=== PATIENT | male | born 1960 | race Caucasian/White ===

== ENCOUNTER 2016-10-27 08:19 | Inpatient (IN) | payer OTHER ==
[2016-10-27] MEDS ORDERED: Sodium Chloride 0.9% 10 ML Syringe FLUSH PRN (08:28)
[2016-10-27] MEDS ORDERED: Lactated Ringers 1,000 ML IV SCH (08:30)
[2016-10-27] MEDS ORDERED: Ondansetron 4 MG/2 ML SDV IVPUSH ONE (08:30)
[2016-10-27] MEDS ORDERED: HYDROmorphone 1 MG/ML Syringe IVPUSH ONE ×2 (08:30→09:50)
--- NOTE | 2016-10-27 08:49 | EDM.PDOC ---
ED HPI GI/ABDOMINAL - General Chief Complaint: Chest Pain Stated Complaint: HURTS WHEN URINATES AND CHEST PAIN Time Seen by Provider: 10/27/16 08:24 Source: Reports: Patient, Family, Old records, RN notes reviewed History Limitations: Reports: No limitations - History of Present Illness INITIAL COMMENTS - FREE TEXT/NARRATIVE: 55-year-old gentleman presents emergency department for a complaint of epigastric abdominal pain he was recently discharged from the hospital on October 22 approximately 11 day admission for SIRS, alcoholic pancreatitis and alcoholic withdrawal. His course was complicated in the hospital by prolonged stay and admission with readmission to the ICU. He states after discharge he was doing well over the last 24 hours he has progressively gotten worse with increasing abdominal pain increasing thirst, shortness of breath diaphoresis and nausea - Related Data Allergies/ADRs: Allergies Allergy/AdvReac Type Severity Reaction Status Date / Time glycopyrrolate [From Robkhanhul] Allergy Seizure Verified 10/27/16 08:24 Iodinated Contrast Media - Allergy Renal Verified 10/27/16 09:28 Oral and Failure sulfamethoxazole Allergy Facial Verified 03/17/14 19:56 [From Septra] Spasms trimethoprim [From Septra] Allergy Facial Verified 03/17/14 19:56 Spasms Home Meds: Home Meds Cetirizine [ZyrTEC] 10 mg PO BEDTIME 03/17/14 [History] Cyclobenzaprine [Flexeril] 20 mg PO ASDIRECTED 03/17/14 [History] Omeprazole 20 mg PO BID 03/17/14 [History] Simvastatin [Zocor] 20 mg PO BEDTIME 03/17/14 [History] Thiamine [Vitamin B-1] 100 mg PO DAILY 03/17/14 [History] Albuterol Sulfate [Proair Respiclick] 2 puff IN Q6HR PRN 10/27/16 [History] Budesonide/Formoterol [Symbicort 160-4.5 MCG] 2 puff IN BID 10/27/16 [History] Lidocaine 5% [Lidoderm 5%] 1 patch TOP DAILY 10/27/16 [History] Losartan [Cozaar] 50 mg PO DAILY 10/27/16 [History] Metoprolol Tartrate [Lopressor] 50 mg PO BID 10/27/16 [History] amLODIPine [Norvasc] 5 mg PO DAILY 10/27/16 [History] rOPINIRole [Requip] 1 mg PO BEDTIME 10/27/16 [History] traMADol [Ultram] 100 mg PO BID 10/27/16 [History] traZODone 50 mg PO BEDTIME 10/27/16 [History] Past Medical History Cardiovascular History: Reports: High cholesterol, Hypertension, Other (see below) Other Cardiovascular History: HAS HAD SINUS TACH IN THE PAST Respiratory History: Reports: COPD, Sleep apnea Gastrointestinal History: Reports: GERD, Hiatal hernia, Pancreatitis Genitourinary History: Reports: Acute renal failure, Other (see below) Other Genitourinary History: PREVIOUS INDWELLING MCALLISTER Musculoskeletal History: Reports: Back pain, chronic, Neck pain, chronic, Osteoarthritis Neurological History: Reports: Concussion - Infectious Disease History Infectious Disease History: Reports: Chicken pox - Past Surgical History GI Surgical History: Reports: Appendectomy, Colonoscopy Social & Family History - Tobacco Use Smoking Status *Q: Former Smoker Years of Tobacco use: 30 - Alcohol Use Alcohol Use History: Yes Number of Drinks Per Day: 10 (beer) Alcohol Use Frequency: Daily - Recreational Drug Use Recreational Drug Use: Yes Recreational Drug Type: Reports: Marijuana/Hashish ED ROS GENERAL - Review of Systems Review Of Systems: See Below Constitutional: Reports: no symptoms HEENT: Reports: No symptoms Respiratory: Reports: Shortness of Breath Cardiovascular: Reports: Chest pain GI/Abdominal: Reports: Nausea : Reports: no symptoms Musculoskeletal: Reports: no symptoms Skin: Reports: no symptoms Neurological: Reports: No Symptoms Psychiatric: Reports: No symptoms ED EXAM, GI/ABD - Physical Exam Exam: See Below Text/Narrative:: General: Male, ill appearing, alert and oriented x3 HEENT: head is atraumatic normocephalic, eyes pupils equal round reactive to light, sclera clear no conjunctivitis appreciated. Ears tympanic membranes clear and mckeon landmarks and light reflex are present bilaterally canals are clear. Nose no septal deviation, nares are clear, no blood present. Mouth mucosa is dry and pink no erythema or exudate noted in soft palate, tongue is midline uvula is midline, dentition is intact. Neck: Supple no thyromegaly no tracheal deviation. Nodes: Cervical nodes subclavicular nodes nontender no palpable lymphadenopathy noted. Lungs: clear to auscultation bilaterally with symmetrical respirations, no adventitious noise appreciated. CV: Regular rate and rhythm S1 and S2 appreciated no murmurs rubs or gallops noted. Abdomen: Soft, tender epigastric region, no palpable masses or organomegaly appreciated, no distention no guarding bowel sounds are present, . Neuro: Cranial nerves II through XII grossly intact Skin: Warm and dry, intact Extremities: No lower extremity edema appreciated. Course - Vital Signs Last Recorded V/S: Last Vital Signs Temp 99.7 F 10/27/16 08:21 Pulse 100 10/27/16 08:21 Resp 22 H 10/27/16 08:21 BP 140/85 10/27/16 08:21 Pulse Ox 92 L 10/27/16 08:21 - Orders/Labs/Meds Orders: Active Orders 24 hr Category Date Time Status Cardiac Monitoring [RC] .As Directed Care 10/27/16 08:28 Active EKG Documentation Completion [RC] ASDIRECTED Care 10/27/16 08:29 Active Peripheral IV Care [RC] . DIRECTED Care 10/27/16 08:28 Active CULTURE BLOOD [BC] Urgent Lab 10/27/16 09:20 Received CULTURE BLOOD [BC] Urgent Lab 10/27/16 09:25 Received Lactated Ringers [Ringers, Lactated] 1,000 ml Med 10/27/16 08:30 Active IV ASDIRECTED Potassium Chloride 20 meq Med 10/27/16 10:00 Active Lidocaine 1% [Xylocaine 1%] 2 ml Sodium Chloride 0.9% [Normal Saline] 100 ml IV Q2H Sodium Chloride 0.9% [Saline Flush] Med 10/27/16 08:28 Active 10 ml FLUSH ASDIRECTED PRN Blood Culture x2 Reflex Set [OM.PC] Urgent Oth 10/27/16 09:15 Ordered Peripheral IV Insertion Adult [OM.PC] Stat Oth 10/27/16 08:28 Ordered EKG 12 Lead [EK] Stat Ther 10/27/16 08:29 Ordered Medication Orders Lactated Ringer's (Ringers, Lactated) 1,000 mls @ 500 mls/hr IV ASDIRECTED DANTE Last Admin: 10/27/16 08:37 Dose: 500 mls/hr Potassium Chloride 20 meq/Lidocaine HCl 2 ml/ Sodium Chloride 112 mls @ 56 mls/ hr IV Q2H DANTE Stop: 10/27/16 13:59 Last Admin: 10/27/16 10:18 Dose: 56 mls/hr Sodium Chloride (Saline Flush) 10 ml FLUSH ASDIRECTED PRN PRN Reason: Keep Vein Open Last Admin: 10/27/16 08:49 Dose: 10 ml Labs: Laboratory Tests 10/27/16 10/27/16 10/27/16 Range/Units 08:35 08:35 08:35 WBC 18.3 H (4.5-11.0) K/uL RBC 3.67 L (4.30-5.90) M/uL Hgb 11.0 L (12.0-15.0) g/dL Hct 35.3 L (40.0-54.0) % MCV 96 (80-98) fL MCH 30 (27-31) pg MCHC 31 L (32-36) % Plt Count 179 (150-400) K/uL Neut % (Auto) 85 H (36-66) % Lymph % (Auto) 6 L (24-44) % [place] % (Auto) 8 H (2-6) % Eos % (Auto) 1 L (2-4) % Baso % (Auto) 0 (0-1) % PT (9.5-12.0) sec INR (0.80-1.20) Sodium 148 (140-148) mmol/L Potassium 2.9 L* (3.6-5.2) mmol/L Chloride 108 (100-108) mmol/L Carbon Dioxide 27 (21-32) mmol/L Anion Gap 15.9 H (5.0-14.0) mmol/L BUN 14 (7-18) mg/dL Creatinine 1.5 H (0.8-1.3) mg/dL Est Cr Clr Drug Dosing 58.81 mL/min Estimated GFR (MDRD) 49 L (>60) Glucose 183 H (74-106) mg/dL Lactic Acid 2.0 (0.4-2.0) mmol/L Calcium 8.2 L (8.5-10.1) mg/dL Total Bilirubin 0.6 (0.2-1.0) mg/dL AST 62 H (15-37) U/L ALT 50 (12-78) U/L Alkaline Phosphatase 162 H (46-116) U/L Ammonia (11-32) mmol/L CK-MB (CK-2) 0.1 (0-3.6) mg/mL Troponin I < 0.017 (0.000-0.056) ng/mL Dol-B-Jzvruewjtfl Pept 84 (5-125) pg/mL Total Protein 7.9 (6.4-8.2) g/dL Albumin 2.2 L (3.4-5.0) g/dL Globulin 5.7 H (2.3-3.5) g/dL Albumin/Globulin Ratio 0.4 L (1.2-2.2) Lipase 3643 H (73-393) U/L Urine Color Urine Appearance Urine pH (4.5-8.0) Ur Specific [place] (1.008-1.030) Urine Protein (NEGATIVE) mg/dL Urine Glucose (UA) (NEGATIVE) mg/dL Urine Ketones (NEGATIVE) mg/dL Urine Occult Blood (NEGATIVE) Urine Nitrite (NEGAITVE) Urine Bilirubin (NEGATIVE) Urine Urobilinogen (NORMAL) mg/dL Ur Leukocyte Esterase (NEGATIVE) Urine RBC (0-5) Urine WBC (0-5) Ur Epithelial Cells Amorphous Sediment Urine Bacteria Urine Mucus Ethyl Alcohol mg/dL 10/27/16 10/27/16 10/27/16 Range/Units 08:35 08:35 08:35 WBC (4.5-11.0) K/uL RBC (4.30-5.90) M/uL Hgb (12.0-15.0) g/dL Hct (40.0-54.0) % MCV (80-98) fL MCH (27-31) pg MCHC (32-36) % Plt Count (150-400) K/uL Neut % (Auto) (36-66) % Lymph % (Auto) (24-44) % Rolette % (Auto) (2-6) % Eos % (Auto) (2-4) % Baso % (Auto) (0-1) % PT 13.4 H (9.5-12.0) sec INR 1.26 H (0.80-1.20) Sodium (140-148) mmol/L Potassium (3.6-5.2) mmol/L Chloride (100-108) mmol/L Carbon Dioxide (21-32) mmol/L Anion Gap (5.0-14.0) mmol/L BUN (7-18) mg/dL Creatinine (0.8-1.3) mg/dL Est Cr Clr Drug Dosing mL/min Estimated GFR (MDRD) (>60) Glucose (74-106) mg/dL Lactic Acid (0.4-2.0) mmol/L Calcium (8.5-10.1) mg/dL Total Bilirubin (0.2-1.0) mg/dL AST (15-37) U/L ALT (12-78) U/L Alkaline Phosphatase (46-116) U/L Ammonia 21 (11-32) mmol/L CK-MB (CK-2) (0-3.6) mg/mL Troponin I (0.000-0.056) ng/mL Cco-[id number]-Ybeahbekuxs Pept (5-125) pg/mL Total Protein (6.4-8.2) g/dL Albumin (3.4-5.0) g/dL Globulin (2.3-3.5) g/dL Albumin/Globulin Ratio (1.2-2.2) Lipase (73-393) U/L Urine Color Urine Appearance Urine pH (4.5-8.0) Ur Specific [place] (1.008-1.030) Urine Protein (NEGATIVE) mg/dL Urine Glucose (UA) (NEGATIVE) mg/dL Urine Ketones (NEGATIVE) mg/dL Urine Occult Blood (NEGATIVE) Urine Nitrite (NEGAITVE) Urine Bilirubin (NEGATIVE) Urine Urobilinogen (NORMAL) mg/dL Ur Leukocyte Esterase (NEGATIVE) Urine RBC (0-5) Urine WBC (0-5) Ur Epithelial Cells Amorphous Sediment Urine Bacteria Urine Mucus Ethyl Alcohol < 3 mg/dL 10/27/16 Range/Units 08:44 WBC (4.5-11.0) K/uL RBC (4.30-5.90) M/uL Hgb (12.0-15.0) g/dL Hct (40.0-54.0) % MCV (80-98) fL MCH (27-31) pg MCHC (32-36) % Plt Count (150-400) K/uL Neut % (Auto) (36-66) % Lymph % (Auto) (24-44) % Ro[place] % (Auto) (2-6) % Eos % (Auto) (2-4) % Baso % (Auto) (0-1) % PT (9.5-12.0) sec INR (0.80-1.20) Sodium (140-148) mmol/L Potassium (3.6-5.2) mmol/L Chloride (100-108) mmol/L Carbon Dioxide (21-32) mmol/L Anion Gap (5.0-14.0) mmol/L BUN (7-18) mg/dL Creatinine (0.8-1.3) mg/dL Est Cr Clr Drug Dosing mL/min Estimated GFR (MDRD) (>60) Glucose (74-106) mg/dL Lactic Acid (0.4-2.0) mmol/L Calcium (8.5-10.1) mg/dL Total Bilirubin (0.2-1.0) mg/dL AST (15-37) U/L ALT (12-78) U/L Alkaline Phosphatase (46-116) U/L Ammonia (11-32) mmol/L CK-MB (CK-2) (0-3.6) mg/mL Troponin I (0.000-0.056) ng/mL Fcy-K-Kayptszkwfd Pept (5-125) pg/mL Total Protein (6.4-8.2) g/dL Albumin (3.4-5.0) g/dL Globulin (2.3-3.5) g/dL Albumin/Globulin Ratio (1.2-2.2) Lipase (73-393) U/L Urine Color Yellow Urine Appearance Slightly cloudy Urine pH 6.0 (4.5-8.0) Ur Specific [place] 1.005 L (1.008-1.030) Urine Protein Negative (NEGATIVE) mg/dL Urine Glucose (UA) Normal (NEGATIVE) mg/dL Urine Ketones Negative (NEGATIVE) mg/dL Urine Occult Blood Negative (NEGATIVE) Urine Nitrite Negative (NEGAITVE) Urine Bilirubin Negative (NEGATIVE) Urine Urobilinogen Normal (NORMAL) mg/dL Ur Leukocyte Esterase Negative (NEGATIVE) Urine RBC Not seen (0-5) Urine WBC 0-5 (0-5) Ur Epithelial Cells Rare Amorphous Sediment Not seen Urine Bacteria Not seen Urine Mucus Rare Ethyl Alcohol mg/dL Meds: Medications Generic Name Dose Route Start Last Admin Trade Name Freq PRN Reason Stop Dose Admin Lactated Ringer's 1,000 mls @ 500 mls/hr 10/27/16 08:30 10/27/16 08:37 Ringers, Lactated IV 500 mls/hr ASDIRECTED DANTE Administration Potassium Chloride 20 meq/ 112 mls @ 56 mls/hr 10/27/16 10:00 10/27/16 10:18 Lidocaine HCl 2 ml/ Sodium IV 10/27/16 13:59 56 mls/hr Chloride Q2H DANTE Administration Sodium Chloride 10 ml 10/27/16 08:28 10/27/16 08:49 Saline Flush FLUSH 10 ml ASDIRECTED PRN Administration Keep Vein Open Discontinued Medications Generic Name Dose Route Start Last Admin Trade Name Freq PRN Reason Stop Dose Admin Hydromorphone HCl 1 mg 10/27/16 08:30 10/27/16 08:48 Dilaudid IVPUSH 10/27/16 08:31 1 mg ONETIME ONE Administration Hydromorphone HCl 1 mg 10/27/16 09:50 10/27/16 10:00 Dilaudid IVPUSH 10/27/16 09:51 1 mg ONETIME ONE Administration Lactated Ringer's 1,000 mls @ 999 mls/hr 10/27/16 10:48 10/27/16 10:49 Ringers, Lactated IV 10/27/16 11:48 999 mls/hr BOLUS ONE Administration Ondansetron HCl 4 mg 10/27/16 08:30 10/27/16 08:48 Zofran IVPUSH 10/27/16 08:31 4 mg ONETIME ONE Administration Departure - Departure Time of Disposition: 12:01 Disposition: Admitted As Inpatient 68 Condition: fair Clinical Impression: Pancreatic pseudocyst Acute pancreatitis Qualifiers: Pancreatitis type: alcohol induced Acute pancreatitis complication: no infection or necrosis Qualified Code(s): K85.20 - Alcohol induced acute pancreatitis without necrosis or infection Forms: ED Department Discharge - My Orders Last 24 Hours: My Active Orders 10/27/16 08:28 Cardiac Monitoring [RC] .As Directed Peripheral IV Care [RC] . DIRECTED Sodium Chloride 0.9% [Saline Flush] 10 ml FLUSH ASDIRECTED PRN Peripheral IV Insertion Adult [OM.PC] Stat 10/27/16 08:29 EKG Documentation Completion [RC] ASDIRECTED EKG 12 Lead [EK] Stat 10/27/16 08:30 Lactated Ringers [Ringers, Lactated] 1,000 ml IV ASDIRECTED 10/27/16 09:15 Blood Culture x2 Reflex Set [OM.PC] Urgent 10/27/16 09:20 CULTURE BLOOD [BC] Urgent 10/27/16 09:25 CULTURE BLOOD [BC] Urgent 10/27/16 10:00 Potassium Chloride 20 meq Lidocaine 1% [Xylocaine 1%] 2 ml Sodium Chloride 0.9 % [Normal Saline] 100 ml IV Q2H - Assessment/Plan Last 24 Hours: My Active Orders 10/27/16 08:28 Cardiac Monitoring [RC] .As Directed Peripheral IV Care [RC] . DIRECTED Sodium Chloride 0.9% [Saline Flush] 10 ml FLUSH ASDIRECTED PRN Peripheral IV Insertion Adult [OM.PC] Stat 10/27/16 08:29 EKG Documentation Completion [RC] ASDIRECTED EKG 12 Lead [EK] Stat 10/27/16 08:30 Lactated Ringers [Ringers, Lactated] 1,000 ml IV ASDIRECTED 10/27/16 09:15 Blood Culture x2 Reflex Set [OM.PC] Urgent 10/27/16 09:20 CULTURE BLOOD [BC] Urgent 10/27/16 09:25 CULTURE BLOOD [BC] Urgent 10/27/16 10:00 Potassium Chloride 20 meq Lidocaine 1% [Xylocaine 1%] 2 ml Sodium Chloride 0.9 % [Normal Saline] 100 ml IV Q2H Plan: Assessment Acuity = acute Site and laterality = peritonitis with pseudocyst complicated patient with history of hypertension, dyslipidemia, chronic obstructive pulmonary disease and alcohol abuse dependence Etiology = secondary alcohol Manifestations = pain Location of injury = home Lab values = WBC elevated to 8.3 consistent leukocytosis hemoglobin low at 1.0 consistent normal chromic anemia INR elevated at 1.26 potassium low at 2.9 consistent with hypokalemia creatinine elevated at 1.5 consistent with acute renal failure stage GIII a troponin is negative albumin low at 2.2 consistent hypoalbuminemia lipase is 3643 consistent with pancreatitis alcohol was negative CT scan shows multiple pseudocysts largest in detail at 4.9 cm Plan called and discussed the case with gastroenterology bonding machine tender [facility] recommended supportive care at this time repeat CT scan in 2 weeks for reevaluation of pseudocysts, discussed case with hospitalist bonding machine tender he agreed to come and evaluate the patient in the ED for admission Patient was in agreement with the plan all questions were answered, This note was dictated using [employer] voice recognition software please call with any questions.
[2016-10-27] MEDS ORDERED: Potassium Chloride 40 MEQ in Premix Bag 1 BAG IV ONE (09:24)
--- NOTE | 2016-10-27 09:41 | CR ---
Chest 1V Frontal HISTORY: Chest pain FINDINGS: Cardiac size and pulmonary vessels are normal. Probable hiatal hernia. Diffuse infiltrate right lower lobe. Linear subsegmental atelectatic change left lung base. Impression: Right lung base infiltrate.
[2016-10-27] MEDS: Potassium Chloride 20 MEQ, Lidocaine 1% 2 ML in Sodium Chloride 0.9% 100 ML IV SCH ×4 (10:18→20:19)
[2016-10-27] MEDS ORDERED: Lactated Ringers 1,000 ML IV ONE (10:48)
--- NOTE | 2016-10-27 11:09 | CT ---
Chest Abdomen Pelvis wo Cont HISTORY: Pancreatitis. Patient was recently discharged from [facility]. Dose: Total DLP 1217. COMPARISON: Prior CT scan 10/22/2016 from [facility] FINDINGS: There is some very minimal ill-defined densities in the posterior aspect of the right uppe r lobe and the superior and inferior aspect of the right lower lobe as well as the left lower lobe. These mixed infiltrates are improved from the outside study only a few days ago. Moderate size hiata l hernia. There is some inflammatory changes around the pancreatic tail compatible with pancreatitis. The fat planes adjacent to the pancreatic body and pancreatic head appear improved from the prior outside st udy. In the interval there is now multiple areas of pseudocyst formation around the pancreas. Just i nferior to the pancreatic body is a pseudocyst measuring 3.9 cm image 131. Additional pseudocyst for mation anterior to the body the pancreas measuring 3.4 cm image 114 and adjacent to the pancreatic t ail 4.3 cm image 114. Additional smaller pseudocyst formation adjacent to the pancreatic tail measur ing less than 3 cm. There is diffuse fatty infiltration the liver. No focal liver lesions seen. The spleen, adrenal glan ds and kidneys are unremarkable no bowel obstruction. The pelvis appears unremarkable. Impression: 1. Patient had prior CT scan from [place] which was reviewed on [employer] by myself. The infiltrates withi n the lungs have markedly improved from the outside study. The inflammatory changes around the pancr eas has also improved from the prior study. In the interval there has been now new pancreatic pseudo cyst formation.
--- NOTE | 2016-10-27 12:28 | PCM.HP ---
H&P History of Present Illness - General Date of Service: 10/27/16 Admit Problem/Dx: Admission Diagnosis/Problem Admission Diagnosis/Problem Pancreatitis Source of Information: Patient, Family, Provider History Limitations: Reports: No limitations - History of Present Illness Initial Comments - Free Text/Narative: Armando presents to the emergency room today with 24 hours of abdominal pain. He was recently admitted to [facility] the [facility] for approximately 2 weeks for management of acute pancreatitis. He was discharged several days prior to admission and felt well for the first few days. Yesterday morning he developed cramping pressure-like pain in the upper abdomen and lower chest. This was initially mild but progressed to the point that it was moderately severe throughout the day. He had tramadol at home but this did not help much. He had some associated nausea but no vomiting or diarrhea. Trying to eat make the pain worse and he has not had much to eat in the last 24 hours. Fluids and seemed to go okay. He has had subjective fevers but no chills but has not measured his temperature. the pain feels similar to his increased and his pain from 2 weeks ago. No complaints of shortness of breath. He does have a very mild dry cough. Workup in the emergency room has revealed evidence for pancreatitis based on laboratory studies. He has for pancreatic pseudocyst measuring between 3 and 4 cm which are new in the last 10 days. The case was discussed with gastroenterology in [place] and they recommended conservative management with n.p.o. status and IV fluids along with pain control and symptom management. abdominal Pain Score (Numeric/FACES): 8 - Related Data Allergies/Adverse Reactions: Allergies Allergy/AdvReac Type Severity Reaction Status Date / Time glycopyrrolate [From Robkhanhul] Allergy Seizure Verified 10/27/16 08:24 Iodinated Contrast Media - Allergy Renal Verified 10/27/16 09:28 Oral and Failure sulfamethoxazole Allergy Facial Verified 03/17/14 19:56 [From ] Spasms trimethoprim [From ] Allergy Facial Verified 03/17/14 19:56 Spasms Home Medications: Home Meds Cetirizine [ZyrTEC] 10 mg PO BEDTIME 03/17/14 [History] Cyclobenzaprine [Flexeril] 20 mg PO ASDIRECTED 03/17/14 [History] Omeprazole 20 mg PO BID 03/17/14 [History] Simvastatin [Zocor] 20 mg PO BEDTIME 03/17/14 [History] Thiamine [Vitamin B-1] 100 mg PO DAILY 03/17/14 [History] Albuterol Sulfate [Proair Respiclick] 2 puff IN Q6HR PRN 10/27/16 [History] Budesonide/Formoterol [Symbicort 160-4.5 MCG] 2 puff IN BID 10/27/16 [History] Lidocaine 5% [Lidoderm 5%] 1 patch TOP DAILY 10/27/16 [History] Losartan [Cozaar] 50 mg PO DAILY 10/27/16 [History] Metoprolol Tartrate [Lopressor] 50 mg PO BID 10/27/16 [History] amLODIPine [Norvasc] 5 mg PO DAILY 10/27/16 [History] rOPINIRole [Requip] 1 mg PO BEDTIME 10/27/16 [History] traMADol [Ultram] 100 mg PO BID 10/27/16 [History] traZODone 50 mg PO BEDTIME 10/27/16 [History] Past Medical History Cardiovascular History: Reports: High cholesterol, Hypertension, Other (see below) Other Cardiovascular History: HAS HAD SINUS TACH IN THE PAST Respiratory History: Reports: COPD, Sleep apnea Gastrointestinal History: Reports: GERD, Hiatal hernia, Pancreatitis Genitourinary History: Reports: Acute renal failure, Other (see below) Other Genitourinary History: PREVIOUS INDWELLING MCALLISTER Musculoskeletal History: Reports: Back pain, chronic, Neck pain, chronic, Osteoarthritis Neurological History: Reports: Concussion - Infectious Disease History Infectious Disease History: Reports: Chicken pox - Past Surgical History GI Surgical History: Reports: Appendectomy, Colonoscopy Social & Family History - Family History GI: Reports: Pancreatitis (father and brother) - Tobacco Use Smoking Status *Q: Former Smoker Years of Tobacco use: 30 - Caffeine Use Caffeine Use: Reports: None - Alcohol Use Number of Drinks Per Day: 10 (beer) - Recreational Drug Use Recreational Drug Use: Yes Recreational Drug Type: Reports: Marijuana/Hashish H&P Review of Systems - Review of Systems: Review Of Systems: See Below Free Text/Narrative: A complete 12 point review of systems was obtained. Pertinent positives and negatives are noted in the history of present illness. All other systems were reviewed and were negative except as noted. Exam - Exam Exam: See Below - Vital Signs Vital Signs: Last Vital Signs Temp 37.6 C 10/27/16 08:21 Pulse 100 10/27/16 08:21 Resp 22 H 10/27/16 08:21 BP 140/85 10/27/16 08:21 Pulse Ox 92 L 10/27/16 08:21 Weight: 99.79 kg - Exam Quality Assessment: supplemental oxygen. No: urinary catheter General: alert, oriented, cooperative, mild distress HEENT: Conjunctiva clear, Normal nasal septum, Posterior pharynx clear. No: Mucosa moist & pink (dry), Scleral icterus Neck: supple, trachea midline. No: lymphadenopathy, thyromegaly Lungs: Clear to auscultation, Normal respiratory effort Cardiovascular: regular rhythm, normal S1, normal S2, tachycardia Abdomen: distention, tenderness (moderate diffuse), hypoactive bowel sounds. No : soft, mass Back Exam: normal inspection Extremities: normal inspection, normal pulses. No: cyanosis, edema Peripheral Pulses: 2+: dorsalis pedis (L), dorsalis pedis (R) Skin: warm, dry, intact Neuro Extensive - Mental Status: alert, oriented x3, nl response to commands Neuro Extensive - Motor, Sensory, Reflexes: CN II-XII intact. No: dysarthria, abnormal motor, tremor Psychiatric: alert, normal affect - Patient Data Lab Results last 24 hrs: Laboratory Results - last 24 hr 10/27/16 10/27/16 10/27/16 Range/Units 08:35 08:35 08:35 WBC 18.3 H (4.5-11.0) K/uL RBC 3.67 L (4.30-5.90) M/uL Hgb 11.0 L (12.0-15.0) g/dL Hct 35.3 L (40.0-54.0) % MCV 96 (80-98) fL MCH 30 (27-31) pg MCHC 31 L (32-36) % Plt Count 179 (150-400) K/uL Neut % (Auto) 85 H (36-66) % Lymph % (Auto) 6 L (24-44) % Wirt % (Auto) 8 H (2-6) % Eos % (Auto) 1 L (2-4) % Baso % (Auto) 0 (0-1) % PT (9.5-12.0) sec INR (0.80-1.20) Sodium 148 (140-148) mmol/L Potassium 2.9 L* (3.6-5.2) mmol/L Chloride 108 (100-108) mmol/L Carbon Dioxide 27 (21-32) mmol/L Anion Gap 15.9 H (5.0-14.0) mmol/L BUN 14 (7-18) mg/dL Creatinine 1.5 H (0.8-1.3) mg/dL Est Cr Clr Drug Dosing 58.81 mL/min Estimated GFR (MDRD) 49 L (>60) Glucose 183 H (74-106) mg/dL Lactic Acid 2.0 (0.4-2.0) mmol/L Calcium 8.2 L (8.5-10.1) mg/dL Total Bilirubin 0.6 (0.2-1.0) mg/dL AST 62 H (15-37) U/L ALT 50 (12-78) U/L Alkaline Phosphatase 162 H (46-116) U/L Ammonia (11-32) mmol/L CK-MB (CK-2) 0.1 (0-3.6) mg/mL Troponin I < 0.017 (0.000-0.056) ng/mL Hig-N-Ipxokszvltx Pept 84 (5-125) pg/mL Total Protein 7.9 (6.4-8.2) g/dL Albumin 2.2 L (3.4-5.0) g/dL Globulin 5.7 H (2.3-3.5) g/dL Albumin/Globulin Ratio 0.4 L (1.2-2.2) Lipase 3643 H (73-393) U/L Urine Color Urine Appearance Urine pH (4.5-8.0) Ur Specific [place] (1.008-1.030) Urine Protein (NEGATIVE) mg/dL Urine Glucose (UA) (NEGATIVE) mg/dL Urine Ketones (NEGATIVE) mg/dL Urine Occult Blood (NEGATIVE) Urine Nitrite (NEGAITVE) Urine Bilirubin (NEGATIVE) Urine Urobilinogen (NORMAL) mg/dL Ur Leukocyte Esterase (NEGATIVE) Urine RBC (0-5) Urine WBC (0-5) Ur Epithelial Cells Amorphous Sediment Urine Bacteria Urine Mucus Ethyl Alcohol mg/dL 10/27/16 10/27/1610/27/17 Range/Units 08:35 08:35 08:35 WBC (4.5-11.0) K/uL RBC (4.30-5.90) M/uL Hgb (12.0-15.0) g/dL Hct (40.0-54.0) % MCV (80-98) fL MCH (27-31) pg MCHC (32-36) % Plt Count (150-400) K/uL Neut % (Auto) (36-66) % Lymph % (Auto) (24-44) % Wirt % (Auto) (2-6) % Eos % (Auto) (2-4) % Baso % (Auto) (0-1) % PT 13.4 H (9.5-12.0) sec INR 1.26 H (0.80-1.20) Sodium (140-148) mmol/L Potassium (3.6-5.2) mmol/L Chloride (100-108) mmol/L Carbon Dioxide (21-32) mmol/L Anion Gap (5.0-14.0) mmol/L BUN (7-18) mg/dL Creatinine (0.8-1.3) mg/dL Est Cr Clr Drug Dosing mL/min Estimated GFR (MDRD) (>60) Glucose (74-106) mg/dL Lactic Acid (0.4-2.0) mmol/L Calcium (8.5-10.1) mg/dL Total Bilirubin (0.2-1.0) mg/dL AST (15-37) U/L ALT (12-78) U/L Alkaline Phosphatase (46-116) U/L Ammonia 21 (11-32) mmol/L CK-MB (CK-2) (0-3.6) mg/mL Troponin I (0.000-0.056) ng/mL Pln-G-Ausrortredh Pept (5-125) pg/mL Total Protein (6.4-8.2) g/dL Albumin (3.4-5.0) g/dL Globulin (2.3-3.5) g/dL Albumin/Globulin Ratio (1.2-2.2) Lipase (73-393) U/L Urine Color Urine Appearance Urine pH (4.5-8.0) Ur Specific [place] (1.008-1.030) Urine Protein (NEGATIVE) mg/dL Urine Glucose (UA) (NEGATIVE) mg/dL Urine Ketones (NEGATIVE) mg/dL Urine Occult Blood (NEGATIVE) Urine Nitrite (NEGAITVE) Urine Bilirubin (NEGATIVE) Urine Urobilinogen (NORMAL) mg/dL Ur Leukocyte Esterase (NEGATIVE) Urine RBC (0-5) Urine WBC (0-5) Ur Epithelial Cells Amorphous Sediment Urine Bacteria Urine Mucus Ethyl Alcohol < 3 mg/dL 10/27/16 Range/Units 08:44 WBC (4.5-11.0) K/uL RBC (4.30-5.90) M/uL Hgb (12.0-15.0) g/dL Hct (40.0-54.0) % MCV (80-98) fL MCH (27-31) pg MCHC (32-36) % Plt Count (150-400) K/uL Neut % (Auto) (36-66) % Lymph % (Auto) (24-44) % Wirt % (Auto) (2-6) % Eos % (Auto) (2-4) % Baso % (Auto) (0-1) % PT (9.5-12.0) sec INR (0.80-1.20) Sodium (140-148) mmol/L Potassium (3.6-5.2) mmol/L Chloride (100-108) mmol/L Carbon Dioxide (21-32) mmol/L Anion Gap (5.0-14.0) mmol/L BUN (7-18) mg/dL Creatinine (0.8-1.3) mg/dL Est Cr Clr Drug Dosing mL/min Estimated GFR (MDRD) (>60) Glucose (74-106) mg/dL Lactic Acid (0.4-2.0) mmol/L Calcium (8.5-10.1) mg/dL Total Bilirubin (0.2-1.0) mg/dL AST (15-37) U/L ALT (12-78) U/L Alkaline Phosphatase (46-116) U/L Ammonia (11-32) mmol/L CK-MB (CK-2) (0-3.6) mg/mL Troponin I (0.000-0.056) ng/mL Cio-E-Yswwlrimfwg Pept (5-125) pg/mL Total Protein (6.4-8.2) g/dL Albumin (3.4-5.0) g/dL Globulin (2.3-3.5) g/dL Albumin/Globulin Ratio (1.2-2.2) Lipase (73-393) U/L Urine Color Yellow Urine Appearance Slightly cloudy Urine pH 6.0 (4.5-8.0) Ur Specific [place] 1.005 L (1.008-1.030) Urine Protein Negative (NEGATIVE) mg/dL Urine Glucose (UA) Normal (NEGATIVE) mg/dL Urine Ketones Negative (NEGATIVE) mg/dL Urine Occult Blood Negative (NEGATIVE) Urine Nitrite Negative (NEGAITVE) Urine Bilirubin Negative (NEGATIVE) Urine Urobilinogen Normal (NORMAL) mg/dL Ur Leukocyte Esterase Negative (NEGATIVE) Urine RBC Not seen (0-5) Urine WBC 0-5 (0-5) Ur Epithelial Cells Rare Amorphous Sediment Not seen Urine Bacteria Not seen Urine Mucus Rare Ethyl Alcohol mg/dL Result Diagrams: 10/27/16 08:35 10/27/16 08:35 Imaging Impressions last 24 hrs: CT chest/abdomen/pelvis - images personally reviewed - small resolving right lower lung infiltrate noted in the chest. Abdomen reveals for pancreatic pseudocyst measuring anywhere between 3 and 4 cm. Minimal peripancreatic fluid. EKG INTERPRETATION EKG Date: 10/27/16 Rhythm: NSR [place]: normal P-wave: present QRS: normal ST-T: normal QT: normal *Q Meaningful Use (ADM) - VTE *Q VTE Criteria *Q: - Stroke *Q Stroke Criteria *Q: - AMI *Q AMI Criteria *Q: - Problem List (1) Pancreatic pseudocyst SNOMED Code(s): 622184038 ICD Code: K86.3 - PSEUDOCYST OF PANCREAS Status: Acute Current Visit: Yes (2) Acute pancreatitis SNOMED Code(s): 084755518 ICD Code: K85.90 - ACUTE PANCREATITIS WITHOUT NECROSIS OR INFECTION, UNSP Status: Acute Current Visit: Yes Qualifiers: Pancreatitis type: alcohol induced Acute pancreatitis complication: no infection or necrosis Qualified Code(s): K85.20 - Alcohol induced acute pancreatitis without necrosis or infection Problem List Initiated/Reviewed/Updated: Yes Orders Last 24hrs: Active Orders 24 hr Category Date Time Status Patient Status Manage Transfer [TRANSFER] Routine ADT 10/27/16 12:18 Ordered Cardiac Monitoring [RC] .As Directed Care 10/27/16 08:28 Active EKG Documentation Completion [RC] ASDIRECTED Care 10/27/16 08:29 Active Peripheral IV Care [RC] . DIRECTED Care 10/27/16 08:28 Active CULTURE BLOOD [BC] Urgent Lab 10/27/16 09:20 Received CULTURE BLOOD [BC] Urgent Lab 10/27/16 09:25 Received Acetaminophen [Tylenol] Med 10/27/16 12:17 Active 650 mg PO Q4H PRN HYDROmorphone [Dilaudid] Med 10/27/16 12:16 Active 1 mg IVPUSH Q1H PRN Lactated Ringers [Ringers, Lactated] 1,000 ml Med 10/27/16 08:30 Active IV ASDIRECTED NS + KCl 20mEq/L [Normal Saline with 20 mEq KCl] 1,000 Med 10/27/16 12:30 Active ml IV ASDIRECTED Potassium Chloride 20 meq Med 10/27/16 10:00 Active Lidocaine 1% [Xylocaine 1%] 2 ml Sodium Chloride 0.9% [Normal Saline] 100 ml IV Q2H Sodium Chloride 0.9% [Saline Flush] Med 10/27/16 08:28 Active 10 ml FLUSH ASDIRECTED PRN Blood Culture x2 Reflex Set [OM.PC] Urgent Oth 10/27/16 09:15 Ordered Peripheral IV Insertion Adult [OM.PC] Stat Oth 10/27/16 08:28 Ordered Resuscitation Status Routine Resus Stat 10/27/16 12:21 Ordered EKG 12 Lead [EK] Stat Ther 10/27/16 08:29 Ordered Medication Orders Acetaminophen (Tylenol) 650 mg PO Q4H PRN PRN Reason: Pain/Fever Hydromorphone HCl (Dilaudid) 1 mg IVPUSH Q1H PRN PRN Reason: Pain (severe 7-10) Lactated Ringer's (Ringers, Lactated) 1,000 mls @ 500 mls/hr IV ASDIRECTED DANTE Last Admin: 10/27/16 08:37 Dose: 500 mls/hr Potassium Chloride 20 meq/Lidocaine HCl 2 ml/ Sodium Chloride 112 mls @ 56 mls/ hr IV Q2H DANTE Stop: 10/27/16 13:59 Last Admin: 10/27/16 10:18 Dose: 56 mls/hr Potassium Chloride/Sodium Chloride (Normal Saline With 20 Meq Kcl) 1,000 mls @ 150 mls/hr IV ASDIRECTED DANTE Sodium Chloride (Saline Flush) 10 ml FLUSH ASDIRECTED PRN PRN Reason: Keep Vein Open Last Admin: 10/27/16 08:49 Dose: 10 ml Assessment/Plan Comment:: Assessment and Plan - Acute pancreatitis complicated by pseudocyst formation - recent prolonged admission for pancreatitis but had been doing clinically better. CT scan today revealed multiple pseudocysts. No strong evidence to suggest infection at this time and no strong clinical indication for intervention on this is at this time. Planning conservative and symptomatic management initially. Suspect abnormal ductal anatomy with recent pancreatitis leading to pseudocyst formation. -N.p.o. status -IV fluids -Pain management -Repeat labs in the morning -Consider antibiotics if patient has temperature elevations or pain worsens Hypokalemia - probably related to poor oral intake over the past 24 hours. He has received some replacement in the emergency room. -Supplement and recheck this evening Hypertension - usual medications will be continued unless blood pressure trends down. Hx of alcohol dependence - no alcohol use in the past 3 weeks. No history of alcohol withdrawal though there was some concern about delirium while he was hospitalized recently. -Monitor but I doubt that he will experience alcohol withdrawal Maintenance issues - - DVT prophylaxis - heparin - GI prophylaxis - PPI - Nutrition - n.p.o. with a few ice chips - Mcallister catheter - not indicated CODE STATUS - full code Admission justification - This patient will be admitted for inpatient services and is medically appropriate meeting medical necessity for inpatient admission as outlined in my documentation. I reasonably expect the patient will require inpatient services that span a period time over 2 midnights. I reasonably expect this patient to be discharged or transferred within 96 hours [facility]. Disposition - anticipate discharge to home after the hospital stay Primary care physician - [facility] Drew Dimas M.D.
[2016-10-27] MEDS: HYDROmorphone 1 MG/ML Syringe IVPUSH PRN ×5 (13:07→23:59)
[2016-10-27] MEDS ORDERED: Magnesium Hydroxide 400 MG/5 ML Susp 30 ML Cup PO PRN (14:01)
[2016-10-27] MEDS ORDERED: Ondansetron 4 MG Tab.DIS PO PRN (14:01)
[2016-10-27] MEDS ORDERED: Albuterol 0.083% 2.5 MG/3 ML Neb Soln NEB PRN (14:01)
[2016-10-27] MEDS ORDERED: Ondansetron 4 MG/2 ML SDV IV PRN (14:01)
[2016-10-27] MEDS ORDERED: Polyethylene Glycol 3350 Powder 17 GM Packet PO PRN (14:01)
[2016-10-27] MEDS ORDERED: NS + KCl 20mEq/L 1,000 ML ONE (14:06)
[2016-10-27] MEDS: NS + KCl 20mEq/L 1,000 ML IV SCH ×2 (14:08→21:30)
[2016-10-27] MEDS: LORazepam 2 MG/ML MDV IVPUSH PRN ×2 (15:39→23:58)
[2016-10-27] MEDS: Pantoprazole 40 MG Vial IV SCH (15:43)
[2016-10-27] MEDS: Acetaminophen 325 MG Tab PO PRN (17:52)
[2016-10-27] MEDS ORDERED: Potassium Chloride 100 ML ONE ×2 (18:04→18:05)
[2016-10-27] MEDS ORDERED: Sodium Chloride 0.9% 500 ML IV ONE ×2 (18:24→19:42)
[2016-10-27] MEDS: Formoterol/Mometasone 200-5 MCG 8.8 GM Inhaler IH SCH (21:07)
[2016-10-27] MEDS: Metoprolol Tartrate 50 MG Tab PO SCH (21:07)
[2016-10-27] MEDS: Heparin Sodium 5,000 Units/ML Vial SUBCUT SCH (21:07)
[2016-10-27] MEDS: rOPINIRole 1 MG Tab PO SCH (21:08)
[2016-10-27] MEDS: traZODone 50 MG Tab PO SCH (21:14)
[2016-10-27] MEDS: Lidocaine 5% 700 MG Patch TOP SCH (21:37)
[2016-10-28] MEDS: HYDROmorphone 1 MG/ML Syringe IVPUSH PRN ×4 (03:17→21:55)
[2016-10-28] MEDS: LORazepam 2 MG/ML MDV IVPUSH PRN (04:03)
[2016-10-28] MEDS: Acetaminophen 325 MG Tab PO PRN ×4 (04:12→22:15)
[2016-10-28] MEDS: NS + KCl 20mEq/L 1,000 ML IV SCH (04:15)
[2016-10-28] MEDS ORDERED: Haloperidol Lactate 5 MG/ML SDV IVPUSH ONE (04:33)
[2016-10-28] MEDS ORDERED: LORazepam 2 MG/ML MDV IVPUSH PRN (04:34)
[2016-10-28] MEDS ORDERED: Dextrose 5% in Water 1,000 ML IV SCH ×2 (06:45→12:35)
[2016-10-28] MEDS: Formoterol/Mometasone 200-5 MCG 8.8 GM Inhaler IH SCH ×2 (07:28→20:01)
[2016-10-28] MEDS ORDERED: Promethazine 12.5 MG in Sodium Chloride 0.9% 50 ML IV PRN (08:07)
[2016-10-28] MEDS ORDERED: Haloperidol Lactate 5 MG/ML SDV IVPUSH PRN (08:08)
--- NOTE | 2016-10-28 08:29 | PCM.PN ---
- General Info Date of Service: 10/28/16 Functional Status: Reports: pain controlled. Denies: ambulating - Review of Systems General: Reports: Fever, Weakness Gastrointestinal: Reports: Abdominal pain. Denies: Vomiting Neurological: Reports: Confusion Psychiatric: Reports: agitation Systems Review Comment:: Overnight patient had difficulty with both fever and significant confusion/ agitation. He did require restraints for a little while. This morning he seems more clear. We're suspicious this was caused by the lorazepam and he had a paradoxical reaction. His abdominal pain has increased because his pain medications have been held for a while with concern it may be contributing to the confusion. He was febrile overnight and antibiotics were initiated this morning. Lipase level has improved. Abdominal pain is stable. No nausea or vomiting. Sodium level has risen since admission. - Patient Data Vitals - most recent: Last Vital Signs Temp 37.4 C 10/28/16 08:00 Pulse 128 H 10/28/16 08:00 Resp 29 H 10/28/16 08:00 BP 170/79 H 10/28/16 08:00 Pulse Ox 93 L 10/28/16 08:00 Weight - most recent: 99.79 kg I&O - last 24 hours: Intake & Output 10/27/16 10/28/16 10/28/16 22:59 06:59 14:59 Intake Total 2520 2887 Output Total 1700 2075 Balance 820 812 Lab Results last 24 hrs: Laboratory Results - last 24 hr 10/27/16 10/28/16 10/28/16 Range/Units 15:00 05:03 05:11 WBC 22.0 H (4.5-11.0) K/uL RBC 3.43 L (4.30-5.90) M/uL Hgb 10.4 L (12.0-15.0) g/dL Hct 34.2 L (40.0-54.0) % MCV 100 H (80-98) fL MCH 30 (27-31) pg MCHC 30 L (32-36) % Plt Count 195 (150-400) K/uL Sodium 166 H* (140-148) mmol/L Potassium 3.3 L 3.6 (3.6-5.2) mmol/L Chloride 129 H (100-108) mmol/L Carbon Dioxide 26 (21-32) mmol/L Anion Gap 14.6 H (5.0-14.0) mmol/L BUN 12 (7-18) mg/dL Creatinine 1.4 H (0.8-1.3) mg/dL Est Cr Clr Drug Dosing 63.01 mL/min Estimated GFR (MDRD) 53 L (>60) Glucose 169 H (74-106) mg/dL Calcium 8.4 L (8.5-10.1) mg/dL Magnesium 1.9 (1.8-2.4) mg/dL Total Bilirubin 0.6 (0.2-1.0) mg/dL AST 31 (15-37) U/L ALT 38 (12-78) U/L Alkaline Phosphatase 143 H (46-116) U/L Total Protein 7.8 (6.4-8.2) g/dL Albumin 2.1 L (3.4-5.0) g/dL Globulin 5.7 H (2.3-3.5) g/dL Albumin/Globulin Ratio 0.4 L (1.2-2.2) Lipase 639 H (73-393) U/L Med Orders - Current: Current Medications Acetaminophen (Tylenol) 650 mg PO Q4H PRN PRN Reason: Pain/Fever Last Admin: 10/28/16 04:12 Dose: 650 mg Albuterol (Proventil Neb Soln) 2.5 mg NEB Q4H PRN PRN Reason: Shortness Of Breath/wheezing Amlodipine Besylate (Norvasc) 5 mg PO DAILY [facility] Haloperidol Lactate (Haldol) 5 mg IVPUSH Q4H PRN PRN Reason: Agitation Heparin Sodium (Porcine) (Heparin Sodium) 5,000 units SUBCUT Q12H [facility] Last Admin: 10/27/16 21:07 Dose: 5,000 units Hydromorphone HCl (Dilaudid) 1 mg IVPUSH Q1H PRN PRN Reason: Pain (severe 7-10) Last Admin: 10/28/16 03:17 Dose: 1 mg Dextrose/Water (Dextrose 5% In Water) 1,000 mls @ 125 mls/hr IV ASDIRECTED [facility] Last Admin: 10/28/16 06:39 Dose: 125 mls/hr Piperacillin Sod/Tazobactam (Sod 3.375 gm/ Sodium Chloride) 50 mls @ 100 mls/ hr IV Q6H [facility] Promethazine HCl 12.5 mg/ (Sodium Chloride) 50.5 mls @ 200 mls/hr IV Q6H PRN PRN Reason: Nausea/Vomiting Insulin Aspart (Novolog) 0 unit SUBCUT Q6HR [facility] PRN Reason: Protocol Lidocaine (Lidoderm 5%) 700 mg TOP BEDTIME [facility] Last Admin: 10/27/16 21:37 Dose: 700 mg Losartan Potassium (Cozaar) 50 mg PO DAILY [facility] Magnesium Hydroxide (Milk Of Magnesia) 30 ml PO BID PRN PRN Reason: Constipation Metoprolol Tartrate (Lopressor) 50 mg PO BID [facility] Last Admin: 10/27/16 21:07 Dose: 50 mg Miscellaneous Information (Remove Patch) 1 ea TRDERM DAILY [facility] Mometasone Furoate/Formoterol Fumar (Dulera 200-5 Mcg) 2 puff IH BIDRT [facility] Last Admin: 10/28/16 07:28 Dose: 2 puff Ondansetron HCl (Zofran Odt) 4 mg PO Q6H PRN PRN Reason: Nausea able to take PO Ondansetron HCl (Zofran) 4 mg IV Q6H PRN PRN Reason: Nausea/Vomiting Pantoprazole Sodium (Protonix Iv) 40 mg IV Q24H [facility] Last Admin: 10/27/16 15:43 Dose: 40 mg Polyethylene Glycol (Miralax) 17 gm PO DAILY PRN PRN Reason: Constipation Ropinirole HCl (Requip) 1 mg PO BEDTIME [facility] Last Admin: 10/27/16 21:08 Dose: 1 mg Sodium Chloride (Saline Flush) 10 ml FLUSH ASDIRECTED PRN PRN Reason: Keep Vein Open Last Admin: 10/27/16 08:49 Dose: 10 ml Thiamine HCl (Vitamin B-1) 100 mg PO DAILY [facility] Trazodone HCl (Trazodone) 50 mg PO BEDTIME [facility] Last Admin: 10/27/16 21:14 Dose: 50 mg Discontinued Medications Haloperidol Lactate (Haldol) 10 mg IVPUSH ONETIME ONE Stop: 10/28/16 04:34 Last Admin: 10/28/16 04:56 Dose: 10 mg Hydromorphone HCl (Dilaudid) 1 mg IVPUSH ONETIME ONE Stop: 10/27/16 08:31 Last Admin: 10/27/16 08:48 Dose: 1 mg Hydromorphone HCl (Dilaudid) 1 mg IVPUSH ONETIME ONE Stop: 10/27/16 09:51 Last Admin: 10/27/16 10:00 Dose: 1 mg Lactated Ringer's (Ringers, Lactated) 1,000 mls @ 500 mls/hr IV ASDIRECTED [facility] Last Admin: 10/27/16 08:37 Dose: 500 mls/hr Potassium Chloride 20 meq/Lidocaine HCl 2 ml/ Sodium Chloride 112 mls @ 56 mls/ hr IV Q2H [facility] Stop: 10/27/16 13:59 Last Admin: 10/27/16 12:32 Dose: 56 mls/hr Lactated Ringer's (Ringers, Lactated) 1,000 mls @ 999 mls/hr IV BOLUS ONE Stop: 10/27/16 11:48 Last Admin: 10/27/16 10:49 Dose: 999 mls/hr Potassium Chloride/Sodium Chloride (Normal Saline With 20 Meq Kcl) 1,000 mls @ 150 mls/hr IV ASDIRECTED [facility] Last Admin: 10/28/16 04:15 Dose: 150 mls/hr Potassium Chloride/Sodium Chloride (Normal Saline With 20 Meq Kcl) Confirm Administered Dose 1,000 mls @ as directed .ROUTE .ST-MED ONE Stop: 10/27/16 14:07 Last Admin: 10/27/16 15:00 Dose: Not Given Potassium Chloride 20 meq/Lidocaine HCl 2 ml/ Sodium Chloride 112 mls @ 50 mls/ hr IV Q2H [facility] Stop: 10/27/16 21:44 Last Admin: 10/27/16 20:19 Dose: 50 mls/hr Potassium Chloride (Kcl 20 Meq In Water 100 Ml) Confirm Administered Dose 100 mls @ as directed .ROUTE .STK-MED ONE Stop: 10/27/16 18:05 Last Admin: 10/27/16 18:12 Dose: Not Given Potassium Chloride (Kcl 20 Meq In Water 100 Ml) Confirm Administered Dose 100 mls @ as directed .ROUTE .STK-MED ONE Stop: 10/27/16 18:06 Last Admin: 10/27/16 18:12 Dose: Not Given Sodium Chloride (Normal Saline) 500 mls @ 999 mls/hr IV .BOLUS ONE Stop: 10/27/16 18:54 Last Admin: 10/27/16 18:31 Dose: 999 mls/hr Sodium Chloride (Normal Saline) 500 mls @ 500 mls/hr IV .BOLUS ONE Stop: 10/27/16 20:41 Last Admin: 10/27/16 19:58 Dose: 500 mls/hr Lidocaine (Lidoderm 5%) 700 mg TOP DAILY [facility] Lidocaine HCl (Xylocaine-Mpf 1%) 2 ml INJECT ONETIME ONE Stop: 10/27/16 21:33 Last Admin: 10/27/16 21:44 Dose: 2 ml Lorazepam (Ativan) 0.5 - 1 mg IVPUSH Q4H PRN PRN Reason: Nausea/Vomiting Last Admin: 10/28/16 04:03 Dose: 1 mg Lorazepam (Ativan) 1 - 2 mg IVPUSH Q2H PRN PRN Reason: Agitation Miscellaneous Information (Remove Patch) 1 ea TRDERM BEDTIME [facility] Ondansetron HCl (Zofran) 4 mg IVPUSH ONETIME ONE Stop: 10/27/16 08:31 Last Admin: 10/27/16 08:48 Dose: 4 mg - Exam Quality Assessment: supplemental oxygen. No: urine catheter General: alert, oriented, cooperative, no acute distress HEENT: Pupils equal. No: Scleral icterus Neck: supple, trachea midline Lungs: Clear to auscultation, Normal respiratory effort Cardiovascular: Regular Rhythm, Tachycardia Abdomen: bowel sounds present, tenderness, distension Extremities: no edema, normal pulses Peripheral Pulses: 2+: dorsalis pedis (L), dorsalis pedis (R) Skin: warm, dry Psy/Mental Status: alert, anxious - Problem List & Annotations (1) Pancreatic pseudocyst SNOMED Code(s): 346294939 Code(s): K86.3 - PSEUDOCYST OF PANCREAS Status: Acute Current Visit: Yes (2) Acute pancreatitis SNOMED Code(s): 374804491 Code(s): K85.90 - ACUTE PANCREATITIS WITHOUT NECROSIS OR INFECTION, UNSP Status: Acute Current Visit: Yes Qualifiers: Pancreatitis type: alcohol induced Acute pancreatitis complication: no infection or necrosis Qualified Code(s): K85.20 - Alcohol induced acute pancreatitis without necrosis or infection (3) Delirium due to another medical condition, acute, hyperactive SNOMED Code(s): 9238911, 905615765, 365806296 Code(s): F05 - DELIRIUM DUE TO KNOWN PHYSIOLOGICAL CONDITION Status: Acute Current Visit: Yes (4) Hypernatremia SNOMED Code(s): 64046603 Code(s): E87.0 - HYPEROSMOLALITY AND HYPERNATREMIA Status: Acute Current Visit: Yes - Problem List Review Problem List Initiated/Reviewed/Updated: Yes - My Orders Last 24 Hours: My Active Orders 10/27/16 12:21 Resuscitation Status Routine 10/27/16 14:01 Patient Status [ADT] Routine Intake and Output [RC] Q12H Notify Provider Vital Signs [RC] ASDIRECTED Oxygen Therapy [RC] Q12H Pulse Oximetry [RC] CONTINUOUS RT Aerosol Therapy [RC] ASDIRECTED Up With Assistance [RC] ASDIRECTED VTE/DVT Education [RC] Per Unit Routine Vital Signs [RC] Q2HR Albuterol [Proventil Neb Soln] 2.5 mg NEB Q4H PRN Magnesium Hydroxide [Milk of Magnesia] 30 ml PO BID PRN Ondansetron [Zofran ODT] 4 mg PO Q6H PRN Ondansetron [Zofran] 4 mg IV Q6H PRN Polyethylene Glycol 3350 [MiraLAX] 17 gm PO DAILY PRN 10/27/16 15:00 Pantoprazole [Protonix IV] 40 mg IV Q24H 10/27/16 21:00 Heparin Sodium 5,000 units SUBCUT Q12H 10/27/16 21:30 Lidocaine 5% [Lidoderm 5%] 700 mg TOP BEDTIME 10/27/16 Dinner Nothing per Oral Now Diet [DIET] 10/28/16 05:30 Initiate Restraint Protocol [RC] Q2HR 10/28/16 06:45 Dextrose 5% in Water 1,000 ml IV ASDIRECTED 10/28/16 08:02 CULTURE BLOOD [BC] Urgent CULTURE BLOOD [BC] Urgent Blood Culture x2 Reflex Set [OM.PC] Urgent 10/28/16 08:04 Notify Provider [RC] PRN 10/28/16 08:07 Promethazine [Phenergan] 12.5 mg Sodium Chloride 0.9% [Normal Saline] 50 ml IV Q6H 10/28/16 08:08 Haloperidol Lactate [Haldol] 5 mg IVPUSH Q4H PRN 10/28/16 08:15 Piperacillin/Tazobactam [Zosyn] 3.375 gm Sodium Chloride 0.9% [Normal Saline] 50 ml IV Q6H 10/28/16 09:00 Height and Weight [RC] DAILY Remove Patch 1 ea TRDERM DAILY 10/28/16 10:00 Blood Glucose Check, Bedside [RC] Q6H Insulin Aspart [NovoLOG] See Protocol SUBCUT Q6HR 10/28/16 12:00 SODIUM,NA [CHEM] Timed 10/28/16 17:00 BASIC METABOLIC PANEL,BMP [CHEM] Timed 10/29/16 05:00 BASIC METABOLIC PANEL,BMP [CHEM] Timed CBC W/O DIFF,HEMOGRAM [HEME] Timed (1) - Plan Plan:: Assessment and Plan - Acute pancreatitis complicated by pseudocyst formation - recent prolonged admission for pancreatitis but had been doing clinically better. Abdominal pain improved, lipase level improved. He has become febrile and I'm concerned that there may be infection though I cannot rule out inflammation from cyst/ inflammation. Hemodynamically he has been stable other than mild tachycardia. -N.p.o. status -IV fluids -Pain management -Repeat labs in the morning -Continue antibiotics initiated this morning -Followup blood cultures Acute hypernatremia - significant elevation of sodium following volume resuscitation. D5W has been initiated and level has been rising despite this. Free water deficit calculated at approximately 12 L. -Increase D5W infusion and recheck sodium in 4 hours Hypokalemia - probably related to poor oral intake over the past 24 hours. Level had improved but is low again this morning. -Supplement and recheck in the morning Hypertension - blood pressures have been stable, usual medications will be continued. Hx of alcohol dependence - no evidence for alcohol withdrawal at this time -Monitor but I doubt that he will experience alcohol withdrawal Maintenance issues - - DVT prophylaxis - heparin - GI prophylaxis - PPI - Nutrition - n.p.o. with a few ice chips - Sorenson catheter - not indicated Disposition - anticipate discharge to home after the hospital stay Primary care physician - [facility] Drew Dimas M.D.
[2016-10-28] MEDS: amLODIPine 5 MG Tab PO SCH (08:55)
[2016-10-28] MEDS: Metoprolol Tartrate 50 MG Tab PO SCH ×2 (08:56→20:01)
[2016-10-28] MEDS: Thiamine 100 MG Tab PO SCH (08:57)
[2016-10-28] MEDS: Losartan 50 MG Tab PO SCH (08:57)
[2016-10-28] MEDS: Heparin Sodium 5,000 Units/ML Vial SUBCUT SCH ×2 (08:57→20:01)
[2016-10-28] MEDS ORDERED: Lidocaine 5% 700 MG Patch TOP SCH (09:00)
[2016-10-28] MEDS: Piperacillin/Tazobactam/Dext 3.375 GM in Premix Bag 1 BAG IV SCH ×3 (09:05→20:25)
[2016-10-28] MEDS: Insulin Aspart 100 Units/ML 3 ML Pen SUBCUT SCH ×3 (10:21→22:00)
[2016-10-28] MEDS ORDERED: Cyclobenzaprine 10 MG Tab PO PRN (12:32)
[2016-10-28] MEDS: Pantoprazole 40 MG Vial IV SCH (15:48)
[2016-10-28] MEDS: Dextrose 5% in Water 1,000 ML IV SCH ×2 (17:38→20:28)
[2016-10-28] MEDS: Lidocaine 2% 30 ML, Alum Hydrox/Mag Hydrox/Simeth 30 ML, diphenhydrAMINE 75 MG PO SCH ×6 (17:38→21:42)
[2016-10-28] MEDS: Potassium Chloride 20 MEQ, Lidocaine 1% 2 ML in Sodium Chloride 0.9% 100 ML IV SCH ×2 (18:25→20:24)
[2016-10-28] MEDS: rOPINIRole 1 MG Tab PO SCH (20:01)
[2016-10-28] MEDS: traZODone 50 MG Tab PO SCH (20:01)
[2016-10-28] MEDS: Lidocaine 5% 700 MG Patch TOP SCH (20:21)
[2016-10-29] MEDS: Dextrose 5% in Water 1,000 ML IV SCH ×3 (00:50→09:51)
[2016-10-29] MEDS: Piperacillin/Tazobactam/Dext 3.375 GM in Premix Bag 1 BAG IV SCH ×3 (02:22→14:27)
[2016-10-29] MEDS: HYDROmorphone 1 MG/ML Syringe IVPUSH PRN ×2 (02:22→05:27)
[2016-10-29] MEDS: Acetaminophen 325 MG Tab PO PRN ×2 (02:29→16:57)
[2016-10-29] MEDS: Insulin Aspart 100 Units/ML 3 ML Pen SUBCUT SCH ×3 (04:01→15:49)
[2016-10-29] MEDS: Lidocaine 2% 30 ML, Alum Hydrox/Mag Hydrox/Simeth 30 ML, diphenhydrAMINE 75 MG PO SCH ×6 (05:28→09:53)
[2016-10-29] MEDS ORDERED: Potassium Chloride 100 ML ONE (06:16)
[2016-10-29] MEDS ORDERED: Lidocaine 1% 2 ML ONE (06:16)
[2016-10-29] MEDS: Potassium Chloride 20 MEQ, Lidocaine 1% 2 ML in Sodium Chloride 0.9% 100 ML IV SCH ×3 (06:21→09:53)
[2016-10-29] MEDS: Formoterol/Mometasone 200-5 MCG 8.8 GM Inhaler IH SCH (07:17)
[2016-10-29] MEDS: Losartan 50 MG Tab PO SCH (08:28)
[2016-10-29] MEDS: Heparin Sodium 5,000 Units/ML Vial SUBCUT SCH (08:29)
[2016-10-29] MEDS: Metoprolol Tartrate 50 MG Tab PO SCH (08:29)
[2016-10-29] MEDS: Thiamine 100 MG Tab PO SCH (08:30)
[2016-10-29] MEDS: amLODIPine 5 MG Tab PO SCH (08:30)
--- NOTE | 2016-10-29 08:33 | PCM.PN ---
- General Info Date of Service: 10/29/16 Functional Status: Reports: pain controlled, urinating - Review of Systems General: Reports: Fever, Weakness Gastrointestinal: Reports: Abdominal pain (improving) Neurological: Denies: Confusion Systems Review Comment:: No acute events overnight. Abdominal pain has been improving. No significant issues with agitation or anxiety overnight. Sodium level is trending down. He does continue to have some temperature elevations. Blood cultures are negative so far. Urine output has been excellent and has matched intake weight nicely. No vomiting or diarrhea. - Patient Data Vitals - most recent: Last Vital Signs Temp 37.5 C 10/29/16 07:31 Pulse 113 H 10/29/16 08:29 Resp 16 10/29/16 07:31 BP 133/77 10/29/16 08:30 Pulse Ox 95 10/29/16 07:31 Weight - most recent: 99.79 kg I&O - last 24 hours: Intake & Output 10/28/16 10/29/16 10/29/16 22:59 06:59 14:59 Intake Total 1328 50 Output Total 1100 350 550 Balance 228 -300 -550 Lab Results last 24 hrs: Laboratory Results - last 24 hr 10/28/16 10/28/16 10/28/16 Range/Units 11:53 16:58 21:57 WBC (4.5-11.0) K/uL RBC (4.30-5.90) M/uL Hgb (12.0-15.0) g/dL Hct (40.0-54.0) % MCV (80-98) fL MCH (27-31) pg MCHC (32-36) % Plt Count (150-400) K/uL Sodium 169 H* 171 H* 167 H* (140-148) mmol/L Potassium 3.2 L (3.6-5.2) mmol/L Chloride 130 H (100-108) mmol/L Carbon Dioxide 30 (21-32) mmol/L Anion Gap 14.2 H (5.0-14.0) mmol/L BUN 12 (7-18) mg/dL Creatinine 1.4 H (0.8-1.3) mg/dL Est Cr Clr Drug Dosing 63.01 mL/min Estimated GFR (MDRD) 53 L (>60) Glucose 150 H (74-106) mg/dL Calcium 8.3 L (8.5-10.1) mg/dL 10/29/16 10/29/16 10/29/16 Range/Units 02:00 05:16 05:16 WBC 15.5 H (4.5-11.0) K/uL RBC 2.86 L (4.30-5.90) M/uL Hgb 8.7 L (12.0-15.0) g/dL Hct 28.7 L (40.0-54.0) % MCV 100 H (80-98) fL MCH 30 (27-31) pg MCHC 30 L (32-36) % Plt Count 179 (150-400) K/uL Sodium 164 H* 163 H* (140-148) mmol/L Potassium 2.8 L* (3.6-5.2) mmol/L Chloride 124 H (100-108) mmol/L Carbon Dioxide 28 (21-32) mmol/L Anion Gap 13.8 (5.0-14.0) mmol/L BUN 10 (7-18) mg/dL Creatinine 1.5 H (0.8-1.3) mg/dL Est Cr Clr Drug Dosing 58.81 mL/min Estimated GFR (MDRD) 49 L (>60) Glucose 217 H (74-106) mg/dL Calcium 7.8 L (8.5-10.1) mg/dL Oni Results last 24 hrs: Microbiology 10/28/16 08:29 Aerobic Blood Culture - Preliminary Blood - Venous - Lab Draw NO GROWTH AFTER 1 DAY Anaerobic Blood Culture - Preliminary NO GROWTH AFTER 1 DAY 10/28/16 08:20 Aerobic Blood Culture - Preliminary Blood - Venous NO GROWTH AFTER 1 DAY Anaerobic Blood Culture - Preliminary NO GROWTH AFTER 1 DAY Med Orders - Current: Current Medications Acetaminophen (Tylenol) 650 mg PO Q4H PRN PRN Reason: Pain/Fever Last Admin: 10/29/16 02:29 Dose: 650 mg Albuterol (Proventil Neb Soln) 2.5 mg NEB Q4H PRN PRN Reason: Shortness Of Breath/wheezing Amlodipine Besylate (Norvasc) 5 mg PO DAILY [facility] Last Admin: 10/29/16 08:30 Dose: 5 mg Lidocaine HCl 30 ml/ Al Hydroxide/Mg Hydroxide 30 ml/Diphenhydramine HCl 75 mg 0 ml PO QID [facility] Last Admin: 10/29/16 05:28 Dose: 15 ml Cyclobenzaprine HCl (Flexeril) 10 mg PO TID PRN PRN Reason: Muscle Spasm Last Admin: 10/28/16 13:55 Dose: 10 mg Haloperidol Lactate (Haldol) 5 mg IVPUSH Q4H PRN PRN Reason: Agitation Last Admin: 10/28/16 19:55 Dose: 5 mg Heparin Sodium (Porcine) (Heparin Sodium) 5,000 units SUBCUT Q12H [facility] Last Admin: 10/29/16 08:29 Dose: 5,000 units Hydromorphone HCl (Dilaudid) 1 mg IVPUSH Q1H PRN PRN Reason: Pain (severe 7-10) Last Admin: 10/29/16 05:27 Dose: 1 mg Hydromorphone HCl (Dilaudid) 2 mg PO Q3H PRN PRN Reason: Pain Piperacillin/Tazobactam/ (Dextrose 3.375 gm/ Premix) 50 mls @ 100 mls/hr IV Q6H [facility] Last Admin: 10/29/16 08:24 Dose: 100 mls/hr Promethazine HCl 12.5 mg/ (Sodium Chloride) 50.5 mls @ 200 mls/hr IV Q6H PRN PRN Reason: Nausea/Vomiting Dextrose/Water (Dextrose 5% In Water) 1,000 mls @ 250 mls/hr IV ASDIRECTED [facility] Last Admin: 10/29/16 05:19 Dose: 250 mls/hr Potassium Chloride 20 meq/Lidocaine HCl 2 ml/ Sodium Chloride 112 mls @ 50 mls/ hr IV Q2H [facility] Stop: 10/29/16 11:59 Last Admin: 10/29/16 08:23 Dose: 50 mls/hr Insulin Aspart (Novolog) 0 unit SUBCUT Q6HR [facility] PRN Reason: Protocol Last Admin: 10/29/16 04:01 Dose: 2 units Lidocaine (Lidoderm 5%) 700 mg TOP BEDTIME [facility] Last Admin: 10/28/16 20:21 Dose: Not Given Losartan Potassium (Cozaar) 50 mg PO DAILY [facility] Last Admin: 10/29/16 08:28 Dose: 50 mg Magnesium Hydroxide (Milk Of Magnesia) 30 ml PO BID PRN PRN Reason: Constipation Metoprolol Tartrate (Lopressor) 50 mg PO BID [facility] Last Admin: 10/29/16 08:29 Dose: 50 mg Miscellaneous Information (Remove Patch) 1 ea TRDERM DAILY [facility] Last Admin: 10/28/16 09:10 Dose: Not Given Mometasone Furoate/Formoterol Fumar (Dulera 200-5 Mcg) 2 puff IH BIDRT [facility] Last Admin: 10/29/16 07:17 Dose: 2 puff Ondansetron HCl (Zofran Odt) 4 mg PO Q6H PRN PRN Reason: Nausea able to take PO Ondansetron HCl (Zofran) 4 mg IV Q6H PRN PRN Reason: Nausea/Vomiting Pantoprazole Sodium (Protonix Iv) 40 mg IV Q24H [facility] Last Admin: 10/28/16 15:48 Dose: 40 mg Polyethylene Glycol (Miralax) 17 gm PO DAILY PRN PRN Reason: Constipation Ropinirole HCl (Requip) 1 mg PO BEDTIME [facility] Last Admin: 10/28/16 20:01 Dose: 1 mg Sodium Chloride (Saline Flush) 10 ml FLUSH ASDIRECTED PRN PRN Reason: Keep Vein Open Last Admin: 10/27/16 08:49 Dose: 10 ml Thiamine HCl (Vitamin B-1) 100 mg PO DAILY [facility] Last Admin: 10/29/16 08:30 Dose: 100 mg Trazodone HCl (Trazodone) 50 mg PO BEDTIME [facility] Last Admin: 10/28/16 20:01 Dose: 50 mg Discontinued Medications Haloperidol Lactate (Haldol) 10 mg IVPUSH ONETIME ONE Stop: 10/28/16 04:34 Last Admin: 10/28/16 04:56 Dose: 10 mg Hydromorphone HCl (Dilaudid) 1 mg IVPUSH ONETIME ONE Stop: 10/27/16 08:31 Last Admin: 10/27/16 08:48 Dose: 1 mg Hydromorphone HCl (Dilaudid) 1 mg IVPUSH ONETIME ONE Stop: 10/27/16 09:51 Last Admin: 10/27/16 10:00 Dose: 1 mg Lactated Ringer's (Ringers, Lactated) 1,000 mls @ 500 mls/hr IV ASDIRECTED [facility] Last Admin: 10/27/16 08:37 Dose: 500 mls/hr Potassium Chloride 20 meq/Lidocaine HCl 2 ml/ Sodium Chloride 112 mls @ 56 mls/ hr IV Q2H [facility] Stop: 10/27/16 13:59 Last Admin: 10/27/16 12:32 Dose: 56 mls/hr Lactated Ringer's (Ringers, Lactated) 1,000 mls @ 999 mls/hr IV BOLUS ONE Stop: 10/27/16 11:48 Last Admin: 10/27/16 10:49 Dose: 999 mls/hr Potassium Chloride/Sodium Chloride (Normal Saline With 20 Meq Kcl) 1,000 mls @ 150 mls/hr IV ASDIRECTED [facility] Last Admin: 10/28/16 04:15 Dose: 150 mls/hr Potassium Chloride/Sodium Chloride (Normal Saline With 20 Meq Kcl) Confirm Administered Dose 1,000 mls @ as directed .ROUTE .STK-MED ONE Stop: 10/27/16 14:07 Last Admin: 10/27/16 15:00 Dose: Not Given Potassium Chloride 20 meq/Lidocaine HCl 2 ml/ Sodium Chloride 112 mls @ 50 mls/ hr IV Q2H [facility] Stop: 10/27/16 21:44 Last Admin: 10/27/16 20:19 Dose: 50 mls/hr Potassium Chloride (Kcl 20 Meq In Water 100 Ml) Confirm Administered Dose 100 mls @ as directed .ROUTE .STK-MED ONE Stop: 10/27/16 18:05 Last Admin: 10/27/16 18:12 Dose: Not Given Potassium Chloride (Kcl 20 Meq In Water 100 Ml) Confirm Administered Dose 100 mls @ as directed .ROUTE .STK-MED ONE Stop: 10/27/16 18:06 Last Admin: 10/27/16 18:12 Dose: Not Given Sodium Chloride (Normal Saline) 500 mls @ 999 mls/hr IV .BOLUS ONE Stop: 10/27/16 18:54 Last Admin: 10/27/16 18:31 Dose: 999 mls/hr Sodium Chloride (Normal Saline) 500 mls @ 500 mls/hr IV .BOLUS ONE Stop: 10/27/16 20:41 Last Admin: 10/27/16 19:58 Dose: 500 mls/hr Dextrose/Water (Dextrose 5% In Water) 1,000 mls [facility] Admin: 10/28/16 06:39 Dose: 125 mls/hr Dextrose/Water (Dextrose 5% In Water) 1,000 mls @ 150 mls/hr IV ASDIRECTED [facility] Last Admin: 10/28/16 14:46 Dose: 150 mls/hr Potassium Chloride 20 meq/Lidocaine HCl 2 ml/ Sodium Chloride 112 mls @ 50 mls/ hr IV Q2H [facility] Stop: 10/28/16 21:29 Last Admin: 10/28/16 20:24 Dose: 50 mls/hr Potassium Chloride (Kcl 20 Meq In Water 100 Ml) Confirm Administered Dose 200 mls @ as directed .ROUTE .STK-MED ONE Stop: 10/28/16 18:17 Last Admin: 10/29/16 08:00 Dose: Not Given Potassium Chloride (Kcl 20 Meq In Water 100 Ml) Confirm Administered Dose 100 mls @ as directed .ROUTE .STK-MED ONE Stop: 10/29/16 06:17 Last Admin: 10/29/16 06:20 Dose: Not Given Lidocaine HCl (Xylocaine-Mpf 1%) Confirm Administered Dose 2 mls @ as directed .ROUTE .STK-MED ONE Stop: 10/29/16 06:17 Last Admin: 10/29/16 06:20 Dose: Not Given Lidocaine (Lidoderm 5%) 700 mg TOP DAILY [facility] Lidocaine HCl (Xylocaine-Mpf 1%) 2 ml INJECT ONETIME ONE Stop: 10/27/16 21:33 Last Admin: 10/27/16 21:44 Dose: 2 ml Lidocaine HCl (Xylocaine-Mpf 1%) Confirm Administered Dose 5 ml .ROUTE .STK-MED ONE Stop: 10/28/16 18:17 Last Admin: 10/29/16 08:01 Dose: Not Given Lorazepam (Ativan) 0.5 - 1 mg IVPUSH Q4H PRN PRN Reason: Nausea/Vomiting Last Admin: 10/28/16 04:03 Dose: 1 mg Lorazepam (Ativan) 1 - 2 mg IVPUSH Q2H PRN PRN Reason: Agitation Miscellaneous Information (Remove Patch) 1 ea TRDERM BEDTIME [facility] Ondansetron HCl (Zofran) 4 mg IVPUSH ONETIME ONE Stop: 10/27/16 08:31 Last Admin: 10/27/16 08:48 Dose: 4 mg - Exam Quality Assessment: supplemental oxygen. No: urine catheter General: alert, oriented, cooperative, no acute distress Neck: supple, trachea midline Lungs: Clear to auscultation, Normal respiratory effort. No: Crackles Cardiovascular: Regular Rhythm, Tachycardia Abdomen: soft, no tenderness, distension (mild) Extremities: no edema, no cyanosis Skin: warm, dry, intact Psy/Mental Status: alert, normal affect - Problem List & Annotations (1) Pancreatic pseudocyst SNOMED Code(s): 914340668 Code(s): K86.3 - PSEUDOCYST OF PANCREAS Status: Acute Current Visit: Yes (2) Acute pancreatitis SNOMED Code(s): 028654589 Code(s): K85.90 - ACUTE PANCREATITIS WITHOUT NECROSIS OR INFECTION, UNSP Status: Acute Current Visit: Yes Qualifiers: Pancreatitis type: alcohol induced Acute pancreatitis complication: no infection or necrosis Qualified Code(s): K85.20 - Alcohol induced acute pancreatitis without necrosis or infection (3) Delirium due to another medical condition, acute, hyperactive SNOMED Code(s): 5080170, 538473091, 820913679 Code(s): F05 - DELIRIUM DUE TO KNOWN PHYSIOLOGICAL CONDITION Status: Acute Current Visit: Yes (4) Hypernatremia SNOMED Code(s): 68646345 Code(s): E87.0 - HYPEROSMOLALITY AND HYPERNATREMIA Status: Acute Current Visit: Yes - Problem List Review Problem List Initiated/Reviewed/Updated: Yes - My Orders Last 24 Hours: My Active Orders 10/28/16 08:02 Blood Culture x2 Reflex Set [OM.PC] Urgent 10/28/16 08:04 Notify Provider [RC] PRN 10/28/16 08:07 Promethazine [Phenergan] 12.5 mg Sodium Chloride 0.9% [Normal Saline] 50 ml IV Q6H 10/28/16 08:08 Haloperidol Lactate [Haldol] 5 mg IVPUSH Q4H PRN 10/28/16 08:20 CULTURE BLOOD [BC] Urgent 10/28/16 08:29 CULTURE BLOOD [BC] Urgent 10/28/16 09:00 Height and Weight [RC] DAILY Piperacillin/Tazobactam/Dext [Zosyn in Dextrose Iso-Osmotic 3.375 GM] 3.375 gm Premix Bag 1 bag IV Q6H Remove Patch 1 ea TRDERM DAILY 10/28/16 10:00 Blood Glucose Check, Bedside [RC] Q6H Insulin Aspart [NovoLOG] See Protocol SUBCUT Q6HR 10/28/16 12:32 Cyclobenzaprine [Flexeril] 10 mg PO TID PRN 10/28/16 16:15 Lidocaine 2% [Xylocaine 2% Viscous] 30 ml Alum Hydrox/Mag Hydrox/Simeth [Mag-Al Plus] 30 ml diphenhydrAMINE [Benadryl] 75 mg 15 ml PO QID 10/28/16 17:30 Dextrose 5% in Water 1,000 ml IV ASDIRECTED 10/29/16 06:00 Potassium Chloride 20 meq Lidocaine 1% [Xylocaine 1%] 2 ml Sodium Chloride 0.9 % [Normal Saline] 100 ml IV Q2H 10/29/16 08:31 HYDROmorphone [Dilaudid] 2 mg PO Q3H PRN 10/29/16 12:00 SODIUM,NA [CHEM] Timed 10/29/16 Breakfast Clear Liquid Diet [DIET] 10/30/16 05:00 CBC W/O DIFF,HEMOGRAM [HEME] Timed (1) COMPREHENSIVE METABOLIC PN,CMP [CHEM] Timed - Plan Plan:: Assessment and Plan - Acute pancreatitis complicated by pseudocyst formation - recent prolonged admission for pancreatitis but had been doing clinically better. Abdominal pain improved and clinically feeling better. Some concern for infected pseudocyst with temperature elevations. Cultures are negative so far. Clinically improving to a don't believe he needs transfer to a higher level of care at this point. May need to de-escalate antibiotics in the next 24 hours and see how he does. -Trial of clear liquids -IV fluids as below -Pain management with addition of oral pain medications today -Repeat labs in the morning -Continue antibiotics initiated this morning -Followup blood cultures Acute hypernatremia - Free water deficit calculated at approximately 12 L as of yesterday and we have replaced approximately 2/3 of the so far. Sodium level has been trending down slowly. He will be starting clear liquids today so that should add some additional free water. -Decrease D5W infusion to 150 mL per hour - Start clear liquids -Sodium every 4 hours -BMP in the morning Hypokalemia - level has been low, probably related to dilution from IV fluids. He has not had much food intake either. -Supplement and recheck in the afternoon and morning Hypertension - blood pressures have been stable, usual medications will be continued. Hx of alcohol dependence - no evidence for alcohol withdrawal during the hospital stay. Maintenance issues - - DVT prophylaxis - heparin - GI prophylaxis - PPI - Nutrition - clear liquids - Sorenson catheter - not indicated Disposition - anticipate discharge to home after the hospital stay Primary care physician - [facility] Drew Dimas M.D.
[2016-10-29] MEDS: HYDROmorphone 2 MG Tab PO PRN ×2 (11:29→16:57)
[2016-10-29] MEDS ORDERED: Dextrose 5% in Water 1,000 ML IV SCH (13:15)
[2016-10-29] MEDS: Pantoprazole 40 MG Vial IV SCH (15:00)
--- NOTE | 2016-10-29 15:42 | PCM.DCSUM1 ---
Discharge Summary - Hospital Course Brief History: 55-year-old with history of recent admission for acute pancreatitis who presented with increasing abdominal pain and nausea. Workup in the emergency room revealed evidence for elevated lipase and new multiple pseudocysts on the pancreas. He was admitted for management. - Discharge Data Discharge Date: 10/29/16 Discharge Disposition: DC/[facility] Condition: Fair - Discharge Diagnosis/Problem(s) (1) Pancreatic pseudocyst SNOMED Code(s): 940612498 ICD Code: K86.3 - PSEUDOCYST OF PANCREAS Status: Acute Current Visit: Yes (2) Acute pancreatitis SNOMED Code(s): 809984804 ICD Code: K85.90 - ACUTE PANCREATITIS WITHOUT NECROSIS OR INFECTION, UNSP Status: Acute Current Visit: Yes Qualifiers: Pancreatitis type: alcohol induced Acute pancreatitis complication: no infection or necrosis Qualified Code(s): K85.20 - Alcohol induced acute pancreatitis without necrosis or infection (3) Delirium due to another medical condition, acute, hyperactive SNOMED Code(s): 3830164, 454323311, 554551552 ICD Code: F05 - DELIRIUM DUE TO KNOWN PHYSIOLOGICAL CONDITION Status: Acute Current Visit: Yes (4) Hypernatremia SNOMED Code(s): 95475866 ICD Code: E87.0 - HYPEROSMOLALITY AND HYPERNATREMIA Status: Acute Current Visit: Yes (5) Hypokalemia SNOMED Code(s): 06732861 ICD Code: E87.6 - HYPOKALEMIA Status: Acute Current Visit: Yes - Patient Summary/Data Labs Pending at D/C: Final results of the blood cultures which are negative with one set at one day and another set after 2 days Hospital Course: Armando presented to the emergency room on October 27 with abdominal pain and nausea. Workup in the emergency room revealed leukocytosis and multiple pseudocysts in the pancreas. These were new from earlier in the month. The pseudocysts range in diameter from 3-4 cm. 4 of them were noted between the head and the tail of the pancreas. He did discuss the case with the surveyor's assistant at [facility] prior to admission and he recommended noninterventional treatment initially with intervention to be considered if he develops fevers or had intractable pain. He also had a significant lipase elevation concerning for acute pancreatitis. He was tachycardic but not hypotensive. He was admitted to the intensive care unit for further management. He was started on IV fluids and IV pain medications. He had a low- grade temperature elevation the evening of admission but was otherwise hemodynamically stable and we did not initiate antibiotics initially. Overnight he had additional temperature elevations and Pip/Tazo was initiated the morning after admission. A second set of blood cultures was obtained prior to starting the antibiotics. The morning after admission his sodium level was noted to be significantly elevated greater than 165. Normal saline was discontinued in exchange for D5W. His free water deficit was calculated at 12.5 L. Initially we started out with a slower volume of infusion at 150 mL per hour when this was not sufficient we then bumped the infusion up to 250 mL per hour. Since that time his sodium has slowly trended down with a peak of 171. His current level is 157. His next sodium level checked will be due at 6 PM. Regarding his pancreatitis, his lipase level decreased significantly from admission to the next morning. At this point I quit checking the level plan to follow his pain rather than blood testing. His abdominal pain has been improving. With a significant improvement in his pain and abdominal exam we elected to start some clear liquids this morning. Because he tolerated the clear liquids fairly well we decreased his IV fluids to 150 mL per hour. His temperature curve has been improving following the initiation of antibiotics. I am suspicious that he does have an infection in one or more of his pseudocysts. Clinically he has been improving. We were contacted by the [facility] and notified that they have an available bed. The plan is for transfer by ambulance for additional inpatient management at the [facility]. He is currently receiving D5W at 150 mL per hour. Pain control has been with a combination of acetaminophen, oral hydromorphone and IV hydromorphone. He is receiving Pip/Tazo 3.375 g every 6 hours for antibiotic coverage. Also of note he did have an adverse reaction to lorazepam during the first night of hospitalization. He was receiving this medication to help with anxiety and nausea and became very agitated and confused. The symptoms have resolved after the medication was discontinued and his mental status has been at baseline since that time. There is no evidence for alcohol withdrawal the patient reports that his last drink was approximately one month ago. - Patient Instructions Diet: Clear Liquid Diet Activity: As Tolerated Showering/Bathing: May Shower Notify Provider of: Fever, Increased Pain, Nausea and/or Vomiting Other/Special Instructions: 1. You were in the hospital for management of acute pancreatitis with pseudocyst formation as well as hypernatremia and hypokalemia. The OR has requested that she be transferred to their facility for additional management of the above medical conditions. You will be transferred to the OR by ambulance with IV fluids and pain medications available during transport. - Discharge Plan Home Medications: Home Meds Cetirizine [ZyrTEC] 10 mg PO BEDTIME 03/17/14 [History] Cyclobenzaprine [Flexeril] 20 mg PO ASDIRECTED 03/17/14 [History] Omeprazole 20 mg PO BID 03/17/14 [History] Simvastatin [Zocor] 20 mg PO BEDTIME 03/17/14 [History] Thiamine [Vitamin B-1] 100 mg PO DAILY 03/17/14 [History] Albuterol Sulfate [Proair Respiclick] 2 puff IN Q6HR PRN 10/27/16 [History] Budesonide/Formoterol [Symbicort 160-4.5 MCG] 2 puff IN BID 10/27/16 [History] Lidocaine 5% [Lidoderm 5%] 1 patch TOP DAILY 10/27/16 [History] Losartan [Cozaar] 50 mg PO DAILY 10/27/16 [History] Metoprolol Tartrate [Lopressor] 50 mg PO BID 10/27/16 [History] amLODIPine [Norvasc] 5 mg PO DAILY 10/27/16 [History] rOPINIRole [Requip] 1 mg PO BEDTIME 10/27/16 [History] traMADol [Ultram] 100 mg PO BID 10/27/16 [History] traZODone 50 mg PO BEDTIME 10/27/16 [History] Patient Handouts: Acute Pancreatitis Referrals: Moisse Hadley MD [Primary Care Provider] - (follow up as needed after the hospital stay ) - Discharge Summary/Plan Comment DC Time >30 min.: Yes (45 - transfer to the OR) - Patient Data Vitals - Most Recent: Last Vital Signs Temp 37.7 C 10/29/16 11:30 Pulse 113 H 10/29/16 08:29 Resp 18 10/29/16 14:00 BP 116/72 10/29/16 14:00 Pulse Ox 98 10/29/16 14:00 Weight - Most Recent: 99.79 kg I&O - Last 24 hours: Intake & Output 10/29/16 10/29/16 10/29/16 06:59 14:59 22:59 Intake Total 50 1000 Output Total 350 1700 Balance -300 -700 Lab Results - Last 24 hrs: Laboratory Results - last 24 hr 10/28/16 10/28/16 10/29/16 Range/Units 16:58 21:57 02:00 WBC (4.5-11.0) K/uL RBC (4.30-5.90) M/uL Hgb (12.0-15.0) g/dL Hct (40.0-54.0) % MCV (80-98) fL MCH (27-31) pg MCHC (32-36) % Plt Count (150-400) K/uL Sodium 171 H* 167 H* 164 H* (140-148) mmol/L Potassium 3.2 L (3.6-5.2) mmol/L Chloride 130 H (100-108) mmol/L Carbon Dioxide 30 (21-32) mmol/L Anion Gap 14.2 H (5.0-14.0) mmol/L BUN 12 (7-18) mg/dL Creatinine 1.4 H (0.8-1.3) mg/dL Est Cr Clr Drug Dosing 63.01 mL/min Estimated GFR (MDRD) 53 L (>60) Glucose 150 H (74-106) mg/dL Calcium 8.3 L (8.5-10.1) mg/dL 10/29/16 10/29/16 10/29/16 Range/Units 05:16 05:16 12:00 WBC 15.5 H (4.5-11.0) K/uL RBC 2.86 L (4.30-5.90) M/uL Hgb 8.7 L (12.0-15.0) g/dL Hct 28.7 L (40.0-54.0) % MCV 100 H (80-98) fL MCH 30 (27-31) pg MCHC 30 L (32-36) % Plt Count 179 (150-400) K/uL Sodium 163 H* 157 H (140-148) mmol/L Potassium 2.8 L* (3.6-5.2) mmol/L Chloride 124 H (100-108) mmol/L Carbon Dioxide 28 (21-32) mmol/L Anion Gap 13.8 (5.0-14.0) mmol/L BUN 10 (7-18) mg/dL Creatinine 1.5 H (0.8-1.3) mg/dL Est Cr Clr Drug Dosing 58.81 mL/min Estimated GFR (MDRD) 49 L (>60) Glucose 217 H (74-106) mg/dL Calcium 7.8 L (8.5-10.1) mg/dL ANGLE Results - Last 24 hrs: Microbiology 10/28/16 08:29 Aerobic Blood Culture - Preliminary Blood - Venous - Lab Draw NO GROWTH AFTER 1 DAY Anaerobic Blood Culture - Preliminary NO GROWTH AFTER 1 DAY 10/28/16 08:20 Aerobic Blood Culture - Preliminary Blood - Venous NO GROWTH AFTER 1 DAY Anaerobic Blood Culture - Preliminary NO GROWTH AFTER 1 DAY Med Orders - Current: Current Medications Acetaminophen (Tylenol) 650 mg PO Q4H PRN PRN Reason: Pain/Fever Last Admin: 10/29/16 02:29 Dose: 650 mg Albuterol (Proventil Neb Soln) 2.5 mg NEB Q4H PRN PRN Reason: Shortness Of Breath/wheezing Amlodipine Besylate (Norvasc) 5 mg PO DAILY [facility] Last Admin: 10/29/16 08:30 Dose: 5 mg Lidocaine HCl 30 ml/ Al Hydroxide/Mg Hydroxide 30 ml/Diphenhydramine HCl 75 mg 0 ml PO QID [facility] Cyclobenzaprine HCl (Flexeril) 10 mg PO TID PRN PRN Reason: Muscle Spasm Last Admin: 10/28/16 13:55 Dose: 10 mg Haloperidol Lactate (Haldol) 5 mg IVPUSH Q4H PRN PRN Reason: Agitation Last Admin: 10/28/16 19:55 Dose: 5 mg Heparin Sodium (Porcine) (Heparin Sodium) 5,000 units SUBCUT Q12H [facility] Last Admin: 10/29/16 08:29 Dose: 5,000 units Hydromorphone HCl (Dilaudid) 1 mg IVPUSH Q1H PRN PRN Reason: Pain (severe 7-10) Last Admin: 10/29/16 05:27 Dose: 1 mg Hydromorphone HCl (Dilaudid) 2 mg PO Q3H PRN PRN Reason: Pain Last Admin: 10/29/16 11:29 Dose: 2 mg Piperacillin/Tazobactam/ (Dextrose 3.375 gm/ Premix) 50 mls @ 100 mls/hr IV Q6H [facility] Last Admin: 10/29/16 14:27 Dose: 100 mls/hr Promethazine HCl 12.5 mg/ (Sodium Chloride) 50.5 mls @ 200 mls/hr IV Q6H PRN PRN Reason: Nausea/Vomiting Dextrose/Water (Dextrose 5% In Water) 1,000 mls @ 150 mls/hr IV ASDIRECTED [facility] Last Admin: 10/29/16 14:08 Dose: 150 mls/hr Insulin Aspart (Novolog) 0 unit SUBCUT Q6HR [facility] PRN Reason: Protocol Last Admin: 10/29/16 09:52 Dose: 2 units Lidocaine (Lidoderm 5%) 700 mg TOP BEDTIME [facility] Last Admin: 10/28/16 20:21 Dose: Not Given Losartan Potassium (Cozaar) 50 mg PO DAILY [facility] Last Admin: 10/29/16 08:28 Dose: 50 mg Magnesium Hydroxide (Milk Of Magnesia) 30 ml PO BID PRN PRN Reason: Constipation Metoprolol Tartrate (Lopressor) 50 mg PO BID [facility] Last Admin: 10/29/16 08:29 Dose: 50 mg Miscellaneous Information (Remove Patch) 1 ea TRDERM DAILY [facility] Last Admin: 10/29/16 09:56 Dose: Not Given Mometasone Furoate/Formoterol Fumar (Dulera 200-5 Mcg) 2 puff IH BIDRT [facility] Last Admin: 10/29/16 07:17 Dose: 2 puff Ondansetron HCl (Zofran Odt) 4 mg PO Q6H PRN PRN Reason: Nausea able to take PO Ondansetron HCl (Zofran) 4 mg IV Q6H PRN PRN Reason: Nausea/Vomiting Last Admin: 10/29/16 12:16 Dose: 4 mg Pantoprazole Sodium (Protonix Iv) 40 mg IV Q24H [facility] Last Admin: 10/29/16 15:00 Dose: 40 mg Polyethylene Glycol (Miralax) 17 gm PO DAILY PRN PRN Reason: Constipation Ropinirole HCl (Requip) 1 mg PO BEDTIME [facility] Last Admin: 10/28/16 20:01 Dose: 1 mg Sodium Chloride (Saline Flush) 10 ml FLUSH ASDIRECTED PRN PRN Reason: Keep Vein Open Last Admin: 10/27/16 08:49 Dose: 10 ml Thiamine HCl (Vitamin B-1) 100 mg PO DAILY [facility] Last Admin: 10/29/16 08:30 Dose: 100 mg Trazodone HCl (Trazodone) 50 mg PO BEDTIME [facility] Last Admin: 10/28/16 20:01 Dose: 50 mg Discontinued Medications Lidocaine HCl 30 ml/ Al Hydroxide/Mg Hydroxide 30 ml/Diphenhydramine HCl 75 mg 0 ml PO QID [facility] Last Admin: 10/29/16 09:53 Dose: 15 ml Haloperidol Lactate (Haldol) 10 mg IVPUSH ONETIME ONE Stop: 10/28/16 04:34 Last Admin: 10/28/16 04:56 Dose: 10 mg Hydromorphone HCl (Dilaudid) 1 mg IVPUSH ONETIME ONE Stop: 10/27/16 08:31 Last Admin: 10/27/16 08:48 Dose: 1 mg Hydromorphone HCl (Dilaudid) 1 mg IVPUSH ONETIME ONE Stop: 10/27/16 09:51 Last Admin: 10/27/16 10:00 Dose: 1 mg Lactated Ringer's (Ringers, Lactated) 1,000 mls @ 500 mls/hr IV ASDIRECTED [facility] Last Admin: 10/27/16 08:37 Dose: 500 mls/hr Potassium Chloride 20 meq/Lidocaine HCl 2 ml/ Sodium Chloride 112 mls @ 56 mls/ hr IV Q2H [facility] Stop: 10/27/16 13:59 Last Admin: 10/27/16 12:32 Dose: 56 mls/hr Lactated Ringer's (Ringers, Lactated) 1,000 mls @ 999 mls/hr IV BOLUS ONE Stop: 10/27/16 11:48 Last Admin: 10/27/16 10:49 Dose: 999 mls/hr Potassium Chloride/Sodium Chloride (Normal Saline With 20 Meq Kcl) 1,000 mls @ 150 mls/hr IV ASDIRECTED [facility] Last Admin: 10/28/16 04:15 Dose: 150 mls/hr Potassium Chloride/Sodium Chloride (Normal Saline With 20 Meq Kcl) Confirm Administered Dose 1,000 mls @ as directed .ROUTE .STK-MED ONE Stop: 10/27/16 14:07 Last Admin: 10/27/16 15:00 Dose: Not Given Potassium Chloride 20 meq/Lidocaine HCl 2 ml/ Sodium Chloride 112 mls @ 50 mls/ hr IV Q2H [facility] Stop: 10/27/16 21:44 Last Admin: 10/27/16 20:19 Dose: 50 mls/hr Potassium Chloride (Kcl 20 Meq In Water 100 Ml) Confirm Administered Dose 100 mls @ as directed .ROUTE .STK-MED ONE Stop: 10/27/16 18:05 Last Admin: 10/27/16 18:12 Dose: Not Given Potassium Chloride (Kcl 20 Meq In Water 100 Ml) Confirm Administered Dose 100 mls @ as directed .ROUTE .STK-MED ONE Stop: 10/27/16 18:06 Last Admin: 10/27/16 18:12 Dose: Not Given Sodium Chloride (Normal Saline) 500 mls @ 999 mls/hr IV .BOLUS ONE Stop: 10/27/16 18:54 Last Admin: 10/27/16 18:31 Dose: 999 mls/hr Sodium Chloride (Normal Saline) 500 mls @ 500 mls/hr IV .BOLUS ONE Stop: 10/27/16 20:41 Last Admin: 10/27/16 19:58 Dose: 500 mls/hr Dextrose/Water (Dextrose 5% In Water) 1,000 mls @ 125 mls/hr IV ASDIRECTED [facility] Last Admin: 10/28/16 06:39 Dose: 125 mls/hr Dextrose/Water (Dextrose 5% In Water) 1,000 mls @ 150 mls/hr IV ASDIRECTED [facility] Last Admin: 10/28/16 14:46 Dose: 150 mls/hr Potassium Chloride 20 meq/Lidocaine HCl 2 ml/ Sodium Chloride 112 mls @ 50 mls/ hr IV Q2H [facility] Stop: 10/28/16 21:29 Last Admin: 10/28/16 20:24 Dose: 50 mls/hr Dextrose/Water (Dextrose 5% In Water) 1,000 mls @ 250 mls/hr IV ASDIRECTED [facility] Last Admin: 10/29/16 09:51 Dose: 250 mls/hr Potassium Chloride (Kcl 20 Meq In Water 100 Ml) Confirm Administered Dose 200 mls @ as directed .ROUTE .STK-MED ONE Stop: 10/28/16 18:17 Last Admin: 10/29/16 08:00 Dose: Not Given Potassium Chloride 20 meq/Lidocaine HCl 2 ml/ Sodium Chloride 112 mls @ 50 mls/ hr IV Q2H [facility] Stop: 10/29/16 11:59 Last Admin: 10/29/16 09:53 Dose: 50 mls/hr Potassium Chloride (Kcl 20 Meq In Water 100 Ml) Confirm Administered Dose 100 mls @ as directed .ROUTE .STK-MED ONE Stop: 10/29/16 06:17 Last Admin: 10/29/16 06:20 Dose: Not Given Lidocaine HCl (Xylocaine-Mpf 1%) Confirm Administered Dose 2 mls @ as directed .ROUTE .STK-MED ONE Stop: 10/29/16 06:17 Last Admin: 10/29/16 06:20 Dose: Not Given Lidocaine (Lidoderm 5%) 700 mg TOP DAILY [facility] Lidocaine HCl (Xylocaine-Mpf 1%) 2 ml INJECT ONETIME ONE Stop: 10/27/16 21:33 Last Admin: 10/27/16 21:44 Dose: 2 ml Lidocaine HCl (Xylocaine-Mpf 1%) Confirm Administered Dose 5 ml .ROUTE .STK-MED ONE Stop: 10/28/16 18:17 Last Admin: 10/29/16 08:01 Dose: Not Given Lorazepam (Ativan) 0.5 - 1 mg IVPUSH Q4H PRN PRN Reason: Nausea/Vomiting Last Admin: 10/28/16 04:03 Dose: 1 mg Lorazepam (Ativan) 1 - 2 mg IVPUSH Q2H PRN PRN Reason: Agitation Miscellaneous Information (Remove Patch) 1 ea TRDERM BEDTIME [facility] Ondansetron HCl (Zofran) 4 mg IVPUSH ONETIME ONE Stop: 10/27/16 08:31 Last Admin: 10/27/16 08:48 Dose: 4 mg *Q Meaningful Use (DIS) - VTE *Q VTE Criteria *Q: - Stroke *Q Stroke Criteria *Q: - AMI *Q AMI Criteria *Q:
[2016-10-29 15:52] VITALS: BP 128/70
[2016-10-29] MEDS ORDERED: Lidocaine 2% 30 ML, Alum Hydrox/Mag Hydrox/Simeth 30 ML, diphenhydrAMINE 75 MG PO SCH ×3 (16:00)
== END 2016-10-29 17:12 | DRG 438 ==
LOC: JP.ED 08:19 → JP.ICU 12:18
PROVIDERS: ADMIT Internal Medicine; ATTEND Internal Medicine
DX: K86.3 Pseudocyst of pancreas (principal); K85.20 Alcohol induced acute pancreatitis without necrosis or infection; E87.0 Hyperosmolality and hypernatremia; E87.6 Hypokalemia; I10 Essential (primary) hypertension; F10.21 Alcohol dependence, in remission; J44.9 Chronic obstructive pulmonary disease, unspecified; E78.00 Pure hypercholesterolemia, unspecified; G47.30 Sleep apnea, unspecified; K21.9 Gastro-esophageal reflux disease without esophagitis; K44.9 Diaphragmatic hernia without obstruction or gangrene; M54.9 Dorsalgia, unspecified; M19.90 Unspecified osteoarthritis, unspecified site; G89.29 Other chronic pain; Z87.891 Personal history of nicotine dependence; Z88.1 Allergy status to other antibiotic agents; Z91.041 Radiographic dye allergy status; R41.0 Disorientation, unspecified; T42.4X5A Adverse effect of benzodiazepines, initial encounter; Y92.239 Unspecified place in hospital as the place of occurrence of the external cause; R45.1 Restlessness and agitation
CPT/HCPCS: 36415; 71010; 71010-26; 71250; 71250-26; 74176; 74176-26; 80048; 80053; 81001; 82140; 82553; 82962; 83605; 83690; 83735; 83880; 84132; 84295; 84484; 85025; 85027; 85610; 87040; 93005; 93010; 94640-76; 96361; 96374; 96375; 96376; 99285; 99285-25; A9270-GY; C9113; G0480; J1170; J1630; J1644; J2060; J2405; J2543; J3480; J7030; J7040; J7050; J7060; J7120

== ENCOUNTER 2016-12-20 13:04 | Inpatient (IN) | payer OTHER ==
[2016-12-20] MEDS ORDERED: HYDROmorphone 1 MG/ML Syringe IVPUSH ONE ×3 (14:51→17:49)
[2016-12-20] MEDS ORDERED: Ondansetron 4 MG/2 ML SDV IVPUSH ONE (14:52)
[2016-12-20] MEDS: Sodium Chloride 0.9% 10 ML Syringe FLUSH PRN ×3 (15:22→18:36)
--- NOTE | 2016-12-20 17:45 | EDM.PDOC ---
ED HPI GENERAL MEDICAL PROBLEM - General Chief Complaint: General Stated Complaint: MED VIA NORTH- CHEST PAIN Time Seen by Provider: 12/20/16 14:43 Source of Information: Reports: Patient, Family History Limitations: Reports: Physical Impairment - History of Present Illness INITIAL COMMENTS - FREE TEXT/NARRATIVE: This patient comes in for acute abdominal pain which started this morning. He describes it as left sided mid abdominal pain. It is constant. He denies vomiting. He had 2 soft stools this morning and after that the pain began. He was just released from the hospital in [facility] on or 3 days ago. This hospital episode began on the end of September in our ER. He was hospitalized here then transferred to [place] where he was hospitalized at [facility] and the [facility]. Eventually he was transferred to the [facility]. He said that he had some kind of a tube in his belly that bypassed the stomach we assume it was a J-tube and that was removed the morning of discharge. At that time he was discharged he had been tolerating oral liquids and foods for 4 or 5 days. Since his discharge he's been eating soups Jell-O fruit pudding and Ensure. Left Lower Flank Pain Score (Numeric/FACES): 4 - Related Data Allergies Allergy/AdvReac Type Severity Reaction Status Date / Time glycopyrrolate [From Robinul] Allergy Seizure Verified 10/27/16 08:24 Iodinated Contrast Media - Allergy Renal Verified 10/27/16 09:28 Oral and Failure lorazepam [From Ativan] Allergy Confusion Verified 12/20/16 13:48 sulfamethoxazole Allergy Facial Verified 03/17/14 19:56 [From Septra] Spasms trimethoprim [From Septra] Allergy Facial Verified 03/17/14 19:56 Spasms Home Meds: Home Meds Cetirizine [ZyrTEC] 10 mg PO BEDTIME 03/17/14 [History] Cyclobenzaprine [Flexeril] 20 mg PO ASDIRECTED 03/17/14 [History] Omeprazole 20 mg PO BID 03/17/14 [History] Simvastatin [Zocor] 40 mg PO BEDTIME 03/17/14 [History] Thiamine [Vitamin B-1] 100 mg PO DAILY 03/17/14 [History] Albuterol Sulfate [Proair Respiclick] 2 puff IN Q6HR PRN 10/27/16 [History] Budesonide/Formoterol [Symbicort 160-4.5 MCG] 2 puff IN BID 10/27/16 [History] Lidocaine 5% [Lidoderm 5%] 1 patch TOP DAILY 10/27/16 [History] Metoprolol Tartrate [Lopressor] 50 mg PO BID 10/27/16 [History] rOPINIRole [Requip] 1 mg PO BID 10/27/16 [History] traMADol [Ultram] 100 mg PO BID 10/27/16 [History] traZODone 50 mg PO BEDTIME 10/27/16 [History] Cyclobenzaprine HCl 20 mg PO BEDTIME 12/20/16 [History] Docusate Sodium/Sennosides [Senna Plus] 2 each PO BID PRN 12/20/16 [History] Enoxaparin [Lovenox] 80 mg SQ BID 12/20/16 [History] Gabapentin [Neurontin] 300 mg PO QID 12/20/16 [History] HYDROmorphone [Dilaudid] 2 mg PO Q6H PRN 12/20/16 [History] Naloxone HCl [Narcan] 4 mg NS ASDIRECTED PRN 12/20/16 [History] Warfarin [Coumadin] 3 mg PO DAILY 12/20/16 [History] Past Medical History HEENT History: Reports: Allergic Rhinitis Cardiovascular History: Reports: High Cholesterol, Hypertension, [place], Other (See Below) Other Cardiovascular History: angiogram Respiratory History: Reports: COPD, PE, Pneumonia, Recurrent, Sleep Apnea Gastrointestinal History: Reports: GERD, Hiatal Hernia, Pancreatitis, Other ( See Below) Other Gastrointestinal History: kink in bowel Genitourinary History: Reports: Acute Renal Failure, Chronic Renal Insuffiency Other Genitourinary History: PREVIOUS INDWELLING MCALLISTER Musculoskeletal History: Reports: Back Pain, Chronic, Neck Pain, Chronic, Osteoarthritis Neurological History: Reports: Concussion, Seizure Hematologic History: Reports: Anemia, Blood Transfusion(s) Dermatologic History: Reports: Other (See Below) Other Dermatologic History: rash at different times - Infectious Disease History Infectious Disease History: Reports: Chicken Pox - Past Surgical History Respiratory Surgical History: Reports: Thoracentesis Social & Family History - Family History GI: Reports: Pancreatitis - Tobacco Use Smoking Status *Q: Former Smoker Years of Tobacco use: 30 Used Tobacco, but Quit: Yes Month Tobacco Last Used: aug Second Hand Smoke Exposure: Yes - Caffeine Use Caffeine Use: Reports: None - Alcohol Use Days Per Week of Alcohol Use: 7 Number of Drinks Per Day: 10 Total Drinks Per Week: 70 Date of Last Drink: 10/05/16 - Recreational Drug Use Recreational Drug Use: Yes Recreational Drug Type: Reports: Marijuana/Hashish ED ROS GENERAL - Review of Systems Review Of Systems: ROS reveals no pertinent complaints other than HPI. Constitutional: Reports: No Symptoms HEENT: Reports: No Symptoms, Vertigo Cardiovascular: Reports: No Symptoms Endocrine: Reports: No Symptoms GI/Abdominal: Reports: Abdominal Pain : Reports: No Symptoms ED EXAM, GENERAL - Physical Exam Exam: See Below Exam Limited By: No Limitations General Appearance: Alert, WD/WN, Moderate Distress Eye Exam: Bilateral Eye: PERRL (Her) Nose: Normal Inspection Throat/Mouth: Normal Oropharynx Neck: Normal Inspection Respiratory/Chest: Lungs Clear Cardiovascular: Regular Rate, Rhythm GI/Abdominal: Other (Bowel sounds were normal. Seems a little bit distended. There is moderate generalized tenderness to the mid upper and left side of the abdomen.) Extremities: Normal Inspection Neurological: Alert, Oriented Psychiatric: Normal Affect Skin Exam: Warm, Dry Course - Vital Signs Last Recorded V/S: Last Vital Signs Temp 37.0 C 12/20/16 16:14 Pulse 93 12/20/16 16:15 Resp 16 12/20/16 16:15 BP 133/91 H 12/20/16 16:15 Pulse Ox 95 12/20/16 16:15 - Orders/Labs/Meds Orders: Active Orders 24 hr Category Date Time Status Abdomen Pelvis wo Cont [CT] Stat Exams 12/20/16 14:50 Taken Sodium Chloride 0.9% [Saline Flush] Med 12/20/16 14:50 Active 10 ml FLUSH ASDIRECTED PRN Saline Lock Insert [OM.PC] Urgent Oth 12/20/16 14:49 Ordered Medication Orders Sodium Chloride (Saline Flush) 10 ml FLUSH ASDIRECTED PRN PRN Reason: Keep Vein Open Last Admin: 12/20/16 16:44 Dose: 10 ml Admin: 12/20/16 15:22 Dose: 10 ml Labs: Laboratory Tests 12/20/16 12/20/16 12/20/16 Range/Units 15:02 15:02 16:05 WBC 11.7 H (4.5-11.0) K/uL RBC 3.90 L (4.30-5.90) M/uL Hgb 10.6 L (12.0-15.0) g/dL Hct 34.5 L (40.0-54.0) % MCV 89 (80-98) fL MCH 27 (27-31) pg MCHC 31 L (32-36) % Plt Count 335 (150-400) K/uL Neut % (Auto) 83 H (36-66) % Lymph % (Auto) 10 L (24-44) % [place] % (Auto) 7 H (2-6) % Eos % (Auto) 0 L (2-4) % Baso % (Auto) 0 (0-1) % Sodium 140 (140-148) mmol/L Potassium 4.3 (3.6-5.2) mmol/L Chloride 103 (100-108) mmol/L Carbon Dioxide 26 (21-32) mmol/L Anion Gap 10.8 (5.0-14.0) mmol/L BUN 6 L (7-18) mg/dL Creatinine 0.9 (0.8-1.3) mg/dL Est Cr Clr Drug Dosing TNP Estimated GFR (MDRD) > 60 (>60) Glucose 167 H (74-106) mg/dL Calcium 8.6 (8.5-10.1) mg/dL Total Bilirubin 0.3 (0.2-1.0) mg/dL AST 29 (15-37) U/L ALT 26 (12-78) U/L Alkaline Phosphatase 164 H (46-116) U/L Total Protein 8.5 H (6.4-8.2) g/dL Albumin 2.4 L (3.4-5.0) g/dL Globulin 6.1 H (2.3-3.5) g/dL Albumin/Globulin Ratio 0.4 L (1.2-2.2) Amylase (25-115) U/L Lipase (73-393) U/L Urine Color Yellow Urine Appearance Clear Urine pH 7.0 (4.5-8.0) Ur Specific [place] 1.005 L (1.008-1.030) Urine Protein Negative (NEGATIVE) mg/dL Urine Glucose (UA) 250 H (NEGATIVE) mg/dL Urine Ketones Negative (NEGATIVE) mg/dL Urine Occult Blood Negative (NEGATIVE) Urine Nitrite Negative (NEGAITVE) Urine Bilirubin Negative (NEGATIVE) Urine Urobilinogen Normal (NORMAL) mg/dL Ur Leukocyte Esterase Negative (NEGATIVE) Urine RBC 0-5 (0-5) Urine WBC 5-10 H (0-5) Ur Epithelial Cells Few Amorphous Sediment Few Urine Bacteria Not seen Urine Mucus Few 12/20/16 Range/Units 17:00 WBC (4.5-11.0) K/uL RBC (4.30-5.90) M/uL Hgb (12.0-15.0) g/dL Hct (40.0-54.0) % MCV (80-98) fL MCH (27-31) pg MCHC (32-36) % Plt Count (150-400) K/uL Neut % (Auto) (36-66) % Lymph % (Auto) (24-44) % [place] % (Auto) (2-6) % Eos % (Auto) (2-4) % Baso % (Auto) (0-1) % Sodium (140-148) mmol/L Potassium (3.6-5.2) mmol/L Chloride (100-108) mmol/L Carbon Dioxide (21-32) mmol/L Anion Gap (5.0-14.0) mmol/L BUN (7-18) mg/dL Creatinine (0.8-1.3) mg/dL Est Cr Clr Drug Dosing Estimated GFR (MDRD) (>60) Glucose (74-106) mg/dL Calcium (8.5-10.1) mg/dL Total Bilirubin (0.2-1.0) mg/dL AST (15-37) U/L ALT (12-78) U/L Alkaline Phosphatase (46-116) U/L Total Protein (6.4-8.2) g/dL Albumin (3.4-5.0) g/dL Globulin (2.3-3.5) g/dL Albumin/Globulin Ratio (1.2-2.2) Amylase 260 H (25-115) U/L Lipase 1417 H (73-393) U/L Urine Color Urine Appearance Urine pH (4.5-8.0) Ur Specific [place] (1.008-1.030) Urine Protein (NEGATIVE) mg/dL Urine Glucose (UA) (NEGATIVE) mg/dL Urine Ketones (NEGATIVE) mg/dL Urine Occult Blood (NEGATIVE) Urine Nitrite (NEGAITVE) Urine Bilirubin (NEGATIVE) Urine Urobilinogen (NORMAL) mg/dL Ur Leukocyte Esterase (NEGATIVE) Urine RBC (0-5) Urine WBC (0-5) Ur Epithelial Cells Amorphous Sediment Urine Bacteria Urine Mucus Meds: Medications Generic Name Dose Route Start Last Admin Trade Name Freq PRN Reason Stop Dose Admin Sodium Chloride 10 ml 12/20/16 14:50 12/20/16 16:44 Saline Flush FLUSH 10 ml ASDIRECTED PRN Administration Keep Vein Open Discontinued Medications Generic Name Dose Route Start Last Admin Trade Name Freq PRN Reason Stop Dose Admin Hydromorphone HCl 1 mg 12/20/16 14:51 12/20/16 15:18 Dilaudid IVPUSH 12/20/16 14:52 1 mg ONETIME ONE Administration Hydromorphone HCl 1 mg 12/20/16 16:37 12/20/16 16:42 Dilaudid IVPUSH 12/20/16 16:38 1 mg ONETIME ONE Administration Hydromorphone HCl 1 mg 12/20/16 17:49 Dilaudid IVPUSH 12/20/16 17:50 ONETIME ONE Ondansetron HCl 4 mg 12/20/16 14:52 12/20/16 15:21 Zofran IVPUSH 12/20/16 14:53 4 mg ONETIME ONE Administration - Re-Assessments/Exams Free Text/Narrative Re-Assessment/Exam: 12/20/16 17:56 an IV was established and he was given multiple doses of IV Dilaudid and Zofran for pain control An abdominal CT is consistent with pancreatitis. I spoke with the M0D at the [facility]. He expects they will have a bed in the morning and he believes they would be able to care for him at their facility. I spoke with Dr. Ivan and he will see him shortly and hospitalize him here. Departure - Departure Time of Disposition: 17:58 Disposition: Admitted As Inpatient 68 Condition: fair Clinical Impression: Recurrent acute pancreatitis - Discharge Information Forms: ED Department Discharge - My Orders Last 24 Hours: My Active Orders 12/20/16 14:49 Saline Lock Insert [OM.PC] Urgent 12/20/16 14:50 Abdomen Pelvis wo Cont [CT] Stat Sodium Chloride 0.9% [Saline Flush] 10 ml FLUSH ASDIRECTED PRN - Assessment/Plan Last 24 Hours: My Active Orders 12/20/16 14:49 Saline Lock Insert [OM.PC] Urgent 12/20/16 14:50 Abdomen Pelvis wo Cont [CT] Stat Sodium Chloride 0.9% [Saline Flush] 10 ml FLUSH ASDIRECTED PRN
--- NOTE | 2016-12-20 19:21 | PCM.HP ---
H&P History of Present Illness - General Date of Service: 12/20/16 Admit Problem/Dx: Admission Diagnosis/Problem Admission Diagnosis/Problem Pancreatitis Source of Information: Patient, Family, Old Records, Provider, RN Notes Reviewed History Limitations: Reports: No Limitations - History of Present Illness Initial Comments - Free Text/Narative: This patient is an unfortunate 55-year-old gentleman who is admitted through the emergency department with recurrent acute pancreatitis. He first developed pancreatitis approximately 2 months ago, secondary to alcohol use. He reports that he has not consumed alcohol now over the past 2 months. During the past 2 months has been hospitalized the majority of the time only home for a few days. He has been hospitalized at multiple facilities including [facility], [facility] in [place], at both [facility] [place] [facility], as well as the [facility]. Most recently he was hospitalized in [place], all there a feeding tube was placed, but removed prior to discharge. He was discharged from there approximately 3 days ago, he did well the first 2 days but this morning awoke with recurrent pain in his left abdomen radiating to the supraumbilical region. This has been associated with nausea and vomiting. CT scan in the emergency department shows inflammation around the pancreas in his lipase level is elevated at 1200. Left Lower Flank Pain Score (Numeric/FACES): 4 - Related Data Allergies/Adverse Reactions: Allergies Allergy/AdvReac Type Severity Reaction Status Date / Time glycopyrrolate [From Robinul] Allergy Seizure Verified 10/27/16 08:24 Iodinated Contrast Media - Allergy Renal Verified 10/27/16 09:28 Oral and Failure lorazepam [From Ativan] Allergy Confusion Verified 12/20/16 13:48 sulfamethoxazole Allergy Facial Verified 03/17/14 19:56 [From Septra] Spasms trimethoprim [From Septra] Allergy Facial Verified 03/17/14 19:56 Spasms Home Medications: Home Meds Cetirizine [ZyrTEC] 10 mg PO BEDTIME 03/17/14 [History] Cyclobenzaprine [Flexeril] 20 mg PO ASDIRECTED 03/17/14 [History] Omeprazole 20 mg PO BID 03/17/14 [History] Simvastatin [Zocor] 40 mg PO BEDTIME 03/17/14 [History] Thiamine [Vitamin B-1] 100 mg PO DAILY 03/17/14 [History] Albuterol Sulfate [Proair Respiclick] 2 puff IN Q6HR PRN 10/27/16 [History] Budesonide/Formoterol [Symbicort 160-4.5 MCG] 2 puff IN BID 10/27/16 [History] Lidocaine 5% [Lidoderm 5%] 1 patch TOP DAILY 10/27/16 [History] Metoprolol Tartrate [Lopressor] 50 mg PO BID 10/27/16 [History] rOPINIRole [Requip] 1 mg PO BID 10/27/16 [History] traMADol [Ultram] 100 mg PO BID 10/27/16 [History] traZODone 50 mg PO BEDTIME 10/27/16 [History] Cyclobenzaprine HCl 20 mg PO BEDTIME 12/20/16 [History] Docusate Sodium/Sennosides [Senna Plus] 2 each PO BID PRN 12/20/16 [History] Enoxaparin [Lovenox] 80 mg SQ BID 12/20/16 [History] Gabapentin [Neurontin] 300 mg PO QID 12/20/16 [History] HYDROmorphone [Dilaudid] 2 mg PO Q6H PRN 12/20/16 [History] Naloxone HCl [Narcan] 4 mg NS ASDIRECTED PRN 12/20/16 [History] Warfarin [Coumadin] 3 mg PO DAILY 12/20/16 [History] Past Medical History HEENT History: Reports: Allergic Rhinitis Cardiovascular History: Reports: High Cholesterol, Hypertension, [place], Other (See Below) Other Cardiovascular History: angiogram Respiratory History: Reports: COPD, PE, Pneumonia, Recurrent, Sleep Apnea Gastrointestinal History: Reports: GERD, Hiatal Hernia, Pancreatitis, Other ( See Below) Other Gastrointestinal History: kink in bowel Genitourinary History: Reports: Acute Renal Failure, Chronic Renal Insuffiency Other Genitourinary History: PREVIOUS INDWELLING MCALLISTER Musculoskeletal History: Reports: Back Pain, Chronic, Neck Pain, Chronic, Osteoarthritis Neurological History: Reports: Concussion, Seizure Hematologic History: Reports: Anemia, Blood Transfusion(s) Dermatologic History: Reports: Other (See Below) Other Dermatologic History: rash at different times - Infectious Disease History Infectious Disease History: Reports: Chicken Pox - Past Surgical History Respiratory Surgical History: Reports: Thoracentesis Social & Family History - Family History GI: Reports: Pancreatitis - Tobacco Use Smoking Status *Q: Former Smoker Years of Tobacco use: 30 Used Tobacco, but Quit: Yes Month Tobacco Last Used: aug Second Hand Smoke Exposure: Yes - Caffeine Use Caffeine Use: Reports: None - Alcohol Use Days Per Week of Alcohol Use: 7 Number of Drinks Per Day: 10 Total Drinks Per Week: 70 Date of Last Drink: 10/05/16 - Recreational Drug Use Recreational Drug Use: Yes Recreational Drug Type: Reports: Marijuana/Hashish H&P Review of Systems - Review of Systems: Review Of Systems: See Below General: Reports: Weakness, Decreased Appetite, Weight Loss. Denies: Fever, Chills HEENT: Reports: No Symptoms Pulmonary: Reports: No Symptoms Cardiovascular: Reports: No Symptoms Gastrointestinal: Reports: Abdominal Pain, Decreased Appetite, Nausea, Vomiting. Denies: Difficulty Swallowing Genitourinary: Reports: No Symptoms Musculoskeletal: Reports: No Symptoms Skin: Reports: No Symptoms Psychiatric: Reports: No Symptoms Neurological: Reports: No Symptoms Hematologic/Lymphatic: Reports: No Symptoms Immunologic: Reports: No Symptoms Exam - Exam Exam: See Below - Vital Signs Vital Signs: Last Vital Signs Temp 98.6 F 12/20/16 16:14 Pulse 115 H 12/20/16 18:37 Resp 15 12/20/16 18:37 BP 122/84 12/20/16 18:37 Pulse Ox 94 L 12/20/16 18:37 Weight: 220 lb - Exam Quality Assessment: DVT Prophylaxis General: Alert, Oriented, Cooperative, Moderate Distress HEENT: Conjunctiva Clear, Hearing Intact, Mucosa Moist & Diller, Nares Patent, Normal Nasal Septum, Posterior Pharynx Clear, Pupils Equal, Pupils Reactive Neck: Supple, Trachea Midline, +2 Carotid Pulse wo Bruit Lungs: Clear to Auscultation, Normal Respiratory Effort Cardiovascular: Regular Rate, Regular Rhythm, Normal S1, Normal S2 Abdomen: Soft, Distention, Tenderness, Hypoactive Bowel Sounds. No: Organomegaly, Peritoneal Signs Back Exam: Normal Inspection, Full Range of Motion, NT Skin: Warm, Dry, Intact Neurological: Cranial Nerves Intact, Strength Equal Bilateral, Normal Speech, Normal Tone, Sensation Intact. No: Focal Deficit Neuro Extensive - Mental Status: Alert, Oriented x3, Normal Mood/Affect, Normal Cognition, Memory Intact - Patient Data Lab Results last 24 hrs: Laboratory Results - last 24 hr 12/20/16 12/20/16 12/20/16 Range/Units 15:02 15:02 16:05 WBC 11.7 H (4.5-11.0) K/uL RBC 3.90 L (4.30-5.90) M/uL Hgb 10.6 L (12.0-15.0) g/dL Hct 34.5 L (40.0-54.0) % MCV 89 (80-98) fL MCH 27 (27-31) pg MCHC 31 L (32-36) % Plt Count 335 (150-400) K/uL Neut % (Auto) 83 H (36-66) % Lymph % (Auto) 10 L (24-44) % [place] % (Auto) 7 H (2-6) % Eos % (Auto) 0 L (2-4) % Baso % (Auto) 0 (0-1) % Sodium 140 (140-148) mmol/L Potassium 4.3 (3.6-5.2) mmol/L Chloride 103 (100-108) mmol/L Carbon Dioxide 26 (21-32) mmol/L Anion Gap 10.8 (5.0-14.0) mmol/L BUN 6 L (7-18) mg/dL Creatinine 0.9 (0.8-1.3) mg/dL Est Cr Clr Drug Dosing TNP Estimated GFR (MDRD) > 60 (>60) Glucose 167 H (74-106) mg/dL Calcium 8.6 (8.5-10.1) mg/dL Total Bilirubin 0.3 (0.2-1.0) mg/dL AST 29 (15-37) U/L ALT 26 (12-78) U/L Alkaline Phosphatase 164 H (46-116) U/L Total Protein 8.5 H (6.4-8.2) g/dL Albumin 2.4 L (3.4-5.0) g/dL Globulin 6.1 H (2.3-3.5) g/dL Albumin/Globulin Ratio 0.4 L (1.2-2.2) Amylase (25-115) U/L Lipase (73-393) U/L Urine Color Yellow Urine Appearance Clear Urine pH 7.0 (4.5-8.0) Ur Specific [place] 1.005 L (1.008-1.030) Urine Protein Negative (NEGATIVE) mg/dL Urine Glucose (UA) 250 H (NEGATIVE) mg/dL Urine Ketones Negative (NEGATIVE) mg/dL Urine Occult Blood Negative (NEGATIVE) Urine Nitrite Negative (NEGAITVE) Urine Bilirubin Negative (NEGATIVE) Urine Urobilinogen Normal (NORMAL) mg/dL Ur Leukocyte Esterase Negative (NEGATIVE) Urine RBC 0-5 (0-5) Urine WBC 5-10 H (0-5) Ur Epithelial Cells Few Amorphous Sediment Few Urine Bacteria Not seen Urine Mucus Few 12/20/16 Range/Units 17:00 WBC (4.5-11.0) K/uL RBC (4.30-5.90) M/uL Hgb (12.0-15.0) g/dL Hct (40.0-54.0) % MCV (80-98) fL MCH (27-31) pg MCHC (32-36) % Plt Count (150-400) K/uL Neut % (Auto) (36-66) % Lymph % (Auto) (24-44) % [place] % (Auto) (2-6) % Eos % (Auto) (2-4) % Baso % (Auto) (0-1) % Sodium (140-148) mmol/L Potassium (3.6-5.2) mmol/L Chloride (100-108) mmol/L Carbon Dioxide (21-32) mmol/L Anion Gap (5.0-14.0) mmol/L BUN (7-18) mg/dL Creatinine (0.8-1.3) mg/dL Est Cr Clr Drug Dosing Estimated GFR (MDRD) (>60) Glucose (74-106) mg/dL Calcium (8.5-10.1) mg/dL Total Bilirubin (0.2-1.0) mg/dL AST (15-37) U/L ALT (12-78) U/L Alkaline Phosphatase (46-116) U/L Total Protein (6.4-8.2) g/dL Albumin (3.4-5.0) g/dL Globulin (2.3-3.5) g/dL Albumin/Globulin Ratio (1.2-2.2) Amylase 260 H (25-115) U/L Lipase 1417 H (73-393) U/L Urine Color Urine Appearance Urine pH (4.5-8.0) Ur Specific [place] (1.008-1.030) Urine Protein (NEGATIVE) mg/dL Urine Glucose (UA) (NEGATIVE) mg/dL Urine Ketones (NEGATIVE) mg/dL Urine Occult Blood (NEGATIVE) Urine Nitrite (NEGAITVE) Urine Bilirubin (NEGATIVE) Urine Urobilinogen (NORMAL) mg/dL Ur Leukocyte Esterase (NEGATIVE) Urine RBC (0-5) Urine WBC (0-5) Ur Epithelial Cells Amorphous Sediment Urine Bacteria Urine Mucus Result Diagrams: 12/20/16 15:02 12/20/16 15:02 *Q Meaningful Use (ADM) - VTE *Q VTE Criteria *Q: - VTE Risk Assess *Q Each Risk Factor Represents 1 Point: Age 41 - 59 years, Obesity (BMI greater than 30) Total Score 1 Point Risk Factors: 2 Each Risk Factor Represents 2 Points: None Total Score 2 Point Risk Factors: 0 Each Risk Factor Represents 3 Points: History Superficial Venous Thrombosis, DVT or PE Total Score 3 Point Risk Factors: 3 Each Risk Factor Represents 5 Points: None Total Score 5 Point Risk Factors: 0 Venous Thromboembolism Risk Factor Score *Q: 5 - Stroke *Q Stroke Criteria *Q: - AMI *Q AMI Criteria *Q: Problem List Initiated/Reviewed/Updated: Yes Orders Last 24hrs: Active Orders 24 hr Category Date Time Status Patient Status Manage Transfer [TRANSFER] Routine ADT 12/20/16 18:31 Ordered Cardiac Monitoring [RC] .As Directed Care 12/20/16 18:31 Ordered Abdomen Pelvis wo Cont [CT] Stat Exams 12/20/16 14:50 Taken Sodium Chloride 0.9% [Saline Flush] Med 12/20/16 14:50 Active 10 ml FLUSH ASDIRECTED PRN Saline Lock Insert [OM.PC] Urgent Oth 12/20/16 14:49 Ordered Resuscitation Status Routine Resus Stat 12/20/16 18:34 Ordered Medication Orders Sodium Chloride (Saline Flush) 10 ml FLUSH ASDIRECTED PRN PRN Reason: Keep Vein Open Last Admin: 12/20/16 18:36 Dose: 10 ml Admin: 12/20/16 16:44 Dose: 10 ml Admin: 12/20/16 15:22 Dose: 10 ml Assessment/Plan Comment:: ASSESSMENT AND PLAN ACUTE ON RECURRENT PANCREATITIS-he is been ill with recurrent episodes of pancreatitis over the past 2 months. Course has been complicated by development of pseudocysts and infection. He denies alcohol use over the past 2 months. -N.p.o. -IV fluids for hydration -Dilaudid via [employer] for pain control -Antiemetic therapy as needed -Anticipate transfer to [facility] in [place] tomorrow RECENT HISTORY OF DEEP VEIN THROMBOSIS AND PULMONARY EMBOLISM -Continue current anticoagulation with warfarin and Lovenox -INR pending now -Repeat INR in a.m. HYPERTENSION -Continue outpatient medical management SINUS TACHYCARDIA-heart rate has been elevated in the emergency department. Patient and his state that this occurs when he's having significant pain in the results once his pain is controlled. MAINTENANCE ISSUES -DVT prophylaxis; current therapy with warfarin and Lovenox should provide adequate DVT prophylaxis -GI prophylaxis; continue outpatient PPI therapy -Mcallister catheter; not indicated -Nutrition; n.p.o. -Nicotine dependence; not required CODE STATUS-FULL CODE ADMISSION STATUS-patient will be admitted to inpatient status, expect at least a 2 night hospital stay for evaluation and management of problems as outlined above. At the time of this admission I do not reasonably expected evaluation and management of this problem will require more than a 96 hour hospital stay. DISPOSITION-anticipate discharge to home after the hospital stay. PRIMARY CARE PROVIDER-
[2016-12-20] MEDS ORDERED: Magnesium Hydroxide 400 MG/5 ML Susp 30 ML Cup PO PRN (19:35)
[2016-12-20] MEDS ORDERED: Non-Formulary Medication 1 Each (Albuterol Sulfate [Proair Respiclick] 2 PUFF) IN PRN (19:35)
[2016-12-20] MEDS ORDERED: Ondansetron 4 MG/2 ML SDV IV PRN (19:35)
[2016-12-20] MEDS ORDERED: Sodium Chloride 0.9% 10 ML Syringe FLUSH PRN (19:35)
[2016-12-20] MEDS ORDERED: Polyethylene Glycol 3350 Powder 17 GM Packet PO PRN (19:35)
[2016-12-20] MEDS ORDERED: Albuterol 0.083% 2.5 MG/3 ML Neb Soln NEB PRN (19:35)
[2016-12-20] MEDS ORDERED: Naloxone 0.4 MG/ML SDV IVPUSH PRN (19:35)
[2016-12-20] MEDS ORDERED: Docusate Sodium 100 MG Cap PO PRN (19:35)
[2016-12-20] MEDS: Sodium Chloride 0.9% 1,000 ML IV SCH (19:45)
[2016-12-20] MEDS: HYDROmorphone/Normal Saline 15 MG/30 ML PCA IV PRN (19:53)
[2016-12-20] MEDS: Acetaminophen 325 MG Tab PO PRN (20:03)
[2016-12-20] MEDS: Metoprolol Tartrate 50 MG Tab PO SCH (20:32)
[2016-12-20] MEDS: Cetirizine 10 MG Tab PO SCH (20:32)
[2016-12-20] MEDS: rOPINIRole 1 MG Tab PO SCH (20:32)
[2016-12-20] MEDS: traZODone 50 MG Tab PO SCH (20:33)
[2016-12-20] MEDS: Enoxaparin 80 MG/0.8 ML Syringe SUBCUT SCH (20:36)
[2016-12-20] MEDS: Pantoprazole 40 MG Tab.CR PO SCH (20:36)
[2016-12-20] MEDS: Warfarin 3 MG Tab PO SCH (20:52)
[2016-12-20] MEDS ORDERED: Formoterol/Mometasone 200-5 MCG 8.8 GM Inhaler IH SCH (21:00)
[2016-12-20] MEDS ORDERED: Simvastatin 20 MG Tab PO SCH (21:00)
[2016-12-20] MEDS: Gabapentin 300 MG Cap PO SCH (23:50)
[2016-12-21] MEDS: Acetaminophen 325 MG Tab PO PRN (00:11)
[2016-12-21] MEDS: Sodium Chloride 0.9% 1,000 ML IV SCH ×3 (03:47→19:18)
[2016-12-21] MEDS: Gabapentin 300 MG Cap PO SCH ×4 (05:43→21:17)
[2016-12-21] MEDS ORDERED: Albuterol 8 GM Inhaler INH PRN (07:08)
[2016-12-21] MEDS: HYDROmorphone/Normal Saline 15 MG/30 ML PCA IV PRN (07:29)
[2016-12-21] MEDS: Pantoprazole 40 MG Tab.CR PO SCH ×2 (08:24→20:41)
[2016-12-21] MEDS: Enoxaparin 80 MG/0.8 ML Syringe SUBCUT SCH ×2 (08:24→20:43)
[2016-12-21] MEDS: rOPINIRole 1 MG Tab PO SCH ×2 (08:24→20:41)
[2016-12-21] MEDS: Formoterol/Mometasone 200-5 MCG 8.8 GM Inhaler IH SCH ×2 (08:26→20:40)
[2016-12-21] MEDS: Lidocaine 5% 700 MG Patch TOP SCH (08:28)
[2016-12-21] MEDS: Metoprolol Tartrate 50 MG Tab PO SCH ×2 (08:29→20:42)
--- NOTE | 2016-12-21 12:18 | PCM.DCSUM1 ---
Discharge Summary - Hospital Course Brief History: 55 -year-old male with history of recurrent pancreatitis complicated by pseudocyst who presented with recurrent epigastric abdominal pain and was admitted for another flare of acute pancreatitis - Discharge Data Discharge Date: 12/21/16 Discharge Disposition: DC/Tfer to [facility]/MD 43 Condition: Stable - Discharge Diagnosis/Problem(s) (1) Recurrent acute pancreatitis SNOMED Code(s): 773141220 ICD Code: K85.90 - ACUTE PANCREATITIS WITHOUT NECROSIS OR INFECTION, UNSP Status: Acute Current Visit: Yes (2) Pancreatic pseudocyst SNOMED Code(s): 622314407 ICD Code: K86.3 - PSEUDOCYST OF PANCREAS Status: Acute Current Visit: No - Patient Summary/Data Hospital Course: Armando presented to the emergency room with acute epigastric and generalized abdominal pain. This pain started approximately 2 days after his most recent hospital discharge for management of pancreatitis. Workup in the emergency room was suggestive of a recurrent episode of pancreatitis with lipase level more than 1400. He was started on IV fluids and IV pain medications and admitted to the hospital for further management. Overnight following admission his pain has improved a fair amount of remains moderate in severity. His lipase level has improved from 1400 down to 539. He has only mild nausea at this time. The [facility] in [place] now has been sent would like him to be transferred there for further treatment. I have concerns that his recurrent episodes may be related to one or more of his medications. the most likely culprits would include simvastatin followed by omeprazole based on literature review and up-to-date search. with recurrent episodes and no other obvious source medication certainly seem like a strong potential for the culprit. Abnormal ductal anatomy could be considered as well. I recommended that he discontinue his simvastatin and omeprazole. Pantoprazole seems like a safe alternative for a proton pump inhibitor. I believe he would be safe without a statin medication for a while. If he gets better while these medications were discontinued and stays better after they haven't stopped this would add some evidence that they were potential culprits. He will be transferred to the [facility] in [place] in stable condition. He is currently n.p.o. and receiving fluids and pain control through the IV route. He did have one fever early during the hospital stay. No blood cultures were collected at that time. He has not had a recurrence of the fever. - Patient Instructions Diet: NPO Activity: As Tolerated Driving: Do Not Drive (if taking pain pills) Showering/Bathing: May Shower Notify Provider of: Fever, Increased Pain, Nausea and/or Vomiting Other/Special Instructions: 1. You were in the hospital for management of acute recurrent pancreatitis. You will be transferred to the [facility] for further management. 2. I would recommend that you stop taking simvastatin and omeprazole. These medications have the highest potential of your current outpatient medications to cause pancreatitis. - Discharge Plan Home Medications: Home Meds Cetirizine [ZyrTEC] 10 mg PO BEDTIME 03/17/14 [History] Cyclobenzaprine [Flexeril] 20 mg PO ASDIRECTED 03/17/14 [History] Thiamine [Vitamin B-1] 100 mg PO DAILY 03/17/14 [History] Albuterol Sulfate [Proair Respiclick] 2 puff IN Q6HR PRN 10/27/16 [History] Budesonide/Formoterol [Symbicort 160-4.5 MCG] 2 puff IN BID 10/27/16 [History] Lidocaine 5% [Lidoderm 5%] 1 patch TOP DAILY 10/27/16 [History] Metoprolol Tartrate [Lopressor] 50 mg PO BID 10/27/16 [History] rOPINIRole [Requip] 1 mg PO BID 10/27/16 [History] traMADol [Ultram] 100 mg PO BID 10/27/16 [History] traZODone 50 mg PO BEDTIME 10/27/16 [History] Cyclobenzaprine HCl 20 mg PO BEDTIME 12/20/16 [History] Docusate Sodium/Sennosides [Senna Plus] 2 each PO BID PRN 12/20/16 [History] Enoxaparin [Lovenox] 80 mg SQ BID 12/20/16 [History] Gabapentin [Neurontin] 300 mg PO QID 12/20/16 [History] HYDROmorphone [Dilaudid] 2 mg PO Q6H PRN 12/20/16 [History] Naloxone HCl [Narcan] 4 mg NS ASDIRECTED PRN 12/20/16 [History] Warfarin [Coumadin] 3 mg PO DAILY 12/20/16 [History] Patient Handouts: Acute Pancreatitis Referrals: Moises Hadley MD [Primary Care Provider] - (follow up as needed after the hospital stay ) - Discharge Summary/Plan Comment DC Time >30 min.: Yes (transfer to MD in [place] ) - Patient Data Vitals - Most Recent: Last Vital Signs Temp 37.7 C 12/21/16 10:36 Pulse 88 12/21/16 10:36 Resp 18 12/21/16 10:36 BP 99/61 12/21/16 10:36 Pulse Ox 94 L 12/21/16 10:36 Weight - Most Recent: 78.9 kg I&O - Last 24 hours: Intake & Output 12/20/16 12/21/16 12/21/16 22:59 06:59 14:59 Intake Total 100 1180 Output Total 325 200 Balance 100 855 -200 Lab Results - Last 24 hrs: Laboratory Results - last 24 hr 12/20/16 12/21/16 12/21/16 Range/Units 19:24 04:45 04:45 WBC (4.5-11.0) K/uL RBC (4.30-5.90) M/uL Hgb (12.0-15.0) g/dL Hct (40.0-54.0) % MCV (80-98) fL MCH (27-31) pg MCHC (32-36) % Plt Count (150-400) K/uL Neut % (Auto) (36-66) % Lymph % (Auto) (24-44) % [place] % (Auto) (2-6) % Eos % (Auto) (2-4) % Baso % (Auto) (0-1) % PT 19.7 H 20.7 H (9.5-12.0) sec INR 1.82 H 1.91 H (0.80-1.20) Sodium (140-148) mmol/L Potassium (3.6-5.2) mmol/L Chloride (100-108) mmol/L Carbon Dioxide (21-32) mmol/L Anion Gap (5.0-14.0) mmol/L BUN (7-18) mg/dL Creatinine (0.8-1.3) mg/dL Est Cr Clr Drug Dosing mL/min Estimated GFR (MDRD) (>60) Glucose (74-106) mg/dL Calcium (8.5-10.1) mg/dL Total Bilirubin (0.2-1.0) mg/dL AST (15-37) U/L ALT (12-78) U/L Alkaline Phosphatase (46-116) U/L Total Protein (6.4-8.2) g/dL Albumin (3.4-5.0) g/dL Globulin (2.3-3.5) g/dL Albumin/Globulin Ratio (1.2-2.2) Amylase 195 H (25-115) U/L Lipase 539 H (73-393) U/L 12/21/16 12/21/16 Range/Units 04:45 04:45 WBC 10.5 (4.5-11.0) K/uL RBC 3.71 L (4.30-5.90) M/uL Hgb 10.2 L (12.0-15.0) g/dL Hct 33.4 L (40.0-54.0) % MCV 90 (80-98) fL MCH 28 (27-31) pg MCHC 31 L (32-36) % Plt Count 286 (150-400) K/uL Neut % (Auto) 73 H (36-66) % Lymph % (Auto) 15 L (24-44) % [place] % (Auto) 12 H (2-6) % Eos % (Auto) 1 L (2-4) % Baso % (Auto) 0 (0-1) % PT (9.5-12.0) sec INR (0.80-1.20) Sodium 142 (140-148) mmol/L Potassium 4.3 (3.6-5.2) mmol/L Chloride 108 (100-108) mmol/L Carbon Dioxide 23 (21-32) mmol/L Anion Gap 10.6 (5.0-14.0) mmol/L BUN 8 (7-18) mg/dL Creatinine 1.0 (0.8-1.3) mg/dL Est Cr Clr Drug Dosing 85.43 mL/min Estimated GFR (MDRD) > 60 (>60) Glucose 136 H (74-106) mg/dL Calcium 8.0 L (8.5-10.1) mg/dL Total Bilirubin 0.4 (0.2-1.0) mg/dL AST 20 (15-37) U/L ALT 20 (12-78) U/L Alkaline Phosphatase 130 H (46-116) U/L Total Protein 7.3 (6.4-8.2) g/dL Albumin 2.0 L (3.4-5.0) g/dL Globulin 5.3 H (2.3-3.5) g/dL Albumin/Globulin Ratio 0.4 L (1.2-2.2) Amylase (25-115) U/L Lipase (73-393) U/L Med Orders - Current: Current Medications Acetaminophen (Tylenol) 650 mg PO Q4H PRN PRN Reason: Pain (Mild 1-3)/fever Last Admin: 12/21/16 00:11 Dose: 650 mg Albuterol (Proventil Neb Soln) 2.5 mg NEB Q4H PRN PRN Reason: Shortness Of Breath/wheezing Albuterol (Ventolin Hfa) 0 gm INH Q6H PRN PRN Reason: BREATHING Cetirizine HCl (Zyrtec) 10 mg PO BEDTIME [facility] Last Admin: 12/20/16 20:32 Dose: 10 mg Docusate Sodium (Colace) 100 mg PO BID PRN PRN Reason: Constipation Enoxaparin Sodium (Lovenox) 80 mg SUBCUT BID [facility] Last Admin: 12/21/16 08:24 Dose: 80 mg Gabapentin (Neurontin) 300 mg PO QID [facility] Last Admin: 12/21/16 11:30 Dose: Not Given Hydromorphone HCl (Dilaudid [employer] 15 Mg In Ns 30 Ml) 0 mg IV ASDIRECTED PRN; Protocol PRN Reason: Pain Last Admin: 12/21/16 07:29 Dose: 15 mg Sodium Chloride (Normal Saline) 1,000 mls @ 125 mls/hr IV ASDIRECTED [facility] Last Admin: 12/21/16 11:30 Dose: 125 mls/hr Lidocaine (Lidoderm 5%) 700 mg TOP DAILY [facility] Last Admin: 12/21/16 08:28 Dose: Not Given Magnesium Hydroxide (Milk Of Magnesia) 30 ml PO Q12H PRN PRN Reason: Constipation Metoprolol Tartrate (Lopressor) 50 mg PO BID [facility] Last Admin: 12/21/16 08:29 Dose: 50 mg Miscellaneous Information (Remove Patch) 0 ea TRDERM BEDTIME [facility] Mometasone Furoate/Formoterol Fumar (Dulera 200-5 Mcg) 2 puff IH BIDRT [facility] Last Admin: 12/21/16 08:26 Dose: 2 puff Naloxone HCl (Narcan) 0.4 mg IVPUSH Q2M PRN PRN Reason: Respiratory Distress Ondansetron HCl (Zofran) 4 mg IV Q4H PRN PRN Reason: Nausea/Vomiting Pantoprazole Sodium (Protonix) 40 mg PO BID [facility] Last Admin: 12/21/16 08:24 Dose: 40 mg Polyethylene Glycol (Miralax) 17 gm PO DAILY PRN PRN Reason: Constipation Ropinirole HCl (Requip) 1 mg PO BID [facility] Last Admin: 12/21/16 08:24 Dose: 1 mg Senna/Docusate Sodium (Senna Plus) 1 tab PO BID PRN PRN Reason: Constipation Sodium Chloride (Saline Flush) 10 ml FLUSH ASDIRECTED PRN PRN Reason: Keep Vein Open Trazodone HCl (Trazodone) 50 mg PO BEDTIME [facility] Last Admin: 12/20/16 20:33 Dose: 50 mg Warfarin Sodium (Coumadin) 3 mg PO DAILY@1300 [facility] Last Admin: 12/20/16 20:52 Dose: 3 mg Discontinued Medications Hydromorphone HCl (Dilaudid) 1 mg IVPUSH ONETIME ONE Stop: 12/20/16 14:52 Last Admin: 12/20/16 15:18 Dose: 1 mg Hydromorphone HCl (Dilaudid) 1 mg IVPUSH ONETIME ONE Stop: 12/20/16 16:38 Last Admin: 12/20/16 16:42 Dose: 1 mg Hydromorphone HCl (Dilaudid) 1 mg IVPUSH ONETIME ONE Stop: 12/20/16 17:50 Last Admin: 12/20/16 18:33 Dose: 1 mg Mometasone Furoate/Formoterol Fumar (Dulera 200-5 Mcg) 2 puff IH BID [facility] Last Admin: 12/20/16 20:46 Dose: 2 puff Ondansetron HCl (Zofran) 4 mg IVPUSH ONETIME ONE Stop: 12/20/16 14:53 Last Admin: 12/20/16 15:21 Dose: 4 mg Simvastatin (Zocor) 40 mg PO BEDTIME [facility] Last Admin: 12/20/16 20:33 Dose: 40 mg Sodium Chloride (Saline Flush) 10 ml FLUSH ASDIRECTED PRN PRN Reason: Keep Vein Open Last Admin: 12/20/16 18:36 Dose: 10 ml Warfarin Sodium (Coumadin) Confirm Administered Dose 3 mg .ROUTE .STK-MED ONE Stop: 12/20/16 20:51 Last Admin: 12/20/16 20:55 Dose: Not Given *Q Meaningful Use (DIS) - VTE *Q VTE Criteria *Q: VTE Pharmacological Contraindications *Q: High INR Value - Stroke *Q Stroke Criteria *Q: - AMI *Q AMI Criteria *Q:
[2016-12-21] MEDS: Warfarin 3 MG Tab PO SCH (13:54)
--- NOTE | 2016-12-21 14:54 | PCM.PN ---
- General Info Date of Service: 12/21/16 Functional Status: Reports: pain controlled, ambulating - Review of Systems Pulmonary: Denies: shortness of breath Gastrointestinal: Reports: Abdominal pain Systems Review Comment:: No acute events overnight. Abdominal pain has improved but has not resolved. Still some nausea. No vomiting or fevers though he did have some low-grade temperature elevations overnight. Lipase level has improved to 500. No complaints of shortness of breath. - Patient Data Vitals - most recent: Last Vital Signs Temp 37.7 C 12/21/16 10:36 Pulse 88 12/21/16 10:36 Resp 18 12/21/16 10:36 BP 99/61 12/21/16 10:36 Pulse Ox 96 12/21/16 13:06 Weight - most recent: 78.9 kg I&O - last 24 hours: Intake & Output 12/20/16 12/21/16 12/21/16 22:59 06:59 14:59 Intake Total 100 1180 Output Total 325 400 Balance 100 855 -400 Lab Results last 24 hrs: Laboratory Results - last 24 hr 12/20/16 12/21/16 12/21/16 Range/Units 19:24 04:45 04:45 WBC (4.5-11.0) K/uL RBC (4.30-5.90) M/uL Hgb (12.0-15.0) g/dL Hct (40.0-54.0) % MCV (80-98) fL MCH (27-31) pg MCHC (32-36) % Plt Count (150-400) K/uL Neut % (Auto) (36-66) % Lymph % (Auto) (24-44) % [place] % (Auto) (2-6) % Eos % (Auto) (2-4) % Baso % (Auto) (0-1) % PT 19.7 H 20.7 H (9.5-12.0) sec INR 1.82 H 1.91 H (0.80-1.20) Sodium (140-148) mmol/L Potassium (3.6-5.2) mmol/L Chloride (100-108) mmol/L Carbon Dioxide (21-32) mmol/L Anion Gap (5.0-14.0) mmol/L BUN (7-18) mg/dL Creatinine (0.8-1.3) mg/dL Est Cr Clr Drug Dosing mL/min Estimated GFR (MDRD) (>60) Glucose (74-106) mg/dL Calcium (8.5-10.1) mg/dL Total Bilirubin (0.2-1.0) mg/dL AST (15-37) U/L ALT (12-78) U/L Alkaline Phosphatase (46-116) U/L Total Protein (6.4-8.2) g/dL Albumin (3.4-5.0) g/dL Globulin (2.3-3.5) g/dL Albumin/Globulin Ratio (1.2-2.2) Amylase 195 H (25-115) U/L Lipase 539 H (73-393) U/L 12/21/16 12/21/16 Range/Units 04:45 04:45 WBC 10.5 (4.5-11.0) K/uL RBC 3.71 L (4.30-5.90) M/uL Hgb 10.2 L (12.0-15.0) g/dL Hct 33.4 L (40.0-54.0) % MCV 90 (80-98) fL MCH 28 (27-31) pg MCHC 31 L (32-36) % Plt Count 286 (150-400) K/uL Neut % (Auto) 73 H (36-66) % Lymph % (Auto) 15 L (24-44) % [place] % (Auto) 12 H (2-6) % Eos % (Auto) 1 L (2-4) % Baso % (Auto) 0 (0-1) % PT (9.5-12.0) sec INR (0.80-1.20) Sodium 142 (140-148) mmol/L Potassium 4.3 (3.6-5.2) mmol/L Chloride 108 (100-108) mmol/L Carbon Dioxide 23 (21-32) mmol/L Anion Gap 10.6 (5.0-14.0) mmol/L BUN 8 (7-18) mg/dL Creatinine 1.0 (0.8-1.3) mg/dL Est Cr Clr Drug Dosing 85.43 mL/min Estimated GFR (MDRD) > 60 (>60) Glucose 136 H (74-106) mg/dL Calcium 8.0 L (8.5-10.1) mg/dL Total Bilirubin 0.4 (0.2-1.0) mg/dL AST 20 (15-37) U/L ALT 20 (12-78) U/L Alkaline Phosphatase 130 H (46-116) U/L Total Protein 7.3 (6.4-8.2) g/dL Albumin 2.0 L (3.4-5.0) g/dL Globulin 5.3 H (2.3-3.5) g/dL Albumin/Globulin Ratio 0.4 L (1.2-2.2) Amylase (25-115) U/L Lipase (73-393) U/L Med Orders - Current: Current Medications Acetaminophen (Tylenol) 650 mg PO Q4H PRN PRN Reason: Pain (Mild 1-3)/fever Last Admin: 12/21/16 00:11 Dose: 650 mg Albuterol (Proventil Neb Soln) 2.5 mg NEB Q4H PRN PRN Reason: Shortness Of Breath/wheezing Albuterol (Ventolin Hfa) 0 gm INH Q6H PRN PRN Reason: BREATHING Cetirizine HCl (Zyrtec) 10 mg PO BEDTIME [facility] Last Admin: 12/20/16 20:32 Dose: 10 mg Docusate Sodium (Colace) 100 mg PO BID PRN PRN Reason: Constipation Enoxaparin Sodium (Lovenox) 80 mg SUBCUT BID [facility] Last Admin: 12/21/16 08:24 Dose: 80 mg Gabapentin (Neurontin) 300 mg PO QID [facility] Last Admin: 12/21/16 11:30 Dose: Not Given Hydromorphone HCl (Dilaudid [employer] Services Director 15 Mg In Ns 30 Ml) 0 mg IV ASDIRECTED PRN; Protocol PRN Reason: Pain Last Admin: 12/21/16 07:29 Dose: 15 mg Sodium Chloride (Normal Saline) 1,000 mls @ 125 mls/hr IV ASDIRECTED [facility] Last Admin: 12/21/16 11:30 Dose: 125 mls/hr Lidocaine (Lidoderm 5%) 700 mg TOP DAILY [facility] Last Admin: 12/21/16 08:28 Dose: Not Given Magnesium Hydroxide (Milk Of Magnesia) 30 ml PO Q12H PRN PRN Reason: Constipation Metoprolol Tartrate (Lopressor) 50 mg PO BID [facility] Last Admin: 12/21/16 08:29 Dose: 50 mg Miscellaneous Information (Remove Patch) 0 ea TRDERM BEDTIME [facility] Mometasone Furoate/Formoterol Fumar (Dulera 200-5 Mcg) 2 puff IH BIDRT [facility] Last Admin: 12/21/16 08:26 Dose: 2 puff Naloxone HCl (Narcan) 0.4 mg IVPUSH Q2M PRN PRN Reason: Respiratory Distress Ondansetron HCl (Zofran) 4 mg IV Q4H PRN PRN Reason: Nausea/Vomiting Pantoprazole Sodium (Protonix) 40 mg PO BID [facility] Last Admin: 12/21/16 08:24 Dose: 40 mg Polyethylene Glycol (Miralax) 17 gm PO DAILY PRN PRN Reason: Constipation Ropinirole HCl (Requip) 1 mg PO BID [facility] Last Admin: 12/21/16 08:24 Dose: 1 mg Senna/Docusate Sodium (Senna Plus) 1 tab PO BID PRN PRN Reason: Constipation Sodium Chloride (Saline Flush) 10 ml FLUSH ASDIRECTED PRN PRN Reason: Keep Vein Open Trazodone HCl (Trazodone) 50 mg PO BEDTIME [facility] Last Admin: 12/20/16 20:33 Dose: 50 mg Warfarin Sodium (Coumadin) 3 mg PO DAILY@1300 [facility] Last Admin: 12/21/16 13:54 Dose: 3 mg Discontinued Medications Hydromorphone HCl (Dilaudid) 1 mg IVPUSH ONETIME ONE Stop: 12/20/16 14:52 Last Admin: 12/20/16 15:18 Dose: 1 mg Hydromorphone HCl (Dilaudid) 1 mg IVPUSH ONETIME ONE Stop: 12/20/16 16:38 Last Admin: 12/20/16 16:42 Dose: 1 mg Hydromorphone HCl (Dilaudid) 1 mg IVPUSH ONETIME ONE Stop: 12/20/16 17:50 Last Admin: 12/20/16 18:33 Dose: 1 mg Mometasone Furoate/Formoterol Fumar (Dulera 200-5 Mcg) 2 puff IH BID [facility] Last Admin: 12/20/16 20:46 Dose: 2 puff Ondansetron HCl (Zofran) 4 mg IVPUSH ONETIME ONE Stop: 12/20/16 14:53 Last Admin: 12/20/16 15:21 Dose: 4 mg Simvastatin (Zocor) 40 mg PO BEDTIME [facility] Last Admin: 12/20/16 20:33 Dose: 40 mg Sodium Chloride (Saline Flush) 10 ml FLUSH ASDIRECTED PRN PRN Reason: Keep Vein Open Last Admin: 12/20/16 18:36 Dose: 10 ml Warfarin Sodium (Coumadin) Confirm Administered Dose 3 mg .ROUTE .STK-MED ONE Stop: 12/20/16 20:51 Last Admin: 12/20/16 20:55 Dose: Not Given - Exam Quality Assessment: supplemental oxygen. No: urine catheter General: alert, oriented, cooperative, no acute distress Neck: supple Lungs: Clear to auscultation, Normal respiratory effort Cardiovascular: Regular Rate, Regular Rhythm Abdomen: bowel sounds present, soft, no distension, tenderness (mild diffuse tenderness). No: guarding Extremities: no edema, normal pulses Skin: warm, dry Psy/Mental Status: alert, normal affect - Problem List & Annotations (1) Recurrent acute pancreatitis SNOMED Code(s): 773155072 Code(s): K85.90 - ACUTE PANCREATITIS WITHOUT NECROSIS OR INFECTION, UNSP Status: Acute Current Visit: Yes (2) Pancreatic pseudocyst SNOMED Code(s): 554430627 Code(s): K86.3 - PSEUDOCYST OF PANCREAS Status: Acute Current Visit: No - Problem List Review Problem List Initiated/Reviewed/Updated: Yes - My Orders Last 24 Hours: My Active Orders 12/21/16 12:11 Ready for Discharge [RC] PER UNIT ROUTINE - Plan Plan:: ASSESSMENT AND PLAN ACUTE RECURRENT PANCREATITIS - multiple episodes recently with the initial inciting toxin thought to be alcohol. Has been hospitalized nearly continuously for almost 3 months. Differential at this point seems to be abnormal ductal anatomy versus possibly medications. Statin and PPI seemed to be most likely culprits. No strong evidence for infection though he did have one fever since presentation. Doing better with current therapy. -N.p.o. -IV fluids for hydration -Dilaudid via [employer] for pain control -Antiemetic therapy as needed -Discontinue simvastatin and omeprazole RECENT HISTORY OF DEEP VEIN THROMBOSIS AND PULMONARY EMBOLISM - no bleeding issues at this time. -Continue current anticoagulation with warfarin and enoxaparin -Repeat INR in a.m. HYPERTENSION - blood pressure acceptable. -Continue outpatient medical management SINUS TACHYCARDIA - heart rate has improved but has intermittent elevations. MAINTENANCE ISSUES -DVT prophylaxis; current therapy with warfarin and enoxaparin should provide adequate DVT prophylaxis -GI prophylaxis; pantoprazole -Sorenson catheter; not indicated -Nutrition; n.p.o. -Nicotine dependence; not required CODE STATUS-FULL CODE ADMISSION STATUS-patient will be admitted to inpatient status, expect at least a 2 night hospital stay for evaluation and management of problems as outlined above. At the time of this admission I do not reasonably expected evaluation and management of this problem will require more than a 96 hour hospital stay. DISPOSITION - anticipate discharge to home after the hospital stay. We did review the case with the [facility] today. At this point they are comfortable with him staying here as long as he continues to show improvement. If he declines he will need transfer to a higher level of care at the [facility] in [place] is the preferred hospital for transfer. Drew Dimas M.D.
[2016-12-21] MEDS: Cetirizine 10 MG Tab PO SCH (20:43)
[2016-12-21] MEDS: traZODone 50 MG Tab PO SCH (20:43)
[2016-12-22] MEDS: HYDROmorphone/Normal Saline 15 MG/30 ML PCA IV PRN (01:19)
[2016-12-22] MEDS: Sodium Chloride 0.9% 1,000 ML IV SCH (03:04)
[2016-12-22] MEDS: Gabapentin 300 MG Cap PO SCH ×4 (05:34→21:43)
[2016-12-22] MEDS: Formoterol/Mometasone 200-5 MCG 8.8 GM Inhaler IH SCH ×2 (07:19→21:39)
[2016-12-22] MEDS: Metoprolol Tartrate 50 MG Tab PO SCH ×2 (08:23→21:40)
[2016-12-22] MEDS: Lidocaine 5% 700 MG Patch TOP SCH (08:23)
[2016-12-22] MEDS: Enoxaparin 80 MG/0.8 ML Syringe SUBCUT SCH (08:24)
[2016-12-22] MEDS: rOPINIRole 1 MG Tab PO SCH ×2 (08:24→21:42)
[2016-12-22] MEDS: Pantoprazole 40 MG Tab.CR PO SCH ×2 (08:24→21:42)
[2016-12-22] MEDS ORDERED: Sodium Chloride 0.9% 1,000 ML IV SCH (09:15)
--- NOTE | 2016-12-22 09:18 | PCM.PN ---
- General Info Date of Service: 12/22/16 Functional Status: Reports: pain controlled, ambulating - Review of Systems Gastrointestinal: Reports: Abdominal pain (mild) Systems Review Comment:: No acute events overnight. Abdominal pain has improved but has not completely resolved. He does not have any nausea. He has not had any fevers. No complaints of cough or shortness of breath. Lipase level has normalized. Vital signs have been stable. - Patient Data Vitals - most recent: Last Vital Signs Temp 37.4 C 12/22/16 07:00 Pulse 92 12/22/16 08:23 Resp 14 12/22/16 07:00 BP 108/63 12/22/16 08:23 Pulse Ox 92 L 12/22/16 07:18 Weight - most recent: 78.9 kg I&O - last 24 hours: Intake & Output 12/21/16 12/22/16 12/22/16 22:59 06:59 14:59 Intake Total 1462 1444 Output Total 600 975 225 Balance 862 469 -225 Lab Results last 24 hrs: Laboratory Results - last 24 hr 12/22/16 12/22/16 12/22/16 Range/Units 08:05 08:05 08:05 WBC 8.6 (4.5-11.0) K/uL RBC 3.40 L (4.30-5.90) M/uL Hgb 9.1 L (12.0-15.0) g/dL Hct 30.9 L (40.0-54.0) % MCV 91 (80-98) fL MCH 27 (27-31) pg MCHC 29 L (32-36) % Plt Count 266 (150-400) K/uL PT 38.8 H (9.5-12.0) sec INR 3.52 H (0.80-1.20) Lipase 196 (73-393) U/L Med Orders - Current: Current Medications Acetaminophen (Tylenol) 650 mg PO Q4H PRN PRN Reason: Pain (Mild 1-3)/fever Last Admin: 12/21/16 00:11 Dose: 650 mg Albuterol (Proventil Neb Soln) 2.5 mg NEB Q4H PRN PRN Reason: Shortness Of Breath/wheezing Albuterol (Ventolin Hfa) 0 gm INH Q6H PRN PRN Reason: BREATHING Cetirizine HCl (Zyrtec) 10 mg PO BEDTIME [facility] Last Admin: 12/21/16 20:43 Dose: 10 mg Docusate Sodium (Colace) 100 mg PO BID PRN PRN Reason: Constipation Gabapentin (Neurontin) 300 mg PO QID [facility] Last Admin: 12/22/16 05:34 Dose: Not Given Hydromorphone HCl (Dilaudid Mail Agent 15 Mg In Ns 30 Ml) 0 mg IV ASDIRECTED PRN; Protocol PRN Reason: Pain Last Admin: 12/22/16 01:19 Dose: 15 mg Sodium Chloride (Normal Saline) 1,000 mls @ 25 mls/hr IV ASDIRECTED [facility] Lidocaine (Lidoderm 5%) 700 mg TOP DAILY [facility] Last Admin: 12/22/16 08:23 Dose: Not Given Magnesium Hydroxide (Milk Of Magnesia) 30 ml PO Q12H PRN PRN Reason: Constipation Metoprolol Tartrate (Lopressor) 50 mg PO BID [facility] Last Admin: 12/22/16 08:23 Dose: 50 mg Miscellaneous Information (Remove Patch) 0 ea TRDERM BEDTIME [facility] Last Admin: 12/21/16 20:44 Dose: Not Given Mometasone Furoate/Formoterol Fumar (Dulera 200-5 Mcg) 2 puff IH BIDRT [facility] Last Admin: 12/22/16 07:19 Dose: 2 puff Naloxone HCl (Narcan) 0.4 mg IVPUSH Q2M PRN PRN Reason: Respiratory Distress Ondansetron HCl (Zofran) 4 mg IV Q4H PRN PRN Reason: Nausea/Vomiting Pantoprazole Sodium (Protonix) 40 mg PO BID [facility] Last Admin: 12/22/16 08:24 Dose: 40 mg Polyethylene Glycol (Miralax) 17 gm PO DAILY PRN PRN Reason: Constipation Ropinirole HCl (Requip) 1 mg PO BID [facility] Last Admin: 12/22/16 08:24 Dose: 1 mg Senna/Docusate Sodium (Senna Plus) 1 tab PO BID PRN PRN Reason: Constipation Sodium Chloride (Saline Flush) 10 ml FLUSH ASDIRECTED PRN PRN Reason: Keep Vein Open Trazodone HCl (Trazodone) 50 mg PO BEDTIME [facility] Last Admin: 12/21/16 20:43 Dose: 50 mg Warfarin Sodium (Coumadin) 2.5 mg PO DAILY@1300 [facility] Discontinued Medications Enoxaparin Sodium (Lovenox) 80 mg SUBCUT BID [facility] Last Admin: 12/22/16 08:24 Dose: 80 mg Hydromorphone HCl (Dilaudid) 1 mg IVPUSH ONETIME ONE Stop: 12/20/16 14:52 Last Admin: 12/20/16 15:18 Dose: 1 mg Hydromorphone HCl (Dilaudid) 1 mg IVPUSH ONETIME ONE Stop: 12/20/16 16:38 Last Admin: 12/20/16 16:42 Dose: 1 mg Hydromorphone HCl (Dilaudid) 1 mg IVPUSH ONETIME ONE Stop: 12/20/16 17:50 Last Admin: 12/20/16 18:33 Dose: 1 mg Sodium Chloride (Normal Saline) 1,000 mls @ 125 mls/hr IV ASDIRECTED [facility] Last Admin: 12/22/16 03:04 Dose: 125 mls/hr Mometasone Furoate/Formoterol Fumar (Dulera 200-5 Mcg) 2 puff IH BID [facility] Last Admin: 12/20/16 20:46 Dose: 2 puff Ondansetron HCl (Zofran) 4 mg IVPUSH ONETIME ONE Stop: 12/20/16 14:53 Last Admin: 12/20/16 15:21 Dose: 4 mg Simvastatin (Zocor) 40 mg PO BEDTIME [facility] Last Admin: 12/20/16 20:33 Dose: 40 mg Sodium Chloride (Saline Flush) 10 ml FLUSH ASDIRECTED PRN PRN Reason: Keep Vein Open Last Admin: 12/20/16 18:36 Dose: 10 ml Warfarin Sodium (Coumadin) 3 mg PO DAILY@1300 [facility] Last Admin: 12/21/16 13:54 Dose: 3 mg Warfarin Sodium (Coumadin) Confirm Administered Dose 3 mg .ROUTE .STK-MED ONE Stop: 12/20/16 20:51 Last Admin: 12/20/16 20:55 Dose: Not Given - Exam Quality Assessment: No: supplemental oxygen General: alert, oriented, cooperative, no acute distress Neck: supple Lungs: Clear to auscultation, Normal respiratory effort Cardiovascular: Regular Rate, Regular Rhythm, Murmurs Abdomen: bowel sounds present, soft, tenderness (mild epigastric), distension ( mild) Extremities: no edema, no cyanosis Skin: warm, dry Psy/Mental Status: alert, normal affect - Problem List & Annotations (1) Recurrent acute pancreatitis SNOMED Code(s): 702921464 Code(s): K85.90 - ACUTE PANCREATITIS WITHOUT NECROSIS OR INFECTION, UNSP Status: Acute Current Visit: Yes (2) Pancreatic pseudocyst SNOMED Code(s): 816887242 Code(s): K86.3 - PSEUDOCYST OF PANCREAS Status: Acute Current Visit: No - Problem List Review Problem List Initiated/Reviewed/Updated: Yes - My Orders Last 24 Hours: My Active Orders 12/21/16 12:11 Ready for Discharge [RC] PER UNIT ROUTINE 12/22/16 07:34 Incentive Spirometry [RT Incentive Spirometry] [RC] ASDIRECTED 12/22/16 09:11 Discontinue Telemetry Monitoring [Cardiac Monitoring Discontinue] [RC] Click to Edit 12/22/16 09:15 Sodium Chloride 0.9% [Normal Saline] 1,000 ml IV ASDIRECTED 12/22/16 Lunch Clear Liquid Diet [DIET] 12/23/16 05:00 CBC W/O DIFF,HEMOGRAM [HEME] Timed (1) COMPREHENSIVE METABOLIC PN,CMP [CHEM] Timed INR,PT,PROTHROMBIN TIME [COAG] Timed LIPASE [CHEM] Timed MAGNESIUM [CHEM] Timed 12/23/16 13:00 Warfarin [Coumadin] 2.5 mg PO DAILY@1300 - Plan Plan:: ASSESSMENT AND PLAN ACUTE RECURRENT PANCREATITIS - abdominal pain has improved and lipase has normalized. He's not having fevers. Statin and omeprazole are on hold at this time. Minimal abdominal pain at this point. -Trial of clear liquids -IV fluids to TKO -Trial of oral pain medications -Antiemetic therapy as needed -Discontinue simvastatin and omeprazole RECENT HISTORY OF DEEP VEIN THROMBOSIS AND PULMONARY EMBOLISM - no bleeding issues at this time. INR is now therapeutic and slightly supra-therapeutic. -Hold warfarin today -Discontinue enoxaparin -Repeat INR in a.m. HYPERTENSION - blood pressure acceptable. -Continue outpatient medical management SINUS TACHYCARDIA - heart rate has normalized. -Discontinue cardiac monitoring MAINTENANCE ISSUES -DVT prophylaxis; current therapy with warfarin should provide adequate DVT prophylaxis -GI prophylaxis; pantoprazole -Sorenson catheter; not indicated -Nutrition; trial of clear liquids -Nicotine dependence; not required CODE STATUS-FULL CODE ADMISSION STATUS-patient will be admitted to inpatient status, expect at least a 2 night hospital stay for evaluation and management of problems as outlined above. At the time of this admission I do not reasonably expected evaluation and management of this problem will require more than a 96 hour hospital stay. DISPOSITION - anticipate discharge to home after the hospital stay. He continues to show clinical improvement and hopefully will be ready for discharge home in the next day or 2 if the trend continues. Drew Dimas M.D.
[2016-12-22] MEDS: HYDROmorphone 2 MG Tab PO PRN ×3 (15:19→21:47)
[2016-12-22] MEDS: traZODone 50 MG Tab PO SCH (21:42)
[2016-12-22] MEDS: Cetirizine 10 MG Tab PO SCH (21:43)
[2016-12-23] MEDS: HYDROmorphone 2 MG Tab PO PRN ×6 (01:42→21:40)
[2016-12-23] MEDS: Gabapentin 300 MG Cap PO SCH ×4 (05:35→21:40)
[2016-12-23] MEDS: Formoterol/Mometasone 200-5 MCG 8.8 GM Inhaler IH SCH ×2 (07:31→21:37)
[2016-12-23] MEDS: Metoprolol Tartrate 50 MG Tab PO SCH ×2 (09:06→21:37)
[2016-12-23] MEDS: rOPINIRole 1 MG Tab PO SCH ×2 (09:06→21:39)
[2016-12-23] MEDS: Pantoprazole 40 MG Tab.CR PO SCH ×2 (09:07→21:38)
[2016-12-23] MEDS: Lidocaine 5% 700 MG Patch TOP SCH (09:08)
[2016-12-23] MEDS: HYDROmorphone 0.5 MG/0.5 ML Syringe IVPUSH PRN ×2 (09:39→19:51)
[2016-12-23] MEDS ORDERED: methylPREDNISolone Sodium Succinate 125 MG/2 ML SDV IVPUSH ONE (09:45)
[2016-12-23] MEDS ORDERED: diphenhydrAMINE 50 MG/ML SDV IVPUSH ONE (09:45)
[2016-12-23] MEDS ORDERED: Phytonadione ORAL 5mg/5ml Soln Simple Syrup U/D PO ONE (10:00)
[2016-12-23] MEDS: Magnesium Sulfate/Water 2 GM in Premix Bag 1 BAG IV SCH ×2 (10:14→16:28)
[2016-12-23] MEDS ORDERED: Sodium Chloride 0.9% 10 ML Syringe FLUSH PRN (10:25)
[2016-12-23] MEDS ORDERED: Iopamidol 612 MG/ML 100 ML Bottle IV PRN (10:25)
[2016-12-23] MEDS ORDERED: Iohexol 300 MG/ML 30 ML Bottle PO ONE (11:06)
--- NOTE | 2016-12-23 11:53 | CT ---
CT abdomen and pelvis. Comparison: 12/20/2016. Total DLP 718. Findings: Atelectatic changes in the lung bases. Increasing small left pleural effusion with trace r ight pleural effusion. Hiatal hernia is evident also correlate for prior Evelia fundoplication as we ll. Heterogeneous opacification of the liver without evidence for mass. The low attenuation througho ut the portal vein and splenic vein and visualized superior intact superior mesenteric vein likely d ue to thrombosis. There are numerous small fluid collections about the anterior aspect of the pancre as. These extend towards the spleen. A small fluid collection anterior to the spleen measures 3.7 cm mildly increased in size compared to prior. Additionally directly below the pancreas at the midline are numerous small fluid collections. Largest up to 4 cm. These are evident eccentric to the left a s well just anterior to the left perinephric space. Additionally small fluid collections are evident near the distal abdominal aorta. Overall multiloculated fluid collection anterior to the left kidne y appears similar measures 7.5 cm in length x 5 cm in transverse dimension x 1.8 cm in AP dimension. There is enlargement and heterogeneity throughout the tail of the pancreas additional there is enla rgement of the head of the pancreas. Numerous lymph nodes are evident. Trace pleural fluid about the gallbladder. Common bile duct is not well-visualized. A few tiny fluid collection about the fundus of the stomach laterally. Some mild thickening of the stomach wall as well. No does loops of small b owel. Mild amount of free pelvic fluid. Mild probable reactive change of the splenic flexure. Kidney s enhance normally no hydronephrosis. No acute osseous abnormality. Impression: 1. Multiloculated fluid collections throughout the upper abdomen about the pancreas, spleen and stom ach extending along the left perinephric space. Fairly similar compared to prior examination can be compatible with pseudocysts or infected fluid collections. 2. There is enlargement of the pancreas at the head and body. Does appear heterogeneous. Correlate f or pancreatitis. There does remain enhancement of the pancreas. Recommend CT follow-up. 3. Diffuse low attenuation within the portal vein and splenic vein and superior mesenteric vein are nonvisualized and findings are suggestive thrombosis.
[2016-12-23] MEDS: Potassium Chloride 20 MEQ Tab.ER PO SCH ×2 (12:08→17:40)
[2016-12-23] MEDS ORDERED: Warfarin 3 MG Tab PO SCH (13:00)
[2016-12-23] MEDS ORDERED: Warfarin 2.5 MG Tab PO SCH (13:00)
--- NOTE | 2016-12-23 14:30 | PCM.PN ---
- General Info Date of Service: 12/23/16 Functional Status: Reports: tolerating diet, ambulating, urinating - Review of Systems General: Reports: Weakness. Denies: Fever Gastrointestinal: Reports: Abdominal pain Systems Review Comment:: No acute events overnight. Epigastric pain has essentially resolved. He is tolerating his diet fairly well. His bowels have been moving. This morning he reports moderate achy left upper quadrant pain. This is a different pain than what brought him in. He does not have any nausea or vomiting. No fevers. No shortness of breath or edema. CT scan of the abdomen and pelvis this morning showed residual but improving inflammation around the head of the pancreas. It also noted multiple loculated fluid collections in the left upper quadrant with differential including pseudocyst versus potentially infected pockets of fluid. - Patient Data Vitals - most recent: Last Vital Signs Temp 37.3 C 12/23/16 11:22 Pulse 73 12/23/16 11:22 Resp 16 12/23/16 11:22 BP 122/70 12/23/16 11:22 Pulse Ox 96 12/23/16 11:22 Weight - most recent: 78.9 kg I&O - last 24 hours: Intake & Output 12/22/16 12/23/16 12/23/16 22:59 06:59 14:59 Intake Total 2547 2350 Output Total 546 874 0474 Balance 1947 -650 1200 Lab Results last 24 hrs: Laboratory Results - last 24 hr 12/23/16 12/23/16 12/23/16 Range/Units 05:00 05:26 05:26 WBC 6.6 (4.5-11.0) K/uL RBC 3.02 L (4.30-5.90) M/uL Hgb 8.1 L (12.0-15.0) g/dL Hct 26.8 L (40.0-54.0) % MCV 89 (80-98) fL MCH 27 (27-31) pg MCHC 30 L (32-36) % Plt Count 267 (150-400) K/uL PT 52.8 H (9.5-12.0) sec INR 4.75 H* (0.80-1.20) Sodium 140 (140-148) mmol/L Potassium 3.0 L (3.6-5.2) mmol/L Chloride 105 (100-108) mmol/L Carbon Dioxide 24 (21-32) mmol/L Anion Gap 14.0 (5.0-14.0) mmol/L BUN 2 L D (7-18) mg/dL Creatinine 0.7 L (0.8-1.3) mg/dL Est Cr Clr Drug Dosing 120.23 mL/min Estimated GFR (MDRD) > 60 (>60) Glucose 109 H (74-106) mg/dL Calcium 8.0 L (8.5-10.1) mg/dL Magnesium 1.6 L (1.8-2.4) mg/dL Total Bilirubin 0.3 (0.2-1.0) mg/dL AST 16 (15-37) U/L ALT 14 (12-78) U/L Alkaline Phosphatase 146 H (46-116) U/L Total Protein 6.9 (6.4-8.2) g/dL Albumin 1.8 L (3.4-5.0) g/dL Globulin 5.1 H (2.3-3.5) g/dL Albumin/Globulin Ratio 0.4 L (1.2-2.2) Lipase 160 (73-393) U/L Med Orders - Current: Current Medications Acetaminophen (Tylenol) 650 mg PO Q4H PRN PRN Reason: Pain (Mild 1-3)/fever Last Admin: 12/21/16 00:11 Dose: 650 mg Albuterol (Proventil Neb Soln) 2.5 mg NEB Q4H PRN PRN Reason: Shortness Of Breath/wheezing Albuterol (Ventolin Hfa) 0 gm INH Q6H PRN PRN Reason: BREATHING Cetirizine HCl (Zyrtec) 10 mg PO BEDTIME [facility] Last Admin: 12/22/16 21:43 Dose: 10 mg Docusate Sodium (Colace) 100 mg PO BID PRN PRN Reason: Constipation Gabapentin (Neurontin) 300 mg PO QID [facility] Last Admin: 12/23/16 09:06 Dose: 300 mg Hydromorphone HCl (Dilaudid) 2 - 4 mg PO Q3H PRN PRN Reason: Pain Last Admin: 12/23/16 12:14 Dose: 4 mg Hydromorphone HCl (Dilaudid) 0.5 - 1 mg IVPUSH Q4H PRN PRN Reason: Pain (severe 7-10) Last Admin: 12/23/16 09:39 Dose: 1 mg Magnesium Sulfate 2 gm/ Premix 50 mls @ 25 mls/hr IV Q6H [facility] Stop: 12/23/16 17:59 Last Admin: 12/23/16 10:14 Dose: 25 mls/hr Lidocaine (Lidoderm 5%) 700 mg TOP DAILY [facility] Last Admin: 12/23/16 09:08 Dose: Not Given Magnesium Hydroxide (Milk Of Magnesia) 30 ml PO Q12H PRN PRN Reason: Constipation Metoprolol Tartrate (Lopressor) 50 mg PO BID [facility] Last Admin: 12/23/16 09:06 Dose: 50 mg Miscellaneous Information (Remove Patch) 0 ea TRDERM BEDTIME [facility] Last Admin: 12/22/16 21:43 Dose: Not Given Mometasone Furoate/Formoterol Fumar (Dulera 200-5 Mcg) 2 puff IH BIDRT [facility] Last Admin: 12/23/16 07:31 Dose: 2 puff Naloxone HCl (Narcan) 0.4 mg IVPUSH Q2M PRN PRN Reason: Respiratory Distress Ondansetron HCl (Zofran) 4 mg IV Q4H PRN PRN Reason: Nausea/Vomiting Pantoprazole Sodium (Protonix) 40 mg PO BID [facility] Last Admin: 12/23/16 09:07 Dose: 40 mg Polyethylene Glycol (Miralax) 17 gm PO DAILY PRN PRN Reason: Constipation Potassium Chloride (Klor-Con M20) 40 meq PO BIDMEALS [facility] Stop: 12/23/16 17:01 Last Admin: 12/23/16 12:08 Dose: 40 meq Ropinirole HCl (Requip) 1 mg PO BID [facility] Last Admin: 12/23/16 09:06 Dose: 1 mg Senna/Docusate Sodium (Senna Plus) 1 tab PO BID PRN PRN Reason: Constipation Sodium Chloride (Saline Flush) 10 ml FLUSH ASDIRECTED PRN PRN Reason: Keep Vein Open Last Admin: 12/23/16 09:07 Dose: 10 ml Sodium Chloride (Saline Flush) 10 ml FLUSH ONETIME PRN PRN Reason: PER RADIOLOGY PROTOCOL Stop: 12/23/16 23:00 Trazodone HCl (Trazodone) 50 mg PO BEDTIME [facility] Last Admin: 12/22/16 21:42 Dose: 50 mg Discontinued Medications Diphenhydramine HCl (Benadryl) 50 mg IVPUSH ONETIME ONE Stop: 12/23/16 09:46 Last Admin: 12/23/16 10:11 Dose: 50 mg Enoxaparin Sodium (Lovenox) 80 mg SUBCUT BID [facility] Last Admin: 12/22/16 08:24 Dose: 80 mg Hydromorphone HCl (Dilaudid) 1 mg IVPUSH ONETIME ONE Stop: 12/20/16 14:52 Last Admin: 12/20/16 15:18 Dose: 1 mg Hydromorphone HCl (Dilaudid) 1 mg IVPUSH ONETIME ONE Stop: 12/20/16 16:38 Last Admin: 12/20/16 16:42 Dose: 1 mg Hydromorphone HCl (Dilaudid) 1 mg IVPUSH ONETIME ONE Stop: 12/20/16 17:50 Last Admin: 12/20/16 18:33 Dose: 1 mg Hydromorphone HCl (Dilaudid Cash On Delivery Clerk 15 Mg In Ns 30 Ml) 0 mg IV ASDIRECTED PRN; Protocol PRN Reason: Pain Last Admin: 12/22/16 01:19 Dose: 15 mg Sodium Chloride (Normal Saline) 1,000 mls @ 125 mls/hr IV ASDIRECTED [facility] Last Admin: 12/22/16 03:04 Dose: 125 mls/hr Sodium Chloride (Normal Saline) 1,000 mls @ 25 mls/hr IV ASDIRECTED [facility] Sodium Chloride (Normal Saline) 74 mls @ 3 mls/sec IV ONETIME ONE Stop: 12/23/16 10:26 Last Admin: 12/23/16 12:47 Dose: Not Given Iohexol (Omnipaque) 20 ml PO ONETIME ONE Stop: 12/23/16 11:07 Last Admin: 12/23/16 11:22 Dose: 20 ml Iopamidol (Isovue-300 (61%)) 100 ml IV . DIRECTED PRN PRN Reason: RADIOLOGY EXAM Stop: 12/23/16 10:26 Last Admin: 12/23/16 11:22 Dose: 100 ml Methylprednisolone Sodium Succinate (Solu-Medrol) 125 mg IVPUSH ONETIME ONE Stop: 12/23/16 09:46 Last Admin: 12/23/16 10:11 Dose: 125 mg Mometasone Furoate/Formoterol Fumar (Dulera 200-5 Mcg) 2 puff IH BID [facility] Last Admin: 12/20/16 20:46 Dose: 2 puff Ondansetron HCl (Zofran) 4 mg IVPUSH ONETIME ONE Stop: 12/20/16 14:53 Last Admin: 12/20/16 15:21 Dose: 4 mg Phytonadione (Aquamephyton) 2.5 mg PO ONETIME ONE Stop: 12/23/16 10:01 Last Admin: 12/23/16 10:02 Dose: 2.5 mg Simvastatin (Zocor) 40 mg PO BEDTIME [facility] Last Admin: 12/20/16 20:33 Dose: 40 mg Sodium Chloride (Saline Flush) 10 ml FLUSH ASDIRECTED PRN PRN Reason: Keep Vein Open Last Admin: 12/20/16 18:36 Dose: 10 ml Warfarin Sodium (Coumadin) 3 mg PO DAILY@1300 [facility] Last Admin: 12/21/16 13:54 Dose: 3 mg Warfarin Sodium (Coumadin) Confirm Administered Dose 3 mg .ROUTE .STK-MED ONE Stop: 12/20/16 20:51 Last Admin: 12/20/16 20:55 Dose: Not Given Warfarin Sodium (Coumadin) 2.5 mg PO DAILY@1300 [facility] - Exam Quality Assessment: No: supplemental oxygen General: alert, oriented, cooperative, no acute distress Neck: supple Lungs: Normal respiratory effort Cardiovascular: Regular Rate, Regular Rhythm Abdomen: bowel sounds present, soft, tenderness (mild LUQ), distension (mild) Back Exam: Full Range of Motion Extremities: no edema, normal pulses Skin: warm, dry Psy/Mental Status: alert, normal affect - Problem List & Annotations (1) Recurrent acute pancreatitis SNOMED Code(s): 173462657 Code(s): K85.90 - ACUTE PANCREATITIS WITHOUT NECROSIS OR INFECTION, UNSP Status: Acute Current Visit: Yes (2) Pancreatic pseudocyst SNOMED Code(s): 889978341 Code(s): K86.3 - PSEUDOCYST OF PANCREAS Status: Acute Current Visit: No - Problem List Review Problem List Initiated/Reviewed/Updated: Yes - My Orders Last 24 Hours: My Active Orders 12/22/16 14:39 HYDROmorphone [Dilaudid] 2 - 4 mg PO Q3H PRN 12/22/16 14:40 HYDROmorphone [Dilaudid] 0.5 - 1 mg IVPUSH Q4H PRN 12/22/16 15:26 Convert IV to Saline Lock [OM.PC] Routine 12/23/16 09:15 Potassium Chloride [Klor-Con M20] 40 meq PO BIDMEALS 12/23/16 10:00 Magnesium Sulfate/Water [Magnesium Sulfate 2 GM in Water 50 ML] 2 gm Premix Bag 1 bag IV Q6H 12/23/16 10:25 Sodium Chloride 0.9% [Saline Flush] 10 ml FLUSH ONETIME PRN 12/23/16 16:00 HGB [HEMOGLOBIN] [HEME] Timed 12/23/16 Dinner Full Liquid Diet [DIET] 12/24/16 05:00 BASIC METABOLIC PANEL,BMP [CHEM] Timed CBC W/O DIFF,HEMOGRAM [HEME] Timed (1) INR,PT,PROTHROMBIN TIME [COAG] Timed - Plan Plan:: ASSESSMENT AND PLAN ACUTE RECURRENT PANCREATITIS - abdominal pain has improved and lipase has normalized. He's not having fevers. Statin and omeprazole are on hold at this time. Minimal abdominal pain at this point. -Advance to full liquids -Saline lock IV -oral pain medications -Antiemetic therapy as needed -Discontinue simvastatin and omeprazole LEFT UPPER QUADRANT ABDOMINAL PAIN - CT scan reveals multiple loculated fluid collections that could be pseudocyst or potentially infected pockets of fluid. He is not having any fevers. His white blood cell count is normal. Clinically he is stable and I don't have a strong suspicion for infection at this time. The fluid collections appear similar to previous examinations. He is currently anticoagulated she then I think the risks of intervention at this point away the benefits. If he develops fevers or his pain is worse I think we may need to discuss intervention but at this point I think close monitoring will be the best route. -If he spikes a fever he will need blood cultures collected and antibiotics initiated. -Pain control RECENT HISTORY OF DEEP VEIN THROMBOSIS AND PULMONARY EMBOLISM - no bleeding issues at this time. INR is now supratherapeutic. Hemoglobin has dropped compared to 2 days ago but there is no evidence for bleeding that I can find. -Hold warfarin today -Vitamin K 2.5 mg x1 -Repeat hemoglobin this afternoon -Repeat INR in a.m. HYPERTENSION - blood pressure acceptable. -Continue outpatient medical management SINUS TACHYCARDIA - heart rate has normalized. -Discontinue cardiac monitoring MAINTENANCE ISSUES -DVT prophylaxis; current therapy with warfarin should provide adequate DVT prophylaxis -GI prophylaxis; pantoprazole -Sorenson catheter; not indicated -Nutrition; advance to full liquids DISPOSITION - anticipate discharge to home after the hospital stay. He continues to show clinical improvement and hopefully will be ready for discharge home in the next day or 2 if the trend continues. Drew Dimas M.D.
[2016-12-23] MEDS: traZODone 50 MG Tab PO SCH (21:40)
[2016-12-23] MEDS: Cetirizine 10 MG Tab PO SCH (21:40)
[2016-12-24] MEDS: HYDROmorphone 2 MG Tab PO PRN ×4 (00:20→11:20)
[2016-12-24] MEDS: Gabapentin 300 MG Cap PO SCH ×2 (06:15→09:22)
[2016-12-24] MEDS: Formoterol/Mometasone 200-5 MCG 8.8 GM Inhaler IH SCH (07:17)
[2016-12-24] MEDS: Lidocaine 5% 700 MG Patch TOP SCH (08:13)
[2016-12-24] MEDS: rOPINIRole 1 MG Tab PO SCH (08:15)
[2016-12-24] MEDS: Pantoprazole 40 MG Tab.CR PO SCH (08:15)
[2016-12-24] MEDS: Metoprolol Tartrate 50 MG Tab PO SCH (08:16)
[2016-12-24 11:07] VITALS: BP 117/69
--- NOTE | 2016-12-24 11:29 | PCM.DCSUM1 ---
Discharge Summary - Hospital Course Brief History: 55 -year-old male with history of recurrent pancreatitis complicated by pseudocyst who presented with recurrent epigastric abdominal pain and was admitted for another flare of acute pancreatitis - Discharge Data Discharge Date: 12/24/16 Discharge Disposition: Home, Self-Care 01 Condition: Fair - Discharge Diagnosis/Problem(s) (1) Recurrent acute pancreatitis SNOMED Code(s): 126305490 ICD Code: K85.90 - ACUTE PANCREATITIS WITHOUT NECROSIS OR INFECTION, UNSP Status: Acute (2) Pancreatic pseudocyst SNOMED Code(s): 202990521 ICD Code: K86.3 - PSEUDOCYST OF PANCREAS Status: Acute - Patient Summary/Data Hospital Course: Armando presented to the emergency room with acute epigastric abdominal pain. Workup in the emergency room was suggestive of acute pancreatitis based on imaging and laboratory testing. He was admitted to the hospital and started on IV fluids and IV pain medications. His case was discussed with the on-call physician at the [facility] in [place] and they did not have beds available at the time of admission. The morning after admission his abdominal pain has improved a fair amount. He has not had any recurrent fevers after having one in the emergency room. His lipase level has improved and his vital signs have been stable. I did discuss his case again with the on-call physician at the [place] and they felt it was acceptable to keep him here for further management at this time.. He has not had any fevers by hospital day 2. unfortunately is hospital day 2 and on he did develop some increasing left upper quadrant abdominal pain. Vitals remained stable. We did elect to perform a CT of the abdomen and pelvis to rule out abscess or infection or other pathology given his recent complicated course. CT scan showed some persistence but mostly resolution of the pancreatitis. CT scan also redemonstrated multiloculated areas in the left upper quadrant that could be a walled off fluid collections or pseudocysts. There is no definitive evidence for infection. No evidence for bleeding. At this point we elected to continue his current level of care including pain control. We did advance his diet since no worsening of the pancreatitis was noted in his pancreatitis type pain had improved. By the morning of discharge his pain has improved significantly. He has tolerated a full liquid diet with no nausea or vomiting. His bowels have been moving. I believe he is safe for outpatient management at this time. He will be discharged home with some pain pills. The exact cause for his recurrent episodes of pancreatitis or not entirely clear. He did elect to discontinue his simvastatin omeprazole because they had some potential to cause drug-induced pancreatitis. I do realize this is a rare phenomenon but given his difficulty over the last 3 months it seems reasonable to stop his medications at least for the time being and see if it provides some benefit. I have replaced his omeprazole with pantoprazole. Regarding the left upper quadrant abdominal pain I think that he is at a risk for infection but at this point I don't have a lot of evidence to suggest that any of the fluid collections are infected. His white blood cell count is normal and his temperatures have been normal. His pain has improved and we have not had him on antibiotics or steroids. If he has additional difficulties with left upper quadrant pain and/or fevers we may need to consider either interventional radiology or surgical intervention for the potentially infected areas. Dr Parada from the [place] did complete a summary for the recent hospitalizations including the [facility], [facility] in [place] and the [place] in [place]. This summary will be scanned into the medical record for review. - Patient Instructions Diet: Regular Diet as Tolerated, NPO Diet, Other: soft and bland foods for the next few weeks Activity: As Tolerated Driving: Do Not Drive (if taking pain pills) Showering/Bathing: May Shower Notify Provider of: Fever, Increased Pain, Nausea and/or Vomiting Other/Special Instructions: 1. You were in the hospital for management of acute recurrent pancreatitis. I am somewhat suspicious this was caused by medications with potential culprits including simvastatin and omeprazole. You have improved after these medications were stopped and tolerated the diet so far. I would recommend that she maintain a soft and bland diet for the next couple of weeks. Avoid rich foods and greasy foods. You can use acetaminophen for milder pain and your hydromorphone for more intense pain. 2. Resume your usual Coumadin dosing today. We did give you an injection of enoxaparin prior to hospital discharge. You should have your Coumadin level checked early next week. Because of the drop in your Coumadin level today you should use the enoxaparin injections on Wednesday and Wednesday as previously instructed. After that your INR should be therapeutic again. 3. Follow up with Dr. Nicole in approximately 2 weeks. 4. Please seek medical attention if you develop fever greater than 101, have severe abdominal pain, vomiting or severe diarrhea. - Discharge Plan Prescriptions/Med Rec: HYDROmorphone [Dilaudid] 2 mg PO Q3H PRN #60 tablet PRN Reason: Pain Pantoprazole [ProTONIX] 40 mg PO BID #60 tab.cr Home Medications: Home Meds Cetirizine [ZyrTEC] 10 mg PO BEDTIME 03/17/14 [History] Cyclobenzaprine [Flexeril] 20 mg PO ASDIRECTED 03/17/14 [History] Thiamine [Vitamin B-1] 100 mg PO DAILY 03/17/14 [History] Albuterol Sulfate [Proair Respiclick] 2 puff IN Q6HR PRN 10/27/16 [History] Budesonide/Formoterol [Symbicort 160-4.5 MCG] 2 puff IN BID 10/27/16 [History] Lidocaine 5% [Lidoderm 5%] 1 patch TOP DAILY 10/27/16 [History] Metoprolol Tartrate [Lopressor] 50 mg PO BID 10/27/16 [History] rOPINIRole [Requip] 1 mg PO BID 10/27/16 [History] traMADol [Ultram] 100 mg PO BID 10/27/16 [History] traZODone 50 mg PO BEDTIME 10/27/16 [History] Cyclobenzaprine HCl 20 mg PO BEDTIME 12/20/16 [History] Docusate Sodium/Sennosides [Senna Plus] 2 each PO BID PRN 12/20/16 [History] Gabapentin [Neurontin] 300 mg PO QID 12/20/16 [History] Naloxone HCl [Narcan] 4 mg NS ASDIRECTED PRN 12/20/16 [History] Warfarin [Coumadin] 3 mg PO DAILY 12/20/16 [History] HYDROmorphone [Dilaudid] 2 mg PO Q3H PRN #60 tablet 12/24/16 [Rx] Pantoprazole [ProTONIX] 40 mg PO BID #60 tab.cr 12/24/16 [Rx] Patient Handouts: Pantoprazole tablets, Hydromorphone tablets, Acute Pancreatitis Referrals: Moises Hadley MD [Primary Care Provider] - (follow up in 1-2 weeks - followup hospital stay for acute pancreatitis complicated by pseudocysts) - Discharge Summary/Plan Comment DC Time >30 min.: No (25) - Patient Data Vitals - Most Recent: Last Vital Signs Temp 36.4 C 12/24/16 11:03 Pulse 80 12/24/16 11:03 Resp 18 12/24/16 11:03 BP 117/69 12/24/16 11:03 Pulse Ox 97 12/24/16 11:03 Weight - Most Recent: 78.9 kg I&O - Last 24 hours: Intake & Output 12/23/16 12/24/16 12/24/16 22:59 06:59 14:59 Intake Total 1560 780 Output Total 400 500 900 Balance 1160 -500 -120 Lab Results - Last 24 hrs: Laboratory Results - last 24 hr 12/23/16 12/24/16 12/24/16 Range/Units 16:00 05:00 05:00 WBC 5.5 (4.5-11.0) K/uL RBC 3.09 L (4.30-5.90) M/uL Hgb 8.7 L 8.2 L (12.0-15.0) g/dL Hct 27.2 L (40.0-54.0) % MCV 88 (80-98) fL MCH 27 (27-31) pg MCHC 30 L (32-36) % Plt Count 291 (150-400) K/uL PT 14.5 H (9.5-12.0) sec INR 1.36 H D (0.80-1.20) Sodium (140-148) mmol/L Potassium (3.6-5.2) mmol/L Chloride (100-108) mmol/L Carbon Dioxide (21-32) mmol/L Anion Gap (5.0-14.0) mmol/L BUN (7-18) mg/dL Creatinine (0.8-1.3) mg/dL Est Cr Clr Drug Dosing mL/min Estimated GFR (MDRD) (>60) Glucose (74-106) mg/dL Calcium (8.5-10.1) mg/dL 12/24/16 Range/Units 05:00 WBC (4.5-11.0) K/uL RBC (4.30-5.90) M/uL Hgb (12.0-15.0) g/dL Hct (40.0-54.0) % MCV (80-98) fL MCH (27-31) pg MCHC (32-36) % Plt Count (150-400) K/uL PT (9.5-12.0) sec INR (0.80-1.20) Sodium 141 (140-148) mmol/L Potassium 4.0 (3.6-5.2) mmol/L Chloride 107 (100-108) mmol/L Carbon Dioxide 24 (21-32) mmol/L Anion Gap 9.7 (5.0-14.0) mmol/L BUN 3 L (7-18) mg/dL Creatinine 0.7 L (0.8-1.3) mg/dL Est Cr Clr Drug Dosing 120.23 mL/min Estimated GFR (MDRD) > 60 (>60) Glucose 156 H (74-106) mg/dL Calcium 8.1 L (8.5-10.1) mg/dL Med Orders - Current: Current Medications Acetaminophen (Tylenol) 650 mg PO Q4H PRN PRN Reason: Pain (Mild 1-3)/fever Last Admin: 12/21/16 00:11 Dose: 650 mg Albuterol (Proventil Neb Soln) 2.5 mg NEB Q4H PRN PRN Reason: Shortness Of Breath/wheezing Albuterol (Ventolin Hfa) 0 gm INH Q6H PRN PRN Reason: BREATHING Cetirizine HCl (Zyrtec) 10 mg PO BEDTIME [facility] Last Admin: 12/23/16 21:40 Dose: 10 mg Docusate Sodium (Colace) 100 mg PO BID PRN PRN Reason: Constipation Enoxaparin Sodium (Lovenox) 120 mg SUBCUT ONETIME ONE Stop: 12/24/16 11:31 Last Admin: 12/24/16 11:24 Dose: 120 mg Gabapentin (Neurontin) 300 mg PO QID [facility] Last Admin: 12/24/16 09:22 Dose: Not Given Hydromorphone HCl (Dilaudid) 2 - 4 mg PO Q3H PRN PRN Reason: Pain Last Admin: 12/24/16 11:20 Dose: 4 mg Hydromorphone HCl (Dilaudid) 0.5 - 1 mg IVPUSH Q4H PRN PRN Reason: Pain (severe 7-10) Last Admin: 12/23/16 19:51 Dose: 1 mg Lidocaine (Lidoderm 5%) 700 mg TOP DAILY [facility] Last Admin: 12/24/16 08:13 Dose: Not Given Magnesium Hydroxide (Milk Of Magnesia) 30 ml PO Q12H PRN PRN Reason: Constipation Metoprolol Tartrate (Lopressor) 50 mg PO BID [facility] Last Admin: 12/24/16 08:16 Dose: 50 mg Miscellaneous Information (Remove Patch) 0 ea TRDERM BEDTIME [facility] Last Admin: 12/23/16 21:35 Dose: Not Given Mometasone Furoate/Formoterol Fumar (Dulera 200-5 Mcg) 2 puff IH BIDRT [facility] Last Admin: 12/24/16 07:17 Dose: 2 puff Ondansetron HCl (Zofran) 4 mg IV Q4H PRN PRN Reason: Nausea/Vomiting Pantoprazole Sodium (Protonix) 40 mg PO BID [facility] Last Admin: 12/24/16 08:15 Dose: 40 mg Polyethylene Glycol (Miralax) 17 gm PO DAILY PRN PRN Reason: Constipation Ropinirole HCl (Requip) 1 mg PO BID [facility] Last Admin: 12/24/16 08:15 Dose: 1 mg Senna/Docusate Sodium (Senna Plus) 1 tab PO BID PRN PRN Reason: Constipation Sodium Chloride (Saline Flush) 10 ml FLUSH ASDIRECTED PRN PRN Reason: Keep Vein Open Last Admin: 12/23/16 09:07 Dose: 10 ml Trazodone HCl (Trazodone) 50 mg PO BEDTIME [facility] Last Admin: 12/23/16 21:40 Dose: 50 mg Discontinued Medications Diphenhydramine HCl (Benadryl) 50 mg IVPUSH ONETIME ONE Stop: 12/23/16 09:46 Last Admin: 12/23/16 10:11 Dose: 50 mg Enoxaparin Sodium (Lovenox) 80 mg SUBCUT BID [facility] Last Admin: 12/22/16 08:24 Dose: 80 mg Hydromorphone HCl (Dilaudid) 1 mg IVPUSH ONETIME ONE Stop: 12/20/16 14:52 Last Admin: 12/20/16 15:18 Dose: 1 mg Hydromorphone HCl (Dilaudid) 1 mg IVPUSH ONETIME ONE Stop: 12/20/16 16:38 Last Admin: 12/20/16 16:42 Dose: 1 mg Hydromorphone HCl (Dilaudid) 1 mg IVPUSH ONETIME ONE Stop: 12/20/16 17:50 Last Admin: 12/20/16 18:33 Dose: 1 mg Hydromorphone HCl (Dilaudid Jailor 15 Mg In Ns 30 Ml) 0 mg IV ASDIRECTED PRN; Protocol PRN Reason: Pain Last Admin: 12/22/16 01:19 Dose: 15 mg Sodium Chloride (Normal Saline) 1,000 mls @ 125 mls/hr IV ASDIRECTED DANTE Last Admin: 12/22/16 03:04 Dose: 125 mls/hr Sodium Chloride (Normal Saline) 1,000 mls @ 25 mls/hr IV ASDIRECTED DANTE Magnesium Sulfate 2 gm/ Premix 50 mls @ 25 mls/hr IV Q6H [facility] Stop: 12/23/16 17:59 Last Admin: 12/23/16 16:28 Dose: 25 mls/hr Sodium Chloride (Normal Saline) 74 mls @ 3 mls/sec IV ONETIME ONE Stop: 12/23/16 10:26 Last Admin: 12/23/16 12:47 Dose: Not Given Iohexol (Omnipaque) 20 ml PO ONETIME ONE Stop: 12/23/16 11:07 Last Admin: 12/23/16 11:22 Dose: 20 ml Iopamidol (Isovue-300 (61%)) 100 ml IV . DIRECTED PRN PRN Reason: RADIOLOGY EXAM Stop: 12/23/16 10:26 Last Admin: 12/23/16 11:22 Dose: 100 ml Methylprednisolone Sodium Succinate (Solu-Medrol) 125 mg IVPUSH ONETIME ONE Stop: 12/23/16 09:46 Last Admin: 12/23/16 10:11 Dose: 125 mg Mometasone Furoate/Formoterol Fumar (Dulera 200-5 Mcg) 2 puff IH BID [facility] Last Admin: 12/20/16 20:46 Dose: 2 puff Naloxone HCl (Narcan) 0.4 mg IVPUSH Q2M PRN PRN Reason: Respiratory Distress Ondansetron HCl (Zofran) 4 mg IVPUSH ONETIME ONE Stop: 12/20/16 14:53 Last Admin: 12/20/16 15:21 Dose: 4 mg Phytonadione (Aquamephyton) 2.5 mg PO ONETIME ONE Stop: 12/23/16 10:01 Last Admin: 12/23/16 10:02 Dose: 2.5 mg Potassium Chloride (Klor-Con M20) 40 meq PO BIDMEALS [facility] Stop: 12/23/16 17:01 Last Admin: 12/23/16 17:40 Dose: 40 meq Simvastatin (Zocor) 40 mg PO BEDTIME [facility] Last Admin: 12/20/16 20:33 Dose: 40 mg Sodium Chloride (Saline Flush) 10 ml FLUSH ASDIRECTED PRN PRN Reason: Keep Vein Open Last Admin: 12/20/16 18:36 Dose: 10 ml Sodium Chloride (Saline Flush) 10 ml FLUSH ONETIME PRN PRN Reason: PER RADIOLOGY PROTOCOL Stop: 12/23/16 23:00 Warfarin Sodium (Coumadin) 3 mg PO DAILY@1300 DANTE Last Admin: 12/21/16 13:54 Dose: 3 mg Warfarin Sodium (Coumadin) Confirm Administered Dose 3 mg .ROUTE .STK-MED ONE Stop: 12/20/16 20:51 Last Admin: 12/20/16 20:55 Dose: Not Given Warfarin Sodium (Coumadin) 2.5 mg PO DAILY@1300 DANTE *Q Meaningful Use (DIS) - VTE *Q VTE Criteria *Q: VTE Pharmacological Contraindications *Q: High INR Value - Stroke *Q Stroke Criteria *Q: - AMI *Q AMI Criteria *Q:
[2016-12-24] MEDS ORDERED: Enoxaparin 120 MG/0.8 ML Syringe SUBCUT ONE (11:30)
== END 2016-12-24 12:10 | disposition home or self-care (01) | DRG 439 ==
LOC: JP.ED 13:04 → JP.MS 18:31
PROVIDERS: ADMIT Hospitalist; ATTEND Internal Medicine
DX: K85.30 Drug induced acute pancreatitis without necrosis or infection (principal); K86.3 Pseudocyst of pancreas; Z86.711 Personal history of pulmonary embolism; Z86.718 Personal history of other venous thrombosis and embolism; I10 Essential (primary) hypertension; R00.0 Tachycardia, unspecified; T46.6X5A Adverse effect of antihyperlipidemic and antiarteriosclerotic drugs, initial encounter; Y92.009 Unspecified place in unspecified non-institutional (private) residence as the place of occurrence of the external cause; K86.1 Other chronic pancreatitis; T47.1X5A Adverse effect of other antacids and anti-gastric-secretion drugs, initial encounter; E78.00 Pure hypercholesterolemia, unspecified; I25.2 Old myocardial infarction; J44.9 Chronic obstructive pulmonary disease, unspecified; Z87.01 Personal history of pneumonia (recurrent); K21.9 Gastro-esophageal reflux disease without esophagitis; M54.9 Dorsalgia, unspecified; G89.29 Other chronic pain; M19.90 Unspecified osteoarthritis, unspecified site; Z87.891 Personal history of nicotine dependence; Z79.01 Long term (current) use of anticoagulants; Z91.041 Radiographic dye allergy status; Z88.8 Allergy status to other drugs, medicaments and biological substances
CPT/HCPCS: 36415; 74176; 74177; 74177-26; 80048; 80053; 81001; 82150; 83690; 83735; 85018; 85025; 85027; 85610; 94640-76; 96374; 96375; 96376; 99223-AI; 99232; 99238; 99285; 99285-25; A9270-GY; J1170; J1200; J1650; J2405; J2930; J3475; J7040; J7050; Q9965; Q9967

== ENCOUNTER 2017-01-18 11:26 | Inpatient (IN) | payer OTHER ==
[2017-01-18] MEDS ORDERED: Sodium Chloride 0.9% 10 ML Syringe FLUSH PRN ×2 (12:22→14:22)
[2017-01-18] MEDS ORDERED: Ondansetron 4 MG/2 ML SDV IVPUSH ONE (12:23)
--- NOTE | 2017-01-18 12:26 | EDM.PDOC ---
ED HPI GENERAL MEDICAL PROBLEM - General Chief Complaint: Abdominal Pain Stated Complaint: STOMACH PAIN Time Seen by Provider: 01/18/17 12:13 Source of Information: Reports: Patient, Family, Old Records, RN Notes Reviewed History Limitations: Reports: No Limitations - History of Present Illness INITIAL COMMENTS - FREE TEXT/NARRATIVE: 56-year-old gentleman presents emergency department day complaint of abdominal pain, he does have a history of pancreatitis with pseudocyst as well as volvulus in the past was recently admitted in November of this year for ongoing abdominal pain secondary to chronic pancreatitis he denies any fevers is still passing gas no shortness of breath or chest pain has diarrhea Middle Abdominal Pain Score (Numeric/FACES): 8 - Related Data Allergies Allergy/AdvReac Type Severity Reaction Status Date / Time glycopyrrolate [From Robinul] Allergy Seizure Verified 01/18/17 11:55 Iodinated Contrast- Oral and Allergy Renal Verified 01/18/17 11:55 IV Dye Failure [Iodinated Contrast Media - Oral and] lorazepam [From Ativan] Allergy Confusion Verified 01/18/17 11:55 sulfamethoxazole Allergy Facial Verified 01/18/17 11:55 [From Septra] Spasms trimethoprim [From Septra] Allergy Facial Verified 01/18/17 11:55 Spasms Home Meds: Home Meds Cetirizine [ZyrTEC] 10 mg PO BEDTIME 03/17/14 [History] Thiamine [Vitamin B-1] 100 mg PO DAILY 03/17/14 [History] Albuterol Sulfate [Proair Respiclick] 2 puff IN Q6HR PRN 10/27/16 [History] Budesonide/Formoterol [Symbicort 160-4.5 MCG] 2 puff IN BID 10/27/16 [History] Lidocaine 5% [Lidoderm 5%] 1 patch TOP ASDIRECTED PRN 10/27/16 [History] Metoprolol Tartrate [Lopressor] 50 mg PO BID 10/27/16 [History] rOPINIRole [Requip] 1 mg PO BEDTIME 10/27/16 [History] traMADol [Ultram] 100 mg PO BID 10/27/16 [History] traZODone 50 mg PO BEDTIME 10/27/16 [History] Cyclobenzaprine HCl 20 mg PO BEDTIME PRN 12/20/16 [History] Docusate Sodium/Sennosides [Senna Plus] 2 each PO BID PRN 12/20/16 [History] Gabapentin [Neurontin] 300 mg PO QID 12/20/16 [History] Warfarin [Coumadin] 3 mg PO DAILY 12/20/16 [History] Ranitidine HCl [Zantac 75] 75 mg PO 01/18/17 [History] Past Medical History HEENT History: Reports: Allergic Rhinitis Cardiovascular History: Reports: CAD, High Cholesterol, Hypertension, [place], Other (See Below) Other Cardiovascular History: angiogram Respiratory History: Reports: COPD, PE, Pneumonia, Recurrent, Sleep Apnea Gastrointestinal History: Reports: GERD, Hiatal Hernia, Pancreatitis, Other ( See Below) Other Gastrointestinal History: kink in bowel Genitourinary History: Reports: Acute Renal Failure, Chronic Renal Insuffiency Other Genitourinary History: PREVIOUS INDWELLING MCALLISTER Musculoskeletal History: Reports: Back Pain, Chronic, Neck Pain, Chronic, Osteoarthritis Neurological History: Reports: Concussion, Seizure Hematologic History: Reports: Anemia, Blood Transfusion(s) Dermatologic History: Reports: Other (See Below) Other Dermatologic History: rash at different times - Infectious Disease History Infectious Disease History: Reports: Chicken Pox - Past Surgical History Respiratory Surgical History: Reports: Thoracentesis GI Surgical History: Reports: Appendectomy Social & Family History - Family History GI: Reports: Pancreatitis - Tobacco Use Smoking Status *Q: Former Smoker Years of Tobacco use: 30 Used Tobacco, but Quit: Yes Month Tobacco Last Used: april 2016 Second Hand Smoke Exposure: Yes - Caffeine Use Caffeine Use: Reports: None - Alcohol Use Days Per Week of Alcohol Use: 7 Number of Drinks Per Day: 10 Total Drinks Per Week: 70 - Recreational Drug Use Recreational Drug Use: Yes Recreational Drug Type: Reports: Marijuana/Hashish ED ROS GENERAL - Review of Systems Review Of Systems: See Below Constitutional: Denies: Fever, Chills HEENT: Reports: No Symptoms Respiratory: Reports: No Symptoms Cardiovascular: Reports: No Symptoms GI/Abdominal: Reports: Abdominal Pain, Diarrhea, Flatus, Nausea. Denies: Vomiting : Reports: No Symptoms Musculoskeletal: Reports: No Symptoms Skin: Reports: No Symptoms Neurological: Reports: No Symptoms ED EXAM, GI/ABD - Physical Exam Exam: See Below Text/Narrative:: General: Male, moderate discomfort secondary to pain, alert and oriented x3 HEENT: head is atraumatic normocephalic, eyes pupils equal round reactive to light, sclera clear no conjunctivitis appreciated. Nose no septal deviation , nares are clear, no blood present. Mouth mucosa is moist and pink no erythema or exudate noted in soft palate, tongue is midline uvula is midline, dentition is intact. Neck: Supple no thyromegaly no tracheal deviation. Nodes: Cervical nodes subclavicular nodes nontender no palpable lymphadenopathy noted. Lungs: clear to auscultation bilaterally with symmetrical respirations, no adventitious noise appreciated. CV: Regular rate and rhythm S1 and S2 appreciated no murmurs rubs or gallops noted. Abdomen: Soft, tender suprapubic area, no palpable masses or organomegaly appreciated, mild distention no guarding bowel sounds are present, . Neuro: Cranial nerves II through XII grossly intact Skin: Warm and dry, intact Extremities: No lower extremity edema appreciated, . Course - Vital Signs Last Recorded V/S: Last Vital Signs Temp 97.7 F 01/18/17 11:52 Pulse 66 01/18/17 14:54 Resp 16 01/18/17 14:54 BP 141/82 H 01/18/17 14:54 Pulse Ox 96 01/18/17 14:54 - Orders/Labs/Meds Orders: Active Orders 24 hr Category Date Time Status Peripheral IV Care [RC] . DIRECTED Care 01/18/17 12:22 Active Abdomen Pelvis w Cont [CT] Stat Exams 01/18/17 14:07 Taken Iopamidol [Isovue-300 (61%)] Med 01/18/17 14:30 Active 117 ml IV . DIRECTED Lactated Ringers [Ringers, Lactated] 1,000 ml Med 01/18/17 12:30 Active IV ASDIRECTED Lactated Ringers [Ringers, Lactated] 1,000 ml Med 01/18/17 16:36 Active IV BOLUS Sodium Chloride 0.9% [Saline Flush] Med 01/18/17 12:22 Active 10 ml FLUSH ASDIRECTED PRN Sodium Chloride 0.9% [Saline Flush] Med 01/18/17 14:22 Active 10 ml FLUSH ONETIME PRN Peripheral IV Insertion Adult [OM.PC] Urgent Oth 01/18/17 12:22 Ordered Medication Orders Lactated Ringer's (Ringers, Lactated) 1,000 mls @ 999 mls/hr IV ASDIRECTED DANTE Last Admin: 01/18/17 13:05 Dose: 999 mls/hr Lactated Ringer's (Ringers, Lactated) 1,000 mls @ 250 mls/hr IV BOLUS ONE Stop: 01/18/17 20:35 Iopamidol (Isovue-300 (61%)) 117 ml IV . DIRECTED DANTE Last Admin: 01/18/17 15:46 Dose: 150 ml Sodium Chloride (Saline Flush) 10 ml FLUSH ASDIRECTED PRN PRN Reason: Keep Vein Open Last Admin: 01/18/17 13:48 Dose: 10 ml Sodium Chloride (Saline Flush) 10 ml FLUSH ONETIME PRN PRN Reason: PER RADIOLOGY PROTOCOL Last Admin: 01/18/17 15:46 Dose: 10 ml Labs: Laboratory Tests 01/18/17 01/18/17 01/18/17 Range/Units 12:30 12:30 12:30 WBC 8.3 (4.5-11.0) K/uL RBC 4.16 L (4.30-5.90) M/uL Hgb 11.4 L D (12.0-15.0) g/dL Hct 36.2 L (40.0-54.0) % MCV 87 (80-98) fL MCH 27 (27-31) pg MCHC 32 (32-36) % Plt Count 414 H (150-400) K/uL Neut % (Auto) 65 (36-66) % Lymph % (Auto) 21 L (24-44) % [place] % (Auto) 9 H (2-6) % Eos % (Auto) 4 (2-4) % Baso % (Auto) 1 (0-1) % Sodium 143 (140-148) mmol/L Potassium 3.9 (3.6-5.2) mmol/L Chloride 106 (100-108) mmol/L Carbon Dioxide 25 (21-32) mmol/L Anion Gap 11.8 (5.0-14.0) mmol/L BUN 5 L D (7-18) mg/dL Creatinine 0.6 L (0.8-1.3) mg/dL Est Cr Clr Drug Dosing 145.32 mL/min Estimated GFR (MDRD) > 60 (>60) Glucose 94 (74-106) mg/dL Lactic Acid 1.7 (0.4-2.0) mmol/L Calcium 9.2 (8.5-10.1) mg/dL Total Bilirubin 0.2 (0.2-1.0) mg/dL AST 48 H D (15-37) U/L ALT 29 D (12-78) U/L Alkaline Phosphatase 183 H (46-116) U/L Total Protein 7.8 (6.4-8.2) g/dL Albumin 2.4 L (3.4-5.0) g/dL Globulin 5.4 H (2.3-3.5) g/dL Albumin/Globulin Ratio 0.4 L (1.2-2.2) Lipase 2967 H (73-393) U/L Urine Color Urine Appearance Urine pH (4.5-8.0) Ur Specific [place] (1.008-1.030) Urine Protein (NEGATIVE) mg/dL Urine Glucose (UA) (NEGATIVE) mg/dL Urine Ketones (NEGATIVE) mg/dL Urine Occult Blood (NEGATIVE) Urine Nitrite (NEGAITVE) Urine Bilirubin (NEGATIVE) Urine Urobilinogen (NORMAL) mg/dL Ur Leukocyte Esterase (NEGATIVE) Urine RBC (0-5) Urine WBC (0-5) Ur Epithelial Cells Amorphous Sediment Urine Bacteria Urine Mucus 01/18/17 Range/Units 14:39 WBC (4.5-11.0) K/uL RBC (4.30-5.90) M/uL Hgb (12.0-15.0) g/dL Hct (40.0-54.0) % MCV (80-98) fL MCH (27-31) pg MCHC (32-36) % Plt Count (150-400) K/uL Neut % (Auto) (36-66) % Lymph % (Auto) (24-44) % [place] % (Auto) (2-6) % Eos % (Auto) (2-4) % Baso % (Auto) (0-1) % Sodium (140-148) mmol/L Potassium (3.6-5.2) mmol/L Chloride (100-108) mmol/L Carbon Dioxide (21-32) mmol/L Anion Gap (5.0-14.0) mmol/L BUN (7-18) mg/dL Creatinine (0.8-1.3) mg/dL Est Cr Clr Drug Dosing mL/min Estimated GFR (MDRD) (>60) Glucose (74-106) mg/dL Lactic Acid (0.4-2.0) mmol/L Calcium (8.5-10.1) mg/dL Total Bilirubin (0.2-1.0) mg/dL AST (15-37) U/L ALT (12-78) U/L Alkaline Phosphatase (46-116) U/L Total Protein (6.4-8.2) g/dL Albumin (3.4-5.0) g/dL Globulin (2.3-3.5) g/dL Albumin/Globulin Ratio (1.2-2.2) Lipase (73-393) U/L Urine Color Yellow Urine Appearance Clear Urine pH 6.0 (4.5-8.0) Ur Specific [place] 1.015 (1.008-1.030) Urine Protein Negative (NEGATIVE) mg/dL Urine Glucose (UA) Normal (NEGATIVE) mg/dL Urine Ketones Negative (NEGATIVE) mg/dL Urine Occult Blood Negative (NEGATIVE) Urine Nitrite Negative (NEGAITVE) Urine Bilirubin Negative (NEGATIVE) Urine Urobilinogen Normal (NORMAL) mg/dL Ur Leukocyte Esterase Negative (NEGATIVE) Urine RBC Not seen (0-5) Urine WBC 0-5 (0-5) Ur Epithelial Cells Not seen Amorphous Sediment Not seen Urine Bacteria Not seen Urine Mucus Not seen Meds: Medications Generic Name Dose Route Start Last Admin Trade Name Freq PRN Reason Stop Dose Admin Lactated Ringer's 1,000 mls @ 999 mls/hr 01/18/17 12:30 01/18/17 13:05 Ringers, Lactated IV 999 mls/hr ASDIRECTED DANTE Administration Lactated Ringer's 1,000 mls @ 250 mls/hr 01/18/17 16:36 Ringers, Lactated IV 01/18/17 20:35 BOLUS ONE Iopamidol 117 ml 01/18/17 14:30 01/18/17 15:46 Isovue-300 (61%) IV 150 ml . DIRECTED DANTE Administration Sodium Chloride 10 ml 01/18/17 12:22 01/18/17 13:48 Saline Flush FLUSH 10 ml ASDIRECTED PRN Administration Keep Vein Open Sodium Chloride 10 ml 01/18/17 14:22 01/18/17 15:46 Saline Flush FLUSH 10 ml ONETIME PRN Administration PER RADIOLOGY PROTOCOL Discontinued Medications Generic Name Dose Route Start Last Admin Trade Name Seanq PRN Reason Stop Dose Admin Diphenhydramine HCl 50 mg 01/18/17 14:23 01/18/17 14:32 Benadryl IVPUSH 01/18/17 14:24 50 mg ONETIME ONE Administration Hydromorphone HCl 1 mg 01/18/17 12:23 01/18/17 13:09 Dilaudid IVPUSH 01/18/17 12:24 1 mg ONETIME ONE Administration Hydromorphone HCl 1 mg 01/18/17 14:07 01/18/17 14:15 Dilaudid IVPUSH 01/18/17 14:08 1 mg ONETIME ONE Administration Hydromorphone HCl 1 mg 01/18/17 16:36 01/18/17 16:48 Dilaudid IVPUSH 01/18/17 16:37 1 mg ONETIME ONE Administration Sodium Chloride 75 mls @ 3 mls/sec 01/18/17 14:22 01/18/17 15:46 Normal Saline IV 01/18/17 14:23 3 mls/sec ONETIME ONE Administration Lactated Ringer's 1,000 mls @ 999 mls/hr 01/18/17 14:27 01/18/17 14:31 Ringers, Lactated IV 01/18/17 15:27 999 mls/hr BOLUS ONE Administration Ondansetron HCl 4 mg 01/18/17 12:23 01/18/17 13:06 Zofran IVPUSH 01/18/17 12:24 4 mg ONETIME ONE Administration Departure - Departure Time of Disposition: 17:27 Disposition: Admitted As Inpatient 68 Condition: Fair Clinical Impression: Pancreatic pseudocyst, Recurrent acute pancreatitis - Discharge Information Forms: ED Department Discharge - My Orders Last 24 Hours: My Active Orders 01/18/17 12:22 Peripheral IV Care [RC] . DIRECTED Sodium Chloride 0.9% [Saline Flush] 10 ml FLUSH ASDIRECTED PRN Peripheral IV Insertion Adult [OM.PC] Urgent 01/18/17 12:30 Lactated Ringers [Ringers, Lactated] 1,000 ml IV ASDIRECTED 01/18/17 14:07 Abdomen Pelvis w Cont [CT] Stat 01/18/17 14:22 Sodium Chloride 0.9% [Saline Flush] 10 ml FLUSH ONETIME PRN 01/18/17 14:30 Iopamidol [Isovue-300 (61%)] 117 ml IV . DIRECTED 01/18/17 16:36 Lactated Ringers [Ringers, Lactated] 1,000 ml IV BOLUS - Assessment/Plan Last 24 Hours: My Active Orders 01/18/17 12:22 Peripheral IV Care [RC] . DIRECTED Sodium Chloride 0.9% [Saline Flush] 10 ml FLUSH ASDIRECTED PRN Peripheral IV Insertion Adult [OM.PC] Urgent 01/18/17 12:30 Lactated Ringers [Ringers, Lactated] 1,000 ml IV ASDIRECTED 01/18/17 14:07 Abdomen Pelvis w Cont [CT] Stat 01/18/17 14:22 Sodium Chloride 0.9% [Saline Flush] 10 ml FLUSH ONETIME PRN 01/18/17 14:30 Iopamidol [Isovue-300 (61%)] 117 ml IV . DIRECTED 01/18/17 16:36 Lactated Ringers [Ringers, Lactated] 1,000 ml IV BOLUS Plan: Assessment Acuity = acute on chronic Site and laterality = exacerbation of pancreatitis, came the patient with history of pseudocysts as well as remote history of alcohol use Etiology = unclear etiology Manifestations = pain, nausea Location of injury = home Lab values = hemoglobin low at 1.4 consistent normochromic anemia AST mildly elevated at 84 albumin low at 2.4 consistent hypoalbuminemia lipase markedly elevated 2967 consistent with a pancreatitis urinalysis is negative CT scan shows acute pancreatitis with generalized improvement of the multiple pseudocysts, no apparent change to 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 This note was dictated using [employer] voice recognition software please call with any questions.
[2017-01-18] MEDS ORDERED: Lactated Ringers 1,000 ML IV SCH (12:30)
[2017-01-18] MEDS: HYDROmorphone 1 MG/ML Syringe IVPUSH ONE (13:09)
[2017-01-18] MEDS ORDERED: HYDROmorphone 1 MG/ML Syringe IVPUSH ONE ×2 (14:07→16:36)
[2017-01-18] MEDS ORDERED: Sodium Chloride 0.9% 75 ML IV ONE (14:22)
[2017-01-18] MEDS ORDERED: diphenhydrAMINE 50 MG/ML SDV IVPUSH ONE (14:23)
[2017-01-18] MEDS ORDERED: Lactated Ringers 1,000 ML IV ONE ×2 (14:27→16:36)
[2017-01-18] MEDS ORDERED: Iopamidol 612 MG/ML 150 ML Bottle IV SCH (14:30)
--- NOTE | 2017-01-18 18:04 | PCM.HP ---
H&P History of Present Illness - General Date of Service: 01/18/17 Admit Problem/Dx: Admission Diagnosis/Problem Admission Diagnosis/Problem Acute pancreatitis Source of Information: Patient, Family, Provider History Limitations: Reports: No Limitations - History of Present Illness Initial Comments - Free Text/Narative: Armando presents to the emergency room today with 1 week of persistent lower abdominal pain. Pain initially started approximately 1 week ago after eating a sandwich. This was severe bilateral lower abdominal pain that was cramping in nature. The severe pain did improve but did not resolve and has persisted for the past week. He has been able to eat a bland foods without significant worsening of his pain. He has been able to maintain some level of hydration but has not been drinking as much as usual. Pain pills do help the pain a little bit but it has never gone away. Bowel movements have tended to be on the slower side but he has not had any hard stool. No fevers or chills. Energy has been acceptable. No complaints of chest pain or shortness of breath. Mild intermittent nausea but no vomiting. This pain feels different than his pancreatitis pain that he has previously experienced. Workup in the emergency room however was suggestive of acute pancreatitis with an elevated lipase and inflammation around the head of the pancreas. CT fortunately did show improvements in the previously noted pancreatic pseudocysts. Middle Abdominal Pain Score (Numeric/FACES): 8 - Related Data Allergies/Adverse Reactions: Allergies Allergy/AdvReac Type Severity Reaction Status Date / Time glycopyrrolate [From Robinul] Allergy Seizure Verified 01/18/17 11:55 Iodinated Contrast- Oral and Allergy Renal Verified 01/18/17 11:55 IV Dye Failure [Iodinated Contrast Media - Oral and] lorazepam [From Ativan] Allergy Confusion Verified 01/18/17 11:55 sulfamethoxazole Allergy Facial Verified 01/18/17 11:55 [From Septra] Spasms trimethoprim [From Septra] Allergy Facial Verified 01/18/17 11:55 Spasms Home Medications: Home Meds Cetirizine [ZyrTEC] 10 mg PO BEDTIME 03/17/14 [History] Thiamine [Vitamin B-1] 100 mg PO DAILY 03/17/14 [History] Albuterol Sulfate [Proair Respiclick] 2 puff IN Q6HR PRN 10/27/16 [History] Budesonide/Formoterol [Symbicort 160-4.5 MCG] 2 puff IN BID 10/27/16 [History] Lidocaine 5% [Lidoderm 5%] 1 patch TOP ASDIRECTED PRN 10/27/16 [History] Metoprolol Tartrate [Lopressor] 50 mg PO BID 10/27/16 [History] rOPINIRole [Requip] 1 mg PO BEDTIME 10/27/16 [History] traMADol [Ultram] 100 mg PO BID 10/27/16 [History] traZODone 50 mg PO BEDTIME 10/27/16 [History] Cyclobenzaprine HCl 20 mg PO BEDTIME PRN 12/20/16 [History] Docusate Sodium/Sennosides [Senna Plus] 2 each PO BID PRN 12/20/16 [History] Gabapentin [Neurontin] 300 mg PO QID 12/20/16 [History] Warfarin [Coumadin] 3 mg PO DAILY 12/20/16 [History] Ranitidine HCl [Zantac 75] 75 mg PO 01/18/17 [History] Past Medical History HEENT History: Reports: Allergic Rhinitis Cardiovascular History: Reports: CAD, High Cholesterol, Hypertension, RI, Other (See Below) Other Cardiovascular History: angiogram Respiratory History: Reports: COPD, PE, Pneumonia, Recurrent, Sleep Apnea Gastrointestinal History: Reports: GERD, Hiatal Hernia, Pancreatitis, Other ( See Below) Other Gastrointestinal History: kink in bowel Genitourinary History: Reports: Acute Renal Failure, Chronic Renal Insuffiency Other Genitourinary History: PREVIOUS INDWELLING MCALLISTER Musculoskeletal History: Reports: Back Pain, Chronic, Neck Pain, Chronic, Osteoarthritis Neurological History: Reports: Concussion, Seizure Hematologic History: Reports: Anemia, Blood Transfusion(s) Dermatologic History: Reports: Other (See Below) Other Dermatologic History: rash at different times - Infectious Disease History Infectious Disease History: Reports: Chicken Pox - Past Surgical History Respiratory Surgical History: Reports: Thoracentesis GI Surgical History: Reports: Appendectomy Social & Family History - Family History GI: Reports: Pancreatitis - Tobacco Use Smoking Status *Q: Former Smoker Years of Tobacco use: 30 Used Tobacco, but Quit: Yes Month Tobacco Last Used: april 2016 Second Hand Smoke Exposure: Yes - Caffeine Use Caffeine Use: Reports: None - Alcohol Use Days Per Week of Alcohol Use: 7 Number of Drinks Per Day: 10 Total Drinks Per Week: 70 - Recreational Drug Use Recreational Drug Use: Yes Recreational Drug Type: Reports: Marijuana/Hashish H&P Review of Systems - Review of Systems: Review Of Systems: See Below Free Text/Narrative: A complete 12 point review of systems was obtained. Pertinent positives and negatives are noted in the history of present illness. All other systems were reviewed and were negative except as noted. Exam - Exam Exam: See Below - Vital Signs Vital Signs: Last Vital Signs Temp 36.5 C 01/18/17 11:52 Pulse 66 01/18/17 14:54 Resp 16 01/18/17 14:54 BP 141/82 H 01/18/17 14:54 Pulse Ox 96 01/18/17 14:54 Weight: 78.8 kg - Exam Quality Assessment: No: Supplemental Oxygen General: Alert, Oriented, Cooperative. No: Mild Distress HEENT: Conjunctiva Clear, Mucosa Moist & [place]. No: Scleral Icterus Neck: Supple, Trachea Midline Lungs: Clear to Auscultation, Normal Respiratory Effort Cardiovascular: Regular Rate, Regular Rhythm Abdomen: Normal Bowel Sounds, Soft, Tenderness (mild LUQ). No: Distention, Guarding, Mass Back Exam: Normal Inspection, Full Range of Motion Extremities: Normal Inspection, Normal Pulses. No: Cyanosis, Edema Skin: Warm, Dry Neuro Extensive - Mental Status: Alert, Oriented x3, Nl Response to Commands Neuro Extensive - Motor, Sensory, Reflexes: CN II-XII Intact, Tremor (mild right hand). No: Dysarthria, Abnormal Motor Psychiatric: Alert, Normal Affect - Patient Data Lab Results Last 24 hrs: Laboratory Results - last 24 hr 01/18/17 01/18/17 01/18/17 Range/Units 12:30 12:30 12:30 WBC 8.3 (4.5-11.0) K/uL RBC 4.16 L (4.30-5.90) M/uL Hgb 11.4 L D (12.0-15.0) g/dL Hct 36.2 L (40.0-54.0) % MCV 87 (80-98) fL MCH 27 (27-31) pg MCHC 32 (32-36) % Plt Count 414 H (150-400) K/uL Neut % (Auto) 65 (36-66) % Lymph % (Auto) 21 L (24-44) % [place] % (Auto) 9 H (2-6) % Eos % (Auto) 4 (2-4) % Baso % (Auto) 1 (0-1) % Sodium 143 (140-148) mmol/L Potassium 3.9 (3.6-5.2) mmol/L Chloride 106 (100-108) mmol/L Carbon Dioxide 25 (21-32) mmol/L Anion Gap 11.8 (5.0-14.0) mmol/L BUN 5 L D (7-18) mg/dL Creatinine 0.6 L (0.8-1.3) mg/dL Est Cr Clr Drug Dosing 145.32 mL/min Estimated GFR (MDRD) > 60 (>60) Glucose 94 (74-106) mg/dL Lactic Acid 1.7 (0.4-2.0) mmol/L Calcium 9.2 (8.5-10.1) mg/dL Total Bilirubin 0.2 (0.2-1.0) mg/dL AST 48 H D (15-37) U/L ALT 29 D (12-78) U/L Alkaline Phosphatase 183 H (46-116) U/L Total Protein 7.8 (6.4-8.2) g/dL Albumin 2.4 L (3.4-5.0) g/dL Globulin 5.4 H (2.3-3.5) g/dL Albumin/Globulin Ratio 0.4 L (1.2-2.2) Lipase 2967 H (73-393) U/L Urine Color Urine Appearance Urine pH (4.5-8.0) Ur Specific [place] (1.008-1.030) Urine Protein (NEGATIVE) mg/dL Urine Glucose (UA) (NEGATIVE) mg/dL Urine Ketones (NEGATIVE) mg/dL Urine Occult Blood (NEGATIVE) Urine Nitrite (NEGAITVE) Urine Bilirubin (NEGATIVE) Urine Urobilinogen (NORMAL) mg/dL Ur Leukocyte Esterase (NEGATIVE) Urine RBC (0-5) Urine WBC (0-5) Ur Epithelial Cells Amorphous Sediment Urine Bacteria Urine Mucus 01/18/17 Range/Units 14:39 WBC (4.5-11.0) K/uL RBC (4.30-5.90) M/uL Hgb (12.0-15.0) g/dL Hct (40.0-54.0) % MCV (80-98) fL MCH (27-31) pg MCHC (32-36) % Plt Count (150-400) K/uL Neut % (Auto) (36-66) % Lymph % (Auto) (24-44) % [place] % (Auto) (2-6) % Eos % (Auto) (2-4) % Baso % (Auto) (0-1) % Sodium (140-148) mmol/L Potassium (3.6-5.2) mmol/L Chloride (100-108) mmol/L Carbon Dioxide (21-32) mmol/L Anion Gap (5.0-14.0) mmol/L BUN (7-18) mg/dL Creatinine (0.8-1.3) mg/dL Est Cr Clr Drug Dosing mL/min Estimated GFR (MDRD) (>60) Glucose (74-106) mg/dL Lactic Acid (0.4-2.0) mmol/L Calcium (8.5-10.1) mg/dL Total Bilirubin (0.2-1.0) mg/dL AST (15-37) U/L ALT (12-78) U/L Alkaline Phosphatase (46-116) U/L Total Protein (6.4-8.2) g/dL Albumin (3.4-5.0) g/dL Globulin (2.3-3.5) g/dL Albumin/Globulin Ratio (1.2-2.2) Lipase (73-393) U/L Urine Color Yellow Urine Appearance Clear Urine pH 6.0 (4.5-8.0) Ur Specific [place] 1.015 (1.008-1.030) Urine Protein Negative (NEGATIVE) mg/dL Urine Glucose (UA) Normal (NEGATIVE) mg/dL Urine Ketones Negative (NEGATIVE) mg/dL Urine Occult Blood Negative (NEGATIVE) Urine Nitrite Negative (NEGAITVE) Urine Bilirubin Negative (NEGATIVE) Urine Urobilinogen Normal (NORMAL) mg/dL Ur Leukocyte Esterase Negative (NEGATIVE) Urine RBC Not seen (0-5) Urine WBC 0-5 (0-5) Ur Epithelial Cells Not seen Amorphous Sediment Not seen Urine Bacteria Not seen Urine Mucus Not seen Result Diagrams: 01/18/17 12:30 01/18/17 12:30 Imaging Impressions Last 24 hrs: CT abdomen and pelvis - images personally reviewed - there is inflammation and stranding around the head of pancreas c/w pancreatitis. Previously seen pseudocysts seem to be have decreased in size compared CT a few months ago. No bowel obstruction. Lung bases clear. *Q Meaningful Use (ADM) - VTE *Q VTE Criteria *Q: - VTE Risk Assess *Q Each Risk Factor Represents 1 Point: Age 41 - 59 years Total Score 1 Point Risk Factors: 1 Each Risk Factor Represents 2 Points: None Total Score 2 Point Risk Factors: 0 Each Risk Factor Represents 3 Points: History Superficial Venous Thrombosis, DVT or PE Total Score 3 Point Risk Factors: 3 Each Risk Factor Represents 5 Points: None Total Score 5 Point Risk Factors: 0 Venous Thromboembolism Risk Factor Score *Q: 4 - Stroke *Q Stroke Criteria *Q: - AMI *Q AMI Criteria *Q: - Problem List (1) Recurrent acute pancreatitis SNOMED Code(s): 415120334 ICD Code: K85.90 - ACUTE PANCREATITIS WITHOUT NECROSIS OR INFECTION, UNSP Status: Acute Current Visit: Yes (2) Bilateral pulmonary embolism SNOMED Code(s): 99453073, 89148689 ICD Code: I26.99 - OTHER PULMONARY EMBOLISM WITHOUT ACUTE COR PULMONALE Status: Chronic Current Visit: Yes (3) Chronic back pain SNOMED Code(s): 473956194 ICD Code: M54.9 - DORSALGIA, UNSPECIFIED; G89.29 - OTHER CHRONIC PAIN Status: Chronic Current Visit: Yes Qualifiers: Back pain location: low back pain Back pain laterality: unspecified Sciatica presence: without sciatica Qualified Code(s): M54.5 - Low back pain; G89.29 - Other chronic pain (4) GERD (gastroesophageal reflux disease) SNOMED Code(s): 825201082 ICD Code: K21.9 - GASTRO-ESOPHAGEAL REFLUX DISEASE WITHOUT ESOPHAGITIS Status: Chronic Current Visit: Yes Qualifiers: Esophagitis presence: without esophagitis Qualified Code(s): K21.9 - Gastro -esophageal reflux disease without esophagitis Problem List Initiated/Reviewed/Updated: Yes Orders Last 24hrs: Active Orders 24 hr Category Date Time Status Patient Status Manage Transfer [TRANSFER] Routine ADT 01/18/17 17:53 Ordered Peripheral IV Care [RC] . DIRECTED Care 01/18/17 12:22 Active Abdomen Pelvis w Cont [CT] Stat Exams 01/18/17 14:07 Taken INR,PT,PROTHROMBIN TIME [COAG] Urgent Lab 01/18/17 17:26 Ordered Iopamidol [Isovue-300 (61%)] Med 01/18/17 14:30 Active 117 ml IV . DIRECTED Lactated Ringers [Ringers, Lactated] 1,000 ml Med 01/18/17 12:30 Active IV ASDIRECTED Lactated Ringers [Ringers, Lactated] 1,000 ml Med 01/18/17 16:36 Active IV BOLUS Sodium Chloride 0.9% [Saline Flush] Med 01/18/17 12:22 Active 10 ml FLUSH ASDIRECTED PRN Sodium Chloride 0.9% [Saline Flush] Med 01/18/17 14:22 Active 10 ml FLUSH ONETIME PRN Peripheral IV Insertion Adult [OM.PC] Urgent Oth 01/18/17 12:22 Ordered Resuscitation Status Routine Resus Stat 01/18/17 17:55 Ordered Medication Orders Lactated Ringer's (Ringers, Lactated) 1,000 mls @ 999 mls/hr IV ASDIRECTED [facility] Last Admin: 01/18/17 13:05 Dose: 999 mls/hr Lactated Ringer's (Ringers, Lactated) 1,000 mls @ 250 mls/hr IV BOLUS ONE Stop: 01/18/17 20:35 Iopamidol (Isovue-300 (61%)) 117 ml IV . DIRECTED [facility] Last Admin: 01/18/17 15:46 Dose: 150 ml Sodium Chloride (Saline Flush) 10 ml FLUSH ASDIRECTED PRN PRN Reason: Keep Vein Open Last Admin: 01/18/17 13:48 Dose: 10 ml Sodium Chloride (Saline Flush) 10 ml FLUSH ONETIME PRN PRN Reason: PER RADIOLOGY PROTOCOL Last Admin: 01/18/17 15:46 Dose: 10 ml Assessment/Plan Comment:: Assessment and plan - Acute recurrent pancreatitis - imaging and laboratory studies consistent with this though history is a little bit unusual. Pseudocysts have been improving and there is no evidence for infection. He does not appear acutely ill with normal blood pressure and heart rate at this time. No obvious gallstones are noted on CT imaging. Previous potential offending drug agents including statin and proton pump inhibitor have been discontinued. -Pain control -IV fluids -Repeat labs in the morning -MRCP in the morning -Consider HIDA scan if MRCP does not reveal pathology to explain recurrent pancreatitis Bilateral pulmonary emboli - patient has been anticoagulated for approximately the last month. No respiratory symptoms at this time. - Follow-up INR, continue or hold warfarin based on this laboratory value Gastroesophageal reflux disease - History of a hiatal hernia. Symptoms not well controlled on low-dose ranitidine. Proton pump inhibitors have been stopped with concern for contribution to pancreatitis. -Twice daily famotidine Chronic low back pain - no active issues at this time. Maintenance issues - - DVT prophylaxis - SCDs - GI prophylaxis - twice daily H2 ernestine - Nutrition - clear liquids, nothing by mouth after midnight for MRCP - Mcallister catheter - not indicated CODE STATUS - full code Admission justification - This patient will be admitted for inpatient services and is medically appropriate meeting medical necessity for inpatient admission as outlined in my documentation. I reasonably expect the patient will require inpatient services that span a period time over 2 midnights. I reasonably expect this patient to be discharged or transferred within 96 hours [facility]. Disposition - anticipated discharge to home after the hospital stay unless he requires [facility] to [facility] or higher level of care Primary care physician - the [facility] in [place] Dimas M.D.
[2017-01-18] MEDS ORDERED: Aluminum Hydroxide/Magnesium Hydroxide/Simethicone Susp 30 ML Cup PO PRN (19:38)
[2017-01-18] MEDS ORDERED: Cyclobenzaprine 10 MG Tab PO PRN (19:38)
[2017-01-18] MEDS ORDERED: Ondansetron 4 MG/2 ML SDV IV PRN (19:38)
[2017-01-18] MEDS ORDERED: Polyethylene Glycol 3350 Powder 17 GM Packet PO PRN (19:38)
[2017-01-18] MEDS ORDERED: Acetaminophen 325 MG Tab PO PRN (19:38)
[2017-01-18] MEDS ORDERED: Calcium Carbonate 500 MG Tab.Chew PO PRN (19:38)
[2017-01-18] MEDS ORDERED: HYDROmorphone 1 MG/ML Syringe ONE (19:42)
[2017-01-18] MEDS: HYDROmorphone 0.5 MG/0.5 ML Syringe IVPUSH PRN ×2 (19:45→22:29)
[2017-01-18] MEDS ORDERED: Formoterol/Mometasone 200-5 MCG 8.8 GM Inhaler IH SCH (21:00)
[2017-01-18] MEDS: Metoprolol Tartrate 50 MG Tab PO SCH (21:25)
[2017-01-18] MEDS: rOPINIRole 1 MG Tab PO SCH (21:25)
[2017-01-18] MEDS: Famotidine 20 MG Tab PO SCH (21:26)
[2017-01-18] MEDS: traZODone 50 MG Tab PO SCH (21:26)
[2017-01-18] MEDS: Gabapentin 300 MG Cap PO SCH (21:26)
[2017-01-18] MEDS: Sodium Chloride 0.9% 1,000 ML IV SCH (21:29)
[2017-01-18] MEDS ORDERED: Warfarin 3 MG Tab PO ONE (21:57)
[2017-01-19] MEDS ORDERED: HYDROmorphone 1 MG/ML Syringe ONE ×3 (01:56→11:26)
[2017-01-19] MEDS: HYDROmorphone 0.5 MG/0.5 ML Syringe IVPUSH PRN (02:00)
[2017-01-19] MEDS: Gabapentin 300 MG Cap PO SCH ×4 (07:23→22:06)
[2017-01-19] MEDS: Formoterol/Mometasone 200-5 MCG 8.8 GM Inhaler IH SCH ×2 (08:29→22:07)
[2017-01-19] MEDS: Sodium Chloride 0.9% 1,000 ML IV SCH (09:13)
--- NOTE | 2017-01-19 10:09 | PCM.PN ---
- General Info Date of Service: 01/19/17 Functional Status: Reports: pain controlled, tolerating diet, ambulating - Review of Systems General: Denies: Fever Gastrointestinal: Reports: Abdominal pain (mild). Denies: Diarrhea, Nausea Systems Review Comment:: No acute events overnight. Pain has been well controlled. Tolerated clear liquids well with no issues. No fevers. No vomiting or diarrhea. Lipase level is normal this morning. MRI of the abdomen did not show significant abnormality of the pancreas or pancreatic ducts. - Patient Data Vitals - most recent: Last Vital Signs Temp 37.6 C 01/19/17 06:59 Pulse 63 01/19/17 06:59 Resp 16 01/19/17 06:59 BP 123/78 01/19/17 06:59 Pulse Ox 96 01/19/17 06:59 Weight - most recent: 78.698 kg I&O - last 24 hours: Intake & Output 01/18/17 01/19/17 01/19/17 22:59 06:59 14:59 Intake Total 360 1450 Output Total 800 1050 Balance -440 400 Lab Results last 24 hrs: Laboratory Results - last 24 hr 01/19/17 01/19/17 01/19/17 Range/Units 05:11 05:11 05:11 WBC 6.0 (4.5-11.0) K/uL RBC 3.41 L (4.30-5.90) M/uL Hgb 9.4 L D (12.0-15.0) g/dL Hct 30.0 L (40.0-54.0) % MCV 88 (80-98) fL MCH 28 (27-31) pg MCHC 31 L (32-36) % Plt Count 329 (150-400) K/uL PT 17.9 H (9.5-12.0) sec INR 1.64 H (0.80-1.20) Sodium 141 (140-148) mmol/L Potassium 3.7 (3.6-5.2) mmol/L Chloride 107 (100-108) mmol/L Carbon Dioxide 24 (21-32) mmol/L Anion Gap 10.5 (5.0-14.0) mmol/L BUN 3 L (7-18) mg/dL Creatinine 0.6 L (0.8-1.3) mg/dL Est Cr Clr Drug Dosing 143.03 mL/min Estimated GFR (MDRD) > 60 (>60) Glucose 93 (74-106) mg/dL Calcium 8.4 L (8.5-10.1) mg/dL Magnesium 1.7 L (1.8-2.4) mg/dL Total Bilirubin 0.2 (0.2-1.0) mg/dL AST 27 (15-37) U/L ALT 20 (12-78) U/L Alkaline Phosphatase 148 H (46-116) U/L Total Protein 6.1 L (6.4-8.2) g/dL Albumin 1.9 L (3.4-5.0) g/dL Globulin 4.2 H (2.3-3.5) g/dL Albumin/Globulin Ratio 0.5 L (1.2-2.2) Lipase (73-393) U/L 01/19/17 Range/Units 07:59 WBC (4.5-11.0) K/uL RBC (4.30-5.90) M/uL Hgb (12.0-15.0) g/dL Hct (40.0-54.0) % MCV (80-98) fL MCH (27-31) pg MCHC (32-36) % Plt Count (150-400) K/uL PT (9.5-12.0) sec INR (0.80-1.20) Sodium (140-148) mmol/L Potassium (3.6-5.2) mmol/L Chloride (100-108) mmol/L Carbon Dioxide (21-32) mmol/L Anion Gap (5.0-14.0) mmol/L BUN (7-18) mg/dL Creatinine (0.8-1.3) mg/dL Est Cr Clr Drug Dosing mL/min Estimated GFR (MDRD) (>60) Glucose (74-106) mg/dL Calcium (8.5-10.1) mg/dL Magnesium (1.8-2.4) mg/dL Total Bilirubin (0.2-1.0) mg/dL AST (15-37) U/L ALT (12-78) U/L Alkaline Phosphatase (46-116) U/L Total Protein (6.4-8.2) g/dL Albumin (3.4-5.0) g/dL Globulin (2.3-3.5) g/dL Albumin/Globulin Ratio (1.2-2.2) Lipase 345 (73-393) U/L Med Orders - Current: Current Medications Acetaminophen (Tylenol) 650 mg PO Q4H PRN PRN Reason: Pain (Mild 1-3)/fever Al Hydroxide/Mg Hydroxide (Mag-Al Plus) 30 ml PO Q4H PRN PRN Reason: Indigestion Calcium Carbonate/Glycine (Tums) 1,000 mg PO Q2H PRN PRN Reason: Indigestion Cyclobenzaprine HCl (Flexeril) 20 mg PO BEDTIME PRN PRN Reason: muscle pain Diazepam (Valium) 5 mg IVPUSH ONETIME ONE Stop: 01/19/17 10:21 Famotidine (Pepcid) 20 mg PO BID [facility] Last Admin: 01/18/17 21:26 Dose: 20 mg Gabapentin (Neurontin) 300 mg PO QID [facility] Last Admin: 01/19/17 07:23 Dose: Not Given Hydromorphone HCl (Dilaudid) 0.5 - 1 mg IVPUSH Q2H PRN PRN Reason: Pain (severe 7-10) Last Admin: 01/19/17 02:00 Dose: 1 mg Sodium Chloride (Normal Saline) 1,000 mls @ 100 mls/hr IV ASDIRECTED [facility] Last Admin: 01/19/17 09:13 Dose: 100 mls/hr Metoprolol Tartrate (Lopressor) 50 mg PO BID [facility] Last Admin: 01/18/17 21:25 Dose: 50 mg Mometasone Furoate/Formoterol Fumar (Dulera 200-5 Mcg) 2 puff IH BIDRT [facility] Last Admin: 01/19/17 08:29 Dose: 2 puff Ondansetron HCl (Zofran Odt) 4 mg PO Q6H PRN PRN Reason: Nausea able to take PO Ondansetron HCl (Zofran) 4 mg IV Q6H PRN PRN Reason: Nausea/Vomiting Oxycodone HCl (Oxycodone) 5 - 10 mg PO Q4H PRN PRN Reason: Pain (moderate 4-6) Polyethylene Glycol (Miralax) 17 gm PO DAILY PRN PRN Reason: Constipation Ropinirole HCl (Requip) 1 mg PO BEDTIME [facility] Last Admin: 01/18/17 21:25 Dose: 1 mg Senna/Docusate Sodium (Senna Plus) 2 tab PO BID PRN PRN Reason: Constipation Thiamine HCl (Vitamin B-1) 100 mg PO DAILY [facility] Trazodone HCl (Trazodone) 50 mg PO BEDTIME [facility] Last Admin: 01/18/17 21:26 Dose: 50 mg Warfarin Sodium (Coumadin) 3 mg PO SuMoWeThFr@1300 [facility] Warfarin Sodium (Coumadin) 3 mg PO ONETIME ONE Stop: 01/19/17 13:01 Warfarin Sodium (Coumadin) 2 mg PO TuSa@1300 [facility] Discontinued Medications Diphenhydramine HCl (Benadryl) 50 mg IVPUSH ONETIME ONE Stop: 01/18/17 14:24 Last Admin: 01/18/17 14:32 Dose: 50 mg Hydromorphone HCl (Dilaudid) 1 mg IVPUSH ONETIME ONE Stop: 01/18/17 12:24 Last Admin: 01/18/17 13:09 Dose: 1 mg Hydromorphone HCl (Dilaudid) 1 mg IVPUSH ONETIME ONE Stop: 01/18/17 14:08 Last Admin: 01/18/17 14:15 Dose: 1 mg Hydromorphone HCl (Dilaudid) 1 mg IVPUSH ONETIME ONE Stop: 01/18/17 16:37 Last Admin: 01/18/17 16:48 Dose: 1 mg Hydromorphone HCl (Dilaudid) Confirm Administered Dose 1 mg .ROUTE .STK-MED ONE Stop: 01/18/17 19:43 Last Admin: 01/18/17 20:47 Dose: Not Given Hydromorphone HCl (Dilaudid) Confirm Administered Dose 1 mg .ROUTE .STK-MED ONE Stop: 01/19/17 01:57 Last Admin: 01/19/17 03:11 Dose: Not Given Hydromorphone HCl (Dilaudid) Confirm Administered Dose 1 mg .ROUTE .STK-MED ONE Stop: 01/19/17 07:23 Last Admin: 01/19/17 07:27 Dose: 1 mg Lactated Ringer's (Ringers, Lactated) 1,000 mls @ 999 mls/hr IV ASDIRECTED [facility] Last Admin: 01/18/17 13:05 Dose: 999 mls/hr Sodium Chloride (Normal Saline) 75 mls @ 3 mls/sec IV ONETIME ONE Stop: 01/18/17 14:23 Last Admin: 01/18/17 15:46 Dose: 3 mls/sec Lactated Ringer's (Ringers, Lactated) 1,000 mls @ 999 mls/hr IV BOLUS ONE Stop: 01/18/17 15:27 Last Admin: 01/18/17 14:31 Dose: 999 mls/hr Lactated Ringer's (Ringers, Lactated) 1,000 mls @ 250 mls/hr IV BOLUS ONE Stop: 01/18/17 20:35 Last Admin: 01/18/17 18:57 Dose: 250 mls/hr Iopamidol (Isovue-300 (61%)) 117 ml IV . DIRECTED [facility] Last Admin: 01/18/17 15:46 Dose: 150 ml Mometasone Furoate/Formoterol Fumar (Dulera 200-5 Mcg) 2 puff IH BID [facility] Last Admin: 01/18/17 21:25 Dose: 2 puff Ondansetron HCl (Zofran) 4 mg IVPUSH ONETIME ONE Stop: 01/18/17 12:24 Last Admin: 01/18/17 13:06 Dose: 4 mg Sodium Chloride (Saline Flush) 10 ml FLUSH ASDIRECTED PRN PRN Reason: Keep Vein Open Last Admin: 01/18/17 13:48 Dose: 10 ml Sodium Chloride (Saline Flush) 10 ml FLUSH ONETIME PRN PRN Reason: PER RADIOLOGY PROTOCOL Last Admin: 01/18/17 15:46 Dose: 10 ml Warfarin Sodium (Coumadin) 3 mg PO ONETIME ONE Stop: 01/18/17 21:58 Last Admin: 01/18/17 22:29 Dose: 3 mg Warfarin Sodium (Coumadin) Confirm Administered Dose 3 mg .ROUTE .STK-MED ONE Stop: 01/18/17 22:22 Last Admin: 01/18/17 22:28 Dose: Not Given Warfarin Sodium (Coumadin) 2 mg PO TuSa@1300 [facility] - Exam Quality Assessment: No: supplemental oxygen General: alert, oriented, cooperative, no acute distress Neck: supple Lungs: Normal respiratory effort Cardiovascular: Regular Rate, Regular Rhythm Abdomen: soft, no distension Extremities: no edema, no cyanosis Skin: warm, dry Psy/Mental Status: alert, normal affect - Problem List & Annotations (1) Recurrent acute pancreatitis SNOMED Code(s): 158116407 Code(s): K85.90 - ACUTE PANCREATITIS WITHOUT NECROSIS OR INFECTION, UNSP Status: Acute Current Visit: Yes (2) Bilateral pulmonary embolism SNOMED Code(s): 37766299, 91390321 Code(s): I26.99 - OTHER PULMONARY EMBOLISM WITHOUT ACUTE COR PULMONALE Status: Chronic Current Visit: Yes (3) Chronic back pain SNOMED Code(s): 525475694 Code(s): M54.9 - DORSALGIA, UNSPECIFIED; G89.29 - OTHER CHRONIC PAIN Status : Chronic Current Visit: Yes Qualifiers: Back pain location: low back pain Back pain laterality: unspecified Sciatica presence: without sciatica Qualified Code(s): M54.5 - Low back pain; G89.29 - Other chronic pain (4) GERD (gastroesophageal reflux disease) SNOMED Code(s): 003535932 Code(s): K21.9 - GASTRO-ESOPHAGEAL REFLUX DISEASE WITHOUT ESOPHAGITIS Status: Chronic Current Visit: Yes Qualifiers: Esophagitis presence: without esophagitis Qualified Code(s): K21.9 - Gastro -esophageal reflux disease without esophagitis - Problem List Review Problem List Initiated/Reviewed/Updated: Yes - My Orders Last 24 Hours: My Active Orders 01/18/17 17:55 Resuscitation Status Routine 01/18/17 19:38 Patient Status [ADT] Routine Intake and Output [RC] QSHIFT Notify Provider Vital Signs [RC] ASDIRECTED Oxygen Therapy [RC] PRN Up ad Barbara [RC] ASDIRECTED VTE/DVT Education [RC] Per Unit Routine Vital Signs [RC] Q4H Acetaminophen [Tylenol] 650 mg PO Q4H PRN Alum Hydrox/Mag Hydrox/Simeth [Mag-Al Plus] 30 ml PO Q4H PRN Calcium Carbonate [Tums] 1,000 mg PO Q2H PRN HYDROmorphone [Dilaudid] 0.5 - 1 mg IVPUSH Q2H PRN Ondansetron [Zofran ODT] 4 mg PO Q6H PRN Ondansetron [Zofran] 4 mg IV Q6H PRN Polyethylene Glycol 3350 [MiraLAX] 17 gm PO DAILY PRN Sodium Chloride 0.9% [Normal Saline] 1,000 ml IV ASDIRECTED oxyCODONE 5 - 10 mg PO Q4H PRN Sequential Compression Device [OM.PC] Per Unit Routine 01/18/17 21:00 Famotidine [Pepcid] 20 mg PO BID 01/19/17 07:00 Cholangiopancreatography [MR] Routine 01/19/17 07:30 Mometasone/Formoterol [Dulera 200-5 MCG] 2 puff IH BIDRT 01/19/17 10:05 Diazepam [Valium] 5 mg IVPUSH ONETIME ONE 01/19/17 10:06 Orbits FB For MRI Bi [CR] Routine 01/19/17 13:00 Warfarin [Coumadin] 3 mg PO ONETIME ONE 01/19/17 Lunch Mechanical Soft Diet [DIET] 01/20/17 05:00 BASIC METABOLIC PANEL,BMP [CHEM] Timed CBC W/O DIFF,HEMOGRAM [HEME] Timed (1) INR,PT,PROTHROMBIN TIME [COAG] Timed 01/23/17 13:00 Warfarin [Coumadin] 2 mg PO TuSa@1300 - Plan Plan:: Assessment and plan - Acute recurrent pancreatitis - CT suggested pancreatitis but MRI did not confirm. No obvious ductal abnormality other than some mild mid pancreatic duct dilation. No obvious pseudocyst seen with the MRI. He did not have any fevers overnight. He has no belly pain this morning. Lipase is normal. Food last night did not make his pain any worse. -Pain control -Saline lock IV -HIDA scan tomorrow Bilateral pulmonary emboli - patient has been anticoagulated for approximately the last month. No respiratory symptoms at this time. - Continue warfarin with daily INR Gastroesophageal reflux disease - History of a hiatal hernia. Symptoms not well controlled on low-dose ranitidine. Proton pump inhibitors have been stopped with concern for contribution to pancreatitis. -Twice daily famotidine Chronic low back pain - no active issues at this time. Maintenance issues - - DVT prophylaxis - SCDs - GI prophylaxis - twice daily H2 ernestine - Nutrition - mechanical soft diet today and nothing by mouth after midnight Disposition - anticipated discharge to home after the hospital stay unless he requires transfer to [facility] or higher level of care [facility] physician - [facility] [place] Drew Dimas M.D.
--- NOTE | 2017-01-19 10:38 | CR ---
Orbits FB For MRI Bi HISTORY: hx of metal grinding FINDINGS: Tolliver' view of the sinuses and orbits was obtained pre-MRI screening. No metallic foreign body is identified. There is no MRI contraindication.
[2017-01-19] MEDS: Metoprolol Tartrate 50 MG Tab PO SCH ×2 (11:14→22:06)
[2017-01-19] MEDS: Famotidine 20 MG Tab PO SCH ×2 (11:15→22:06)
[2017-01-19] MEDS: Thiamine 100 MG Tab PO SCH (11:15)
--- NOTE | 2017-01-19 11:25 | MR ---
Cholangiopancreatography HISTORY: recurrent pancreatitis Multiplanar MRCP sequences of the abdomen are obtained. Comparison CT study is dated 01/18/2017. FINDINGS: Intrahepatic and extrahepatic biliary ducts are nondilated. No abnormal filling defect or stricture is identified. I see no filling defect in the gallbladder. Mid pancreatic duct is slightly dilated measuring 4-5 mm. This appears similar to the CT study. No o bvious pancreatic mass is identified. No significant pancreatic edema or pancreatic pseudocyst can b e identified. A very small amount of free fluid can be seen in the upper abdomen adjacent to the lilia er and spleen. I cannot definitely identify patency of the splenic vein, portal vein, or proximal SM A. Thrombosis of these vessels was also suggested on the prior CT study. IMPRESSION: 1. Gallbladder and biliary ducts are unremarkable. 2. Mid pancreatic duct is slightly dilated similar to the prior CT study. 3. Pancreatic inflammatory changes seen on the CT study appear less prominent by MRI. No definite pa ncreatic pseudocyst formation can be seen. 4. Possible thrombosis involving the portal vein, splenic vein, and superior mesenteric vein is rede monstrated. 5. A very small amount of ascites is noted in the upper abdomen.
[2017-01-19] MEDS: HYDROmorphone 1 MG/ML Syringe IVPUSH ONE (11:28)
[2017-01-19] MEDS ORDERED: Warfarin 3 MG Tab PO ONE (13:00)
[2017-01-19] MEDS ORDERED: HYDROmorphone 1 MG/ML Syringe IVPUSH PRN (13:48)
[2017-01-19] MEDS: oxyCODONE 5 MG Tab PO PRN ×2 (18:01→22:10)
[2017-01-19] MEDS: Ondansetron 4 MG Tab.DIS PO PRN (18:04)
[2017-01-19] MEDS: rOPINIRole 1 MG Tab PO SCH (22:07)
[2017-01-19] MEDS: traZODone 50 MG Tab PO SCH (22:07)
[2017-01-20] MEDS: oxyCODONE 5 MG Tab PO PRN ×2 (02:27→12:56)
[2017-01-20] MEDS: Formoterol/Mometasone 200-5 MCG 8.8 GM Inhaler IH SCH (07:21)
[2017-01-20] MEDS: Gabapentin 300 MG Cap PO SCH ×2 (07:23→09:12)
[2017-01-20] MEDS: Metoprolol Tartrate 50 MG Tab PO SCH (09:11)
[2017-01-20] MEDS: Thiamine 100 MG Tab PO SCH (09:12)
[2017-01-20] MEDS: Famotidine 20 MG Tab PO SCH (09:12)
--- NOTE | 2017-01-20 09:39 | NM ---
Cholescintigraphy w Pharm Int HISTORY: post-prandial epigastric pain Hepatobiliary imaging study is obtained following intravenous administration of 5.3 millicuries tech netium 99m Choletec. Ejection fraction portion of the study is obtained approximately 60 minutes int o the exam following intravenous administration of 1.57 micrograms of CCK. FINDINGS: Radiotracer uptake in the liver is homogeneous. Common bile duct activity seen at 5 minutes. Gallbla dder activity seen at 10 minutes and increases to the end of study. GI tract activity can be seen at 10 minutes and increases to the end of the exam. Calculated a gallbladder ejection fraction is within normal limits measuring 99% (normal 35% and abo ve). IMPRESSION: Hepatobiliary scan and ejection fraction within normal limits as described above.
[2017-01-20] MEDS ORDERED: Warfarin 3 MG Tab PO SCH (13:00)
[2017-01-20 14:18] VITALS: BP 106/83
[2017-01-20] MEDS: Ondansetron 4 MG Tab.DIS PO PRN (14:43)
--- NOTE | 2017-01-20 15:11 | PCM.DCSUM1 ---
Discharge Summary - Hospital Course Brief History: 56-year-old male with history of recurrent pancreatitis complicated by pseudocyst who presented with abdominal pain and was admitted for management of presumed exacerbation of pancreatitis. - Discharge Data Discharge Date: 01/20/17 Discharge Disposition: Home, Self-Care 01 Condition: Good - Discharge Diagnosis/Problem(s) (1) Recurrent acute pancreatitis SNOMED Code(s): 636760916 ICD Code: K85.90 - ACUTE PANCREATITIS WITHOUT NECROSIS OR INFECTION, UNSP Status: Acute (2) Bilateral pulmonary embolism SNOMED Code(s): 71469288, 37356711 ICD Code: I26.99 - OTHER PULMONARY EMBOLISM WITHOUT ACUTE COR PULMONALE Status: Chronic (3) Chronic back pain SNOMED Code(s): 730773688 ICD Code: M54.9 - DORSALGIA, UNSPECIFIED; G89.29 - OTHER CHRONIC PAIN Status: Chronic Qualifiers: Back pain location: low back pain Back pain laterality: unspecified Sciatica presence: without sciatica Qualified Code(s): M54.5 - Low back pain; G89.29 - Other chronic pain (4) GERD (gastroesophageal reflux disease) SNOMED Code(s): 991356352 ICD Code: K21.9 - GASTRO-ESOPHAGEAL REFLUX DISEASE WITHOUT ESOPHAGITIS Status: Chronic Qualifiers: Esophagitis presence: without esophagitis Qualified Code(s): K21.9 - Gastro -esophageal reflux disease without esophagitis - Patient Summary/Data Consults: Consultations 01/20/17 09:35 Consult to Dietary [Consult to Chemical Test Engineer] [CONS] Routine Comment: Physician Instructions: Quantity: Reason for Consult: please provide info about pancreatitis diet Hospital Course: Armando presented to the emergency room with lower abdominal pain. Workup in the emergency room was suggestive of acute pancreatitis with an abnormal CT scan and a lipase of approximately 3000. Fortunately his previously noted pseudocyst had improved significantly. The emergency room folks did discuss the case with the [facility] in [place]. They're concerned at that time was that he was potentially too complicated for their service given his recent difficulties and persistent illness. We did keep him here and treat him for acute pancreatitis with nothing by mouth status overnight. The morning after admission he is essentially pain-free. His lipase is now normal. He has not had any fevers. Morning after admission we also completed an MRCP to further evaluate and creatinine can biliary anatomy as well as plumbing. The MRCP was fairly unremarkable with only a mild dilation of the midportion of the pancreatic duct. No significant abnormalities were noted. No significant pseudocysts were noted. His diet was advanced and after a very mild discomfort following his noon meal he has been essentially pain-free. He did not have any fevers overnight second night. On the second full day of hospital stay we completed a HIDA scan to rule out chronic cholecystitis as a potential contributing factor. Fortunately this was relatively normal as well with only a borderline low ejection fraction from the gallbladder. I doubt that he is having difficulty with digestion since he is not having much difficulty with diarrhea. I don't believe he needs pancreatic enzyme replacement at this time. I suspect that his difficulties could be related to some dietary indiscretions. We did have the dietary folks visit with him and review food choices with pancreatitis. He has tolerated breakfast and lunch without any difficulty today. He is interested in a trial of outpatient management. My hope is that with a soft and bland diet extended over the next 1 month or so his pancreas will be fully healed and hopefully then he can slowly advance back to his normal diet. I did provide based short prescription of oxycodone to help manage any breakthrough pain in the short-term. I also provided a prescription for ondansetron to help monitor potential nausea. We are trying to manage his Camacho esophageal reflux disease using twice daily ranitidine. - Patient Instructions Diet: Regular Diet as Tolerated Diet, Other: soft and bland foods for the next one month Activity: As Tolerated Driving: Do Not Drive (is taking pain pills prior to departing) Showering/Bathing: May Shower Notify Provider of: Fever, Increased Pain, Nausea and/or Vomiting Other/Special Instructions: 1. You were in the hospital for management of an episode of recurrent acute pancreatitis. The exact cause for this exacerbation was not entirely clear. We performed an MRI of your abdomen which did not show acute problems with her pancreas. We also performed a HIDA scan of the gallbladder which showed that it is functioning normally. I have some suspicion that your abdominal pain may have a relationship with food and you should avoid fatty foods, fried foods and rich foods. I would recommend that you follow a bland diet for approximately the next month. 2. You can take ranitidine (Zantac) to 150 mg twice daily to help with your heartburn symptoms. If ranitidine medication continues to be ineffective you could consider restarting the omeprazole and watching closely for symptoms of pancreatitis. 3. Please seek medical attention if you develop fever greater than 101, have severe abdominal pain, persistent vomiting or persistent diarrhea. - Discharge Plan Prescriptions/Med Rec: Ondansetron [Zofran] 4 mg PO Q8H PRN #20 tab PRN Reason: Nausea Ranitidine HCl [Zantac 75] 150 mg PO BID #60 tablet oxyCODONE 5 mg PO Q4H PRN #20 tablet PRN Reason: Pain Home Medications: Home Meds Cetirizine [ZyrTEC] 10 mg PO BEDTIME 03/17/14 [History] Thiamine [Vitamin B-1] 100 mg PO DAILY 03/17/14 [History] Albuterol Sulfate [Proair Respiclick] 2 puff IN Q6HR PRN 10/27/16 [History] Budesonide/Formoterol [Symbicort 160-4.5 MCG] 2 puff IN BID 10/27/16 [History] Lidocaine 5% [Lidoderm 5%] 1 patch TOP ASDIRECTED PRN 10/27/16 [History] Metoprolol Tartrate [Lopressor] 50 mg PO BID 10/27/16 [History] rOPINIRole [Requip] 1 mg PO BEDTIME 10/27/16 [History] traMADol [Ultram] 100 mg PO BID 10/27/16 [History] traZODone 50 mg PO BEDTIME 10/27/16 [History] Cyclobenzaprine HCl 20 mg PO BEDTIME PRN 12/20/16 [History] Docusate Sodium/Sennosides [Senna Plus] 2 each PO BID PRN 12/20/16 [History] Gabapentin [Neurontin] 300 mg PO QID 12/20/16 [History] Warfarin [Coumadin] 3 mg PO DAILY 12/20/16 [History] Ondansetron [Zofran] 4 mg PO Q8H PRN #20 tab 01/20/17 [Rx] Ranitidine HCl [Zantac 75] 150 mg PO BID #60 tablet 01/20/17 [Rx] oxyCODONE 5 mg PO Q4H PRN #20 tablet 01/20/17 [Rx] Patient Handouts: Ranitidine tablets or capsules Referrals: PCP,None [Primary Care Provider] - (followup with your primary care if your symptoms do not continue to get better or they get worse) - Discharge Summary/Plan Comment DC Time >30 min.: No (25) - Patient Data Vitals - Most Recent: Last Vital Signs Temp 37.2 C 01/20/17 14:15 Pulse 71 01/20/17 14:15 Resp 18 01/20/17 14:15 BP 106/83 01/20/17 14:15 Pulse Ox 97 01/20/17 14:15 Weight - Most Recent: 78.698 kg I&O - Last 24 hours: Intake & Output 01/20/17 01/20/17 01/20/17 06:59 14:59 22:59 Intake Total 500 Output Total 500 800 Balance -500 -300 Lab Results - Last 24 hrs: Laboratory Results - last 24 hr 01/20/17 01/20/17 01/20/17 Range/Units 05:00 05:00 05:00 WBC 6.8 (4.5-11.0) K/uL RBC 3.69 L (4.30-5.90) M/uL Hgb 9.8 L (12.0-15.0) g/dL Hct 32.3 L (40.0-54.0) % MCV 88 (80-98) fL MCH 27 (27-31) pg MCHC 30 L (32-36) % Plt Count 338 (150-400) K/uL PT 20.7 H (9.5-12.0) sec INR 1.88 H (0.80-1.20) Sodium 140 (140-148) mmol/L Potassium 3.8 (3.6-5.2) mmol/L Chloride 105 (100-108) mmol/L Carbon Dioxide 27 (21-32) mmol/L Anion Gap 8.3 (5.0-14.0) mmol/L BUN 4 L (7-18) mg/dL Creatinine 0.7 L (0.8-1.3) mg/dL Est Cr Clr Drug Dosing 123.33 mL/min Estimated GFR (MDRD) > 60 (>60) Glucose 108 H (74-106) mg/dL Calcium 8.7 (8.5-10.1) mg/dL Med Orders - Current: Current Medications Acetaminophen (Tylenol) 650 mg PO Q4H PRN PRN Reason: Pain (Mild 1-3)/fever Al Hydroxide/Mg Hydroxide (Mag-Al Plus) 30 ml PO Q4H PRN PRN Reason: Indigestion Calcium Carbonate/Glycine (Tums) 1,000 mg PO Q2H PRN PRN Reason: Indigestion Cyclobenzaprine HCl (Flexeril) 20 mg PO BEDTIME PRN PRN Reason: muscle pain Famotidine (Pepcid) 20 mg PO BID [facility] Last Admin: 01/20/17 09:12 Dose: 20 mg Gabapentin (Neurontin) 300 mg PO QID [facility] Last Admin: 01/20/17 09:12 Dose: 300 mg Hydromorphone HCl (Dilaudid) 0.5 - 1 mg IVPUSH Q2H PRN PRN Reason: Pain (severe 7-10) Last Admin: 01/19/17 14:16 Dose: 1 mg Metoprolol Tartrate (Lopressor) 50 mg PO BID [facility] Last Admin: 01/20/17 09:11 Dose: 50 mg Mometasone Furoate/Formoterol Fumar (Dulera 200-5 Mcg) 2 puff IH BIDRT [facility] Last Admin: 01/20/17 07:21 Dose: 2 puff Ondansetron HCl (Zofran Odt) 4 mg PO Q6H PRN PRN Reason: Nausea able to take PO Last Admin: 01/20/17 14:43 Dose: 4 mg Ondansetron HCl (Zofran) 4 mg IV Q6H PRN PRN Reason: Nausea/Vomiting Oxycodone HCl (Oxycodone) 5 - 10 mg PO Q4H PRN PRN Reason: Pain (moderate 4-6) Last Admin: 01/20/17 12:56 Dose: 5 mg Polyethylene Glycol (Miralax) 17 gm PO DAILY PRN PRN Reason: Constipation Ropinirole HCl (Requip) 1 mg PO BEDTIME [facility] Last Admin: 01/19/17 22:07 Dose: 1 mg Senna/Docusate Sodium (Senna Plus) 2 tab PO BID PRN PRN Reason: Constipation Thiamine HCl (Vitamin B-1) 100 mg PO DAILY [facility] Last Admin: 01/20/17 09:12 Dose: 100 mg Trazodone HCl (Trazodone) 50 mg PO BEDTIME [facility] Last Admin: 01/19/17 22:07 Dose: 50 mg Warfarin Sodium (Coumadin) 3 mg PO SuMoWeThFr@1300 DANTE Last Admin: 01/20/17 12:56 Dose: 3 mg Warfarin Sodium (Coumadin) 2 mg PO TuSa@1300 [facility] Discontinued Medications Diazepam (Valium) 5 mg IVPUSH ONETIME ONE Stop: 01/19/17 10:21 Last Admin: 01/19/17 10:25 Dose: 5 mg Diphenhydramine HCl (Benadryl) 50 mg IVPUSH ONETIME ONE Stop: 01/18/17 14:24 Last Admin: 01/18/17 14:32 Dose: 50 mg Hydromorphone HCl (Dilaudid) 1 mg IVPUSH ONETIME ONE Stop: 01/18/17 12:24 Last Admin: 01/19/17 11:28 Dose: 1 mg Hydromorphone HCl (Dilaudid) 1 mg IVPUSH ONETIME ONE Stop: 01/18/17 14:08 Last Admin: 01/18/17 14:15 Dose: 1 mg Hydromorphone HCl (Dilaudid) 1 mg IVPUSH ONETIME ONE Stop: 01/18/17 16:37 Last Admin: 01/18/17 16:48 Dose: 1 mg Hydromorphone HCl (Dilaudid) 0.5 - 1 mg IVPUSH Q2H PRN PRN Reason: Pain (severe 7-10) Last Admin: 01/19/17 02:00 Dose: 1 mg Hydromorphone HCl (Dilaudid) Confirm Administered Dose 1 mg .ROUTE .STK-MED ONE Stop: 01/18/17 19:43 Last Admin: 01/18/17 20:47 Dose: Not Given Hydromorphone HCl (Dilaudid) Confirm Administered Dose 1 mg .ROUTE .STK-MED ONE Stop: 01/19/17 01:57 Last Admin: 01/19/17 03:11 Dose: Not Given Hydromorphone HCl (Dilaudid) Confirm Administered Dose 1 mg .ROUTE .STK-MED ONE Stop: 01/19/17 07:23 Last Admin: 01/19/17 07:27 Dose: 1 mg Hydromorphone HCl (Dilaudid) Confirm Administered Dose 1 mg .ROUTE .STK-MED ONE Stop: 01/19/17 11:27 Last Admin: 01/19/17 11:58 Dose: Not Given Lactated Ringer's (Ringers, Lactated) 1,000 mls @ 999 mls/hr IV ASDIRECTED [facility] Last Admin: 01/18/17 13:05 Dose: 999 mls/hr Sodium Chloride (Normal Saline) 75 mls @ 3 mls/sec IV ONETIME ONE Stop: 01/18/17 14:23 Last Admin: 01/18/17 15:46 Dose: 3 mls/sec Lactated Ringer's (Ringers, Lactated) 1,000 mls @ 999 mls/hr IV BOLUS ONE Stop: 01/18/17 15:27 Last Admin: 01/18/17 14:31 Dose: 999 mls/hr Lactated Ringer's (Ringers, Lactated) 1,000 mls @ 250 mls/hr IV BOLUS ONE Stop: 01/18/17 20:35 Last Admin: 01/18/17 18:57 Dose: 250 mls/hr Sodium Chloride (Normal Saline) 1,000 mls @ 100 mls/hr IV ASDIRECTED [facility] Last Admin: 01/19/17 09:13 Dose: 100 mls/hr Iopamidol (Isovue-300 (61%)) 117 ml IV . DIRECTED [facility] Last Admin: 01/18/17 15:46 Dose: 150 ml Mometasone Furoate/Formoterol Fumar (Dulera 200-5 Mcg) 2 puff IH BID [facility] Last Admin: 01/18/17 21:25 Dose: 2 puff Ondansetron HCl (Zofran) 4 mg IVPUSH ONETIME ONE Stop: 01/18/17 12:24 Last Admin: 01/18/17 13:06 Dose: 4 mg Sodium Chloride (Saline Flush) 10 ml FLUSH ASDIRECTED PRN PRN Reason: Keep Vein Open Last Admin: 01/18/17 13:48 Dose: 10 ml Sodium Chloride (Saline Flush) 10 ml FLUSH ONETIME PRN PRN Reason: PER RADIOLOGY PROTOCOL Last Admin: 01/18/17 15:46 Dose: 10 ml Warfarin Sodium (Coumadin) 3 mg PO ONETIME ONE Stop: 01/18/17 21:58 Last Admin: 01/18/17 22:29 Dose: 3 mg Warfarin Sodium (Coumadin) Confirm Administered Dose 3 mg .ROUTE .STK-MED ONE Stop: 01/18/17 22:22 Last Admin: 01/18/17 22:28 Dose: Not Given Warfarin Sodium (Coumadin) 2 mg PO TuSa@1300 DANTE Warfarin Sodium (Coumadin) 3 mg PO ONETIME ONE Stop: 01/19/17 13:01 Last Admin: 01/19/17 13:43 Dose: 3 mg *Q Meaningful Use (DIS) - VTE *Q VTE Criteria *Q: - Stroke *Q Stroke Criteria *Q: - AMI *Q AMI Criteria *Q:
== END 2017-01-20 15:50 | disposition home or self-care (01) | DRG 438 ==
LOC: JP.ED 11:26 → JP.MS 17:53
PROVIDERS: ADMIT Internal Medicine; ATTEND Internal Medicine
DX: K85.90 Acute pancreatitis without necrosis or infection, unspecified (principal); I26.99 Other pulmonary embolism without acute cor pulmonale; K86.3 Pseudocyst of pancreas; K86.1 Other chronic pancreatitis; Z13.89 Encounter for screening for other disorder; G40.909 Epilepsy, unspecified, not intractable, without status epilepticus; I12.9 Hypertensive chronic kidney disease with stage 1 through stage 4 chronic kidney disease, or unspecified chronic kidney disease; N18.9 Chronic kidney disease, unspecified; Z87.891 Personal history of nicotine dependence; I25.10 Atherosclerotic heart disease of native coronary artery without angina pectoris; J44.9 Chronic obstructive pulmonary disease, unspecified; M54.9 Dorsalgia, unspecified; G89.29 Other chronic pain; K21.9 Gastro-esophageal reflux disease without esophagitis; I25.2 Old myocardial infarction; J30.9 Allergic rhinitis, unspecified; Z87.01 Personal history of pneumonia (recurrent); M19.90 Unspecified osteoarthritis, unspecified site; Z79.01 Long term (current) use of anticoagulants; Z91.041 Radiographic dye allergy status; Z88.8 Allergy status to other drugs, medicaments and biological substances
CPT/HCPCS: 36415; 70030-26; 70030-50; 74177; 74181; 74181-26; 78227; 78227-26; 80048; 80053; 81001; 83605; 83690; 83735; 85025; 85027; 85610; 94640; 94640-76; 94664; 96361; 96374; 96375; 96376; 99223-AI; 99232; 99238; 99284; 99285-25; A9270-GY; J1170; J1200; J2405; J3360; J7030; J7040; J7050; J7120

== ENCOUNTER 2018-08-29 07:13 | Inpatient (IN) | payer OTHER ==
[2018-08-29] MEDS ORDERED: Ondansetron 4 MG/2 ML SDV IVPUSH ONE (08:17)
[2018-08-29] MEDS ORDERED: HYDROmorphone 0.5 MG/0.5 ML Syringe IVPUSH ONE ×2 (08:18→11:11)
[2018-08-29] MEDS ORDERED: Sodium Chloride 0.9% 1,000 ML IV SCH ×2 (08:30→11:15)
[2018-08-29] MEDS ORDERED: HYDROmorphone 1 MG/ML Syringe IVPUSH ONE (08:51)
--- NOTE | 2018-08-29 09:03 | CT ---
Abdomen Pelvis wo Cont CLINICAL HISTORY: Abdominal pain , history of renal failure COMPARISON: 2017. TECHNIQUE: Axial tomographic images are obtained from the dome of the diaphragm to the pubic symphysis without IV contrast enhancement. No oral contrast was used. Auto dosage reduction and iterative reconstruction techniques employed. FINDINGS: The lung bases show some pleural parenchymal scarring. There is a moderate-sized hiatal hernia. The liver shows no mass or biliary dilatation. The gallbladder has a normal contour. The spleen has a normal size and shape. The pancreas contains a few scattered stippled calcifications there is a curvilinear calcification in the pancreatic head which is new since 2017. Previously seen peripancreatic fluid collections. There are some prominent vessels in the upper abdomen. These are likely collateral vessels or varices related to portal vein thrombosis which was seen on prior CT. The adrenal glands have a normal appearance. The kidneys show no stones or hydronephrosis. The aorta has a normal contour. There is no suspicious retroperitoneal adenopathy. Small bowel configuration is nonacute. There is moderate retained stool throughout the colon. The appendix is not specifically identified. Abdominal pelvic fat planes and low pelvic side erickson are fairly well demarcated. IMPRESSION: History of portal vein thrombosis with prominent mesenteric vessels in the mid and upper abdomen. This is likely due to portal hypertension collateral flow and varices. Pancreatic calcifications from previous pancreatitis. No acute inflammatory changes are identified.
--- NOTE | 2018-08-29 09:12 | EDM.PDOC ---
ED HPI GENERAL MEDICAL PROBLEM - General Chief Complaint: Abdominal Pain Stated Complaint: STOMACH PAIN Time Seen by Provider: 08/29/18 07:30 Source of Information: Reports: Patient, Family History Limitations: Reports: No Limitations - History of Present Illness INITIAL COMMENTS - FREE TEXT/NARRATIVE: pt arrived with mid abdomanal pain, He states this has been going on for about 2 monthes. This has progressively gotten worse. He is not vomiting but he has been quite nauseated. He has been having irregular bms. Sometimes 3-4 daily and sometimes one daily. He has lost weight-- about 10 lbs. He has a decreased appetite. He has a past history of pancreatitis. Onset: Gradual, Other ( several weeks of some pain and quite severe today. ) Duration: Hour(s): Location: Reports: Abdomen Associated Symptoms: Reports: Nausea/Vomiting Middle Abdominal Pain Score (Numeric/FACES): 8 - Related Data Allergies Allergy/AdvReac Type Severity Reaction Status Date / Time glycopyrrolate [From Robinul] Allergy Seizure Verified 08/29/18 07:46 Iodinated Contrast- Oral and Allergy Renal Verified 08/29/18 07:46 IV Dye Failure [Iodinated Contrast Media - Oral and] lorazepam [From Ativan] Allergy Confusion Verified 08/29/18 07:46 sulfamethoxazole Allergy Facial Verified 08/29/18 07:46 [From Septra] Spasms trimethoprim [From Septra] Allergy Facial Verified 08/29/18 07:46 Spasms Home Meds: Home Meds Cetirizine [ZyrTEC] 10 mg PO BEDTIME 03/17/14 [History] Albuterol Sulfate [Proair Respiclick] 2 puff IN Q6HR PRN 10/27/16 [History] Budesonide/Formoterol [Symbicort 160-4.5 MCG] 2 puff IN BID 10/27/16 [History] Lidocaine 5% [Lidoderm 5%] 1 patch TOP ASDIRECTED PRN 10/27/16 [History] Metoprolol Tartrate [Lopressor] 50 mg PO BEDTIME 10/27/16 [History] rOPINIRole [Requip] 0.5 mg PO BEDTIME 10/27/16 [History] traMADol [Ultram] 100 mg PO BID 10/27/16 [History] traZODone 100 mg PO BEDTIME 10/27/16 [History] Cyclobenzaprine HCl 20 mg PO BEDTIME PRN 12/20/16 [History] Docusate Sodium/Sennosides [Senna Plus] 2 each PO BID PRN 12/20/16 [History] Gabapentin [Neurontin] 900 mg PO BID 12/20/16 [History] Ondansetron [Zofran] 4 mg PO Q8H PRN #20 tab 01/20/17 [Rx] Ranitidine HCl [Zantac 75] 150 mg PO BID #60 tablet 01/20/17 [Rx] Acetaminophen 650 mg PO ASDIRECTED 08/29/18 [History] DULoxetine [Cymbalta] 80 mg PO DAILY 08/29/18 [History] Gabapentin [Neurontin] 300 mg PO DAILY 08/29/18 [History] Melatonin 10 mg PO BEDTIME 08/29/18 [History] Pantoprazole [ProTONIX] 40 mg PO BID 08/29/18 [History] metFORMIN [Glucophage] 1,000 mg PO BEDTIME 08/29/18 [History] Past Medical History HEENT History: Reports: Allergic Rhinitis Cardiovascular History: Reports: CAD, High Cholesterol, Hypertension, [place], Other (See Below) Other Cardiovascular History: angiogram Respiratory History: Reports: COPD, PE, Pneumonia, Recurrent, Sleep Apnea Gastrointestinal History: Reports: GERD, Hiatal Hernia, Pancreatitis, Other ( See Below) Other Gastrointestinal History: kink in bowel Genitourinary History: Reports: Acute Renal Failure, Chronic Renal Insuffiency Other Genitourinary History: PREVIOUS INDWELLING MCALLISTER Musculoskeletal History: Reports: Back Pain, Chronic, Neck Pain, Chronic, Osteoarthritis Neurological History: Reports: Concussion, Seizure Endocrine/Metabolic History: Reports: Diabetes, Type II Hematologic History: Reports: Anemia, Blood Transfusion(s) Dermatologic History: Reports: Other (See Below) Other Dermatologic History: rash at different times - Infectious Disease History Infectious Disease History: Reports: Chicken Pox - Past Surgical History Respiratory Surgical History: Reports: Thoracentesis GI Surgical History: Reports: Appendectomy, Evelia Fundoplication Social & Family History - Family History GI: Reports: Pancreatitis - Tobacco Use Smoking Status *Q: Light Tobacco Smoker Years of Tobacco use: 35 Packs/Tins Daily: 0.5 - Caffeine Use Caffeine Use: Reports: None - Recreational Drug Use Recreational Drug Use: Yes Recreational Drug Type: Reports: Marijuana/Hashish Recreational Drug Use Frequency: Daily ED ROS GENERAL - Review of Systems Review Of Systems: See Below Constitutional: Reports: No Symptoms, Malaise, Weakness, Decreased Appetite, Weight Loss HEENT: Reports: No Symptoms Respiratory: Reports: No Symptoms Cardiovascular: Reports: No Symptoms Endocrine: Reports: High Glucose GI/Abdominal: Reports: Abdominal Pain : Reports: No Symptoms Musculoskeletal: Reports: No Symptoms Skin: Reports: No Symptoms Neurological: Reports: No Symptoms ED EXAM, GI/ABD - Physical Exam Exam: See Below Text/Narrative:: PT IS A VERY UNCOMFORTABLE PT WITH PAIN IN THE MID ABDOMAN. hE IS NOT VOMITING. hE IS NOT DISTENDED APPEARING. hE STATES THIS PAIN HAS GOTTEN VERY SEVERE IN THE LAST WEEK. hE HAS A HISTORY OF A bARRETS eSOPHAGUS. Exam Limited By: No Limitations General Appearance: Alert, Anxious, Moderate Distress, Other (PUPILS ARE EQUAL AND REACTIVE. ) Ears: Normal TMs Nose: Normal Inspection Throat/Mouth: Normal Inspection Head: Atraumatic Neck: Normal Inspection Respiratory/Chest: No Respiratory Distress Cardiovascular: Regular Rate, Rhythm GI/Abdominal Exam: Tender, Other (PT HAS TENDERNESS INTHE MID ABDOMANAL AREA. hE DOES NOT APPEAR TO BE DISTENDED. ) Rectal (Males) Exam: Deferred Back Exam: Normal Inspection Extremities: Normal Inspection Course - Vital Signs Last Recorded V/S: Last Vital Signs Temp 36.4 C 08/30/18 07:50 Pulse 57 L 08/30/18 07:50 Resp 18 08/30/18 07:50 BP 116/72 08/30/18 07:50 Pulse Ox 97 08/30/18 07:50 - Orders/Labs/Meds Orders: Medication Orders Acetaminophen (Tylenol) 650 mg PO Q4H PRN PRN Reason: Pain (Mild 1-3)/fever Last Admin: 08/29/18 16:17 Dose: 650 mg Albuterol (Proventil Neb Soln) 2.5 mg NEB Q4H PRN PRN Reason: Shortness Of Breath/wheezing Calcium Carbonate/Glycine (Tums) 1,000 mg PO Q2H PRN PRN Reason: Indigestion Last Admin: 08/29/18 16:26 Dose: 1,000 mg Cetirizine HCl (Zyrtec) 10 mg PO BEDTIME DANTE Last Admin: 08/29/18 21:00 Dose: 10 mg Cyclobenzaprine HCl (Flexeril) 20 mg PO BEDTIME PRN PRN Reason: muscle pain Duloxetine HCl (Cymbalta) 80 mg PO DAILY [facility] Gabapentin (Neurontin) 300 mg PO QPM [facility] Last Admin: 08/29/18 17:19 Dose: 300 mg Gabapentin (Neurontin) 900 mg PO BID [facility] Last Admin: 08/29/18 20:59 Dose: 900 mg Hydromorphone HCl (Dilaudid) 0.5 - 1 mg IVPUSH Q2H PRN PRN Reason: Pain (severe 7-10) Last Admin: 08/30/18 05:47 Dose: 0.5 mg Admin: 08/30/18 02:51 Dose: 0.5 mg Admin: 08/29/18 23:55 Dose: 0.5 mg Admin: 08/29/18 18:06 Dose: 0.5 mg Admin: 08/29/18 14:38 Dose: 0.5 mg Sodium Chloride (Normal Saline) 1,000 mls @ 100 mls/hr IV ASDIRECTED [facility] Last Admin: 08/29/18 23:51 Dose: 100 mls/hr Infusion: 08/29/18 23:51 Dose: 100 mls/hr Admin: 08/29/18 14:23 Dose: 100 mls/hr Insulin Human Lispro (Humalog) 0 unit SUBCUT QIDACANDBED [facility]; Protocol Last Admin: 08/29/18 21:03 Dose: 2 unit Admin: 08/29/18 17:20 Dose: Lidocaine HCl (Xylocaine 2% Viscous) 15 ml PO Q4H PRN PRN Reason: Heartburn Magnesium Hydroxide (Milk Of Magnesia) 30 ml PO Q12H PRN PRN Reason: Constipation Metformin HCl (Glucophage) 1,000 mg PO QPM [facility] Last Admin: 08/29/18 17:20 Dose: 1,000 mg Metoprolol Tartrate (Lopressor) 50 mg PO BEDTIME [facility] Last Admin: 08/29/18 20:59 Dose: 50 mg Mometasone Furoate/Formoterol Fumar (Dulera 200-5 Mcg) 2 puff IH BIDRT [facility] Last Admin: 08/30/18 08:06 Dose: Not Given Admin: 08/29/18 20:58 Dose: 2 puff Nicotine (Habitrol) 14 mg TRDERM DAILY [facility] Ondansetron HCl (Zofran Odt) 4 mg PO Q6H PRN PRN Reason: Nausea able to take PO Ondansetron HCl (Zofran) 4 mg IV Q6H PRN PRN Reason: Nausea/Vomiting Last Admin: 08/29/18 19:33 Dose: 4 mg Admin: 08/29/18 14:28 Dose: 4 mg Oxycodone HCl (Oxycodone) 5 mg PO Q4H PRN PRN Reason: Pain (moderate 4-6) Pantoprazole Sodium (Protonix) 40 mg PO BIDAC [facility] Last Admin: 08/30/18 08:06 Dose: 40 mg Admin: 08/29/18 21:00 Dose: 40 mg Polyethylene Glycol (Miralax) 17 gm PO DAILY PRN PRN Reason: Constipation Ranitidine HCl (Zantac) 150 mg PO BID [facility] Last Admin: 08/29/18 21:00 Dose: 150 mg Ropinirole HCl (Requip) 0.5 mg PO BEDTIME [facility] Last Admin: 08/29/18 20:59 Dose: 0.5 mg Senna/Docusate Sodium (Senna Plus) 1 tab PO BID PRN PRN Reason: Constipation Tramadol HCl (Ultram) 100 mg PO BID [facility] Last Admin: 08/29/18 21:03 Dose: 100 mg Trazodone HCl (Trazodone) 100 mg PO BEDTIME [facility] Last Admin: 08/29/18 20:59 Dose: 100 mg Labs: Laboratory Tests 08/29/18 08/29/18 08/29/18 Range/Units 07:56 07:56 07:56 WBC 7.6 (4.5-11.0) K/uL RBC 5.25 (4.30-5.90) M/uL Hgb 15.9 H D (12.0-15.0) g/dL Hct 46.8 (40.0-54.0) % MCV 89 (80-98) fL MCH 30 (27-31) pg MCHC 34 (32-36) % Plt Count 140 L (150-400) K/uL Neut % (Auto) 71 H (36-66) % Lymph % (Auto) 18 L (24-44) % [place] % (Auto) 6 (2-6) % Eos % (Auto) 5 H (2-4) % Baso % (Auto) 0 (0-1) % Sodium 135 L (140-148) mmol/L Potassium 5.3 H (3.6-5.2) mmol/L Chloride 98 L (100-108) mmol/L Carbon Dioxide 27 (21-32) mmol/L Anion Gap 15.3 H (5.0-14.0) mmol/L BUN 12 D (7-18) mg/dL Creatinine 1.1 D (0.8-1.3) mg/dL Est Cr Clr Drug Dosing 75.88 mL/min Estimated GFR (MDRD) > 60 (>60) Glucose 435 H* (74-106) mg/dL Calcium 9.8 (8.5-10.1) mg/dL Total Bilirubin 0.4 D (0.2-1.0) mg/dL AST 14 L (15-37) U/L ALT 42 D (12-78) U/L Alkaline Phosphatase 101 (46-116) U/L C-Reactive Protein 1.61 H (0.0-0.3) mg/dL Total Protein 7.9 (6.4-8.2) g/dL Albumin 3.9 (3.4-5.0) g/dL Globulin 4.0 H (2.3-3.5) g/dL Albumin/Globulin Ratio 1.0 L (1.2-2.2) Amylase (25-115) U/L Lipase (73-393) U/L Urine Color Urine Appearance Urine pH (4.5-8.0) Ur Specific [place] (1.008-1.030) Urine Protein (NEGATIVE) mg/dL Urine Glucose (UA) (NEGATIVE) mg/dL Urine Ketones (NEGATIVE) mg/dL Urine Occult Blood (NEGATIVE) Urine Nitrite (NEGAITVE) Urine Bilirubin (NEGATIVE) Urine Urobilinogen (NORMAL) mg/dL Ur Leukocyte Esterase (NEGATIVE) Urine RBC (0-5) Urine WBC (0-5) Ur Epithelial Cells Amorphous Sediment Urine Bacteria Urine Mucus 08/29/18 08/29/18 08/29/18 Range/Units 08:12 08:18 09:05 WBC (4.5-11.0) K/uL RBC (4.30-5.90) M/uL Hgb (12.0-15.0) g/dL Hct (40.0-54.0) % MCV (80-98) fL MCH (27-31) pg MCHC (32-36) % Plt Count (150-400) K/uL Neut % (Auto) (36-66) % Lymph % (Auto) (24-44) % [place] % (Auto) (2-6) % Eos % (Auto) (2-4) % Baso % (Auto) (0-1) % Sodium (140-148) mmol/L Potassium (3.6-5.2) mmol/L Chloride (100-108) mmol/L Carbon Dioxide (21-32) mmol/L Anion Gap (5.0-14.0) mmol/L BUN (7-18) mg/dL Creatinine (0.8-1.3) mg/dL Est Cr Clr Drug Dosing mL/min Estimated GFR (MDRD) (>60) Glucose (74-106) mg/dL Calcium (8.5-10.1) mg/dL Total Bilirubin (0.2-1.0) mg/dL AST (15-37) U/L ALT (12-78) U/L Alkaline Phosphatase (46-116) U/L C-Reactive Protein (0.0-0.3) mg/dL Total Protein (6.4-8.2) g/dL Albumin (3.4-5.0) g/dL Globulin (2.3-3.5) g/dL Albumin/Globulin Ratio (1.2-2.2) Amylase 65 D (25-115) U/L Lipase 306 (73-393) U/L Urine Color Yellow Urine Appearance Clear Urine pH 6.0 (4.5-8.0) Ur Specific [place] 1.010 (1.008-1.030) Urine Protein Negative (NEGATIVE) mg/dL Urine Glucose (UA) 1000 H (NEGATIVE) mg/dL Urine Ketones Negative (NEGATIVE) mg/dL Urine Occult Blood Negative (NEGATIVE) Urine Nitrite Negative (NEGAITVE) Urine Bilirubin Negative (NEGATIVE) Urine Urobilinogen Normal (NORMAL) mg/dL Ur Leukocyte Esterase Negative (NEGATIVE) Urine RBC 0-5 (0-5) Urine WBC 0-5 (0-5) Ur Epithelial Cells Few Amorphous Sediment Not seen Urine Bacteria Few Urine Mucus Not seen Meds: Medications Generic Name Dose Route Start Last Admin Trade Name Freq PRN Reason Stop Dose Admin Acetaminophen 650 mg 08/29/18 13:10 08/29/18 16:17 Tylenol PO 650 mg Q4H PRN Administration Pain (Mild 1-3)/fever Albuterol 2.5 mg 08/29/18 13:10 Proventil Neb Soln NEB Q4H PRN Shortness Of Breath/wheezing Calcium Carbonate/Glycine 1,000 mg 08/29/18 16:11 08/29/18 16:26 Tums PO 1,000 mg Q2H PRN Administration Indigestion Cetirizine HCl 10 mg 08/29/18 21:00 08/29/18 21:00 Zyrtec PO 10 mg BEDTIME DANTE Administration Cyclobenzaprine HCl 20 mg 08/29/18 13:10 Flexeril PO BEDTIME PRN muscle pain Duloxetine HCl 80 mg 08/30/18 09:00 Cymbalta PO DAILY DANTE Gabapentin 300 mg 08/29/18 17:00 08/29/18 17:19 Neurontin PO 300 mg QPM DANTE Administration Gabapentin 900 mg 08/29/18 21:00 08/29/18 20:59 Neurontin PO 900 mg BID DANTE Administration Hydromorphone HCl 0.5 - 1 mg 08/29/18 13:10 08/30/18 05:47 Dilaudid IVPUSH 0.5 mg Q2H PRN Administration Pain (severe 7-10) Sodium Chloride 1,000 mls @ 100 mls/hr 08/29/18 13:10 08/29/18 23:51 Normal Saline IV 100 mls/hr ASDIRECTED DANTE Administration Insulin Human Lispro 0 unit 08/29/18 17:00 08/29/18 21:03 Humalog SUBCUT 2 unit QIDACANDBED DANTE Administration Protocol Lidocaine HCl 15 ml 08/29/18 13:10 Xylocaine 2% Viscous PO Q4H PRN Heartburn Magnesium Hydroxide 30 ml 08/29/18 13:10 Milk Of Magnesia PO Q12H PRN Constipation Metformin HCl 1,000 mg 08/29/18 17:00 08/29/18 17:20 Glucophage PO 1,000 mg QPM DANTE Administration Metoprolol Tartrate 50 mg 08/29/18 21:00 08/29/18 20:59 Lopressor PO 50 mg BEDTIME DANTE Administration Mometasone Furoate/Formoterol Fumar 2 puff 08/29/18 21:00 08/30/18 08:06 Dulera 200-5 Mcg IH Not Given BIDRT DANTE Nicotine 14 mg 08/30/18 09:00 Habitrol TRDERM DAILY DANTE Ondansetron HCl 4 mg 08/29/18 13:10 Zofran Odt PO Q6H PRN Nausea able to take PO Ondansetron HCl 4 mg 08/29/18 13:10 08/29/18 19:33 Zofran IV 4 mg Q6H PRN Administration Nausea/Vomiting Oxycodone HCl 5 mg 08/29/18 13:10 Oxycodone PO Q4H PRN Pain (moderate 4-6) Pantoprazole Sodium 40 mg 08/29/18 21:00 08/30/18 08:06 Protonix PO 40 mg BIDAC DANTE Administration Polyethylene Glycol 17 gm 08/29/18 13:10 Miralax PO DAILY PRN Constipation Ranitidine HCl 150 mg 08/29/18 21:00 08/29/18 21:00 Zantac PO 150 mg BID DANTE Administration Ropinirole HCl 0.5 mg 08/29/18 21:00 08/29/18 20:59 Requip PO 0.5 mg BEDTIME DANTE Administration Senna/Docusate Sodium 1 tab 08/29/18 13:10 Senna Plus PO BID PRN Constipation Tramadol HCl 100 mg 08/29/18 21:00 08/29/18 21:03 Ultram PO 100 mg BID DANTE Administration Trazodone HCl 100 mg 08/29/18 21:00 08/29/18 20:59 Trazodone PO 100 mg BEDTIME DANTE Administration Discontinued Medications Generic Name Dose Route Start Last Admin Trade Name Freq PRN Reason Stop Dose Admin Fentanyl Confirm 08/30/18 07:04 Sublimaze Administered 08/30/18 07:05 Dose 100 mcg .ROUTE .STK-MED ONE Hydromorphone HCl 0.5 mg 08/29/18 08:18 08/29/18 08:36 Dilaudid IVPUSH 08/29/18 08:19 0.5 mg ONETIME ONE Administration Hydromorphone HCl 1 mg 08/29/18 08:51 08/29/18 09:07 Dilaudid IVPUSH 08/29/18 08:52 1 mg ONETIME ONE Administration Hydromorphone HCl 0.5 mg 08/29/18 11:11 08/29/18 11:53 Dilaudid IVPUSH 08/29/18 11:12 0.5 mg ONETIME ONE Administration Sodium Chloride 1,000 mls @ 999 mls/hr 08/29/18 08:30 08/29/18 08:28 Normal Saline IV 999 mls/hr ASDIRECTED DANTE Administration Sodium Chloride 1,000 mls @ 400 mls/hr 08/29/18 11:15 08/29/18 11:56 Normal Saline IV 400 mls/hr ASDIRECTED DANTE Administration Insulin Human Regular 5 unit 08/29/18 09:51 08/29/18 10:33 Humulin R SUBCUT 08/29/18 09:52 5 units ONETIME ONE Administration Midazolam HCl Confirm 08/30/18 07:04 Versed 1 Mg/Ml Administered 08/30/18 07:05 Dose 2 mg .ROUTE .STK-MED ONE Nicotine 14 mg 08/29/18 14:30 08/29/18 14:38 Habitrol TRDERM 08/29/18 14:31 14 mg ONETIME ONE Administration Ondansetron HCl 4 mg 08/29/18 08:17 08/29/18 08:34 Zofran IVPUSH 08/29/18 08:18 4 mg ONETIME ONE Administration Propofol Confirm 08/30/18 07:04 Diprivan 20 Ml Administered 08/30/18 07:05 Dose 200 mg .ROUTE .STK-MED ONE - Re-Assessments/Exams Free Text/Narrative Re-Assessment/Exam: pt had a cat scan of the abdonan which shows portal hypertension, calcification in the pancreaes from a old pancreatitis. He has espopageal varicies. A US was done on the GB which showed a large gb with no sig wall thickening or fluid around the GB, 08/29/18 10:57 His urine showed alot of sugaR. 08/29/18 11:03 08/29/18 11:03 PT DOES HAVE A HISTORY OF A bARRETS eSOPHAGUS. hE FEELS LIKE THIS IS FLARED. hE DOES HAVE A NORMAL LIPASE AND AMYLASE. 08/29/18 11:04 08/29/18 11:07 [facility] AND THEY DID NOT HAVE A BED RECCOMMENDED HOSPITALIZATION LOCALLY. Departure - Departure Time of Disposition: 13:10 Disposition: Admitted As Inpatient 68 Condition: Fair Clinical Impression: Portal hypertension, History of pancreatitis Barretts esophagus Qualifiers: Ng's esophagus type: without dysplasia Qualified Code(s): K22.70 - Ng 's esophagus without dysplasia Abdominal pain Qualifiers: Abdominal location: periumbilical Qualified Code(s): R10.33 - Periumbilical pain - Discharge Information
[2018-08-29] MEDS ORDERED: Insulin Regular, Human 100 Units/ML 3 ML Vial SUBCUT ONE (09:51)
--- NOTE | 2018-08-29 11:29 | US ---
Abdomen Ltd CLINICAL HISTORY: Abdominal pain COMPARISON: Current CT. TECHNIQUE: Real-time images were obtained through the right upper quadrant. FINDINGS: The liver is free of mass or biliary dilatation. There is increased hepatic echogenicity. The gallbladder is mildly prominent but shows no wall thickening or pericholecystic fluid. The common bile duct measures 3 mm. The pancreas is obscured. The right kidney shows no stone or hydronephrosis. The IVC is normal. There are numerous prominent and tortuous vessels. Patient has known history of portal vein thrombosis IMPRESSION: No inflammatory change or biliary dilatation Numerous collateral vessels and varices in a patient with known portal vein thrombosis
--- NOTE | 2018-08-29 12:59 | PCM.HP ---
H&P History of Present Illness - General Date of Service: 08/29/18 Admit Problem/Dx: Admission Diagnosis/Problem Admission Diagnosis/Problem Abdominal pain Source of Information: Patient, Family, Provider History Limitations: Reports: No Limitations - History of Present Illness Initial Comments - Free Text/Narative: Armando presented to the emergency room this morning with severe pressure-like periumbilical abdominal pain. He reports that he has had pain in that region for approximately the last 3 months and has been slowly getting worse. Sometimes meals make the pain worse but not always. He has not found a consistent trigger for the pain. Chronic pain medications have not provided much benefit when the pain has been present. The pain radiates up into the epigastric area. The pain associated with nausea but he has not had any vomiting. His appetite has been decreased but he has been able to eat some bland foods. Fluid intake has been acceptable for the most part. He has not noticed a dramatic change in bowel or bladder habits. He has not had any fevers. He has not had any sick contacts. He did keep a food diary for while but was not able to find any sort of correlation between food and the severity of his pain. He also reports increased heartburn over the past few months. He is taking both a proton pump inhibitor and H2 ernestine but continues to need Tums to help with breakthrough heartburn. Workup in the emergency room revealed mild leukocytosis but otherwise fairly normal labs. CAT scan of the chest did not show any acute findings. He will be admitted for symptom management as well as additional workup. [facility] Middle Abdominal Pain Score (Numeric/FACES): 8 - Related Data Allergies/Adverse Reactions: Allergies Allergy/AdvReac Type Severity Reaction Status Date / Time glycopyrrolate [From Robinul] Allergy Seizure Verified 08/29/18 07:46 Iodinated Contrast- Oral and Allergy Renal Verified 08/29/18 07:46 IV Dye Failure [Iodinated Contrast Media - Oral and] lorazepam [From Ativan] Allergy Confusion Verified 08/29/18 07:46 sulfamethoxazole Allergy Facial Verified 08/29/18 07:46 [From Septra] Spasms trimethoprim [From Septra] Allergy Facial Verified 08/29/18 07:46 Spasms Home Medications: Home Meds Cetirizine [ZyrTEC] 10 mg PO BEDTIME 03/17/14 [History] Albuterol Sulfate [Proair Respiclick] 2 puff IN Q6HR PRN 10/27/16 [History] Budesonide/Formoterol [Symbicort 160-4.5 MCG] 2 puff IN BID 10/27/16 [History] Lidocaine 5% [Lidoderm 5%] 1 patch TOP ASDIRECTED PRN 10/27/16 [History] Metoprolol Tartrate [Lopressor] 50 mg PO BEDTIME 10/27/16 [History] rOPINIRole [Requip] 0.5 mg PO BEDTIME 10/27/16 [History] traMADol [Ultram] 100 mg PO BID 10/27/16 [History] traZODone 100 mg PO BEDTIME 10/27/16 [History] Cyclobenzaprine HCl 20 mg PO BEDTIME PRN 12/20/16 [History] Docusate Sodium/Sennosides [Senna Plus] 2 each PO BID PRN 12/20/16 [History] Gabapentin [Neurontin] 900 mg PO BID 12/20/16 [History] Ondansetron [Zofran] 4 mg PO Q8H PRN #20 tab 01/20/17 [Rx] Ranitidine HCl [Zantac 75] 150 mg PO BID #60 tablet 01/20/17 [Rx] Acetaminophen 650 mg PO ASDIRECTED 08/29/18 [History] DULoxetine [Cymbalta] 80 mg PO DAILY 08/29/18 [History] Gabapentin [Neurontin] 300 mg PO DAILY 08/29/18 [History] Melatonin 10 mg PO BEDTIME 08/29/18 [History] Pantoprazole [ProTONIX] 40 mg PO BID 08/29/18 [History] metFORMIN [Glucophage] 1,000 mg PO BEDTIME 08/29/18 [History] Past Medical History HEENT History: Reports: Allergic Rhinitis Cardiovascular History: Reports: CAD, High Cholesterol, Hypertension, [place], Other (See Below) Other Cardiovascular History: angiogram Respiratory History: Reports: COPD, PE, Pneumonia, Recurrent, Sleep Apnea Gastrointestinal History: Reports: GERD, Hiatal Hernia, Pancreatitis, Other ( See Below) Other Gastrointestinal History: kink in bowel Genitourinary History: Reports: Acute Renal Failure, Chronic Renal Insuffiency Other Genitourinary History: PREVIOUS INDWELLING MCALLISTER Musculoskeletal History: Reports: Back Pain, Chronic, Neck Pain, Chronic, Osteoarthritis Neurological History: Reports: Concussion, Seizure Endocrine/Metabolic History: Reports: Diabetes, Type II Hematologic History: Reports: Anemia, Blood Transfusion(s) Dermatologic History: Reports: Other (See Below) Other Dermatologic History: rash at different times - Infectious Disease History Infectious Disease History: Reports: Chicken Pox - Past Surgical History Respiratory Surgical History: Reports: Thoracentesis GI Surgical History: Reports: Appendectomy, Evelia Fundoplication Social & Family History - Family History GI: Reports: Pancreatitis - Tobacco Use Smoking Status *Q: Light Tobacco Smoker Years of Tobacco use: 35 Packs/Tins Daily: 0.5 - Caffeine Use Caffeine Use: Reports: None - Alcohol Use Alcohol Use History: No - Recreational Drug Use Recreational Drug Use: Yes Recreational Drug Type: Reports: Marijuana/Hashish Recreational Drug Use Frequency: Daily H&P Review of Systems - Review of Systems: Review Of Systems: See Below Free Text/Narrative: A complete 12 point review of systems was obtained. Pertinent positives and negatives are noted in the history of present illness. All other systems were reviewed and were negative except as noted. Exam - Exam Exam: See Below - Vital Signs Vital Signs: Last Vital Signs Temp 36.2 C 08/29/18 07:45 Pulse 70 08/29/18 11:39 Resp 16 08/29/18 11:39 BP 121/77 08/29/18 11:39 Pulse Ox 94 L 08/29/18 11:39 Weight: 84.4 kg - Exam Quality Assessment: No: Supplemental Oxygen General: Alert, Oriented, Cooperative. No: Mild Distress HEENT: Conjunctiva Clear, Mucosa Moist & [place]. No: Scleral Icterus Neck: Supple, Trachea Midline. No: Lymphadenopathy Lungs: Clear to Auscultation, Normal Respiratory Effort Cardiovascular: Regular Rate, Regular Rhythm. No: Systolic Murmur GI/Abdominal Exam: Normal Bowel Sounds, Soft, No Distention, Tender (mild in RUQ ) Back Exam: Normal Inspection, Full Range of Motion Extremities: No Pedal Edema. No: Increased Warmth Peripheral Pulses: 2+: Dorsalis Pedis (L), Dorsalis Pedis (R) Skin: Warm, Dry Neuro Extensive - Mental Status: Alert, Oriented x3, Nl Response to Commands Neuro Extensive - Motor, Sensory, Reflexes: CN II-XII Intact. No: Dysarthria, Abnormal Motor, Tremor Psychiatric: Alert, Normal Affect - Patient Data Lab Results Last 24 hrs: Laboratory Results - last 24 hr 08/29/18 08/29/18 08/29/18 Range/Units 07:56 07:56 07:56 WBC 7.6 (4.5-11.0) K/uL RBC 5.25 (4.30-5.90) M/uL Hgb 15.9 H D (12.0-15.0) g/dL Hct 46.8 (40.0-54.0) % MCV 89 (80-98) fL MCH 30 (27-31) pg MCHC 34 (32-36) % Plt Count 140 L (150-400) K/uL Neut % (Auto) 71 H (36-66) % Lymph % (Auto) 18 L (24-44) % [place] % (Auto) 6 (2-6) % Eos % (Auto) 5 H (2-4) % Baso % (Auto) 0 (0-1) % Sodium 135 L (140-148) mmol/L Potassium 5.3 H (3.6-5.2) mmol/L Chloride 98 L (100-108) mmol/L Carbon Dioxide 27 (21-32) mmol/L Anion Gap 15.3 H (5.0-14.0) mmol/L BUN 12 D (7-18) mg/dL Creatinine 1.1 D (0.8-1.3) mg/dL Est Cr Clr Drug Dosing 75.88 mL/min Estimated GFR (MDRD) > 60 (>60) Glucose 435 H* (74-106) mg/dL Calcium 9.8 (8.5-10.1) mg/dL Total Bilirubin 0.4 D (0.2-1.0) mg/dL AST 14 L (15-37) U/L ALT 42 D (12-78) U/L Alkaline Phosphatase 101 (46-116) U/L C-Reactive Protein 1.61 H (0.0-0.3) mg/dL Total Protein 7.9 (6.4-8.2) g/dL Albumin 3.9 (3.4-5.0) g/dL Globulin 4.0 H (2.3-3.5) g/dL Albumin/Globulin Ratio 1.0 L (1.2-2.2) Amylase (25-115) U/L Lipase (73-393) U/L Urine Color Urine Appearance Urine pH (4.5-8.0) Ur Specific [place] (1.008-1.030) Urine Protein (NEGATIVE) mg/dL Urine Glucose (UA) (NEGATIVE) mg/dL Urine Ketones (NEGATIVE) mg/dL Urine Occult Blood (NEGATIVE) Urine Nitrite (NEGAITVE) Urine Bilirubin (NEGATIVE) Urine Urobilinogen (NORMAL) mg/dL Ur Leukocyte Esterase (NEGATIVE) Urine RBC (0-5) Urine WBC (0-5) Ur Epithelial Cells Amorphous Sediment Urine Bacteria Urine Mucus 08/29/18 08/29/18 08/29/18 Range/Units 08:12 08:18 09:05 WBC (4.5-11.0) K/uL RBC (4.30-5.90) M/uL Hgb (12.0-15.0) g/dL Hct (40.0-54.0) % MCV (80-98) fL MCH (27-31) pg MCHC (32-36) % Plt Count (150-400) K/uL Neut % (Auto) (36-66) % Lymph % (Auto) (24-44) % [place] % (Auto) (2-6) % Eos % (Auto) (2-4) % Baso % (Auto) (0-1) % Sodium (140-148) mmol/L Potassium (3.6-5.2) mmol/L Chloride (100-108) mmol/L Carbon Dioxide (21-32) mmol/L Anion Gap (5.0-14.0) mmol/L BUN (7-18) mg/dL Creatinine (0.8-1.3) mg/dL Est Cr Clr Drug Dosing mL/min Estimated GFR (MDRD) (>60) Glucose (74-106) mg/dL Calcium (8.5-10.1) mg/dL Total Bilirubin (0.2-1.0) mg/dL AST (15-37) U/L ALT (12-78) U/L Alkaline Phosphatase (46-116) U/L C-Reactive Protein (0.0-0.3) mg/dL Total Protein (6.4-8.2) g/dL Albumin (3.4-5.0) g/dL Globulin (2.3-3.5) g/dL Albumin/Globulin Ratio (1.2-2.2) Amylase 65 D (25-115) U/L Lipase 306 (73-393) U/L Urine Color Yellow Urine Appearance Clear Urine pH 6.0 (4.5-8.0) Ur Specific [place] 1.010 (1.008-1.030) Urine Protein Negative (NEGATIVE) mg/dL Urine Glucose (UA) 1000 H (NEGATIVE) mg/dL Urine Ketones Negative (NEGATIVE) mg/dL Urine Occult Blood Negative (NEGATIVE) Urine Nitrite Negative (NEGAITVE) Urine Bilirubin Negative (NEGATIVE) Urine Urobilinogen Normal (NORMAL) mg/dL Ur Leukocyte Esterase Negative (NEGATIVE) Urine RBC 0-5 (0-5) Urine WBC 0-5 (0-5) Ur Epithelial Cells Few Amorphous Sediment Not seen Urine Bacteria Few Urine Mucus Not seen Result Diagrams: 08/29/18 07:56 08/29/18 07:56 Imaging Impressions Last 24 hrs: CT scan of the abdomen and pelvis - images personally reviewed - there is no evidence for bowel obstruction, mass, inflammation or free fluid. Again noted are distended appearing upper abdominal vessels consistent with portal hypertension. Gallbladder is at the upper limits of normal for size but does not have all thickening or pericholecystic fluid. No stones are seen. *Q Meaningful Use (ADM) - VTE Risk Assess *Q Each Risk Factor Represents 1 Point: Age 41 - 59 years, Obesity ( BMI > 25 kg/m2 ) Total Score 1 Point Risk Factors: 2 Each Risk Factor Represents 2 Points: None Total Score 2 Point Risk Factors: 0 Each Risk Factor Represents 3 Points: None Total Score 3 Point Risk Factors: 0 Each Risk Factor Represents 5 Points: None Total Score 5 Point Risk Factors: 0 Venous Thromboembolism Risk Factor Score *Q: 2 - Problem List (1) Abdominal pain SNOMED Code(s): 04808684 ICD Code: R10.9 - UNSPECIFIED ABDOMINAL PAIN Status: Acute Current Visit : Yes Qualifiers: Abdominal location: periumbilical Qualified Code(s): R10.33 - Periumbilical pain (2) Portal hypertension SNOMED Code(s): 86290479 ICD Code: K76.6 - PORTAL HYPERTENSION Status: Chronic Current Visit: Yes (3) Barretts esophagus SNOMED Code(s): 026993228 ICD Code: K22.70 - YA'S ESOPHAGUS WITHOUT DYSPLASIA Status: Chronic Current Visit: Yes Qualifiers: Ya's esophagus type: without dysplasia Qualified Code(s): K22.70 - Ya's esophagus without dysplasia (4) Chronic back pain SNOMED Code(s): 693174195 ICD Code: M54.9 - DORSALGIA, UNSPECIFIED; G89.29 - OTHER CHRONIC PAIN Status: Chronic Current Visit: No Qualifiers: Back pain location: low back pain Back pain laterality: unspecified Sciatica presence: without sciatica Qualified Code(s): M54.5 - Low back pain; G89.29 - Other chronic pain (5) GERD (gastroesophageal reflux disease) SNOMED Code(s): 623637196 ICD Code: K21.9 - GASTRO-ESOPHAGEAL REFLUX DISEASE WITHOUT ESOPHAGITIS Status: Chronic Current Visit: No Qualifiers: Esophagitis presence: without esophagitis Qualified Code(s): K21.9 - Gastro -esophageal reflux disease without esophagitis Problem List Initiated/Reviewed/Updated: Yes Orders Last 24hrs: Active Orders 24 hr Category Date Time Status Patient Status Manage Transfer [TRANSFER] Routine ADT 08/29/18 12:39 Ordered Sodium Chloride 0.9% [Normal Saline] 1,000 ml Med 08/29/18 08:30 Active IV ASDIRECTED Sodium Chloride 0.9% [Normal Saline] 1,000 ml Med 08/29/18 11:15 Active IV ASDIRECTED Resuscitation Status Routine Resus Stat 08/29/18 12:42 Ordered Medication Orders Sodium Chloride (Normal Saline) 1,000 mls @ 999 mls/hr IV ASDIRECTED [facility] Last Admin: 08/29/18 08:28 Dose: 999 mls/hr Sodium Chloride (Normal Saline) 1,000 mls @ 400 mls/hr IV ASDIRECTED [facility] Last Admin: 08/29/18 11:56 Dose: 400 mls/hr Assessment/Plan Comment:: ASSESSMENT AND PLAN - [place]-Umbilical abdominal pain - somewhat vague symptoms that seem to be related to food intake. Gallbladder was at the upper limits of normal for size. Sounds like a decent story for biliary dyskinesia. He may have an ulcer or significant gastritis that could be contributing as well. Pain has been steadily getting worse and intake has been decreasing. He does not appear acutely ill at this time. -EGD as below tomorrow -HIDA scan on Wednesday -Pain control -Nausea control GERD with history of Ya's esophagus - increased heartburn over the past couple of months. He thinks his last EGD was 2 years ago. -EGD in the morning with Dr. Sethi -Continue PPI and H2 ernestine Chronic back pain - Currently using tramadol twice daily and has been using ibuprofen for breakthrough pain over the past week or so. -Continue scheduled tramadol -Acetaminophen for mild breakthrough pain Maintenance issues - - DVT prophylaxis - mechanical - GI prophylaxis - PPI - Nutrition - full liquid - Mcallister catheter - not indicated CODE STATUS - full code Admission justification - This patient will be admitted for inpatient services and is medically appropriate meeting medical necessity for inpatient admission as outlined in my documentation. I reasonably expect the patient will require inpatient services that span a period time over 2 midnights. I reasonably expect this patient to be discharged or transferred within 96 hours [facility] Progressive pain with progressive disability and workup will extend beyond 2 midnights. Disposition - I would anticipate discharge to home after the hospital stay Primary care physician - REBA Dimas M.D.
[2018-08-29] MEDS ORDERED: Acetaminophen 325 MG Tab PO PRN (13:10)
[2018-08-29] MEDS ORDERED: Cyclobenzaprine 10 MG Tab PO PRN (13:10)
[2018-08-29] MEDS ORDERED: Albuterol 0.083% 2.5 MG/3 ML Neb Soln NEB PRN (13:10)
[2018-08-29] MEDS ORDERED: Lidocaine 2% Viscous Solution 15 ML Cup PO PRN (13:10)
[2018-08-29] MEDS ORDERED: Polyethylene Glycol 3350 Powder 17 GM Packet PO PRN (13:10)
[2018-08-29] MEDS ORDERED: oxyCODONE 5 MG Tab PO PRN (13:10)
[2018-08-29] MEDS: Sodium Chloride 0.9% 1,000 ML IV SCH ×2 (14:23→23:51)
[2018-08-29] MEDS: Ondansetron 4 MG/2 ML SDV IV PRN ×2 (14:28→19:33)
[2018-08-29] MEDS ORDERED: Nicotine 14 MG/24 Hr Patch TRDERM ONE (14:30)
[2018-08-29] MEDS: HYDROmorphone 0.5 MG/0.5 ML Syringe IVPUSH PRN ×3 (14:38→23:55)
[2018-08-29] MEDS: Calcium Carbonate 500 MG Tab.Chew PO PRN (16:26)
[2018-08-29] MEDS: Gabapentin 300 MG Cap PO SCH ×2 (17:19→20:59)
[2018-08-29] MEDS: metFORMIN 500 MG Tab PO SCH (17:20)
[2018-08-29] MEDS: Insulin Lispro 100 Unit/ML 3 ML KwikPen SUBCUT SCH ×2 (17:20→21:03)
[2018-08-29] MEDS: Formoterol/Mometasone 200-5 MCG 8.8 GM Inhaler IH SCH (20:58)
[2018-08-29] MEDS: traZODone 50 MG Tab PO SCH (20:59)
[2018-08-29] MEDS: rOPINIRole 0.5 MG Tab PO SCH (20:59)
[2018-08-29] MEDS: Metoprolol Tartrate 50 MG Tab PO SCH (20:59)
[2018-08-29] MEDS: Cetirizine 10 MG Tab PO SCH (21:00)
[2018-08-29] MEDS ORDERED: Non-Formulary Medication 1 Each (Budesonide/Formoterol [Symbicort 160-4.5 Mcg] 2 PUFF) IN SCH (21:00)
[2018-08-29] MEDS ORDERED: metFORMIN 500 MG Tab PO SCH (21:00)
[2018-08-29] MEDS: Pantoprazole 40 MG Tab.CR PO SCH (21:00)
[2018-08-29] MEDS ORDERED: RANITIDINE HCL 150 MG PO SCH (21:00)
[2018-08-29] MEDS: traMADol 50 MG Tab PO SCH (21:03)
[2018-08-30] MEDS: HYDROmorphone 0.5 MG/0.5 ML Syringe IVPUSH PRN ×6 (02:51→22:15)
[2018-08-30] MEDS ORDERED: fentaNYL 100 MCG/2 ML SDV ONE (07:04)
[2018-08-30] MEDS ORDERED: Midazolam 1 MG/ML 2 ML SDV ONE (07:04)
[2018-08-30] MEDS ORDERED: Propofol 200 MG/20 ML SDV ONE (07:04)
[2018-08-30] MEDS ORDERED: Glycopyrrolate 0.2 MG/ML 2 ML SDV IVPUSH ONE (07:30)
[2018-08-30] MEDS: Pantoprazole 40 MG Tab.CR PO SCH ×2 (08:06→15:31)
[2018-08-30] MEDS: Formoterol/Mometasone 200-5 MCG 8.8 GM Inhaler IH SCH ×2 (08:06→21:18)
[2018-08-30] MEDS: Sodium Chloride 0.9% 1,000 ML IV SCH (08:09)
[2018-08-30] MEDS: Insulin Lispro 100 Unit/ML 3 ML KwikPen SUBCUT SCH ×4 (08:30→21:19)
[2018-08-30] MEDS: DULoxetine 20 MG Cap PO SCH (08:36)
[2018-08-30] MEDS: Nicotine 14 MG/24 Hr Patch TRDERM SCH (08:37)
[2018-08-30] MEDS: traMADol 50 MG Tab PO SCH ×2 (08:38→21:23)
[2018-08-30] MEDS: Gabapentin 300 MG Cap PO SCH ×3 (09:36→21:22)
--- NOTE | 2018-08-30 10:34 | PCM.PN ---
- General Info Date of Service: 08/30/18 Subjective Update: No acute events overnight area no fevers overnight. Pain is a little better this morning but not resolved. No nausea or vomiting. Tolerated full liquids yesterday. EGD this morning showed very mild antral gastritis and mild GERD but no acute findings and not enough pathology to suggest a cause for his pain. Functional Status: Reports: Pain Controlled, Tolerating Diet - Review of Systems General: Denies: Fever Gastrointestinal: Reports: Abdominal Pain Musculoskeletal: Reports: Back Pain - Patient Data Vitals - Most Recent: Last Vital Signs Temp 36.2 C 08/30/18 08:00 Pulse 62 08/30/18 09:15 Resp 16 08/30/18 09:15 BP 116/73 08/30/18 09:15 Pulse Ox 99 08/30/18 09:15 Weight - Most Recent: 84.4 kg I&O - Last 24 Hours: Intake & Output 08/29/18 08/30/18 08/30/18 22:59 06:59 14:59 Intake Total 500 1100 515 Output Total 150 1925 300 Balance 350 -825 215 Lab Results Last 24 Hours: Laboratory Results - last 24 hr 08/30/18 08/30/18 Range/Units 05:43 05:43 WBC 7.0 (4.5-11.0) K/uL RBC 4.84 (4.30-5.90) M/uL Hgb 14.3 (12.0-15.0) g/dL Hct 43.9 (40.0-54.0) % MCV 91 (80-98) fL MCH 30 (27-31) pg MCHC 33 (32-36) % Plt Count 89 L (150-400) K/uL Sodium 137 L (140-148) mmol/L Potassium 5.3 H (3.6-5.2) mmol/L Chloride 104 (100-108) mmol/L Carbon Dioxide 26 (21-32) mmol/L Anion Gap 12.3 (5.0-14.0) mmol/L BUN 9 (7-18) mg/dL Creatinine 0.7 L (0.8-1.3) mg/dL Est Cr Clr Drug Dosing 119.24 mL/min Estimated GFR (MDRD) > 60 (>60) Glucose 133 H (74-106) mg/dL Calcium 8.6 (8.5-10.1) mg/dL Med Orders - Current: Current Medications Acetaminophen (Tylenol) 650 mg PO Q4H PRN PRN Reason: Pain (Mild 1-3)/fever Last Admin: 08/29/18 16:17 Dose: 650 mg Albuterol (Proventil Neb Soln) 2.5 mg NEB Q4H PRN PRN Reason: Shortness Of Breath/wheezing Calcium Carbonate/Glycine (Tums) 1,000 mg PO Q2H PRN PRN Reason: Indigestion Last Admin: 08/29/18 16:26 Dose: 1,000 mg Cetirizine HCl (Zyrtec) 10 mg PO BEDTIME COUNT INCLUDES THE [facility] Last Admin: 08/29/18 21:00 Dose: 10 mg Cyclobenzaprine HCl (Flexeril) 20 mg PO BEDTIME PRN PRN Reason: muscle pain Duloxetine HCl (Cymbalta) 80 mg PO DAILY COUNT INCLUDES THE [facility] Last Admin: 08/30/18 08:36 Dose: 80 mg Gabapentin (Neurontin) 300 mg PO QPM COUNT INCLUDES THE [facility] Last Admin: 08/29/18 17:19 Dose: 300 mg Gabapentin (Neurontin) 900 mg PO BID COUNT INCLUDES THE [facility] Last Admin: 08/30/18 09:36 Dose: 900 mg Hydromorphone HCl (Dilaudid) 1 mg IVPUSH Q2H PRN PRN Reason: Pain (severe 7-10) Insulin Human Lispro (Humalog) 0 unit SUBCUT QIDACANDBED COUNT INCLUDES THE [facility]; Protocol Last Admin: 08/30/18 08:30 Dose: Not Given Lidocaine HCl (Xylocaine 2% Viscous) 15 ml PO Q4H PRN PRN Reason: Heartburn Magnesium Hydroxide (Milk Of Magnesia) 30 ml PO Q12H PRN PRN Reason: Constipation Metformin HCl (Glucophage) 1,000 mg PO QPM COUNT INCLUDES THE [facility] Last Admin: 08/29/18 17:20 Dose: 1,000 mg Metoprolol Tartrate (Lopressor) 50 mg PO BEDTIME COUNT INCLUDES THE [facility] Last Admin: 08/29/18 20:59 Dose: 50 mg Mometasone Furoate/Formoterol Fumar (Dulera 200-5 Mcg) 2 puff IH BIDRT COUNT INCLUDES THE [facility] Last Admin: 08/30/18 08:06 Dose: Not Given Nicotine (Habitrol) 14 mg TRDERM DAILY COUNT INCLUDES THE [facility] Last Admin: 08/30/18 08:37 Dose: 14 mg Ondansetron HCl (Zofran Odt) 4 mg PO Q6H PRN PRN Reason: Nausea able to take PO Ondansetron HCl (Zofran) 4 mg IV Q6H PRN PRN Reason: Nausea/Vomiting Last Admin: 08/29/18 19:33 Dose: 4 mg Pantoprazole Sodium ([facility]tonix) [facility] Last Admin: 08/30/18 08:06 Dose: 40 mg Polyethylene Glycol (Miralax) 17 gm PO DAILY PRN PRN Reason: Constipation Ranitidine HCl (Zantac) 150 mg PO BID COUNT INCLUDES THE [facility] Last Admin: 08/30/18 08:36 Dose: 150 mg Ropinirole HCl (Requip) 0.5 mg PO BEDTIME COUNT INCLUDES THE [facility] Last Admin: 08/29/18 20:59 Dose: 0.5 mg Senna/Docusate Sodium (Senna Plus) 1 tab PO BID PRN PRN Reason: Constipation Tramadol HCl (Ultram) 100 mg PO BID COUNT INCLUDES THE [facility] Last Admin: 08/30/18 08:38 Dose: Not Given Trazodone HCl (Trazodone) 100 mg PO BEDTIME COUNT INCLUDES THE [facility] Last Admin: 08/29/18 20:59 Dose: 100 mg Discontinued Medications Fentanyl (Sublimaze) Confirm Administered Dose 100 mcg .ROUTE .STK-MED ONE Stop: 08/30/18 07:05 Hydromorphone HCl (Dilaudid) 0.5 mg IVPUSH ONETIME ONE Stop: 08/29/18 08:19 Last Admin: 08/29/18 08:36 Dose: 0.5 mg Hydromorphone HCl (Dilaudid) 1 mg IVPUSH ONETIME ONE Stop: 08/29/18 08:52 Last Admin: 08/29/18 09:07 Dose: 1 mg Hydromorphone HCl (Dilaudid) 0.5 mg IVPUSH ONETIME ONE Stop: 08/29/18 11:12 Last Admin: 08/29/18 11:53 Dose: 0.5 mg Hydromorphone HCl (Dilaudid) 0.5 - 1 mg IVPUSH Q2H PRN PRN Reason: Pain (severe 7-10) Last Admin: 08/30/18 08:20 Dose: 0.5 mg Sodium Chloride (Normal Saline) 1,000 mls @ 999 mls/hr IV ASDIRECTED COUNT INCLUDES THE [facility] Last Admin: 08/29/18 08:28 Dose: 999 mls/hr Sodium Chloride (Normal Saline) 1,000 mls @ 400 mls/hr IV ASDIRECTED COUNT INCLUDES THE [facility] Last Admin: 08/29/18 11:56 Dose: 400 mls/hr Sodium Chloride (Normal Saline) 1,000 mls @ 100 mls/hr IV ASDIRECTED COUNT INCLUDES THE [facility] Last Admin: 08/30/18 08:09 Dose: 100 mls/hr Insulin Human Regular (Humulin R) 5 unit SUBCUT ONETIME ONE Stop: 08/29/18 09:52 Last Admin: 08/29/18 10:33 Dose: 5 units Midazolam HCl (Versed 1 Mg/Ml) Confirm Administered Dose 2 mg .ROUTE .STK-MED ONE Stop: 08/30/18 07:05 Nicotine (Habitrol) 14 mg TRDERM ONETIME ONE Stop: 08/29/18 14:31 Last Admin: 08/29/18 14:38 Dose: 14 mg Ondansetron HCl (Zofran) 4 mg IVPUSH ONETIME ONE Stop: 08/29/18 08:18 Last Admin: 08/29/18 08:34 Dose: 4 mg Oxycodone HCl (Oxycodone) 5 mg PO Q4H PRN PRN Reason: Pain (moderate 4-6) Propofol (Diprivan 20 Ml) Confirm Administered Dose 200 mg .ROUTE .STK-MED ONE Stop: 08/30/18 07:05 - Exam Quality Assessment: No: Supplemental Oxygen General: Alert, Oriented, Cooperative, No Acute Distress Lungs: Normal Respiratory Effort GI/Abdominal Exam: Soft, No Distention, Tender (mild RUQ) Extremities: No Pedal Edema Skin: Warm, Dry Psy/Mental Status: Alert, Normal Affect - Problem List & Annotations (1) Abdominal pain SNOMED Code(s): 36466687 Code(s): R10.9 - UNSPECIFIED ABDOMINAL PAIN Status: Acute Current Visit: Yes Qualifiers: Abdominal location: periumbilical Qualified Code(s): R10.33 - Periumbilical pain (2) Portal hypertension SNOMED Code(s): 55957937 Code(s): K76.6 - PORTAL HYPERTENSION Status: Chronic Current Visit: Yes (3) Barretts esophagus SNOMED Code(s): 670586958 Code(s): K22.70 - YA'S ESOPHAGUS WITHOUT DYSPLASIA Status: Chronic Current Visit: Yes Qualifiers: Ya's esophagus type: without dysplasia Qualified Code(s): K22.70 - Ya's esophagus without dysplasia (4) Chronic back pain SNOMED Code(s): 293034299 Code(s): M54.9 - DORSALGIA, UNSPECIFIED; G89.29 - OTHER CHRONIC PAIN Status : Chronic Current Visit: No Qualifiers: Back pain location: low back pain Back pain laterality: unspecified Sciatica presence: without sciatica Qualified Code(s): M54.5 - Low back pain; G89.29 - Other chronic pain (5) GERD (gastroesophageal reflux disease) SNOMED Code(s): 358445643 Code(s): K21.9 - GASTRO-ESOPHAGEAL REFLUX DISEASE WITHOUT ESOPHAGITIS Status: Chronic Current Visit: No Qualifiers: Esophagitis presence: without esophagitis Qualified Code(s): K21.9 - Gastro -esophageal reflux disease without esophagitis - Problem List Review Problem List Initiated/Reviewed/Updated: Yes - My Orders Last 24 Hours: My Active Orders 08/29/18 12:42 Resuscitation Status Routine 08/29/18 13:10 Patient Status [ADT] Routine Antiembolic Devices [RC] .Routine Intake and Output [RC] QSHIFT Notify Provider Consults [RC] ASDIRECTED Notify Provider Vital Signs [RC] ASDIRECTED Oxygen Therapy [RC] PRN RT Aerosol Therapy [RC] ASDIRECTED Up ad Barbara [RC] ASDIRECTED VTE/DVT Education [RC] Per Unit Routine Vital Signs [RC] Q4H Consult to Physician [CONS] Routine Acetaminophen [Tylenol] 650 mg PO Q4H PRN Albuterol [Proventil Neb Soln] 2.5 mg NEB Q4H PRN Cyclobenzaprine [Flexeril] 20 mg PO BEDTIME PRN Docusate Sodium/Sennosides [Senna Plus] 1 tab PO BID PRN Lidocaine 2% [Xylocaine 2% Viscous] 15 ml PO Q4H PRN Magnesium Hydroxide [Milk of Magnesia] 30 ml PO Q12H PRN Ondansetron [Zofran ODT] 4 mg PO Q6H PRN Ondansetron [Zofran] 4 mg IV Q6H PRN Polyethylene Glycol 3350 [MiraLAX] 17 gm PO DAILY PRN Sequential Compression Device [OM.PC] Per Unit Routine 08/29/18 16:10 Communication Order [RC] PRN Communication Order [RC] PRN Diabetes Education [RC] Click to Edit Notify Provider [RC] PRN 08/29/18 16:11 Calcium Carbonate [Tums] 1,000 mg PO Q2H PRN 08/29/18 17:00 Glucose [Blood Glucose Check, Bedside] [RC] QIDACANDBED Gabapentin [Neurontin] 300 mg PO QPM Insulin Lispro [HumaLOG] See Protocol SUBCUT QIDACANDBED metFORMIN [Glucophage] 1,000 mg PO QPM 08/29/18 21:00 Cetirizine [ZyrTEC] 10 mg PO BEDTIME Gabapentin [Neurontin] 900 mg PO BID Metoprolol Tartrate [Lopressor] 50 mg PO BEDTIME Mometasone/Formoterol [Dulera 200-5 MCG] 2 puff IH BIDRT Pantoprazole [ProTONIX] 40 mg PO BIDAC Ranitidine [Zantac] 150 mg PO BID rOPINIRole [Requip] 0.5 mg PO BEDTIME traMADol [Ultram] 100 mg PO BID traZODone 100 mg PO BEDTIME 08/30/18 09:00 DULoxetine [Cymbalta] 80 mg PO DAILY Nicotine [Habitrol] 14 mg TRDERM DAILY 08/30/18 10:30 Convert IV to Saline Lock [OM.PC] Routine 08/30/18 10:31 HYDROmorphone [Dilaudid] 1 mg IVPUSH Q2H PRN oxyCODONE 10 mg PO Q4H PRN 08/30/18 11:30 GLUCOSE POC LAB TO COLLECT [POC] QIDACANDBED 08/30/18 16:30 GLUCOSE POC LAB TO COLLECT [POC] QIDACANDBED 08/30/18 21:00 GLUCOSE POC LAB TO COLLECT [POC] QIDACANDBED 08/31/18 05:00 CBC W/O DIFF,HEMOGRAM [HEME] Timed (1) COMPREHENSIVE METABOLIC PN,CMP [CHEM] Timed 08/31/18 07:00 Cholescintigraphy w Pharm Int [NM] Routine 08/31/18 07:30 GLUCOSE POC LAB TO COLLECT [POC] QIDACANDBED 08/31/18 11:30 GLUCOSE POC LAB TO COLLECT [POC] QIDACANDBED 08/31/18 16:30 GLUCOSE POC LAB TO COLLECT [POC] QIDACANDBED 08/31/18 21:00 GLUCOSE POC LAB TO COLLECT [POC] QIDACANDBED 09/01/18 07:30 GLUCOSE POC LAB TO COLLECT [POC] QIDACANDBED 09/01/18 11:30 GLUCOSE POC LAB TO COLLECT [POC] QIDACANDBED 09/01/18 16:30 GLUCOSE POC LAB TO COLLECT [POC] QIDACANDBED 09/01/18 21:00 GLUCOSE POC LAB TO COLLECT [POC] QIDACANDBED 09/02/18 07:30 GLUCOSE POC LAB TO COLLECT [POC] QIDACANDBED 09/02/18 11:30 GLUCOSE POC LAB TO COLLECT [POC] QIDACANDBED 09/02/18 16:30 GLUCOSE POC LAB TO COLLECT [POC] QIDACANDBED 09/02/18 21:00 GLUCOSE POC LAB TO COLLECT [POC] QIDACANDBED 09/03/18 07:30 GLUCOSE POC LAB TO COLLECT [POC] QIDACANDBED 09/03/18 11:30 GLUCOSE POC LAB TO COLLECT [POC] QIDACANDBED 09/03/18 16:30 GLUCOSE POC LAB TO COLLECT [POC] QIDACANDBED 09/03/18 21:00 GLUCOSE POC LAB TO COLLECT [POC] QIDACANDBED - Plan Plan:: ASSESSMENT AND PLAN - [place]-Umbilical abdominal pain - somewhat vague symptoms that seem to be related to food intake. EGD did not reveal a cause for his pain. Pain is a little better today but not resolved. JANELA planned for tomorrow. -HIDA scan on Wednesday -Pain control -Nausea control GERD with history of Ya's esophagus - increased heartburn over the past couple of months. EGD showed mild GERD and mild antral gastritis. -Follow-up CLOtest -Continue PPI and H2 ernestine Chronic back pain - Currently using tramadol twice daily as an outpatient. Has increased pain during the hospital stay. -Continue scheduled tramadol -Acetaminophen for mild breakthrough pain -Oxycodone for moderate pain Maintenance issues - - DVT prophylaxis - mechanical - GI prophylaxis - PPI - Nutrition - full liquid Disposition - I would anticipate discharge to home after the hospital stay Primary care physician - [facility] Dimas M.D.
[2018-08-30] MEDS: oxyCODONE 5 MG Tab PO PRN (10:37)
[2018-08-30] MEDS: Ondansetron 4 MG Tab.DIS PO PRN ×2 (11:43→17:59)
[2018-08-30] MEDS: Prochlorperazine 10 MG Tab PO PRN ×2 (15:31→21:27)
[2018-08-30] MEDS: metFORMIN 500 MG Tab PO SCH (16:38)
[2018-08-30] MEDS: Calcium Carbonate 500 MG Tab.Chew PO PRN (18:41)
[2018-08-30] MEDS: Metoprolol Tartrate 50 MG Tab PO SCH (21:20)
[2018-08-30] MEDS: traZODone 50 MG Tab PO SCH (21:22)
[2018-08-30] MEDS: rOPINIRole 0.5 MG Tab PO SCH (21:22)
[2018-08-30] MEDS: Cetirizine 10 MG Tab PO SCH (21:23)
[2018-08-31] MEDS: HYDROmorphone 0.5 MG/0.5 ML Syringe IVPUSH PRN ×9 (00:33→23:28)
[2018-08-31] MEDS: Formoterol/Mometasone 200-5 MCG 8.8 GM Inhaler IH SCH ×3 (07:21→20:46)
[2018-08-31] MEDS: Insulin Lispro 100 Unit/ML 3 ML KwikPen SUBCUT SCH ×4 (07:27→20:57)
[2018-08-31] MEDS: oxyCODONE 5 MG Tab PO PRN (09:39)
[2018-08-31] MEDS: Pantoprazole 40 MG Tab.CR PO SCH ×2 (09:42→16:34)
[2018-08-31] MEDS: Gabapentin 300 MG Cap PO SCH ×3 (09:43→20:40)
[2018-08-31] MEDS: DULoxetine 20 MG Cap PO SCH (09:43)
[2018-08-31] MEDS: Nicotine 14 MG/24 Hr Patch TRDERM SCH (09:43)
[2018-08-31] MEDS: traMADol 50 MG Tab PO SCH ×2 (09:44→20:45)
--- NOTE | 2018-08-31 10:16 | NM ---
HEPATOBILIARY SCAN WITH EJECTION FRACTION: Clinical History: Abdominal pain Multiple images of the hepatobiliary system were obtained following the IV injection of 5.19 mCi of technetium 99m mebrofenin. 60 minutes into the study the patient was given1.7 mcg of CCK intravenously over 4 minutes]Quantitative analysis of the gallbladder was performed. Findings: There is a normal pattern of hepatic uptake. Biliary activity is seen at 5minutes. Gallbladder activity is seen at 10minutes. Intestinal activity is seen at 60minutes. Following the Kinevac infusion the gallbladder ejection fraction was calculated at 60%. Impression:Slightly prominent gallbladder The gallbladder ejection fraction wasnormal at 60%
[2018-08-31] MEDS ORDERED: cefOXitin 2 GM in Sodium Chloride 0.9% 50 ML IV ONE (10:30)
--- NOTE | 2018-08-31 10:38 | OR ---
DATE OF PROCEDURE: 08/30/2018 PREOPERATIVE DIAGNOSES: Epigastric pain and heartburn. POSTOPERATIVE DIAGNOSES: Epigastric pain and heartburn associated with: 1. Grossly intact Evelia fundoplication. 2. Mildly active gastroesophageal reflux disease by visualization. 3. Mild antral gastritis and proximal duodenitis. OPERATIVE PROCEDURE: Esophagogastroduodenoscopy with: 1. Biopsies of the antrum for CLOtest. 2. Biopsies of the esophagogastric junction for histologic evaluation. ANESTHESIA: IV sedation. INDICATION FOR PROCEDURE: This is a 57-year-old male presenting with worsening gastroesophageal reflux symptoms. He is status post Evelia fundoplication 20 years ago. To investigate these findings, he is to undergo an upper GI endoscopy with biopsies as indicated. Potential risks including bleeding and perforation were discussed, and the patient wishes to proceed. DETAILS OF PROCEDURE: The patient was taken to the operating room, placed in a left lateral decubitus position. IV sedation was administered, after which the upper GI endoscope was passed orally through the length of the esophagus into the stomach with retroflexion view of the fundus and thereafter through the pyloric channel and into the proximal duodenum. Findings included normal hypopharynx, larynx, upper esophageal sphincter, and esophageal body. At the EG junction, there was some upward extension of the gastroesophageal junction mucosal line and some mild edema and friability of the mucosa. The Evelia effect both from looking above as well as retroflexion within the stomach appeared to be grossly intact, but probably somewhat loosened. The wrap was clearly within the abdomen, and there was no significant recurrence of hiatal hernia seen endoscopically. Within the stomach, there was no retained food or fluid, i.e., this did not appear to be a case of gastroparesis and there was some mild redness without erosions or ulcers in the antrum and patchy redness in the proximal duodenum. At this point, biopsies were obtained from the antrum and sent for CLOtest for H. pylori. Multiple biopsies were obtained from the gastroesophageal junction and sent for histologic evaluation. No bleeding from the biopsy sites was seen, and the procedure was then concluded. The patient was taken to the recovery room in satisfactory condition. We will await the findings of the HIDA scan tomorrow and then discuss treatment options with the patient. He would be a reasonable candidate given the severe symptoms for the redo fundoplication based on the apparent laxity of the current present fundoplication. Joel Sethi MD Job #: [id number]
--- NOTE | 2018-08-31 10:41 | CONS ---
DATE OF SERVICE: 08/29/2018 REFERRING PHYSICIAN: CONSULTING PHYSICIAN: Joel Sethi MD HISTORY OF PRESENT ILLNESS: This is a 57-year-old admitted via the [place] system with increasing abdominal pain. The patient has a quite severe reflux by history and presently is on twice a day Zantac and Protonix as well as quite a bit in the way of oral antacids. He did have a Evelia fundoplication performed about 20 years ago, done laparoscopically. The patient does presently have a diagnosis of type 2 diabetes mellitus, on metformin, but is not aware of a sense of gastric fullness after eating per se and also has symptoms suggestive of possible biliary dyskinesia. PHYSICAL EXAMINATION: Examination showed the abdomen to be nondistended and soft with some mild epigastric discomfort and some mild discomfort in the right subcostal area. IMPRESSION: Probable recurrent gastroesophageal reflux disease. There may be a component of gastroparesis with the diagnosis of diabetes. We will likely sort it out with upper endoscopy which will be planned tomorrow. Also, per Dr. Dimas, a CCK-stimulated HIDA scan is scheduled for Wednesday as Nuclear Medicine is not available on Wednesday which would be tomorrow, but plan would be to proceed with upper endoscopy tomorrow and then go from there in terms of management after the HIDA scan has been completed on Wednesday. Joel Sethi MD Job #: [id number]
[2018-08-31] MEDS: Ondansetron 4 MG/2 ML SDV IV PRN ×3 (10:50→19:41)
--- NOTE | 2018-08-31 12:23 | PCM.PN ---
- General Info Date of Service: 08/31/18 Subjective Update: there were no acute events overnight. The patient has ongoing mid abdominal pain as well as some nausea. He did tolerate his diet fairly well with no vomiting. No fevers. HIDA scan today was suggestive of biliary dyskinesia. Functional Status: Reports: Pain Controlled, Tolerating Diet - Review of Systems Gastrointestinal: Reports: Abdominal Pain, Nausea - Patient Data Vitals - Most Recent: Last Vital Signs Temp 36.8 C 08/31/18 10:58 Pulse 61 08/31/18 10:58 Resp 16 08/31/18 10:58 BP 106/79 08/31/18 10:58 Pulse Ox 98 08/31/18 10:58 Weight - Most Recent: 84.4 kg I&O - Last 24 Hours: Intake & Output 08/30/18 08/31/18 08/31/18 22:59 06:59 14:59 Output Total 1425 800 Balance -1425 -800 Lab Results Last 24 Hours: Laboratory Results - last 24 hr 08/31/18 08/31/18 Range/Units 05:07 05:07 WBC 8.2 (4.5-11.0) K/uL RBC 5.00 (4.30-5.90) M/uL Hgb 14.8 (12.0-15.0) g/dL Hct 44.9 (40.0-54.0) % MCV 90 (80-98) fL MCH 30 (27-31) pg MCHC 33 (32-36) % Plt Count 135 L (150-400) K/uL Sodium 139 L (140-148) mmol/L Potassium 4.2 (3.6-5.2) mmol/L Chloride 104 (100-108) mmol/L Carbon Dioxide 26 (21-32) mmol/L Anion Gap 13.2 (5.0-14.0) mmol/L BUN 7 (7-18) mg/dL Creatinine 0.7 L (0.8-1.3) mg/dL Est Cr Clr Drug Dosing 118.84 mL/min Estimated GFR (MDRD) > 60 (>60) Glucose 151 H (74-106) mg/dL Calcium 8.9 (8.5-10.1) mg/dL Total Bilirubin 0.5 (0.2-1.0) mg/dL AST 18 (15-37) U/L ALT 38 (12-78) U/L Alkaline Phosphatase 87 (46-116) U/L Total Protein 6.8 (6.4-8.2) g/dL Albumin 3.3 L (3.4-5.0) g/dL Globulin 3.5 (2.3-3.5) g/dL Albumin/Globulin Ratio 0.9 L (1.2-2.2) Oni Results Last 24 Hours: Microbiology 08/30/18 07:25 CLOtest - Final Stomach NEGATIVE CLOTEST Med Orders - Current: Current Medications Acetaminophen (Tylenol) 650 mg PO Q4H PRN PRN Reason: Pain (Mild 1-3)/fever Last Admin: 08/29/18 16:17 Dose: 650 mg Albuterol (Proventil Neb Soln) 2.5 mg NEB Q4H PRN PRN Reason: Shortness Of Breath/wheezing Calcium Carbonate/Glycine (Tums) 1,000 mg PO Q2H PRN PRN Reason: Indigestion Last Admin: 08/30/18 18:41 Dose: 1,000 mg Cetirizine HCl (Zyrtec) 10 mg PO BEDTIME [facility] Last Admin: 08/30/18 21:23 Dose: 10 mg Ropivacaine 42 ml/Dexamethasone 8 mg/Epinephrine HCl 0.4 mg/ Sodium Chloride 35.6 ml 0 ml NERVRT ASDIRECTED [facility] Cyclobenzaprine HCl (Flexeril) 20 mg PO BEDTIME PRN PRN Reason: muscle pain Last Admin: 08/30/18 22:14 Dose: 20 mg Duloxetine HCl (Cymbalta) 80 mg PO DAILY [facility] Last Admin: 08/31/18 09:43 Dose: 80 mg Gabapentin (Neurontin) 300 mg PO QPM [facility] Last Admin: 08/30/18 16:38 Dose: 300 mg Gabapentin (Neurontin) 900 mg PO BID [facility] Last Admin: 08/31/18 09:43 Dose: 900 mg Hydromorphone HCl (Dilaudid) 1 mg IVPUSH Q2H PRN PRN Reason: Pain (severe 7-10) Last Admin: 08/31/18 11:59 Dose: 1 mg Cefoxitin Sodium 2 gm/ Sodium (Chloride) 50 mls @ 100 mls/hr IV ONETIME ONE Stop: 09/01/18 08:59 Dextrose/Lactated Ringer's (Dextrose 5%-Lactated Ringers) 1,000 mls @ 100 mls/ hr IV ASDIRECTED [facility] Insulin Human Lispro (Humalog) 0 unit SUBCUT QIDACANDBED [facility]; Protocol Last Admin: 08/31/18 11:50 Dose: 4 unit Lidocaine HCl (Xylocaine 2% Viscous) 15 ml PO Q4H PRN PRN Reason: Heartburn Magnesium Hydroxide (Milk Of Magnesia) 30 ml PO Q12H PRN PRN Reason: Constipation Metformin HCl (Glucophage) 1,000 mg PO QPM [facility] Last Admin: 08/30/18 16:38 Dose: 1,000 mg Metoprolol Tartrate (Lopressor) 50 mg PO BEDTIME [facility] Last Admin: 08/30/18 21:20 Dose: 50 mg Mometasone Furoate/Formoterol Fumar (Dulera 200-5 Mcg) 2 puff IH BIDRT [facility] Last Admin: 08/31/18 07:21 Dose: Not Given Nicotine (Habitrol) 14 mg TRDERM DAILY [facility] Last Admin: 08/31/18 09:43 Dose: 14 mg Ondansetron HCl (Zofran Odt) 4 mg PO Q6H PRN PRN Reason: Nausea able to take PO Last Admin: 08/30/18 17:59 Dose: 4 mg Ondansetron HCl (Zofran) 4 mg IV Q6H PRN PRN Reason: Nausea/Vomiting Last Admin: 08/31/18 10:50 Dose: 4 mg Oxycodone HCl (Oxycodone) 10 mg PO Q4H PRN PRN Reason: Pain (moderate 4-6) Last Admin: 08/31/18 09:39 Dose: 5 mg Pantoprazole Sodium (Protonix) 40 mg PO BIDAC [facility] Last Admin: 08/31/18 09:42 Dose: 40 mg Polyethylene Glycol (Miralax) 17 gm PO DAILY PRN PRN Reason: Constipation Prochlorperazine Maleate (Compazine) 10 mg PO Q6H PRN PRN Reason: Nausea/Vomiting Last Admin: 08/30/18 21:27 Dose: 10 mg Ranitidine HCl (Zantac) 150 mg PO BID [facility] Last Admin: 08/31/18 09:44 Dose: 150 mg Ropinirole HCl (Requip) 0.5 mg PO BEDTIME [facility] Last Admin: 08/30/18 21:22 Dose: 0.5 mg Senna/Docusate Sodium (Senna Plus) 1 tab PO BID PRN PRN Reason: Constipation Tramadol HCl (Ultram) 100 mg PO BID [facility] Last Admin: 08/31/18 09:44 Dose: Not Given Trazodone HCl (Trazodone) 100 mg PO BEDTIME [facility] Last Admin: 08/30/18 21:22 Dose: 100 mg Discontinued Medications Fentanyl (Sublimaze) Confirm Administered Dose 100 mcg .ROUTE .STK-MED ONE Stop: 08/30/18 07:05 Hydromorphone HCl (Dilaudid) 0.5 mg IVPUSH ONETIME ONE Stop: 08/29/18 08:19 Last Admin: 08/29/18 08:36 Dose: 0.5 mg Hydromorphone HCl (Dilaudid) 1 mg IVPUSH ONETIME ONE Stop: 08/29/18 08:52 Last Admin: 08/29/18 09:07 Dose: 1 mg Hydromorphone HCl (Dilaudid) 0.5 mg IVPUSH ONETIME ONE Stop: 08/29/18 11:12 Last Admin: 08/29/18 11:53 Dose: 0.5 mg Hydromorphone HCl (Dilaudid) 0.5 - 1 mg IVPUSH Q2H PRN PRN Reason: Pain (severe 7-10) Last Admin: 08/30/18 08:20 Dose: 0.5 mg Sodium Chloride (Normal Saline) 1,000 mls @ 999 mls/hr IV ASDIRECTED [facility] Last Admin: 08/29/18 08:28 Dose: 999 mls/hr Sodium Chloride (Normal Saline) 1,000 mls @ 400 mls/hr IV ASDIRECTED [facility] Last Admin: 08/29/18 11:56 Dose: 400 mls/hr Sodium Chloride (Normal Saline) 1,000 mls @ 100 mls/hr IV ASDIRECTED [facility] Last Admin: 08/30/18 08:09 Dose: 100 mls/hr Cefoxitin Sodium 2 gm/ Sodium (Chloride) 50 mls @ 100 mls/hr IV ONETIME ONE Stop: 08/31/18 10:59 Insulin Human Regular (Humulin R) 5 unit SUBCUT ONETIME ONE Stop: 08/29/18 09:52 Last Admin: 08/29/18 10:33 Dose: 5 units Midazolam HCl (Versed 1 Mg/Ml) Confirm Administered Dose 2 mg .ROUTE .STK-MED ONE Stop: 08/30/18 07:05 Nicotine (Habitrol) 14 mg TRDERM ONETIME ONE Stop: 08/29/18 14:31 Last Admin: 08/29/18 14:38 Dose: 14 mg Ondansetron HCl (Zofran) 4 mg IVPUSH ONETIME ONE Stop: 08/29/18 08:18 Last Admin: 08/29/18 08:34 Dose: 4 mg Oxycodone HCl (Oxycodone) 5 mg PO Q4H PRN PRN Reason: Pain (moderate 4-6) Propofol (Diprivan 20 Ml) Confirm Administered Dose 200 mg .ROUTE .STK-MED ONE Stop: 08/30/18 07:05 - Exam Quality Assessment: No: Supplemental Oxygen General: Alert, Oriented, Cooperative, No Acute Distress Lungs: Normal Respiratory Effort Cardiovascular: Regular Rate, Regular Rhythm GI/Abdominal Exam: Soft, No Distention Extremities: No Pedal Edema Psy/Mental Status: Alert, Normal Affect - Problem List & Annotations (1) Abdominal pain SNOMED Code(s): 07349630 Code(s): R10.9 - UNSPECIFIED ABDOMINAL PAIN Status: Acute Current Visit: Yes Qualifiers: Abdominal location: periumbilical Qualified Code(s): R10.33 - Periumbilical pain (2) Portal hypertension SNOMED Code(s): 52112727 Code(s): K76.6 - PORTAL HYPERTENSION Status: Chronic Current Visit: Yes (3) Barretts esophagus SNOMED Code(s): 747683044 Code(s): K22.70 - YA'S ESOPHAGUS WITHOUT DYSPLASIA Status: Chronic Current Visit: Yes Qualifiers: Ya's esophagus type: without dysplasia Qualified Code(s): K22.70 - Ya's esophagus without dysplasia (4) Chronic back pain SNOMED Code(s): 214083060 Code(s): M54.9 - DORSALGIA, UNSPECIFIED; G89.29 - OTHER CHRONIC PAIN Status : Chronic Current Visit: No Qualifiers: Back pain location: low back pain Back pain laterality: unspecified Sciatica presence: without sciatica Qualified Code(s): M54.5 - Low back pain; G89.29 - Other chronic pain (5) GERD (gastroesophageal reflux disease) SNOMED Code(s): 185279230 Code(s): K21.9 - GASTRO-ESOPHAGEAL REFLUX DISEASE WITHOUT ESOPHAGITIS Status: Chronic Current Visit: No Qualifiers: Esophagitis presence: without esophagitis Qualified Code(s): K21.9 - Gastro -esophageal reflux disease without esophagitis - Problem List Review Problem List Initiated/Reviewed/Updated: Yes - My Orders Last 24 Hours: My Active Orders 08/30/18 15:24 Prochlorperazine [Compazine] 10 mg PO Q6H PRN 08/31/18 16:30 GLUCOSE POC LAB TO COLLECT [POC] QIDACANDBED 08/31/18 21:00 GLUCOSE POC LAB TO COLLECT [POC] QIDACANDBED 09/01/18 07:30 GLUCOSE POC LAB TO COLLECT [POC] QIDACANDBED 09/01/18 11:30 GLUCOSE POC LAB TO COLLECT [POC] QIDACANDBED 09/01/18 16:30 GLUCOSE POC LAB TO COLLECT [POC] QIDACANDBED 09/01/18 21:00 GLUCOSE POC LAB TO COLLECT [POC] QIDACANDBED 09/02/18 07:30 GLUCOSE POC LAB TO COLLECT [POC] QIDACANDBED 09/02/18 11:30 GLUCOSE POC LAB TO COLLECT [POC] QIDACANDBED 09/02/18 16:30 GLUCOSE POC LAB TO COLLECT [POC] QIDACANDBED 09/02/18 21:00 GLUCOSE POC LAB TO COLLECT [POC] QIDACANDBED 09/03/18 07:30 GLUCOSE POC LAB TO COLLECT [POC] QIDACANDBED 09/03/18 11:30 GLUCOSE POC LAB TO COLLECT [POC] QIDACANDBED 09/03/18 16:30 GLUCOSE POC LAB TO COLLECT [POC] QIDACANDBED 09/03/18 21:00 GLUCOSE POC LAB TO COLLECT [POC] QIDACANDBED - Plan Plan:: ASSESSMENT AND PLAN - Ny-Umbilical abdominal pain - HIDA was suggestive of biliary dyskinesia and cholecystectomy is planned for tomorrow. -cholecystectomy tomorrow -Pain control -Nausea control GERD with history of Ya's esophagus - increased heartburn over the past couple of months. EGD showed mild GERD and mild antral gastritis. CLOtest was negative. there was some evidence for loosening of the Evelia fundoplication discovered with the EGD and revision is planned tomorrow at the time of the cholecystectomy. -Continue PPI and H2 ernestine Chronic back pain - Currently using tramadol twice daily as an outpatient. pain stable at this time. -Continue scheduled tramadol -Acetaminophen for mild breakthrough pain -Oxycodone for moderate pain Maintenance issues - - DVT prophylaxis - mechanical - GI prophylaxis - PPI - Nutrition - regular diet today, nothing by mouth after midnight Disposition - I would anticipate discharge to home after the hospital stay Primary care physician - REBA Dimas M.D.
[2018-08-31] MEDS: metFORMIN 500 MG Tab PO SCH (16:36)
[2018-08-31] MEDS ORDERED: Dextrose 5%-Lactated Ringers 1,000 ML IV SCH (20:00)
[2018-08-31] MEDS: rOPINIRole 0.5 MG Tab PO SCH (20:40)
[2018-08-31] MEDS: Metoprolol Tartrate 50 MG Tab PO SCH (20:41)
[2018-08-31] MEDS: Cetirizine 10 MG Tab PO SCH (20:42)
[2018-08-31] MEDS: traZODone 50 MG Tab PO SCH (20:43)
[2018-09-01] MEDS: Ondansetron 4 MG/2 ML SDV IV PRN ×3 (01:28→15:19)
[2018-09-01] MEDS: HYDROmorphone 0.5 MG/0.5 ML Syringe IVPUSH PRN ×3 (01:29→06:42)
[2018-09-01] MEDS: Formoterol/Mometasone 200-5 MCG 8.8 GM Inhaler IH SCH ×3 (07:06→21:18)
[2018-09-01] MEDS: Insulin Lispro 100 Unit/ML 3 ML KwikPen SUBCUT SCH ×5 (07:40→20:56)
[2018-09-01] MEDS ORDERED: Sugammadex Sodium 200 MG/2 ML VIAL ONE (07:41)
[2018-09-01] MEDS ORDERED: fentaNYL 250 MCG/5 ML SDV ONE ×2 (07:41→11:15)
[2018-09-01] MEDS ORDERED: Ondansetron 4 MG/2 ML SDV ONE (07:41)
[2018-09-01] MEDS ORDERED: Succinylcholine 200 MG/10 ML MDV ONE (07:41)
[2018-09-01] MEDS ORDERED: Dexamethasone 4 MG/ML SDV ONE (07:41)
[2018-09-01] MEDS ORDERED: Rocuronium 50 MG/5 ML Vial ONE ×2 (07:41→11:33)
[2018-09-01] MEDS ORDERED: Propofol 200 MG/20 ML SDV ONE (07:41)
--- NOTE | 2018-09-01 08:02 | PN ---
DATE OF SERVICE: 08/31/2018 The patient has been fairly comfortable overnight and is awaiting the HIDA scan today. If that is abnormal, we will proceed with cholecystectomy tomorrow. At the time of the endoscopy, he was noted to have an intact Evelia fundoplication, but it appeared to be quite loosened, and he now has quite severe recurrent reflux disease clinically. There was no evidence of gastroparesis, i.e. there was no retained fluid or solid food within the stomach at the time of endoscopy, so I think this is a case where we could probably reasonably proceed with a redo Evelia fundoplication, which we would entertain doing tomorrow, along with the gallbladder, if the HIDA scan is abnormal. Joel Sethi MD Job #: [id number]
--- NOTE | 2018-09-01 08:05 | PN ---
DATE OF SERVICE: 09/01/2018 SUBJECTIVE: Armando is n.p.o. He will be having a laparoscopic possible open revision of Evelia fundoplication and cholecystectomy. Case to follow today for abnormal HIDA scan and recurrent gastroesophageal reflux disease refractory to medical management. He is n.p.o. Preoperative discussion with Joel Sethi MD this a.m. REVIEW OF SYSTEMS: Negative for any pertinent positives and negatives. OBJECTIVE: GENERAL: Armando is a 57-year-old male. VITAL SIGNS: Temperature is 95.7, pulse is 61, respiratory rate is 18, and blood pressure is 115/73. HEENT: Negative. NECK: Supple. HEART: Regular rate and rhythm. PULMONARY: Lungs are clear. GASTROINTESTINAL: Abdomen is minimally tender in the mid epigastric and right upper quadrant. EXTREMITIES: Negative. ASSESSMENT: Abnormal HIDA scan, recurrent gastroesophageal reflux disease refractory to medical management. PLAN: Remain n.p.o. Orders are to be written postoperatively. Radha Rudd PA-C /[id number]
[2018-09-01] MEDS ORDERED: Albuterol/Ipratropium 3.0-0.5 MG/3 ML Neb Soln NEB ONE ×2 (08:30→09:00)
[2018-09-01] MEDS ORDERED: Ropivacaine 42 ML, Dexamethasone 8 MG, EPINEPHrine 0.4 MG, Sodium Chloride 0.9% 35.6 ML NERVRT SCH ×8 (09:00)
[2018-09-01] MEDS ORDERED: HYDROmorphone 1 MG/ML Syringe IV PRN (09:17)
[2018-09-01] MEDS: Gabapentin 300 MG Cap PO SCH ×3 (11:18→20:59)
[2018-09-01] MEDS: DULoxetine 20 MG Cap PO SCH (11:18)
[2018-09-01] MEDS: Pantoprazole 40 MG Tab.CR PO SCH (11:18)
[2018-09-01] MEDS: traMADol 50 MG Tab PO SCH ×2 (11:18→20:55)
[2018-09-01] MEDS: cefOXitin 2 GM in Sodium Chloride 0.9% 50 ML IV ONE ×2 (11:19→11:20)
[2018-09-01] MEDS ORDERED: Labetalol 20 MG/4 ML Syringe ONE (11:40)
[2018-09-01] MEDS ORDERED: hydrALAZINE 20 MG/ML SDV ONE (11:49)
[2018-09-01] MEDS ORDERED: Sodium Chloride 0.9% 10 ML ONE (11:50)
[2018-09-01] MEDS ORDERED: Lactated Ringers 1,000 ML ONE ×2 (12:21→14:23)
[2018-09-01] MEDS ORDERED: fentaNYL 100 MCG/2 ML SDV ONE ×2 (13:52→14:17)
[2018-09-01] MEDS ORDERED: Meropenem 500 MG SDV ONE (13:55)
[2018-09-01] MEDS ORDERED: Naloxone 0.4 MG/ML SDV IVPUSH PRN (14:32)
[2018-09-01] MEDS ORDERED: hydrOXYzine HCl 100 MG/2 ML SDV IM ONE ×2 (14:42→17:11)
[2018-09-01] MEDS: HYDROmorphone/Normal Saline 15 MG/30 ML PCA IV PRN (14:43)
[2018-09-01] MEDS: Nicotine 14 MG/24 Hr Patch TRDERM SCH (15:46)
[2018-09-01] MEDS: Pantoprazole 40 MG Vial IV SCH (16:42)
[2018-09-01] MEDS: cefOXitin 2 GM in Sodium Chloride 0.9% 50 ML IV SCH ×2 (16:42→23:31)
[2018-09-01] MEDS: Dextrose 5%-Lactated Ringers 1,000 ML IV SCH ×2 (16:42→21:40)
[2018-09-01] MEDS: Metoclopramide 10 MG/2 ML SDV IV SCH ×2 (16:43→21:12)
[2018-09-01] MEDS: metFORMIN 500 MG Tab PO SCH (16:45)
[2018-09-01] MEDS ORDERED: Meperidine PF 100 MG/ML Syringe IM ONE (17:11)
--- NOTE | 2018-09-01 17:20 | PCM.PN ---
- General Info Date of Service: 09/01/18 Subjective Update: The patient was seen this afternoon in the early postoperative period. He had a redo of his Evelia fundoplication as well as a cholecystectomy. He is having significant abdominal pain as well as nausea at this time. Pain has been improving with aggressive pain management postoperatively. He has not had any vomiting. No complaints of shortness of breath. Functional Status: Denies: Pain Controlled - Review of Systems General: Denies: Fever Gastrointestinal: Reports: Abdominal Pain - Patient Data Vitals - Most Recent: Last Vital Signs Temp 36.3 C 09/01/18 17:00 Pulse 98 09/01/18 17:00 Resp 16 09/01/18 17:00 BP 151/91 H 09/01/18 17:00 Pulse Ox 99 09/01/18 17:00 Weight - Most Recent: 84.4 kg I&O - Last 24 Hours: Intake & Output 09/01/18 09/01/18 09/01/18 06:59 14:59 22:59 Intake Total 890 100 Output Total 1300 765 345 Balance -410 -665 -345 Med Orders - Current: Current Medications Acetaminophen (Tylenol) 650 mg PO Q4H PRN PRN Reason: Pain (Mild 1-3)/fever Last Admin: 08/29/18 16:17 Dose: 650 mg Albuterol (Proventil Neb Soln) 2.5 mg NEB Q4H PRN PRN Reason: Shortness Of Breath/wheezing Calcium Carbonate/Glycine (Tums) 1,000 mg PO Q2H PRN PRN Reason: Indigestion Last Admin: 08/30/18 18:41 Dose: 1,000 mg Cetirizine HCl (Zyrtec) 10 mg PO BEDTIME [facility] Last Admin: 08/31/18 20:42 Dose: 10 mg Cyclobenzaprine HCl (Flexeril) 20 mg PO BEDTIME PRN PRN Reason: muscle pain Last Admin: 08/30/18 22:14 Dose: 20 mg Duloxetine HCl (Cymbalta) 80 mg PO DAILY [facility] Last Admin: 09/01/18 11:18 Dose: Not Given Gabapentin (Neurontin) 300 mg PO QPM [facility] Last Admin: 09/01/18 16:45 Dose: 300 mg Gabapentin (Neurontin) 900 mg PO BID [facility] Last Admin: 09/01/18 11:18 Dose: Not Given Hydromorphone HCl (Dilaudid Artificial Pearl Maker 15 Mg In Ns 30 Ml) 0 mg IV ASDIRECTED PRN; Protocol PRN Reason: Pain Last Admin: 09/01/18 14:43 Dose: 0.3 mg Hydroxyzine HCl (Vistaril) 100 mg IM Q4H PRN PRN Reason: PAIN Hydroxyzine HCl (Vistaril) 50 mg IM ONETIME ONE Stop: 09/01/18 17:12 Dextrose/Lactated Ringer's (Dextrose 5%-Lactated Ringers) 1,000 mls @ 175 mls/ hr IV ASDIRECTED [facility] Last Admin: 09/01/18 16:42 Dose: 175 mls/hr Cefoxitin Sodium 2 gm/ Sodium (Chloride) 50 mls @ 100 mls/hr IV Q6H [facility] Stop: 09/02/18 17:29 Last Admin: 09/01/18 16:42 Dose: 100 mls/hr Insulin Human Lispro (Humalog) 0 unit SUBCUT QIDACANDBED [facility]; Protocol Last Admin: 09/01/18 16:47 Dose: 6 unit Lidocaine HCl (Xylocaine 2% Viscous) 15 ml PO Q4H PRN PRN Reason: Heartburn Magnesium Hydroxide (Milk Of Magnesia) 30 ml PO Q12H PRN PRN Reason: Constipation Meperidine HCl (Demerol) 100 mg IM ONETIME ONE Stop: 09/01/18 17:12 Metformin HCl (Glucophage) 1,000 mg PO QPM [facility] Last Admin: 09/01/18 16:45 Dose: 1,000 mg Metoclopramide HCl (Reglan) 10 mg IV Q6H [facility] Last Admin: 09/01/18 16:43 Dose: 10 mg Metoprolol Tartrate (Lopressor) 50 mg PO BEDTIME [facility] Last Admin: 08/31/18 20:41 Dose: 50 mg Mometasone Furoate/Formoterol Fumar (Dulera 200-5 Mcg) 2 puff IH BIDRT [facility] Last Admin: 09/01/18 07:06 Dose: Not Given Naloxone HCl (Narcan) 0.1 mg IVPUSH Q2M PRN PRN Reason: Respiratory Distress Nicotine (Habitrol) 14 mg TRDERM DAILY [facility] Last Admin: 09/01/18 15:46 Dose: Not Given Ondansetron HCl (Zofran Odt) 4 mg PO Q6H PRN PRN Reason: Nausea able to take PO Last Admin: 08/30/18 17:59 Dose: 4 mg Ondansetron HCl (Zofran) 4 mg IV Q6H PRN PRN Reason: Nausea/Vomiting Last Admin: 09/01/18 15:19 Dose: 4 mg Oxycodone HCl (Oxycodone) 10 mg PO Q4H PRN PRN Reason: Pain (moderate 4-6) Last Admin: 08/31/18 09:39 Dose: 5 mg Pantoprazole Sodium (Protonix Iv) 40 mg IV Q12H [facility] Last Admin: 09/01/18 16:42 Dose: 40 mg Polyethylene Glycol (Miralax) 17 gm PO DAILY PRN PRN Reason: Constipation Prochlorperazine Maleate (Compazine) 10 mg PO Q6H PRN PRN Reason: Nausea/Vomiting Last Admin: 08/30/18 21:27 Dose: 10 mg Ranitidine HCl (Zantac) 150 mg PO BID [facility] Last Admin: 09/01/18 11:19 Dose: Not Given Ropinirole HCl (Requip) 0.5 mg PO BEDTIME [facility] Last Admin: 08/31/18 20:40 Dose: 0.5 mg Senna/Docusate Sodium (Senna Plus) 1 tab PO BID PRN PRN Reason: Constipation Tramadol HCl (Ultram) 100 mg PO BID [facility] Last Admin: 09/01/18 11:18 Dose: Not Given Trazodone HCl (Trazodone) 100 mg PO BEDTIME [facility] Last Admin: 08/31/18 20:43 Dose: 100 mg Discontinued Medications Albuterol/Ipratropium (Duoneb 3.0-0.5 Mg/3 Ml) 3 ml NEB ONETIME ONE Stop: 09/01/18 08:31 Last Admin: 09/01/18 08:43 Dose: 3 ml Ropivacaine 42 ml/Dexamethasone 8 mg/Epinephrine HCl 0.4 mg/ Sodium Chloride 35.6 ml 0 ml NERVRT ASDIRECTED [facility] Last Admin: 09/01/18 11:19 Dose: 80 syringe Dexamethasone (Dexamethasone) Confirm Administered Dose 4 mg .ROUTE .STK-MED ONE Stop: 09/01/18 07:42 Fentanyl (Sublimaze) Confirm Administered Dose 100 mcg .ROUTE .STK-MED ONE Stop: 08/30/18 07:05 Fentanyl (Sublimaze) Confirm Administered Dose 250 mcg .ROUTE .STK-MED ONE Stop: 09/01/18 07:42 Fentanyl (Sublimaze) Confirm Administered Dose 250 mcg .ROUTE .STK-MED ONE Stop: 09/01/18 11:16 Fentanyl (Sublimaze) Confirm Administered Dose 100 mcg .ROUTE .STK-MED ONE Stop: 09/01/18 13:53 Fentanyl (Sublimaze) Confirm Administered Dose 100 mcg .ROUTE .STK-MED ONE Stop: 09/01/18 14:18 Hydralazine HCl (Apresoline) Confirm Administered Dose 20 mg .ROUTE .STK-MED ONE Stop: 09/01/18 11:50 Hydromorphone HCl (Dilaudid) 0.5 mg IVPUSH ONETIME ONE Stop: 08/29/18 08:19 Last Admin: 08/29/18 08:36 Dose: 0.5 mg Hydromorphone HCl (Dilaudid) 1 mg IVPUSH ONETIME ONE Stop: 08/29/18 08:52 Last Admin: 08/29/18 09:07 Dose: 1 mg Hydromorphone HCl (Dilaudid) 0.5 mg IVPUSH ONETIME ONE Stop: 08/29/18 11:12 Last Admin: 08/29/18 11:53 Dose: 0.5 mg Hydromorphone HCl (Dilaudid) 0.5 - 1 mg IVPUSH Q2H PRN PRN Reason: Pain (severe 7-10) Last Admin: 08/30/18 08:20 Dose: 0.5 mg Hydromorphone HCl (Dilaudid) 1 mg IVPUSH Q2H PRN PRN Reason: Pain (severe 7-10) Last Admin: 09/01/18 06:42 Dose: 1 mg Hydromorphone HCl (Dilaudid) 1 mg IV Q2H PRN PRN Reason: SEVERE PAIN (7-10) Last Admin: 09/01/18 09:22 Dose: 1 mg Hydroxyzine HCl (Vistaril) 100 mg IM ONETIME ONE Stop: 09/01/18 14:43 Last Admin: 09/01/18 14:47 Dose: 100 mg Sodium Chloride (Normal Saline) 1,000 mls @ 999 mls/hr IV ASDIRECTED [facility] Last Admin: 08/29/18 08:28 Dose: 999 mls/hr Sodium Chloride (Normal Saline) 1,000 mls @ 400 mls/hr IV ASDIRECTED [facility] Last Admin: 08/29/18 11:56 Dose: 400 mls/hr Sodium Chloride (Normal Saline) 1,000 mls @ 100 mls/hr IV ASDIRECTED [facility] Last Admin: 08/30/18 08:09 Dose: 100 mls/hr Cefoxitin Sodium 2 gm/ Sodium (Chloride) 50 mls @ 100 mls/hr IV ONETIME ONE Stop: 08/31/18 10:59 Cefoxitin Sodium 2 gm/ Sodium (Chloride) 50 mls @ 100 mls/hr IV ONETIME ONE Stop: 09/01/18 08:59 Last Admin: 09/01/18 11:20 Dose: Not Given Dextrose/Lactated Ringer's (Dextrose 5%-Lactated Ringers) 1,000 mls @ 100 mls/ hr IV ASDIRECTED [facility] Last Admin: 08/31/18 21:01 Dose: 100 mls/hr Sodium Chloride (Normal Saline) Confirm Administered Dose 10 mls @ as directed .ROUTE .STK-MED ONE Stop: 09/01/18 11:51 Lactated Ringer's (Ringers, Lactated) Confirm Administered Dose 1,000 mls @ as directed .ROUTE .STK-MED ONE Stop: 09/01/18 12:22 Lactated Ringer's (Ringers, Lactated) Confirm Administered Dose 1,000 mls @ as directed .ROUTE .STK-MED ONE Stop: 09/01/18 14:24 Insulin Human Regular (Humulin R) 5 unit SUBCUT ONETIME ONE Stop: 08/29/18 09:52 Last Admin: 08/29/18 10:33 Dose: 5 units Labetalol HCl (Normodyne) Confirm Administered Dose 20 mg .ROUTE .STK-MED ONE Stop: 09/01/18 11:41 Meropenem (Merrem) Confirm Administered Dose 500 mg .ROUTE .STK-MED ONE Stop: 09/01/18 13:56 Last Admin: 09/01/18 13:58 Dose: 500 mg Midazolam HCl (Versed 1 Mg/Ml) Confirm Administered Dose 2 mg .ROUTE .STK-MED ONE Stop: 08/30/18 07:05 Nicotine (Habitrol) 14 mg TRDERM ONETIME ONE Stop: 08/29/18 14:31 Last Admin: 08/29/18 14:38 Dose: 14 mg Ondansetron HCl (Zofran) 4 mg IVPUSH ONETIME ONE Stop: 08/29/18 08:18 Last Admin: 08/29/18 08:34 Dose: 4 mg Ondansetron HCl (Zofran) Confirm Administered Dose 4 mg .ROUTE .STK-MED ONE Stop: 09/01/18 07:42 Oxycodone HCl (Oxycodone) 5 mg PO Q4H PRN PRN Reason: Pain (moderate 4-6) Pantoprazole Sodium (Protonix) 40 mg PO BIDAC [facility] Last Admin: 09/01/18 11:18 Dose: Not Given Propofol (Diprivan 20 Ml) Confirm Administered Dose 200 mg .ROUTE .STK-MED ONE Stop: 08/30/18 07:05 Propofol (Diprivan 20 Ml) Confirm Administered Dose 200 mg .ROUTE .STK-MED ONE Stop: 09/01/18 07:42 Rocuronium [place] (Zemuron) Confirm Administered Dose 50 mg .ROUTE .STK-MED ONE Stop: 09/01/18 07:42 Rocuronium [place] (Zemuron) Confirm Administered Dose 50 mg .ROUTE .STK-MED ONE Stop: 09/01/18 11:34 Succinylcholine Chloride (Quelicin) Confirm Administered Dose 200 mg .ROUTE .STK -MED ONE Stop: 09/01/18 07:42 Sugammadex Sodium (Bridion) Confirm Administered Dose 200 mg .ROUTE .STK-MED ONE Stop: 09/01/18 07:42 - Exam Quality Assessment: No: Supplemental Oxygen General: Alert, Oriented, Cooperative, Mild Distress Neck: Supple Lungs: Clear to Auscultation, Normal Respiratory Effort Cardiovascular: Regular Rate, Regular Rhythm GI/Abdominal Exam: Soft, No Distention Extremities: No Pedal Edema. No: Increased Warmth Skin: Warm, Dry Psy/Mental Status: Alert, Normal Affect - Problem List & Annotations (1) Abdominal pain SNOMED Code(s): 97703205 Code(s): R10.9 - UNSPECIFIED ABDOMINAL PAIN Status: Acute Current Visit: Yes Qualifiers: Abdominal location: periumbilical Qualified Code(s): R10.33 - Periumbilical pain (2) Portal hypertension SNOMED Code(s): 34260902 Code(s): K76.6 - PORTAL HYPERTENSION Status: Chronic Current Visit: Yes (3) Barretts esophagus SNOMED Code(s): 191431107 Code(s): K22.70 - YA'S ESOPHAGUS WITHOUT DYSPLASIA Status: Chronic Current Visit: Yes Qualifiers: Ya's esophagus type: without dysplasia Qualified Code(s): K22.70 - Ya's esophagus without dysplasia (4) Chronic back pain SNOMED Code(s): 975771320 Code(s): M54.9 - DORSALGIA, UNSPECIFIED; G89.29 - OTHER CHRONIC PAIN Status : Chronic Current Visit: No Qualifiers: Back pain location: low back pain Back pain laterality: unspecified Sciatica presence: without sciatica Qualified Code(s): M54.5 - Low back pain; G89.29 - Other chronic pain (5) GERD (gastroesophageal reflux disease) SNOMED Code(s): 604807262 Code(s): K21.9 - GASTRO-ESOPHAGEAL REFLUX DISEASE WITHOUT ESOPHAGITIS Status: Chronic Current Visit: No Qualifiers: Esophagitis presence: without esophagitis Qualified Code(s): K21.9 - Gastro -esophageal reflux disease without esophagitis - Problem List Review Problem List Initiated/Reviewed/Updated: Yes - My Orders Last 24 Hours: My Active Orders 09/01/18 21:00 GLUCOSE POC LAB TO COLLECT [POC] QIDACANDBED 09/02/18 07:30 GLUCOSE POC LAB TO COLLECT [POC] QIDACANDBED 09/02/18 11:30 GLUCOSE POC LAB TO COLLECT [POC] QIDACANDBED 09/02/18 16:30 GLUCOSE POC LAB TO COLLECT [POC] QIDACANDBED 09/02/18 21:00 GLUCOSE POC LAB TO COLLECT [POC] QIDACANDBED 09/03/18 07:30 GLUCOSE POC LAB TO COLLECT [POC] QIDACANDBED 09/03/18 11:30 GLUCOSE POC LAB TO COLLECT [POC] QIDACANDBED 09/03/18 16:30 GLUCOSE POC LAB TO COLLECT [POC] QIDACANDBED 09/03/18 21:00 GLUCOSE POC LAB TO COLLECT [POC] QIDACANDBED - Plan Plan:: ASSESSMENT AND PLAN - Biliary dyskinesia - HIDA was suggestive of biliary dyskinesia and cholecystectomy was completed today. Significant pain in the postoperative period. -Postoperative cares per surgical team -Pain control -Nausea control GERD with history of Ya's esophagus - increased heartburn over the past couple of months. EGD showed mild GERD and mild antral gastritis. CLOtest was negative. there was some evidence for loosening of the Evelia fundoplication discovered with the EGD and revision of the fundoplication was completed today. -Continue PPI and H2 ernestine Chronic back pain - Currently using tramadol twice daily as an outpatient. pain stable at this time. -Continue scheduled tramadol -Acetaminophen for mild breakthrough pain -Oxycodone for moderate pain Maintenance issues - - DVT prophylaxis - mechanical - GI prophylaxis - PPI - Nutrition - advance diet as tolerated Disposition - I would anticipate discharge to home after the hospital stay Primary care physician - REBA Dimas M.D.
[2018-09-01] MEDS ORDERED: hydrOXYzine HCl 100 MG/2 ML SDV IM PRN (18:30)
--- NOTE | 2018-09-01 20:27 | PCM.SN ---
- Free Text/Narrative Note: time:20:21 call from [address] [place] [address], concerns of increases heart rate. Patient reports had a fast heart rate with his last heart attack. he had surgery today S: Mr. Garces denies chest pain, shortness of breath, weakness. pain is controlled. diabetes with insulin mgt. O: heart rates 110 to 125 vital signs: 36.9-126-18 B/P 120/66 O2 sat 96% A: tachycardia, post-op day 1 P: give LR 500ml/hr x 2 hours for a total of 1 liter labs; cbc, bmp, troponin, EKG, tele will await labs and EKG
[2018-09-01] MEDS ORDERED: Lactated Ringers 1,000 ML IV SCH (20:45)
[2018-09-01] MEDS: rOPINIRole 0.5 MG Tab PO SCH (20:58)
[2018-09-01] MEDS: traZODone 50 MG Tab PO SCH (20:58)
[2018-09-01] MEDS: Cetirizine 10 MG Tab PO SCH (20:59)
[2018-09-01] MEDS: Metoprolol Tartrate 50 MG Tab PO SCH (21:03)
[2018-09-02] MEDS: HYDROmorphone/Normal Saline 15 MG/30 ML PCA IV PRN ×2 (01:29→19:42)
[2018-09-02] MEDS: Metoclopramide 10 MG/2 ML SDV IV SCH ×4 (03:21→21:30)
[2018-09-02] MEDS: Dextrose 5%-Lactated Ringers 1,000 ML IV SCH (04:17)
[2018-09-02] MEDS: cefOXitin 2 GM in Sodium Chloride 0.9% 50 ML IV SCH ×3 (04:24→17:58)
[2018-09-02] MEDS: Pantoprazole 40 MG Vial IV SCH ×2 (04:25→16:13)
[2018-09-02] MEDS ORDERED: Dextrose 5%-Lactated Ringers 1,000 ML IV SCH (07:15)
[2018-09-02] MEDS ORDERED: Naloxone 0.4 MG/ML SDV IV PRN (07:26)
[2018-09-02] MEDS: Insulin Lispro 100 Unit/ML 3 ML KwikPen SUBCUT SCH ×4 (08:05→21:12)
[2018-09-02] MEDS: DULoxetine 20 MG Cap PO SCH (08:14)
[2018-09-02] MEDS: Gabapentin 300 MG Cap PO SCH ×3 (08:16→21:15)
[2018-09-02] MEDS: traMADol 50 MG Tab PO SCH ×2 (08:17→21:19)
[2018-09-02] MEDS: Nicotine 14 MG/24 Hr Patch TRDERM SCH (08:26)
[2018-09-02] MEDS: Formoterol/Mometasone 200-5 MCG 8.8 GM Inhaler IH SCH ×2 (08:56→21:14)
[2018-09-02] MEDS: Magnesium Sulfate/Water 2 GM in Premix Bag 1 BAG IV SCH ×3 (09:41→21:25)
[2018-09-02] MEDS ORDERED: HYDROmorphone/Normal Saline 15 MG/30 ML PCA IV ONE (10:24)
--- NOTE | 2018-09-02 10:24 | PN ---
DATE OF SERVICE: 09/02/2018 SUBJECTIVE: Armando is postoperative day #1. He had one episode last evening, where he had an elevated pulse rate. He was given 1 L IV fluids and it did resolve. Vital signs have been stable. Temp max of 99.6. Oral intake zero. Urine output via Sorenson catheter 4000. MARIA drain put out 175 mL of a red drainage in the past 24 hours. Labs were drawn today. Hemoglobin 13.4, magnesium 1.5, total bilirubin is 0.5, and glucose 197. Pain has been controlled. He has been up ambulating. REVIEW OF SYSTEMS: Remainder of review of systems negative for any pertinent positives and negatives. OBJECTIVE: GENERAL: Armando Garces is a 57-year-old male, alert and orientated. VITAL SIGNS: TPR 99, 190, 18, and blood pressure is 105/57. HEENT: Negative. NECK: Supple. HEART: Regular rate and rhythm. LUNGS: Clear. ABDOMEN: Dressing dry and intact. Abdominal binder is on. MARIA drain, as above, draining a red drainage. EXTREMITIES: SCDs are on, and there is no peripheral edema. ASSESSMENT: Diagnostic laparoscopy, 1. Repair of recurrent paraesophageal diaphragmatic hernia. 2. Portal left hepatic lobectomy. 3. Conversion to open laparotomy. 4. Needle liver biopsy. For recurrent paraesophageal diaphragmatic hernia and prolapse of left lobe of liver into hernia, biliary dyskinesia, marked hepatomegaly and marked portal hypertension. Date of surgery 09/01/2018. Surgeon, Joel Sethi MD. PLAN: 1. Magnesium 2 g IV q.6 hours x72 hours. 2. Full liquid diet. 3. Discontinue Sorenson catheter. 4. Decrease IV to 100 mL per hour. 5. Lovenox. Ask Dr. Joel Sethi in a.m. if he would like to start the Lovenox due to history of bilateral pulmonary embolism. 6. Good pulmonary toilet. 7. We will evaluate p.r.n. or in a.m. Radha Rudd PA-C /[id number]
[2018-09-02] MEDS: metFORMIN 500 MG Tab PO SCH (16:14)
[2018-09-02] MEDS ORDERED: diphenhydrAMINE 25 MG Cap PO PRN (19:30)
[2018-09-02] MEDS: traZODone 50 MG Tab PO SCH (21:15)
[2018-09-02] MEDS: rOPINIRole 0.5 MG Tab PO SCH (21:15)
[2018-09-02] MEDS: Cetirizine 10 MG Tab PO SCH (21:17)
[2018-09-02] MEDS: Metoprolol Tartrate 50 MG Tab PO SCH (21:20)
[2018-09-03] MEDS: Pantoprazole 40 MG Vial IV SCH (05:00)
[2018-09-03] MEDS: Metoclopramide 10 MG/2 ML SDV IV SCH ×4 (05:00→22:13)
[2018-09-03] MEDS: Magnesium Sulfate/Water 2 GM in Premix Bag 1 BAG IV SCH ×2 (05:01→09:42)
[2018-09-03] MEDS: Formoterol/Mometasone 200-5 MCG 8.8 GM Inhaler IH SCH ×2 (07:12→22:11)
[2018-09-03] MEDS: HYDROmorphone 2 MG Tab PO PRN ×3 (08:32→20:18)
[2018-09-03] MEDS: Insulin Lispro 100 Unit/ML 3 ML KwikPen SUBCUT SCH ×4 (08:40→22:13)
[2018-09-03] MEDS: DULoxetine 20 MG Cap PO SCH (08:42)
[2018-09-03] MEDS: Bisacodyl 5 MG Tab PO SCH ×2 (08:42→22:11)
[2018-09-03] MEDS: Nicotine 14 MG/24 Hr Patch TRDERM SCH (08:42)
[2018-09-03] MEDS: Enoxaparin 100 MG/1 ML Syringe SUBCUT SCH (08:44)
[2018-09-03] MEDS: Gabapentin 300 MG Cap PO SCH ×3 (08:45→22:11)
[2018-09-03] MEDS: traMADol 50 MG Tab PO SCH ×2 (09:40→22:15)
[2018-09-03] MEDS: Acetaminophen 325 MG Tab PO SCH ×3 (09:41→22:11)
--- NOTE | 2018-09-03 11:17 | PCM.PN ---
- General Info Date of Service: 09/03/18 Subjective Update: There were no acute events overnight. Patient did have an episode of tachycardia well up and walking around but was asymptomatic. He reports moderate but much improved abdominal pain. No nausea. Tolerated a regular breakfast. Functional Status: Reports: Pain Controlled, Tolerating Diet - Review of Systems General: Denies: Fever - Patient Data Vitals - Most Recent: Last Vital Signs Temp 36.9 C 09/03/18 11:05 Pulse 90 09/03/18 11:05 Resp 18 09/03/18 11:05 BP 130/74 09/03/18 11:05 Pulse Ox 97 09/03/18 11:05 Weight - Most Recent: 84.4 kg I&O - Last 24 Hours: Intake & Output 09/02/18 09/03/18 09/03/18 22:59 06:59 14:59 Intake Total 2485 2062 50 Output Total 960 975 720 Balance 1525 1087 -670 Med Orders - Current: Current Medications Acetaminophen (Tylenol) 650 mg PO Q6H [facility] Last Admin: 09/03/18 09:41 Dose: 650 mg Albuterol (Proventil Neb Soln) 2.5 mg NEB Q4H PRN PRN Reason: Shortness Of Breath/wheezing Bisacodyl (Dulcolax) 10 mg PO BID [facility] Last Admin: 09/03/18 08:42 Dose: 10 mg Calcium Carbonate/Glycine (Tums) 1,000 mg PO Q2H PRN PRN Reason: Indigestion Last Admin: 08/30/18 18:41 Dose: 1,000 mg Cetirizine HCl (Zyrtec) 10 mg PO BEDTIME [facility] Last Admin: 09/02/18 21:17 Dose: 10 mg Cyclobenzaprine HCl (Flexeril) 20 mg PO BEDTIME PRN PRN Reason: muscle pain Last Admin: 08/30/18 22:14 Dose: 20 mg Diphenhydramine HCl (Benadryl) 25 - 50 mg PO Q4H PRN PRN Reason: Itching Duloxetine HCl (Cymbalta) 80 mg PO DAILY [facility] Last Admin: 09/03/18 08:42 Dose: 80 mg Enoxaparin Sodium (Lovenox) 100 mg SUBCUT DAILY [facility] Last Admin: 09/03/18 08:44 Dose: 100 mg Gabapentin (Neurontin) 300 mg PO QPM [facility] Last Admin: 09/02/18 16:14 Dose: 300 mg Gabapentin (Neurontin) 900 mg PO BID [facility] Last Admin: 09/03/18 08:45 Dose: 900 mg Hydromorphone HCl (Dilaudid) 4 mg PO Q4H PRN PRN Reason: PAIN Last Admin: 09/03/18 08:32 Dose: 4 mg Hydroxyzine HCl (Vistaril) 100 mg IM Q4H PRN PRN Reason: PAIN Magnesium Sulfate 2 gm/ Premix 50 mls @ 25 mls/hr IV Q6H [facility] Stop: 09/05/18 05:59 Last Admin: 09/03/18 09:42 Dose: 25 mls/hr Dextrose/Lactated Ringer's (Dextrose 5%-Lactated Ringers) 1,000 mls @ 100 mls/ hr IV ASDIRECTED [facility] Last Admin: 09/03/18 01:30 Dose: 100 mls/hr Insulin Human Lispro (Humalog) 0 unit SUBCUT QIDACANDBED [facility]; Protocol Last Admin: 09/03/18 08:40 Dose: 2 unit Lidocaine HCl (Xylocaine 2% Viscous) 15 ml PO Q4H PRN PRN Reason: Heartburn Magnesium Hydroxide (Milk Of Magnesia) 30 ml PO Q12H PRN PRN Reason: Constipation Metformin HCl (Glucophage) 1,000 mg PO QPM [facility] Last Admin: 09/02/18 16:14 Dose: 1,000 mg Metoclopramide HCl (Reglan) 10 mg IV Q6H [facility] Last Admin: 09/03/18 10:35 Dose: 10 mg Metoprolol Tartrate (Lopressor) 50 mg PO BEDTIME [facility] Last Admin: 09/02/18 21:20 Dose: 50 mg Mometasone Furoate/Formoterol Fumar (Dulera 200-5 Mcg) 2 puff IH BIDRT [facility] Last Admin: 09/03/18 07:12 Dose: Not Given Nicotine (Habitrol) 14 mg TRDERM DAILY [facility] Last Admin: 09/03/18 08:42 Dose: 14 mg Ondansetron HCl (Zofran Odt) 4 mg PO Q6H PRN PRN Reason: Nausea able to take PO Last Admin: 08/30/18 17:59 Dose: 4 mg Ondansetron HCl (Zofran) 4 mg IV Q6H PRN PRN Reason: Nausea/Vomiting Last Admin: 09/01/18 15:19 Dose: 4 mg Oxycodone HCl (Oxycodone) 10 mg PO Q4H PRN PRN Reason: Pain (moderate 4-6) Last Admin: 08/31/18 09:39 Dose: 5 mg Pantoprazole Sodium (Protonix) 40 mg PO BIDAC [facility] Polyethylene Glycol (Miralax) 17 gm PO DAILY PRN PRN Reason: Constipation Last Admin: 09/03/18 07:22 Dose: 17 gm Prochlorperazine Maleate (Compazine) 10 mg PO Q6H PRN PRN Reason: Nausea/Vomiting Last Admin: 08/30/18 21:27 Dose: 10 mg Ranitidine HCl (Zantac) 150 mg PO BID [facility] Last Admin: 09/03/18 08:45 Dose: 150 mg Ropinirole HCl (Requip) 0.5 mg PO BEDTIME [facility] Last Admin: 09/02/18 21:15 Dose: 0.5 mg Senna/Docusate Sodium (Senna Plus) 1 tab PO BID PRN PRN Reason: Constipation Last Admin: 09/02/18 21:35 Dose: 1 tab Tramadol HCl (Ultram) 100 mg PO BID [facility] Last Admin: 09/03/18 09:40 Dose: 100 mg Trazodone HCl (Trazodone) 100 mg PO BEDTIME [facility] Last Admin: 09/02/18 21:15 Dose: 100 mg Discontinued Medications Acetaminophen (Tylenol) 650 mg PO Q4H PRN PRN Reason: Pain (Mild 1-3)/fever Last Admin: 08/29/18 16:17 Dose: 650 mg Albuterol/Ipratropium (Duoneb 3.0-0.5 Mg/3 Ml) 3 ml NEB ONETIME ONE Stop: 09/01/18 08:31 Last Admin: 09/01/18 08:43 Dose: 3 ml Ropivacaine 42 ml/Dexamethasone 8 mg/Epinephrine HCl 0.4 mg/ Sodium Chloride 35.6 ml 0 ml NERVRT ASDIRECTED [facility] Last Admin: 09/01/18 11:19 Dose: 80 syringe Dexamethasone (Dexamethasone) Confirm Administered Dose 4 mg .ROUTE .STK-MED ONE Stop: 09/01/18 07:42 Fentanyl (Sublimaze) Confirm Administered Dose 100 mcg .ROUTE .STK-MED ONE Stop: 08/30/18 07:05 Fentanyl (Sublimaze) Confirm Administered Dose 250 mcg .ROUTE .STK-MED ONE Stop: 09/01/18 07:42 Fentanyl (Sublimaze) Confirm Administered Dose 250 mcg .ROUTE .STK-MED ONE Stop: 09/01/18 11:16 Fentanyl (Sublimaze) Confirm Administered Dose 100 mcg .ROUTE .STK-MED ONE Stop: 09/01/18 13:53 Fentanyl (Sublimaze) Confirm Administered Dose 100 mcg .ROUTE .STK-MED ONE Stop: 09/01/18 14:18 Hydralazine HCl (Apresoline) Confirm Administered Dose 20 mg .ROUTE .STK-MED ONE Stop: 09/01/18 11:50 Hydromorphone HCl (Dilaudid) 0.5 mg IVPUSH ONETIME ONE Stop: 08/29/18 08:19 Last Admin: 08/29/18 08:36 Dose: 0.5 mg Hydromorphone HCl (Dilaudid) 1 mg IVPUSH ONETIME ONE Stop: 08/29/18 08:52 Last Admin: 08/29/18 09:07 Dose: 1 mg Hydromorphone HCl (Dilaudid) 0.5 mg IVPUSH ONETIME ONE Stop: 08/29/18 11:12 Last Admin: 08/29/18 11:53 Dose: 0.5 mg Hydromorphone HCl (Dilaudid) 0.5 - 1 mg IVPUSH Q2H PRN PRN Reason: Pain (severe 7-10) Last Admin: 08/30/18 08:20 Dose: 0.5 mg Hydromorphone HCl (Dilaudid) 1 mg IVPUSH Q2H PRN PRN Reason: Pain (severe 7-10) Last Admin: 09/01/18 06:42 Dose: 1 mg Hydromorphone HCl (Dilaudid) 1 mg IV Q2H PRN PRN Reason: SEVERE PAIN (7-10) Last Admin: 09/01/18 09:22 Dose: 1 mg Hydromorphone HCl (Dilaudid Stapler Machine 15 Mg In Ns 30 Ml) 0 mg IV ASDIRECTED PRN; Protocol PRN Reason: Pain Last Admin: 09/02/18 19:42 Dose: 15 mg Hydroxyzine HCl (Vistaril) 100 mg IM ONETIME ONE Stop: 09/01/18 14:43 Last Admin: 09/01/18 14:47 Dose: 100 mg Hydroxyzine HCl (Vistaril) 50 mg IM ONETIME ONE Stop: 09/01/18 17:12 Last Admin: 09/01/18 17:32 Dose: 50 mg Sodium Chloride (Normal Saline) 1,000 mls @ 999 mls/hr IV ASDIRECTED [facility] Last Admin: 08/29/18 08:28 Dose: 999 mls/hr Sodium Chloride (Normal Saline) 1,000 mls @ 400 mls/hr IV ASDIRECTED [facility] Last Admin: 08/29/18 11:56 Dose: 400 mls/hr Sodium Chloride (Normal Saline) 1,000 mls @ 100 mls/hr IV ASDIRECTED [facility] Last Admin: 08/30/18 08:09 Dose: 100 mls/hr Cefoxitin Sodium 2 gm/ Sodium (Chloride) 50 mls @ 100 mls/hr IV ONETIME ONE Stop: 08/31/18 10:59 Cefoxitin Sodium 2 gm/ Sodium (Chloride) 50 mls @ 100 mls/hr IV ONETIME ONE Stop: 09/01/18 08:59 Last Admin: 09/01/18 11:20 Dose: Not Given Dextrose/Lactated Ringer's (Dextrose 5%-Lactated Ringers) 1,000 mls @ 100 mls/ hr IV ASDIRECTED [facility] Last Admin: 08/31/18 21:01 Dose: 100 mls/hr Sodium Chloride (Normal Saline) Confirm Administered Dose 10 mls @ as directed .ROUTE .[facility] ONE Stop: 09/01/18 11:51 Lactated Ringer's (Ringers, Lactated) Confirm Administered Dose 1,000 mls @ as directed .ROUTE .[facility] ONE Stop: 09/01/18 12:22 Lactated Ringer's (Ringers, Lactated) Confirm Administered Dose 1,000 mls @ as directed .ROUTE .[facility] ONE Stop: 09/01/18 14:24 Dextrose/Lactated Ringer's (Dextrose 5%-Lactated Ringers) 1,000 mls @ 175 mls/ hr IV ASDIRECTED [facility] Last Admin: 09/02/18 04:17 Dose: 175 mls/hr Cefoxitin Sodium 2 gm/ Sodium (Chloride) 50 mls @ 100 mls/hr IV Q6H [facility] Stop: 09/02/18 17:29 Last Admin: 09/02/18 17:58 Dose: 100 mls/hr Lactated Ringer's (Ringers, Lactated) 1,000 mls @ 500 mls/hr IV [facility] Stop: 09/01/18 22:44 Last Admin: 09/01/18 21:10 Dose: 500 mls/hr Insulin Human Regular (Humulin R) 5 unit SUBCUT ONETIME ONE Stop: 08/29/18 09:52 Last Admin: 08/29/18 10:33 Dose: 5 units Labetalol HCl (Normodyne) Confirm Administered Dose 20 mg .ROUTE .STK-MED ONE Stop: 09/01/18 11:41 Meperidine HCl (Demerol) 100 mg IM ONETIME ONE Stop: 09/01/18 17:12 Last Admin: 09/01/18 17:32 Dose: 100 mg Meropenem (Merrem) Confirm Administered Dose 500 mg .ROUTE .STK-MED ONE Stop: 09/01/18 13:56 Last Admin: 09/01/18 13:58 Dose: 500 mg Midazolam HCl (Versed 1 Mg/Ml) Confirm Administered Dose 2 mg .ROUTE .STK-MED ONE Stop: 08/30/18 07:05 Naloxone HCl (Narcan) 0.1 mg IVPUSH Q2M PRN PRN Reason: Respiratory Distress Naloxone HCl (Narcan) 0.1 mg IV ASDIRECTED PRN PRN Reason: decreased respiratory rate Nicotine (Habitrol) 14 mg TRDERM ONETIME ONE Stop: 08/29/18 14:31 Last Admin: 08/29/18 14:38 Dose: 14 mg Ondansetron HCl (Zofran) 4 mg IVPUSH ONETIME ONE Stop: 08/29/18 08:18 Last Admin: 08/29/18 08:34 Dose: 4 mg Ondansetron HCl (Zofran) Confirm Administered Dose 4 mg .ROUTE .STK-MED ONE Stop: 09/01/18 07:42 Oxycodone HCl (Oxycodone) 5 mg PO Q4H PRN PRN Reason: Pain (moderate 4-6) Pantoprazole Sodium (Protonix) 40 mg PO BIDAC [facility] Last Admin: 09/01/18 11:18 Dose: Not Given Pantoprazole Sodium (Protonix Iv) 40 mg IV Q12H [facility] Last Admin: 09/03/18 05:00 Dose: 40 mg Propofol (Diprivan 20 Ml) Confirm Administered Dose 200 mg .ROUTE .STK-MED ONE Stop: 08/30/18 07:05 Propofol (Diprivan 20 Ml) Confirm Administered Dose 200 mg .ROUTE .STK-MED ONE Stop: 09/01/18 07:42 Rocuronium Emmett (Zemuron) Confirm Administered Dose 50 mg .ROUTE .STK-MED ONE Stop: 09/01/18 07:42 Rocuronium Emmett (Zemuron) Confirm Administered Dose 50 mg .ROUTE .STK-MED ONE Stop: 09/01/18 11:34 Succinylcholine Chloride (Quelicin) Confirm Administered Dose 200 mg .ROUTE .STK -MED ONE Stop: 09/01/18 07:42 Sugammadex Sodium (Bridion) Confirm Administered Dose 200 mg .ROUTE .STK-MED ONE Stop: 09/01/18 07:42 - Exam Quality Assessment: No: Supplemental Oxygen General: Alert, Oriented, Cooperative, No Acute Distress Lungs: Normal Respiratory Effort GI/Abdominal Exam: Soft, No Distention Extremities: No Pedal Edema Skin: Warm, Dry Psy/Mental Status: Alert, Normal Affect - Problem List & Annotations (1) Biliary dyskinesia SNOMED Code(s): 298929623 Code(s): K82.8 - OTHER SPECIFIED DISEASES OF GALLBLADDER Status: Acute Current Visit: Yes (2) Abdominal pain SNOMED Code(s): 05515425 Code(s): R10.9 - UNSPECIFIED ABDOMINAL PAIN Status: Acute Current Visit: Yes Qualifiers: Abdominal location: periumbilical Qualified Code(s): R10.33 - Periumbilical pain (3) Portal hypertension SNOMED Code(s): 69915308 Code(s): K76.6 - PORTAL HYPERTENSION Status: Chronic Current Visit: Yes (4) Barretts esophagus SNOMED Code(s): 738117433 Code(s): K22.70 - YA'S ESOPHAGUS WITHOUT DYSPLASIA Status: Chronic Current Visit: Yes Qualifiers: Ya's esophagus type: without dysplasia Qualified Code(s): K22.70 - Ya's esophagus without dysplasia (5) Chronic back pain SNOMED Code(s): 943670479 Code(s): M54.9 - DORSALGIA, UNSPECIFIED; G89.29 - OTHER CHRONIC PAIN Status : Chronic Current Visit: No Qualifiers: Back pain location: low back pain Back pain laterality: unspecified Sciatica presence: without sciatica Qualified Code(s): M54.5 - Low back pain; G89.29 - Other chronic pain (6) GERD (gastroesophageal reflux disease) SNOMED Code(s): 332410621 Code(s): K21.9 - GASTRO-ESOPHAGEAL REFLUX DISEASE WITHOUT ESOPHAGITIS Status: Chronic Current Visit: No Qualifiers: Esophagitis presence: without esophagitis Qualified Code(s): K21.9 - Gastro -esophageal reflux disease without esophagitis - Problem List Review Problem List Initiated/Reviewed/Updated: Yes - My Orders Last 24 Hours: My Active Orders 09/02/18 19:30 diphenhydrAMINE [Benadryl] 25 - 50 mg PO Q4H PRN 09/03/18 11:30 GLUCOSE POC LAB TO COLLECT [POC] QIDACANDBED 09/03/18 16:30 GLUCOSE POC LAB TO COLLECT [POC] QIDACANDBED 09/03/18 17:00 Insert Urinary Catheter [OM.PC] Q24H 09/03/18 21:00 GLUCOSE POC LAB TO COLLECT [POC] QIDACANDBED - Plan Plan:: ASSESSMENT AND PLAN - Biliary dyskinesia - HIDA was suggestive of biliary dyskinesia and cholecystectomy was completed 08/31. Pain improving and clinically is doing quite well. -Postoperative cares per surgical team -Pain control -Nausea control GERD with history of Ya's esophagus - increased heartburn over the past couple of months. EGD showed mild GERD and mild antral gastritis. CLOtest was negative. No symptoms at this time. -Continue PPI and H2 ernestine Chronic back pain - Currently using tramadol twice daily as an outpatient. pain stable at this time. -Continue scheduled tramadol -Acetaminophen for mild breakthrough pain -Oxycodone for moderate pain Maintenance issues - - DVT prophylaxis - mechanical - GI prophylaxis - PPI - Nutrition - regular Disposition - I would anticipate discharge to home after the hospital stay, possibly tomorrow if stable overnight Primary care physician - REBA Dimas M.D.
--- NOTE | 2018-09-03 13:08 | PN ---
DATE OF SERVICE: 09/03/2018 The patient has been afebrile with stable vital signs. The MARIA drainage is becoming less bloody. I think we will add some Lovenox given his history of DVT in the past, and otherwise, we will go up to a regular diet and switch over to oral pain medication. Given him some bowel stimulation today. Joel Sethi MD Job #: [id number]
[2018-09-03] MEDS: Pantoprazole 40 MG Tab.CR PO SCH (17:39)
[2018-09-03] MEDS: metFORMIN 500 MG Tab PO SCH (17:57)
[2018-09-03] MEDS: Magnesium Hydroxide 400 MG/5 ML Susp 30 ML Cup PO PRN (20:18)
[2018-09-03] MEDS: rOPINIRole 0.5 MG Tab PO SCH (22:12)
[2018-09-03] MEDS: traZODone 50 MG Tab PO SCH (22:12)
[2018-09-03] MEDS: Cetirizine 10 MG Tab PO SCH (22:12)
[2018-09-03] MEDS: Metoprolol Tartrate 50 MG Tab PO SCH (22:16)
[2018-09-04] MEDS: HYDROmorphone 2 MG Tab PO PRN ×3 (00:44→08:57)
[2018-09-04] MEDS: Acetaminophen 325 MG Tab PO SCH ×2 (04:48→09:02)
[2018-09-04] MEDS: Metoclopramide 10 MG/2 ML SDV IV SCH ×2 (05:37→09:02)
[2018-09-04] MEDS: Formoterol/Mometasone 200-5 MCG 8.8 GM Inhaler IH SCH (07:09)
[2018-09-04] MEDS: Insulin Lispro 100 Unit/ML 3 ML KwikPen SUBCUT SCH (07:22)
[2018-09-04 07:25] VITALS: BP 118/66
[2018-09-04] MEDS: Pantoprazole 40 MG Tab.CR PO SCH (07:29)
[2018-09-04] MEDS: Magnesium Hydroxide 400 MG/5 ML Susp 30 ML Cup PO PRN (07:31)
[2018-09-04] MEDS ORDERED: Magnesium Hydroxide 400 MG/5 ML Susp 30 ML Cup PO PRN (08:15)
[2018-09-04] MEDS: traMADol 50 MG Tab PO SCH (08:55)
[2018-09-04] MEDS: Gabapentin 300 MG Cap PO SCH (08:59)
[2018-09-04] MEDS: DULoxetine 20 MG Cap PO SCH (08:59)
[2018-09-04] MEDS: Nicotine 14 MG/24 Hr Patch TRDERM SCH (09:00)
[2018-09-04] MEDS: Enoxaparin 100 MG/1 ML Syringe SUBCUT SCH (09:00)
[2018-09-04] MEDS: Bisacodyl 5 MG Tab PO SCH (09:00)
--- NOTE | 2018-09-06 08:24 | OR ---
DATE OF PROCEDURE: 09/01/2018 PREOPERATIVE DIAGNOSES: 1. Recurrent gastroesophageal reflux disease risk, status post previous Evelia fundoplication. 2. Biliary dyskinesia. POSTOPERATIVE DIAGNOSES: 1. Recurrent paraesophageal diaphragmatic hernia with prolapse of left lobe of liver and omentum into hernia site. 2. Devascularization of the portion of left lobe of liver, status post reduction from diaphragmatic hernia. 3. Biliary dyskinesia. 4. Moderate hepatomegaly with marked portal hypertension. OPERATIVE PROCEDURES: 1. Diagnostic laparoscopy with: a. Repair of recurrent paraesophageal diaphragmatic hernia with mesh with redo Evelia fundoplication (85518). b. Partial left hepatic lobectomy ([id number]). 2. Conversion to open laparotomy with: a. Cholecystectomy (87055). b. Ulises-Cut needle liver biopsy ([id number]). ANESTHESIA: General. SERVICENOW ADMINISTRATOR DEVELOPER: Radha Rudd PA-C. INDICATIONS FOR PROCEDURE: This is a 57-year-old male presenting with severe recurrent gastroesophageal reflux disease. The patient was taking both b.i.d. Protonix and Zantac, along with a large amount of oral antacids. He had an upper endoscopy, which showed loosening of the previous fundoplication, which was done around 20 years ago. As part of the workup, the patient also had a CCK-stimulated HIDA scan, which showed a normal ejection fraction, but the CCK injection caused reproduction of the patient's symptoms of right upper quadrant pain radiating to the back consistent with biliary dyskinesia. The plan is to proceed with a diagnostic laparoscopy, laparotomy if necessary, and redo Evelia fundoplication, along with cholecystectomy. Potential risks of the procedure including bleeding, infection, problems with the fundoplication such as dysphagia, problems with disorders of the gastric emptying rate postprocedure, and persistent or recurrent gastroesophageal reflux disease over time were reviewed. With regard to the gallbladder, the potential risks including bleeding, infection, injury to common bile duct or other adjacent viscera, and possible persistence of symptoms postoperatively were likewise reviewed, and the patient wishes to proceed. DETAILS OF PROCEDURE: The patient was taken to the operating room and after general endotracheal anesthesia was induced, a Sorenson catheter was inserted, and the patient was placed in a lithotomy position. The abdomen was then prepped and draped. In the area at 15 cm inferior and 5 cm left of the xiphoid process, a transverse incision was made and the peritoneal cavity entered under direct vision with an Optiview trocar, and inflated to 15 mmHg pressure with CO2. Laparoscope was then reinserted and no underlying trocar insertion site injuries were seen. The patient was noted to have a fairly significant amount of portal hypertension present with the veins being quite dilated. This was associated with some degree of hepatomegaly, but no evidence of cirrhosis. The patient apparently does have a history of portal vein thrombosis, so this is probably prehepatic blockage in terms of the etiology of the portal hypertension. Eventually, 6 additional trocars were placed across the upper and mid abdomen. The patient was noted to have a large paraesophageal diaphragmatic hernia, which had recurred, and this had prolapse of some omentum within it and also quite a significant portion of the left lobe of the liver was prolapsed up into the diaphragmatic hernia. As the liver was dissected away from the hernia, a significant portion of this appeared to be quite devascularized and a partial left hepatic lobectomy was accomplished with ISABELL emma and that portion of the liver sent as a separate specimen at this point. Eventually, the diaphragmatic hernia was able to be fully reduced, and satisfactory intraabdominal esophageal length was once again established. The diaphragmatic hernia was then repaired with some 0 Ethibond sutures reinforced with PTFE pledgets and then also reinforced with some mesh in that area. The fundoplication had been taken down, and a new fundoplication was then established. Due to the amount of edema in this area, a partial fundoplication was undertaken at this point with roughly three-quarters of the distal esophagus being closed in the wrap, which was accomplished with 0 Ethibond sutures reinforced with PTFE pledgets as well. The fundoplication was then sutured to the overlying diaphragm with several 0 Ethibond sutures reinforced with PTFE pledgets once again, to help maintain intraabdominal location of the fundoplication from this point forward. Attention was then taken to the gallbladder. Initial dissection of the gallbladder showed there to be a large amount of adherent large veins associated with some omental adhesions coating the gallbladder. These veins were up to the size of roughly a nightcrawler, in terms of overall dimension, and quite tense related to the patient's portal hypertension. Initial dissection was unsatisfactory from a laparoscopic standpoint, given the amount of portal hypertension. Given this, the trocars were removed and peritoneal cavity deflated. A right subcostal incision was then made and carried down through the skin and subcutaneous tissue. The adhesions, in addition to the dilated veins, were able to be eventually dissected off the gallbladder. At that point, the gallbladder neck/cystic duct junction and adjacent cystic artery were both identified and were taken with ISABELL emma. The lowermost portion of the gallbladder was also removed from the liver bed with ISABELL emma to minimize problems with bleeding. The remainder of the gallbladder was then dissected away from the liver bed using Harmonic Scalpel. The liver itself was moderately enlarged but not cirrhotic by any means. To clarify whether or not there might be some underlying liver disease as well, at this point, Ulises-Cut needle biopsies were taken from the right lobe of liver. Minimal bleeding from the biopsy sites was controlled with electrocautery. At this point, no further problems were noted. Some fibrin sealant was placed over the gallbladder bed to minimize problems with bleeding, and a Marcos-Ding drain was taken through a stab wound lateral to the main incision and placed into the area of the gallbladder bed as well. The subcostal incision was then closed with 2 layers of fascial sutures with #2 Vicryl stitch, the subcutaneous tissue with some 4-0 Vicryl stitch, and the skin with emma. The patient was taken to the recovery room in a satisfactory condition. There were no evident complications. Physician produce assistant, Radha Rudd, played an essential role in assisting in this case, helping to position the patient, retract structures as needed, as well as suturing and cutting sutures when indicated. Her presence improved patient safety and decreased the operative time. Joel Sethi MD /[id number]
--- NOTE | 2018-09-06 08:33 | DISCH ---
FINAL DIAGNOSES: 1. Large recurrent paraesophageal diaphragmatic hernia with prolapse of the left lobe of the liver into hernia. 2. Biliary dyskinesia. 3. Moderate hepatomegaly with a marked portal hypertension. 4. History of pulmonary embolism. 5. Alcoholism. 6. Emphysema. 7. Obstructive sleep apnea. 8. Type 2 diabetes mellitus. OPERATIVE PROCEDURE: 1. This was done on 09/01/18, diagnostic laparoscopy with: a. Repair of recurrent paraesophageal diaphragmatic hernia with mesh. b. Partial left hepatic lobectomy. 2. Conversion to open laparotomy with: a. Cholecystectomy. b. Ulises-Cut needle liver biopsy of right lobe of liver. 3. Done on 08/30/18, upper GI endoscopy with biopsies. SUMMARY: This is a 57-year-old male presenting with increasing abdominal pain, noted to have quite severe reflux in the past with having had a Evelia fundoplication around 20 years ago and now having some quite marked recurrent reflux disease. Upper endoscopy was performed on 08/30/18, which showed some gastroesophageal reflux disease and a loosened Evelia fundoplication, and subsequently the patient had a CCK-stimulated HIDA scan, which showed a normal ejection fraction but reproduced the patient's pain episodes that he has been having in the right upper quadrant radiating to the back. On 09/01/18, the patient underwent a diagnostic laparoscopy and was noted to have a large recurrent paraesophageal hernia. This included prolapse of a significant amount of the left lobe of the liver into the diaphragm. Upon reduction of the hernia, the lateral aspect of the left lobe of the liver was quite devascularized and was therefore resected, the diaphragmatic hernia repaired with mesh, and redo Evelia fundoplication completed. Postoperatively, he has been noting quite a bit of improvement in terms of his reflux symptoms. At the time of the cholecystectomy, this needed to be converted to an open approach via a subcostal incision. The patient was noted to have a marked portal hypertension with large dilated veins over the area of the gallbladder, and given this an open cholecystectomy was performed, along with needle biopsies of liver to try to clarify what is going on. The patient did not grossly have any cirrhosis and had a moderate diffuse hepatomegaly. Postoperatively, no major problems have been noted. He is eating satisfactorily, having much improvement in his reflux symptoms. He will be discharged home on his usual medications, other than we will have him hold the Protonix and he will continue the Zantac 150 mg b.i.d. in the meantime, and if his reflux symptoms remain adequately controlled with that, we will try discontinuing that subsequently. Also, he did have a prescription for oxycodone 5 mg two tablets q.6 hours p.r.n. pain, #50, and 2 doses of milk of magnesia. He will be following up with Radha Rudd at [facility] on 09/12/18.
== END 2018-09-04 11:50 | disposition home or self-care (01) | DRG 326 ==
LOC: JP.ED 07:13 → JP.MS 12:39
PROVIDERS: ADMIT Internal Medicine; ATTEND Internal Medicine
PROC: 0DB78ZX Excision of Stomach, Pylorus, Via Natural or Artificial Opening Endoscopic, Diagnostic (ICD-10-PCS; 2018-08-30)
PROC: 0DB48ZX Excision of Esophagogastric Junction, Via Natural or Artificial Opening Endoscopic, Diagnostic (ICD-10-PCS; 2018-08-30)
PROC: 0FT40ZZ Resection of Gallbladder, Open Approach (ICD-10-PCS; principal; 2018-09-01)
PROC: 0FB24ZZ Excision of Left Lobe Liver, Percutaneous Endoscopic Approach (ICD-10-PCS; principal; 2018-09-01)
PROC: 0BUT4JZ Supplement Diaphragm with Synthetic Substitute, Percutaneous Endoscopic Approach (ICD-10-PCS; principal; 2018-09-01)
PROC: 0FB10ZX Excision of Right Lobe Liver, Open Approach, Diagnostic (ICD-10-PCS; principal; 2018-09-01)
PROC: 0DV44ZZ Restriction of Esophagogastric Junction, Percutaneous Endoscopic Approach (ICD-10-PCS; principal; 2018-09-01)
DX: K44.9 Diaphragmatic hernia without obstruction or gangrene (principal); I81 Portal vein thrombosis; K76.6 Portal hypertension; I85.00 Esophageal varices without bleeding; K81.9 Cholecystitis, unspecified; K76.89 Other specified diseases of liver; K82.8 Other specified diseases of gallbladder; R16.0 Hepatomegaly, not elsewhere classified; K22.70 Barrett's esophagus without dysplasia; K29.70 Gastritis, unspecified, without bleeding; G89.18 Other acute postprocedural pain; J43.9 Emphysema, unspecified; G47.33 Obstructive sleep apnea (adult) (pediatric); E11.9 Type 2 diabetes mellitus without complications; K21.9 Gastro-esophageal reflux disease without esophagitis; I99.8 Other disorder of circulatory system; G89.29 Other chronic pain; I25.10 Atherosclerotic heart disease of native coronary artery without angina pectoris; E78.00 Pure hypercholesterolemia, unspecified; E11.22 Type 2 diabetes mellitus with diabetic chronic kidney disease; I12.9 Hypertensive chronic kidney disease with stage 1 through stage 4 chronic kidney disease, or unspecified chronic kidney disease; N18.9 Chronic kidney disease, unspecified; M19.90 Unspecified osteoarthritis, unspecified site; M54.9 Dorsalgia, unspecified; M54.2 Cervicalgia; F17.210 Nicotine dependence, cigarettes, uncomplicated; I25.2 Old myocardial infarction; Z86.718 Personal history of other venous thrombosis and embolism; Z87.01 Personal history of pneumonia (recurrent); Z79.899 Other long term (current) drug therapy; Z88.2 Allergy status to sulfonamides; Z86.711 Personal history of pulmonary embolism; Z88.8 Allergy status to other drugs, medicaments and biological substances; Z91.041 Radiographic dye allergy status; Z79.84 Long term (current) use of oral hypoglycemic drugs
CPT/HCPCS: 36415; 74176; 74176-26; 76705; 76705-26; 78227; 78227-26; 80048; 80053; 81001; 82150; 82962; 83690; 83735; 84100; 84484; 85025; 85027; 86140; 87081; 88304; 88305; 88307; 88313; 93005; 94640; 94762; 96361; 96374; 96375; 96376; 99285-25; A9270-GY; C1781; C9113; C9399; J0171; J0330; J0360; J0694; J1100; J1170; J1650; J1815; J1815-GY; J2175; J2185; J2250; J2405; J2704; J2765; J2795; J3010; J3410; J3475; J3490; J7030; J7042; J7050; J7120; J7620-GY; Q0164

== ENCOUNTER 2019-07-07 10:17 | Inpatient (IN) | payer OTHER ==
[2019-07-07] MEDS ORDERED: fentaNYL 100 MCG/2 ML SDV IVPUSH ONE ×3 (10:57→13:46)
[2019-07-07] MEDS ORDERED: Sodium Chloride 0.9% 10 ML Syringe FLUSH PRN (10:57)
[2019-07-07] MEDS ORDERED: Ondansetron 4 MG/2 ML SDV IVPUSH ONE (10:57)
[2019-07-07] MEDS ORDERED: Lactated Ringers 1,000 ML IV SCH (11:00)
--- NOTE | 2019-07-07 11:01 | EDM.PDOC ---
ED HPI GENERAL MEDICAL PROBLEM - General Chief Complaint: Gastrointestinal Problem Stated Complaint: ABDOMINAL PAIN Time Seen by Provider: 07/07/19 10:54 Source of Information: Reports: Patient, Family, RN Notes Reviewed History Limitations: Reports: No Limitations - History of Present Illness INITIAL COMMENTS - FREE TEXT/NARRATIVE: 58-year-old gentleman presents emergency department with a complaint of abdominal pain, has had abdominal pain for the last 12 hours is nauseated no vomiting does have an extensive history of recurrent abdominal pain [facility] also history of pancreatitis Upper Abdomen Pain Score (Numeric/FACES): 10 - Related Data Allergies Allergy/AdvReac Type Severity Reaction Status Date / Time lorazepam [From Ativan] Allergy Intermediate Confusion Verified 07/07/19 10:33 sulfamethoxazole Allergy Intermediate Facial Verified 07/07/19 10:33 [From Septra] Spasms trimethoprim [From Septra] Allergy Intermediate Facial Verified 07/07/19 10:33 Spasms glycopyrrolate [From Robinul] Allergy Seizure Verified 07/07/19 10:33 Iodinated Contrast Media Allergy Renal Verified 07/07/19 10:33 [Iodinated Contrast Media - Failure Oral and] Home Meds: Home Meds Cetirizine [ZyrTEC] 10 mg PO BEDTIME 03/17/14 [History] Albuterol Sulfate [Proair Respiclick] 2 puff IN Q6HR PRN 10/27/16 [History] Budesonide/Formoterol [Symbicort 160-4.5 MCG] 2 puff IN BID 10/27/16 [History] Lidocaine 5% [Lidoderm 5%] 1 patch TOP ASDIRECTED PRN 10/27/16 [History] Metoprolol Tartrate [Lopressor] 50 mg PO BEDTIME 10/27/16 [History] rOPINIRole [Requip] 1 mg PO BEDTIME 10/27/16 [History] traZODone 100 mg PO BEDTIME 10/27/16 [History] Cyclobenzaprine HCl 20 mg PO BEDTIME PRN 12/20/16 [History] Docusate Sodium/Sennosides [Senna Plus] 2 each PO BID PRN 12/20/16 [History] Gabapentin [Neurontin] 1,200 mg PO BID 12/20/16 [History] Ondansetron [Zofran] 4 mg PO Q8H PRN #20 tab 01/20/17 [Rx] Ranitidine HCl [Zantac 75] 150 mg PO BID #60 tablet 01/20/17 [Rx] Acetaminophen 650 mg PO ASDIRECTED 08/29/18 [History] DULoxetine [Cymbalta] 80 mg PO DAILY 08/29/18 [History] Melatonin 9 mg PO BEDTIME 08/29/18 [History] Pantoprazole [ProTONIX] 40 mg PO DAILY 08/29/18 [History] metFORMIN [Glucophage] 1,000 mg PO BEDTIME 08/29/18 [History] glipiZIDE [Glucotrol] 10 mg PO BID 07/07/19 [History] Past Medical History HEENT History: Reports: Allergic Rhinitis Cardiovascular History: Reports: CAD, High Cholesterol, Hypertension, NM, Other (See Below) Other Cardiovascular History: angiogram Respiratory History: Reports: COPD, PE, Pneumonia, Recurrent, Sleep Apnea Gastrointestinal History: Reports: GERD, Hiatal Hernia, Pancreatitis, Other ( See Below) Other Gastrointestinal History: kink in bowel Genitourinary History: Reports: Acute Renal Failure, Chronic Renal Insuffiency Other Genitourinary History: PREVIOUS INDWELLING MCALLISTER Musculoskeletal History: Reports: Back Pain, Chronic, Neck Pain, Chronic, Osteoarthritis Neurological History: Reports: Concussion, Seizure Endocrine/Metabolic History: Reports: Diabetes, Type II Hematologic History: Reports: Anemia, Blood Transfusion(s) Dermatologic History: Reports: Other (See Below) Other Dermatologic History: rash at different times - Infectious Disease History Infectious Disease History: Reports: Chicken Pox - Past Surgical History Respiratory Surgical History: Reports: Thoracentesis GI Surgical History: Reports: Appendectomy, Eevlia Fundoplication Social & Family History - Family History GI: Reports: Pancreatitis - Tobacco Use Smoking Status *Q: Current Every Day Smoker Years of Tobacco use: 35 Packs/Tins Daily: 0.5 - Caffeine Use Caffeine Use: Reports: Coffee Other Caffeine Use: 2/d - Recreational Drug Use Recreational Drug Use: Yes Drug Use in Last 12 Months: Yes Recreational Drug Type: Reports: Marijuana/Hashish Recreational Drug Use Frequency: Daily Recreational Drug Last Use: yesterday ED ROS GENERAL - Review of Systems Review Of Systems: See Below Constitutional: Reports: No Symptoms HEENT: Reports: No Symptoms Respiratory: Reports: No Symptoms Cardiovascular: Reports: No Symptoms GI/Abdominal: Reports: Abdominal Pain, Flatus, Nausea, Vomiting : Reports: No Symptoms Musculoskeletal: Reports: No Symptoms ED EXAM, GI/ABD - Physical Exam Exam: See Below Exam Limited By: No Limitations General Appearance: Alert, Moderate Distress Respiratory/Chest: No Respiratory Distress, Lungs Clear, Normal Breath Sounds, No Accessory Muscle Use, Chest Non-Tender Cardiovascular: Regular Rate, Rhythm, No Murmur GI/Abdominal Exam: Normal Bowel Sounds, Soft, Guarding, Rebound, Tender Course - Vital Signs Last Recorded V/S: Last Vital Signs Temp 98.3 F 07/07/19 10:27 Pulse 54 L 07/07/19 14:03 Resp 18 07/07/19 11:24 BP 138/91 H 07/07/19 14:03 Pulse Ox 95 07/07/19 14:03 - Orders/Labs/Meds Orders: Active Orders 24 hr Category Date Time Status Peripheral IV Care [RC] . DIRECTED Care 07/07/19 10:57 Active Lactated Ringers [Ringers, Lactated] 1,000 ml Med 07/07/19 11:00 Active IV ASDIRECTED Lactated Ringers [Ringers, Lactated] 1,000 ml Med 07/07/19 13:46 Active IV BOLUS Sodium Chloride 0.9% [Saline Flush] Med 07/07/19 10:57 Active 10 ml FLUSH ASDIRECTED PRN Nasogastric Orogastric Tube Insertion [OM.PC] Routine Oth 07/07/19 14:08 Ordered Peripheral IV Insertion Adult [OM.PC] Urgent Oth 07/07/19 10:57 Ordered Medication Orders Lactated Ringer's (Ringers, Lactated) 1,000 mls @ 999 mls/hr IV ASDIRECTED DANTE Last Admin: 07/07/19 11:03 Dose: 999 mls/hr Lactated Ringer's (Ringers, Lactated) 1,000 mls @ 125 mls/hr IV BOLUS ONE Stop: 07/07/19 21:45 Last Admin: 07/07/19 13:55 Dose: 125 mls/hr Sodium Chloride (Saline Flush) 10 ml FLUSH ASDIRECTED PRN PRN Reason: Keep Vein Open Last Admin: 07/07/19 11:13 Dose: 10 ml Labs: Laboratory Tests 07/07/19 07/07/19 07/07/19 Range/Units 11:24 11:24 11:24 WBC 7.9 (4.5-11.0) K/uL RBC 5.09 (4.30-5.90) M/uL Hgb 15.1 H (12.0-15.0) g/dL Hct 45.4 (40.0-54.0) % MCV 89 (80-98) fL MCH 30 (27-31) pg MCHC 33 (32-36) % Plt Count 156 (150-400) K/uL Neut % (Auto) 66 (36-66) % Lymph % (Auto) 17 L (24-44) % Weakley % (Auto) 7 H (2-6) % Eos % (Auto) 9 H (2-4) % Baso % (Auto) 1 (0-1) % Sodium 134 L (140-148) mmol/L Potassium 4.3 (3.6-5.2) mmol/L Chloride 100 (100-108) mmol/L Carbon Dioxide 22 (21-32) mmol/L Anion Gap 16.3 H (5.0-14.0) mmol/L BUN 8 (7-18) mg/dL Creatinine 0.9 (0.8-1.3) mg/dL Est Cr Clr Drug Dosing 91.65 mL/min Estimated GFR (MDRD) > 60 (>60) Glucose 387 H (74-106) mg/dL Lactic Acid 2.6 H (0.4-2.0) mmol/L Calcium 9.3 (8.5-10.1) mg/dL Total Bilirubin 0.3 (0.2-1.0) mg/dL AST 24 D (15-37) U/L ALT 68 (12-78) U/L Alkaline Phosphatase 105 (46-116) U/L Troponin I < 0.017 (0.000-0.056) ng/mL Total Protein 7.3 (6.4-8.2) g/dL Albumin 3.5 (3.4-5.0) g/dL Globulin 3.8 H (2.3-3.5) g/dL Albumin/Globulin Ratio 0.9 L (1.2-2.2) Lipase 563 H (73-393) U/L Urine Color (YELLOW) Urine Appearance (CLEAR) Urine pH (5.0-8.0) Ur Specific Guin (1.008-1.030) Urine Protein (NEGATIVE) mg/dL Urine Glucose (UA) (NEGATIVE) mg/dL Urine Ketones (NEGATIVE) mg/dL Urine Occult Blood (NEGATIVE) Urine Nitrite (NEGATIVE) Urine Bilirubin (NEGATIVE) Urine Urobilinogen (0.2-1.0) EU/dL Ur Leukocyte Esterase (NEGATIVE) Urine RBC (0-5) Urine WBC (0-5) Ur Epithelial Cells Amorphous Sediment Urine Bacteria Urine Mucus 07/07/19 Range/Units 11:54 WBC (4.5-11.0) K/uL RBC (4.30-5.90) M/uL Hgb (12.0-15.0) g/dL Hct (40.0-54.0) % MCV (80-98) fL MCH (27-31) pg MCHC (32-36) % Plt Count (150-400) K/uL Neut % (Auto) (36-66) % Lymph % (Auto) (24-44) % Weakley % (Auto) (2-6) % Eos % (Auto) (2-4) % Baso % (Auto) (0-1) % Sodium (140-148) mmol/L Potassium (3.6-5.2) mmol/L Chloride (100-108) mmol/L Carbon Dioxide (21-32) mmol/L Anion Gap (5.0-14.0) mmol/L BUN (7-18) mg/dL Creatinine (0.8-1.3) mg/dL Est Cr Clr Drug Dosing mL/min Estimated GFR (MDRD) (>60) Glucose (74-106) mg/dL Lactic Acid (0.4-2.0) mmol/L Calcium (8.5-10.1) mg/dL Total Bilirubin (0.2-1.0) mg/dL AST (15-37) U/L ALT (12-78) U/L Alkaline Phosphatase (46-116) U/L Troponin I (0.000-0.056) ng/mL Total Protein (6.4-8.2) g/dL Albumin (3.4-5.0) g/dL Globulin (2.3-3.5) g/dL Albumin/Globulin Ratio (1.2-2.2) Lipase (73-393) U/L Urine Color Yellow (YELLOW) Urine Appearance Clear (CLEAR) Urine pH 7.5 (5.0-8.0) Ur Specific Guin 1.020 (1.008-1.030) Urine Protein Negative (NEGATIVE) mg/dL Urine Glucose (UA) 500 H (NEGATIVE) mg/dL Urine Ketones Negative (NEGATIVE) mg/dL Urine Occult Blood Negative (NEGATIVE) Urine Nitrite Negative (NEGATIVE) Urine Bilirubin Negative (NEGATIVE) Urine Urobilinogen 0.2 (0.2-1.0) EU/dL Ur Leukocyte Esterase Negative (NEGATIVE) Urine RBC Not seen (0-5) Urine WBC Not seen (0-5) Ur Epithelial Cells Not seen Amorphous Sediment Not seen Urine Bacteria Not seen Urine Mucus Not seen Meds: Medications Generic Name Dose Route Start Last Admin Trade Name Freq PRN Reason Stop Dose Admin Lactated Ringer's 1,000 mls @ 999 mls/hr 07/07/19 11:00 07/07/19 11:03 Ringers, Lactated IV 999 mls/hr ASDIRECTED DANTE Administration Lactated Ringer's 1,000 mls @ 125 mls/hr 07/07/19 13:46 07/07/19 13:55 Ringers, Lactated IV 07/07/19 21:45 125 mls/hr BOLUS ONE Administration Sodium Chloride 10 ml 07/07/19 10:57 07/07/19 11:13 Saline Flush FLUSH 10 ml ASDIRECTED PRN Administration Keep Vein Open Discontinued Medications Generic Name Dose Route Start Last Admin Trade Name Freq PRN Reason Stop Dose Admin Fentanyl 50 mcg 07/07/19 10:57 07/07/19 11:10 Sublimaze IVPUSH 07/07/19 10:58 50 mcg ONETIME ONE Administration Fentanyl 100 mcg 07/07/19 11:39 07/07/19 11:47 Sublimaze IVPUSH 07/07/19 11:40 100 mcg ONETIME ONE Administration Fentanyl 100 mcg 07/07/19 13:46 07/07/19 13:55 Sublimaze IVPUSH 07/07/19 13:47 100 mcg ONETIME ONE Administration Lactated Ringer's 1,000 mls @ 999 mls/hr 07/07/19 12:35 07/07/19 12:38 Ringers, Lactated IV 07/07/19 13:35 999 mls/hr BOLUS ONE Administration Ondansetron HCl 4 mg 07/07/19 10:57 07/07/19 11:05 Zofran IVPUSH 07/07/19 10:58 4 mg ONETIME ONE Administration Departure - Departure Time of Disposition: 14:53 Disposition: Admitted As Inpatient 68 Condition: Fair Clinical Impression: Abdominal pain - Discharge Information Referrals: PCP,None [Primary Care Provider] - Forms: ED Department Discharge - My Orders Last 24 Hours: My Active Orders 07/07/19 10:57 Peripheral IV Care [RC] . DIRECTED Sodium Chloride 0.9% [Saline Flush] 10 ml FLUSH ASDIRECTED PRN Peripheral IV Insertion Adult [OM.PC] Urgent 07/07/19 11:00 Lactated Ringers [Ringers, Lactated] 1,000 ml IV ASDIRECTED 07/07/19 13:46 Lactated Ringers [Ringers, Lactated] 1,000 ml IV BOLUS 07/07/19 14:08 Nasogastric Orogastric Tube Insertion [OM.PC] Routine - Assessment/Plan Last 24 Hours: My Active Orders 07/07/19 10:57 Peripheral IV Care [RC] . DIRECTED Sodium Chloride 0.9% [Saline Flush] 10 ml FLUSH ASDIRECTED PRN Peripheral IV Insertion Adult [OM.PC] Urgent 07/07/19 11:00 Lactated Ringers [Ringers, Lactated] 1,000 ml IV ASDIRECTED 07/07/19 13:46 Lactated Ringers [Ringers, Lactated] 1,000 ml IV BOLUS 07/07/19 14:08 Nasogastric Orogastric Tube Insertion [OM.PC] Routine Plan: Assessment Acuity = acute Site and laterality = abdominal pain concern for development of partial small bowel obstruction Etiology = unknown Manifestations = nausea Location of injury = Home Lab values = CBC unremarkable CMP unremarkable lactic acid slightly elevated 2.6 consistent lactic acidosis, lipase elevated 536 consistent with chronic pancreatitis, urinalysis unremarkable CT scan describes a possible evolving obstruction in the ileus Plan [facility] , was informed by the [facility] outdoor recreation specialist that they have no beds available at this time. called and discussed the case with hospitalist outdoor recreation specialist at 14:52 NG tube has been placed This note was dictated using [employer] voice recognition software please call with any questions on syntax or grammar.
[2019-07-07] MEDS ORDERED: Lactated Ringers 1,000 ML IV ONE ×2 (12:35→13:46)
--- NOTE | 2019-07-07 13:56 | CRLCT ---
INDICATION: Generalized abdominal pain. TECHNIQUE: CT abdomen and pelvis acquired without contrast. Coronal and sagittal reconstructions. COMPARISON: CT abdomen/pelvis 08/29/2018. FINDINGS: Moderate-sized hiatal hernia. New postoperative changes of the gastroesophageal junction. The unenhanced liver, spleen, kidneys, and adrenal glands are normal in appearance. New suture material in the gallbladder fossa, likely representing interval cholecystectomy as the gallbladder is no longer seen. Diffuse calcifications throughout the pancreas compatible with history of pancreatitis. Multiple collateral vessels within the upper abdomen compatible with history of prior portal vein thrombus. Stable mildly prominent right extrarenal pelvis. No hydronephrosis bilaterally. No urinary calculi. Moderately distended urinary bladder which is otherwise unremarkable. Mild prostate enlargement. There are a few mildly prominent fluid-filled loops of ileum in the right lower quadrant measuring up to 3.1 cm (series 2 images 80 2-103). No dilation of proximal or mid small bowel loops. This is of uncertain significance. The terminal ileum is decompressed. Mild amount of stool in the ascending colon. No intraperitoneal free air or fluid. Aortoiliac vascular calcifications. Prominent periaortic lymph nodes are unchanged and may be reactive. No lymphadenopathy by size criteria. The lung bases are clear. IMPRESSION: 1. Few mildly prominent fluid-filled loops of ileum in the right lower quadrant measuring at the upper limits of normal in caliber. Findings are of uncertain significance. No proximal or mid small bowel dilation. Cannot entirely exclude a developing obstruction. 2. No other findings to explain abdominal pain. 3. Interval postoperative changes of cholecystectomy and at the gastroesophageal junction. Persistent moderate sized hiatal hernia. 4. Moderately distended urinary bladder. 5. Sequela of chronic pancreatitis. Please note that all CT scans at this facility use dose modulation, iterative reconstruction, and/or weight-based dosing when appropriate to reduce radiation dose to as low as reasonably achievable. Dictated by Radha Kwan MD @ Jul 07 2019 1:42PM Signed by Dr. Radha Kwan @ Jul 07 2019 1:56PM
--- NOTE | 2019-07-07 15:37 | PCM.HP.2 ---
H&P History of Present Illness - General Date of Service: 07/07/19 Admit Problem/Dx: Admission Diagnosis/Problem Admission Diagnosis/Problem Partial small bowel obstruction Source of Information: Patient, Family, Provider History Limitations: Reports: No Limitations - History of Present Illness Initial Comments - Free Text/Narative: CC: Shaina jauregui HPI: Armando presented to the emergency room today with about 12 hours of acute epigastric abdominal pain. He has been struggling with chronic intermittent abdominal pain for nearly a year. Yesterday he developed moderate to moderately severe pain in the upper portion of his abdomen. This was a sharp pain that was similar to previous chronic pain but more intense and it persisted for much longer than usual. The pain did not radiate. He did not notice anything that made it worse. He did take a part of a pain pill but this did not help any. Pain has been steadily getting worse since onset. He has some nausea but no vomiting. Bowel movements have continued to be fairly normal and he has not had recent episodes of diarrhea. He has not had any fevers or chills. This does not quite feel like previous episodes of pancreatitis. No sick contacts or recent travel. Work-up in the emergency room included laboratory studies which showed a very mild elevation of the lipase but were otherwise fairly unremarkable. CT scan of the abdomen and pelvis showed some dilation of loops of bowel in the ileum that the radiologist felt could be consistent with a developing bowel obstruction or partial obstruction. Pain is better after IV pain medications in the emergency room. An NG tube has been placed. He will be admitted for management of a possible partial obstruction versus developing bowel obstruction. Upper Abdomen Pain Score (Numeric/FACES): 10 - Related Data Allergies/Adverse Reactions: Allergies Allergy/AdvReac Type Severity Reaction Status Date / Time lorazepam [From Ativan] Allergy Intermediate Confusion Verified 07/07/19 10:33 sulfamethoxazole Allergy Intermediate Facial Verified 07/07/19 10:33 [From Septra] Spasms trimethoprim [From Septra] Allergy Intermediate Facial Verified 07/07/19 10:33 Spasms glycopyrrolate [From Robinul] Allergy Seizure Verified 07/07/19 10:33 Iodinated Contrast Media Allergy Renal Verified 07/07/19 10:33 [Iodinated Contrast Media - Failure Oral and] Home Medications: Home Meds Cetirizine [ZyrTEC] 10 mg PO BEDTIME 03/17/14 [History] Albuterol Sulfate [Proair Respiclick] 2 puff IN Q6HR PRN 10/27/16 [History] Budesonide/Formoterol [Symbicort 160-4.5 MCG] 2 puff IN BID 10/27/16 [History] Lidocaine 5% [Lidoderm 5%] 1 patch TOP ASDIRECTED PRN 10/27/16 [History] Metoprolol Tartrate [Lopressor] 50 mg PO BEDTIME 10/27/16 [History] rOPINIRole [Requip] 1 mg PO BEDTIME 10/27/16 [History] traZODone 100 mg PO BEDTIME 10/27/16 [History] Cyclobenzaprine HCl 20 mg PO BEDTIME PRN 12/20/16 [History] Docusate Sodium/Sennosides [Senna Plus] 2 each PO BID PRN 12/20/16 [History] Gabapentin [Neurontin] 1,200 mg PO BID 12/20/16 [History] Ondansetron [Zofran] 4 mg PO Q8H PRN #20 tab 01/20/17 [Rx] Ranitidine HCl [Zantac 75] 150 mg PO BID #60 tablet 01/20/17 [Rx] Acetaminophen 650 mg PO ASDIRECTED 08/29/18 [History] DULoxetine [Cymbalta] 80 mg PO DAILY 08/29/18 [History] Melatonin 9 mg PO BEDTIME 08/29/18 [History] Pantoprazole [ProTONIX] 40 mg PO DAILY 08/29/18 [History] metFORMIN [Glucophage] 1,000 mg PO BEDTIME 08/29/18 [History] glipiZIDE [Glucotrol] 10 mg PO BID 07/07/19 [History] Past Medical History HEENT History: Reports: Allergic Rhinitis Cardiovascular History: Reports: CAD, High Cholesterol, Hypertension, MT, Other (See Below) Other Cardiovascular History: angiogram Respiratory History: Reports: COPD, PE, Pneumonia, Recurrent, Sleep Apnea Gastrointestinal History: Reports: GERD, Hiatal Hernia, Pancreatitis, Other ( See Below) Other Gastrointestinal History: kink in bowel Genitourinary History: Reports: Acute Renal Failure, Chronic Renal Insuffiency Other Genitourinary History: PREVIOUS INDWELLING MCALLISTER Musculoskeletal History: Reports: Back Pain, Chronic, Neck Pain, Chronic, Osteoarthritis Neurological History: Reports: Concussion, Seizure Endocrine/Metabolic History: Reports: Diabetes, Type II Hematologic History: Reports: Anemia, Blood Transfusion(s) Dermatologic History: Reports: Other (See Below) Other Dermatologic History: rash at different times - Infectious Disease History Infectious Disease History: Reports: Chicken Pox - Past Surgical History Respiratory Surgical History: Reports: Thoracentesis GI Surgical History: Reports: Appendectomy, Evelia Fundoplication Social & Family History - Family History GI: Reports: Pancreatitis - Tobacco Use Smoking Status *Q: Current Every Day Smoker Years of Tobacco use: 35 Packs/Tins Daily: 0.5 - Caffeine Use Caffeine Use: Reports: Coffee Other Caffeine Use: 2/d - Alcohol Use Alcohol Use History: No - Recreational Drug Use Recreational Drug Use: Yes Drug Use in Last 12 Months: Yes Recreational Drug Type: Reports: Marijuana/Hashish Recreational Drug Use Frequency: Daily Recreational Drug Last Use: yesterday H&P Review of Systems - Review of Systems: Review Of Systems: See Below Free Text/Narrative: A complete 12 point review of systems was obtained. Pertinent positives and negatives are noted in the history of present illness. All other systems were reviewed and were negative except as noted. Exam - Exam Exam: See Below - Vital Signs Vital Signs: Last Vital Signs Temp 36.8 C 07/07/19 10:27 Pulse 59 L 07/07/19 15:05 Resp 16 07/07/19 15:05 BP 133/79 07/07/19 15:05 Pulse Ox 95 07/07/19 15:05 Weight: 76.839 kg - Exam Quality Assessment: No: Supplemental Oxygen General: Alert, Oriented, Cooperative. No: Mild Distress HEENT: Conjunctiva Clear. No: Mucosa Moist & [place] (dry), Scleral Icterus Neck: Supple, Trachea Midline. No: Lymphadenopathy Lungs: Clear to Auscultation, Normal Respiratory Effort Cardiovascular: Regular Rate, Regular Rhythm. No: Systolic Murmur GI/Abdominal Exam: Soft, Non-Tender, No Distention, Abnormal Bowel Sounds ( mildly hypoactive ) Back Exam: Normal Inspection, Full Range of Motion Extremities: No Pedal Edema. No: Increased Warmth Peripheral Pulses: 2+: Dorsalis Pedis (L), Dorsalis Pedis (R) Skin: Warm, Dry Neuro Extensive - Mental Status: Alert, Oriented x3, Nl Response to Commands Neuro Extensive - Motor, Sensory, Reflexes: No: Dysarthria, Tremor Psychiatric: Alert, Normal Affect - Patient Data Lab Results Last 24 hrs: Laboratory Results - last 24 hr 07/07/19 07/07/19 07/07/19 Range/Units 11:24 11:24 11:24 WBC 7.9 (4.5-11.0) K/uL RBC 5.09 (4.30-5.90) M/uL Hgb 15.1 H (12.0-15.0) g/dL Hct 45.4 (40.0-54.0) % MCV 89 (80-98) fL MCH 30 (27-31) pg MCHC 33 (32-36) % Plt Count 156 (150-400) K/uL Neut % (Auto) 66 (36-66) % Lymph % (Auto) 17 L (24-44) % [place] % (Auto) 7 H (2-6) % Eos % (Auto) 9 H (2-4) % Baso % (Auto) 1 (0-1) % Sodium 134 L (140-148) mmol/L Potassium 4.3 (3.6-5.2) mmol/L Chloride 100 (100-108) mmol/L Carbon Dioxide 22 (21-32) mmol/L Anion Gap 16.3 H (5.0-14.0) mmol/L BUN 8 (7-18) mg/dL Creatinine 0.9 (0.8-1.3) mg/dL Est Cr Clr Drug Dosing 91.65 mL/min Estimated GFR (MDRD) > 60 (>60) Glucose 387 H (74-106) mg/dL Lactic Acid 2.6 H (0.4-2.0) mmol/L Calcium 9.3 (8.5-10.1) mg/dL Total Bilirubin 0.3 (0.2-1.0) mg/dL AST 24 D (15-37) U/L ALT 68 (12-78) U/L Alkaline Phosphatase 105 (46-116) U/L Troponin I < 0.017 (0.000-0.056) ng/mL Total Protein 7.3 (6.4-8.2) g/dL Albumin 3.5 (3.4-5.0) g/dL Globulin 3.8 H (2.3-3.5) g/dL Albumin/Globulin Ratio 0.9 L (1.2-2.2) Lipase 563 H (73-393) U/L Urine Color (YELLOW) Urine Appearance (CLEAR) Urine pH (5.0-8.0) Ur Specific [place] (1.008-1.030) Urine Protein (NEGATIVE) mg/dL Urine Glucose (UA) (NEGATIVE) mg/dL Urine Ketones (NEGATIVE) mg/dL Urine Occult Blood (NEGATIVE) Urine Nitrite (NEGATIVE) Urine Bilirubin (NEGATIVE) Urine Urobilinogen (0.2-1.0) EU/dL Ur Leukocyte Esterase (NEGATIVE) Urine RBC (0-5) Urine WBC (0-5) Ur Epithelial Cells Amorphous Sediment Urine Bacteria Urine Mucus 07/07/19 Range/Units 11:54 WBC (4.5-11.0) K/uL RBC (4.30-5.90) M/uL Hgb (12.0-15.0) g/dL Hct (40.0-54.0) % MCV (80-98) fL MCH (27-31) pg MCHC (32-36) % Plt Count (150-400) K/uL Neut % (Auto) (36-66) % Lymph % (Auto) (24-44) % [place] % (Auto) (2-6) % Eos % (Auto) (2-4) % Baso % (Auto) (0-1) % Sodium (140-148) mmol/L Potassium (3.6-5.2) mmol/L Chloride (100-108) mmol/L Carbon Dioxide (21-32) mmol/L Anion Gap (5.0-14.0) mmol/L BUN (7-18) mg/dL Creatinine (0.8-1.3) mg/dL Est Cr Clr Drug Dosing mL/min Estimated GFR (MDRD) (>60) Glucose (74-106) mg/dL Lactic Acid (0.4-2.0) mmol/L Calcium (8.5-10.1) mg/dL Total Bilirubin (0.2-1.0) mg/dL AST (15-37) U/L ALT (12-78) U/L Alkaline Phosphatase (46-116) U/L Troponin I (0.000-0.056) ng/mL Total Protein (6.4-8.2) g/dL Albumin (3.4-5.0) g/dL Globulin (2.3-3.5) g/dL Albumin/Globulin Ratio (1.2-2.2) Lipase (73-393) U/L Urine Color Yellow (YELLOW) Urine Appearance Clear (CLEAR) Urine pH 7.5 (5.0-8.0) Ur Specific [place] 1.020 (1.008-1.030) Urine Protein Negative (NEGATIVE) mg/dL Urine Glucose (UA) 500 H (NEGATIVE) mg/dL Urine Ketones Negative (NEGATIVE) mg/dL Urine Occult Blood Negative (NEGATIVE) Urine Nitrite Negative (NEGATIVE) Urine Bilirubin Negative (NEGATIVE) Urine Urobilinogen 0.2 (0.2-1.0) EU/dL Ur Leukocyte Esterase Negative (NEGATIVE) Urine RBC Not seen (0-5) Urine WBC Not seen (0-5) Ur Epithelial Cells Not seen Amorphous Sediment Not seen Urine Bacteria Not seen Urine Mucus Not seen Result Diagrams: 07/07/19 11:24 07/07/19 11:24 Imaging Impressions Last 24 hrs: CT scan of the abdomen and pelvis -images personally reviewed -there are a few loops of bowel in the mid abdomen that are mildly dilated concerning for possible early or developing obstruction. There are sequela of chronic pancreatitis but no evidence for pseudocyst or acute pancreatitis. There is no free air. No other acute findings. *Q Meaningful Use (ADM) - VTE Risk Assess *Q Each Risk Factor Represents 1 Point: Age 41 - 59 years, Abnormal Pulmonary Function (COPD) Total Score 1 Point Risk Factors: 2 Each Risk Factor Represents 2 Points: None Total Score 2 Point Risk Factors: 0 Each Risk Factor Represents 3 Points: None Total Score 3 Point Risk Factors: 0 Each Risk Factor Represents 5 Points: None Total Score 5 Point Risk Factors: 0 Venous Thromboembolism Risk Factor Score *Q: 2 - Problem List (1) Partial small bowel obstruction SNOMED Code(s): 498892175 ICD Code: K56.600 - PARTIAL INTESTINAL OBSTRUCTION, UNSPECIFIED TO CAUSE Status: Acute Current Visit: Yes (2) Abdominal pain SNOMED Code(s): 15437844 ICD Code: R10.9 - UNSPECIFIED ABDOMINAL PAIN Status: Acute Current Visit : No Qualifiers: Abdominal location: epigastric Qualified Code(s): R10.13 - Epigastric pain (3) Diabetes mellitus type 2 in nonobese SNOMED Code(s): 933300303 ICD Code: E11.9 - TYPE 2 DIABETES MELLITUS WITHOUT COMPLICATIONS Status: Chronic Current Visit: Yes (4) Tobacco dependence SNOMED Code(s): 66278754 ICD Code: F17.200 - NICOTINE DEPENDENCE, UNSPECIFIED, UNCOMPLICATED Status : Chronic Current Visit: No Problem List Initiated/Reviewed/Updated: Yes Orders Last 24hrs: Active Orders 24 hr Category Date Time Status Patient Status Manage Transfer [TRANSFER] Routine ADT 07/07/19 15:27 Ordered Peripheral IV Care [RC] . DIRECTED Care 07/07/19 10:57 Active Lactated Ringers [Ringers, Lactated] 1,000 ml Med 07/07/19 11:00 Active IV ASDIRECTED Lactated Ringers [Ringers, Lactated] 1,000 ml Med 07/07/19 13:46 Active IV BOLUS Sodium Chloride 0.9% [Saline Flush] Med 07/07/19 10:57 Active 10 ml FLUSH ASDIRECTED PRN Nasogastric Orogastric Tube Insertion [OM.PC] Routine Oth 07/07/19 14:08 Ordered Peripheral IV Insertion Adult [OM.PC] Urgent Oth 07/07/19 10:57 Ordered Resuscitation Status Routine Resus Stat 07/07/19 15:29 Ordered Medication Orders Lactated Ringer's (Ringers, Lactated) 1,000 mls @ 999 mls/hr IV ASDIRECTED DANTE Last Admin: 07/07/19 11:03 Dose: 999 mls/hr Lactated Ringer's (Ringers, Lactated) 1,000 mls @ 125 mls/hr IV BOLUS ONE Stop: 07/07/19 21:45 Last Admin: 07/07/19 13:55 Dose: 125 mls/hr Sodium Chloride (Saline Flush) 10 ml FLUSH ASDIRECTED PRN PRN Reason: Keep Vein Open Last Admin: 07/07/19 11:13 Dose: 10 ml Assessment/Plan Comment:: ASSESSMENT AND PLAN - Suspected partial small bowel obstruction-patient presented with epigastric abdominal pain and CT suggestive of early or partial obstruction. He does have a history of multiple abdominal surgeries. Lipase level very mildly elevated but this does not quite sound like pancreatitis and CT did not suggest acute pancreatic abnormality. NG tube has been placed but there is minimal return so far. Patient more comfortable following IV pain medication. -IV fluids -Symptom management -NG tube to continuous suction -Flat and upright x-ray in the morning Type 2 diabetes mellitus-patient will be n.p.o. for now so we will hold his oral medications for the time being. -Low-dose sliding scale insulin Chronic abdominal pain-extensive work-up, still waiting for GI consultation. Status post multiple surgical interventions. -Consider trial of hyoscyamine Tobacco dependence- -Encourage cessation -Nicotine patch Maintenance issues - - DVT prophylaxis -mechanical - GI prophylaxis -PPI - Nutrition -nothing by mouth - Mcallister catheter -not indicated CODE STATUS -full code Admission justification -this patient will be admitted for inpatient services and is medically appropriate meeting medical necessity for inpatient admission as outlined in my documentation. I reasonably expect the patient will require inpatient services that span a period time over 2 midnights. I reasonably expect this patient to be discharged or transferred within 96 hours [facility]. Disposition - I would anticipate discharge home after the hospital stay. The [facility] was contacted prior to admission and their beds were full so permission was granted for the patient to remain hospitalized here in [place]. Primary care physician - [facility] Drew Dimas M.D. - Mortality Measure Prognosis:: Good
[2019-07-07] MEDS ORDERED: HYDROmorphone 1 MG/ML Syringe IVPUSH ONE (16:32)
[2019-07-07] MEDS ORDERED: LORazepam 2 MG/ML SDV IVPUSH PRN (17:59)
[2019-07-07] MEDS ORDERED: Pantoprazole 40 MG Vial IV ONE (17:59)
[2019-07-07] MEDS ORDERED: Cyclobenzaprine 10 MG Tab PO PRN (17:59)
[2019-07-07] MEDS ORDERED: Magnesium Hydroxide 400 MG/5 ML Susp 30 ML Cup PO PRN (17:59)
[2019-07-07] MEDS ORDERED: Albuterol 0.083% 2.5 MG/3 ML Neb Soln NEB PRN (17:59)
[2019-07-07] MEDS ORDERED: Ondansetron 4 MG Tab.DIS PO PRN (17:59)
[2019-07-07] MEDS ORDERED: Acetaminophen 325 MG Tab PO PRN (17:59)
[2019-07-07] MEDS: fentaNYL 100 MCG/2 ML SDV IVPUSH PRN ×2 (19:40→23:17)
[2019-07-07] MEDS: Nicotine 14 MG/24 Hr Patch TRDERM SCH (20:33)
[2019-07-07] MEDS: Insulin Lispro 100 Unit/ML 3 ML KwikPen SUBCUT SCH ×2 (20:34→21:25)
[2019-07-07] MEDS: Metoprolol Tartrate 50 MG Tab PO SCH (20:36)
[2019-07-07] MEDS: rOPINIRole 1 MG Tab PO SCH (20:37)
[2019-07-07] MEDS: traZODone 50 MG Tab PO SCH (20:37)
[2019-07-07] MEDS: Gabapentin 400 MG Cap PO SCH (20:37)
[2019-07-07] MEDS: Melatonin 3 MG Tab PO SCH (20:38)
[2019-07-07] MEDS ORDERED: Fluticasone-Salmeterol 232-14 MCG Powder Inhalent INH SCH (21:00)
[2019-07-07] MEDS: Sodium Chloride 0.9% 1,000 ML IV SCH (21:14)
[2019-07-08] MEDS: Ondansetron 4 MG/2 ML SDV IV PRN ×2 (03:11→11:38)
[2019-07-08] MEDS: fentaNYL 100 MCG/2 ML SDV IVPUSH PRN ×8 (03:11→21:09)
[2019-07-08] MEDS: Sodium Chloride 0.9% 1,000 ML IV SCH ×2 (05:21→14:10)
--- NOTE | 2019-07-08 05:48 | CRLCR ---
Indication: Bowel obstruction Technique: KUB 2 view Comparison: CT abdomen pelvis July 07, 2019 Findings/Impression: : Gastric drainage tube tip terminates at the level of the gastric fundus. Nonspecific bowel gas pattern. No free air or pneumatosis. Suture material seen in the right mid abdomen. Lung bases are clear. Osseous structures intact. Dictated by Mendy Perez MD @ Jul 08 2019 5:46AM Signed by Dr. Mendy Perez @ Jul 08 2019 5:47AM
[2019-07-08] MEDS ORDERED: HYDROmorphone 2 MG Tab PO PRN (07:43)
[2019-07-08] MEDS: Pantoprazole 40 MG Tab.CR PO SCH (08:26)
[2019-07-08] MEDS: Insulin Lispro 100 Unit/ML 3 ML KwikPen SUBCUT SCH ×3 (08:27→21:03)
[2019-07-08] MEDS: Nicotine 14 MG/24 Hr Patch TRDERM SCH (08:27)
[2019-07-08] MEDS: Famotidine 20 MG Tab PO SCH ×2 (09:00→21:13)
[2019-07-08] MEDS: DULoxetine 20 MG Cap PO SCH (09:00)
[2019-07-08] MEDS: Gabapentin 400 MG Cap PO SCH ×2 (09:01→21:14)
--- NOTE | 2019-07-08 10:12 | PCM.PN ---
- General Info Date of Service: 07/08/19 Subjective Update: No acute events overnight. Pain is better than yesterday but persists. He has had nearly 600 mL out of the NG tube since it was put in in the emergency room. He has not had any fevers. He is passing some gas. X-ray this morning shows a nonspecific bowel gas pattern. His hepatic panel numbers including AST and ALT have increased since yesterday. No nausea or vomiting. Lipase level is better than yesterday. Functional Status: Reports: Pain Controlled - Review of Systems General: Denies: Fever Gastrointestinal: Reports: Abdominal Pain, Flatus - Patient Data Vitals - Most Recent: Last Vital Signs Temp 36.8 C 07/08/19 07:51 Pulse 62 07/08/19 07:51 Resp 16 07/08/19 07:51 BP 134/82 07/08/19 07:51 Pulse Ox 98 07/08/19 07:51 Weight - Most Recent: 77.201 kg I&O - Last 24 Hours: Intake & Output 07/07/19 07/08/19 07/08/19 22:59 06:59 14:59 Intake Total 1318 Output Total 800 600 100 Balance -800 718 -100 Lab Results Last 24 Hours: Laboratory Results - last 24 hr 07/07/19 07/07/19 07/07/19 Range/Units 11:24 11:24 11:24 WBC 7.9 (4.5-11.0) K/uL RBC 5.09 (4.30-5.90) M/uL Hgb 15.1 H (12.0-15.0) g/dL Hct 45.4 (40.0-54.0) % MCV 89 (80-98) fL MCH 30 (27-31) pg MCHC 33 (32-36) % Plt Count 156 (150-400) K/uL Neut % (Auto) 66 (36-66) % Lymph % (Auto) 17 L (24-44) % [place] % (Auto) 7 H (2-6) % Eos % (Auto) 9 H (2-4) % Baso % (Auto) 1 (0-1) % Sodium 134 L (140-148) mmol/L Potassium 4.3 (3.6-5.2) mmol/L Chloride 100 (100-108) mmol/L Carbon Dioxide 22 (21-32) mmol/L Anion Gap 16.3 H (5.0-14.0) mmol/L BUN 8 (7-18) mg/dL Creatinine 0.9 (0.8-1.3) mg/dL Est Cr Clr Drug Dosing 91.65 mL/min Estimated GFR (MDRD) > 60 (>60) Glucose 387 H (74-106) mg/dL Lactic Acid 2.6 H (0.4-2.0) mmol/L Calcium 9.3 (8.5-10.1) mg/dL Total Bilirubin 0.3 (0.2-1.0) mg/dL AST 24 D (15-37) U/L ALT 68 (12-78) U/L Alkaline Phosphatase 105 (46-116) U/L Troponin I < 0.017 (0.000-0.056) ng/mL Total Protein 7.3 (6.4-8.2) g/dL Albumin 3.5 (3.4-5.0) g/dL Globulin 3.8 H (2.3-3.5) g/dL Albumin/Globulin Ratio 0.9 L (1.2-2.2) Lipase 563 H (73-393) U/L Urine Color (YELLOW) Urine Appearance (CLEAR) Urine pH (5.0-8.0) Ur Specific [place] (1.008-1.030) Urine Protein (NEGATIVE) mg/dL Urine Glucose (UA) (NEGATIVE) mg/dL Urine Ketones (NEGATIVE) mg/dL Urine Occult Blood (NEGATIVE) Urine Nitrite (NEGATIVE) Urine Bilirubin (NEGATIVE) Urine Urobilinogen (0.2-1.0) EU/dL Ur Leukocyte Esterase (NEGATIVE) Urine RBC (0-5) Urine WBC (0-5) Ur Epithelial Cells Amorphous Sediment Urine Bacteria Urine Mucus 07/07/19 07/08/19 07/08/19 Range/Units 11:54 04:30 04:30 WBC 7.8 (4.5-11.0) K/uL RBC 4.89 (4.30-5.90) M/uL Hgb 14.4 (12.0-15.0) g/dL Hct 44.1 (40.0-54.0) % MCV 90 (80-98) fL MCH 29 (27-31) pg MCHC 33 (32-36) % Plt Count 139 L (150-400) K/uL Neut % (Auto) (36-66) % Lymph % (Auto) (24-44) % [place] % (Auto) (2-6) % Eos % (Auto) (2-4) % Baso % (Auto) (0-1) % Sodium 135 L (140-148) mmol/L Potassium 4.2 (3.6-5.2) mmol/L Chloride 102 (100-108) mmol/L Carbon Dioxide 23 (21-32) mmol/L Anion Gap 14.2 H (5.0-14.0) mmol/L BUN 6 L (7-18) mg/dL Creatinine 0.7 L (0.8-1.3) mg/dL Est Cr Clr Drug Dosing 117.83 mL/min Estimated GFR (MDRD) > 60 (>60) Glucose 195 H (74-106) mg/dL Lactic Acid (0.4-2.0) mmol/L Calcium 8.3 L (8.5-10.1) mg/dL Total Bilirubin 0.6 D (0.2-1.0) mg/dL AST 149 H D (15-37) U/L ALT 198 H (12-78) U/L Alkaline Phosphatase 112 (46-116) U/L Troponin I (0.000-0.056) ng/mL Total Protein 6.5 (6.4-8.2) g/dL Albumin 3.1 L (3.4-5.0) g/dL Globulin 3.4 (2.3-3.5) g/dL Albumin/Globulin Ratio 0.9 L (1.2-2.2) Lipase 417 H (73-393) U/L Urine Color Yellow (YELLOW) Urine Appearance Clear (CLEAR) Urine pH 7.5 (5.0-8.0) Ur Specific [place] 1.020 (1.008-1.030) Urine Protein Negative (NEGATIVE) mg/dL Urine Glucose (UA) 500 H (NEGATIVE) mg/dL Urine Ketones Negative (NEGATIVE) mg/dL Urine Occult Blood Negative (NEGATIVE) Urine Nitrite Negative (NEGATIVE) Urine Bilirubin Negative (NEGATIVE) Urine Urobilinogen 0.2 (0.2-1.0) EU/dL Ur Leukocyte Esterase Negative (NEGATIVE) Urine RBC Not seen (0-5) Urine WBC Not seen (0-5) Ur Epithelial Cells Not seen Amorphous Sediment Not seen Urine Bacteria Not seen Urine Mucus Not seen Med Orders - Current: Current Medications Acetaminophen (Tylenol) 650 mg PO Q4H PRN PRN Reason: Pain (Mild 1-3)/fever Albuterol (Proventil Neb Soln) 2.5 mg NEB Q4H PRN PRN Reason: Shortness Of Breath/wheezing Cyclobenzaprine HCl (Flexeril) 20 mg PO BEDTIME PRN PRN Reason: muscle pain Duloxetine HCl (Cymbalta) 80 mg PO DAILY [facility] Last Admin: 07/08/19 09:00 Dose: 80 mg Famotidine (Pepcid) 20 mg PO BID [facility] Last Admin: 07/08/19 09:00 Dose: 20 mg Fentanyl (Sublimaze) 50 mcg IVPUSH Q2H PRN PRN Reason: Pain (severe 7-10) Last Admin: 07/08/19 08:01 Dose: 50 mcg Gabapentin (Neurontin) 1,200 mg PO BID [facility] Last Admin: 07/08/19 09:01 Dose: 1,200 mg Hydromorphone HCl (Dilaudid) 2 - 4 mg PO Q4H PRN PRN Reason: 2 mg - MILD PAIN; 4mg - SEVERE Insulin Human Lispro (Humalog) 0 unit SUBCUT QIDACANDBED [facility]; Protocol Last Admin: 07/08/19 08:27 Dose: 1 units Lorazepam (Ativan) 0.5 mg IVPUSH Q4H PRN PRN Reason: Nausea/Vomiting Magnesium Hydroxide (Milk Of Magnesia) 30 ml PO Q12H PRN PRN Reason: Constipation Melatonin (Melatonin) 9 mg PO BEDTIME [facility] Last Admin: 07/07/19 20:38 Dose: 9 mg Metoprolol Tartrate (Lopressor) 50 mg PO BEDTIME [facility] Last Admin: 07/07/19 20:36 Dose: 50 mg Nicotine (Habitrol) 14 mg TRDERM DAILY [facility] Last Admin: 07/08/19 08:27 Dose: 14 mg Ondansetron HCl (Zofran Odt) 4 mg PO Q6H PRN PRN Reason: Nausea able to take PO Ondansetron HCl (Zofran) 4 mg IV Q6H PRN PRN Reason: Nausea/Vomiting Last Admin: 07/08/19 03:11 Dose: 4 mg Pantoprazole Sodium (Protonix) 40 mg PO ACBREAKFAST [facility] Last Admin: 07/08/19 08:26 Dose: 40 mg Ropinirole HCl (Requip) 1 mg PO BEDTIME [facility] Last Admin: 07/07/19 20:37 Dose: 1 mg Fluticasone/Salmeterol (Fluticasone-Salmeterol 232-14 Mcg Powder Inha) 0 puff INH BIDRT [facility] Senna/Docusate Sodium (Senna Plus) 1 tab PO BID PRN PRN Reason: Constipation Sodium Chloride (Saline Flush) 10 ml FLUSH ASDIRECTED PRN PRN Reason: Keep Vein Open Last Admin: 07/07/19 11:13 Dose: 10 ml Trazodone HCl (Trazodone) 100 mg PO BEDTIME [facility] Last Admin: 07/07/19 20:37 Dose: 100 mg Discontinued Medications Fentanyl (Sublimaze) 50 mcg IVPUSH ONETIME ONE Stop: 07/07/19 10:58 Last Admin: 07/07/19 11:10 Dose: 50 mcg Fentanyl (Sublimaze) 100 mcg IVPUSH ONETIME ONE Stop: 07/07/19 11:40 Last Admin: 07/07/19 11:47 Dose: 100 mcg Fentanyl (Sublimaze) 100 mcg IVPUSH ONETIME ONE Stop: 07/07/19 13:47 Last Admin: 07/07/19 13:55 Dose: 100 mcg Hydromorphone HCl (Dilaudid) 1 mg IVPUSH ONETIME ONE Stop: 07/07/19 16:33 Last Admin: 07/07/19 16:38 Dose: 1 mg Lactated Ringer's (Ringers, Lactated) 1,000 mls @ 999 mls/hr IV ASDIRECTED [facility] Last Admin: 07/07/19 11:03 Dose: 999 mls/hr Lactated Ringer's (Ringers, Lactated) 1,000 mls @ 999 mls/hr IV BOLUS ONE Stop: 07/07/19 13:35 Last Admin: 07/07/19 12:38 Dose: 999 mls/hr Lactated Ringer's (Ringers, Lactated) 1,000 mls @ 125 mls/hr IV BOLUS ONE Stop: 07/07/19 21:45 Last Admin: 07/07/19 13:55 Dose: 125 mls/hr Sodium Chloride (Normal Saline) 1,000 mls @ 125 mls/hr IV ASDIRECTED [facility] Last Admin: 07/08/19 05:21 Dose: 125 mls/hr Ondansetron HCl (Zofran) 4 mg IVPUSH ONETIME ONE Stop: 07/07/19 10:58 Last Admin: 07/07/19 11:05 Dose: 4 mg Pantoprazole Sodium (Protonix Iv) 40 mg IV ONETIME ONE Stop: 07/07/19 18:00 Last Admin: 07/07/19 18:30 Dose: 40 mg Fluticasone/Salmeterol (Fluticasone-Salmeterol 232-14 Mcg Powder Inha) 0 puff INH BID [facility] Last Admin: 07/07/19 20:34 Dose: Not Given - Exam Quality Assessment: No: Supplemental Oxygen General: Alert, Oriented, Cooperative, No Acute Distress Lungs: Normal Respiratory Effort Cardiovascular: Regular Rate, Regular Rhythm GI/Abdominal Exam: Soft, Non-Tender, No Distention Extremities: No Pedal Edema Psy/Mental Status: Alert, Normal Affect - Problem List & Annotations (1) Partial small bowel obstruction SNOMED Code(s): 484961112 Code(s): K56.600 - PARTIAL INTESTINAL OBSTRUCTION, UNSPECIFIED TO CAUSE Status: Acute Current Visit: Yes (2) Abdominal pain SNOMED Code(s): 78964794 Code(s): R10.9 - UNSPECIFIED ABDOMINAL PAIN Status: Acute Current Visit: No Qualifiers: Abdominal location: epigastric Qualified Code(s): R10.13 - Epigastric pain (3) Diabetes mellitus type 2 in nonobese SNOMED Code(s): 477992048 Code(s): E11.9 - TYPE 2 DIABETES MELLITUS WITHOUT COMPLICATIONS Status: Chronic Current Visit: Yes (4) Tobacco dependence SNOMED Code(s): 11459336 Code(s): F17.200 - NICOTINE DEPENDENCE, UNSPECIFIED, UNCOMPLICATED Status: Chronic Current Visit: No - Problem List Review Problem List Initiated/Reviewed/Updated: Yes - My Orders Last 24 Hours: My Active Orders 07/07/19 15:29 Resuscitation Status Routine 07/07/19 17:59 Patient Status [ADT] Routine Antiembolic Devices [RC] .Routine Communication Order [RC] PRN Communication Order [RC] PRN Diabetes Education [RC] Click to Edit Intake and Output [RC] QSHIFT NG [Gastrointestinal Tube Mgmt] [RC] ASDIRECTED Notify Provider Vital Signs [RC] ASDIRECTED Notify Provider [RC] PRN Oxygen Therapy [RC] PRN RT Aerosol Therapy [RC] ASDIRECTED Up ad Barbara [RC] ASDIRECTED VTE/DVT Education [RC] Per Unit Routine Vital Signs [RC] Q4H Acetaminophen [Tylenol] 650 mg PO Q4H PRN Albuterol [Proventil Neb Soln] 2.5 mg NEB Q4H PRN Cyclobenzaprine [Flexeril] 20 mg PO BEDTIME PRN Docusate Sodium/Sennosides [Senna Plus] 1 tab PO BID PRN Insulin Lispro [HumaLOG] See Protocol SUBCUT QIDACANDBED LORazepam [Ativan] 0.5 mg IVPUSH Q4H PRN Magnesium Hydroxide [Milk of Magnesia] 30 ml PO Q12H PRN Nicotine [Habitrol] 14 mg TRDERM DAILY Ondansetron [Zofran ODT] 4 mg PO Q6H PRN Ondansetron [Zofran] 4 mg IV Q6H PRN fentaNYL [Sublimaze] 50 mcg IVPUSH Q2H PRN Sequential Compression Device [OM.PC] Routine 07/07/19 21:00 Gabapentin [Neurontin] 1,200 mg PO BID Melatonin 9 mg PO BEDTIME Metoprolol Tartrate [Lopressor] 50 mg PO BEDTIME rOPINIRole [Requip] 1 mg PO BEDTIME traZODone 100 mg PO BEDTIME 07/07/19 Dinner Nothing per Oral Now Diet [DIET] 07/08/19 07:30 Pantoprazole [ProTONIX] 40 mg PO ACBREAKFAST 07/08/19 09:00 DULoxetine [Cymbalta] 80 mg PO DAILY Famotidine [Pepcid] 20 mg PO BID 07/08/19 10:15 Sodium Chloride 0.9% @ 75 MLS/HR(1000ml) Sodium Chloride 0.9% [Normal Saline] 1 ,000 ml IV ASDIRECTED 07/08/19 11:30 GLUCOSE POC LAB TO COLLECT [POC] QIDACANDBED 07/08/19 16:30 GLUCOSE POC LAB TO COLLECT [POC] QIDACANDBED 07/08/19 21:00 GLUCOSE POC LAB TO COLLECT [POC] QIDACANDBED Fluticasone/Salmeterol [Fluticasone-Salmeterol 232-14 MCG Powder Inha] 0 puff INH BIDRT 07/09/19 05:00 CBC W/O DIFF,HEMOGRAM [HEME] Timed (1) COMPREHENSIVE METABOLIC PN,CMP [CHEM] Timed LIPASE [CHEM] Timed 07/09/19 07:30 GLUCOSE POC LAB TO COLLECT [POC] QIDACANDBED 07/09/19 11:30 GLUCOSE POC LAB TO COLLECT [POC] QIDACANDBED 07/09/19 16:30 GLUCOSE POC LAB TO COLLECT [POC] QIDACANDBED 07/09/19 21:00 GLUCOSE POC LAB TO COLLECT [POC] QIDACANDBED 07/10/19 07:30 GLUCOSE POC LAB TO COLLECT [POC] QIDACANDBED 07/10/19 11:30 GLUCOSE POC LAB TO COLLECT [POC] QIDACANDBED 07/10/19 16:30 GLUCOSE POC LAB TO COLLECT [POC] QIDACANDBED 07/10/19 21:00 GLUCOSE POC LAB TO COLLECT [POC] QIDACANDBED 07/11/19 07:30 GLUCOSE POC LAB TO COLLECT [POC] QIDACANDBED 07/11/19 11:30 GLUCOSE POC LAB TO COLLECT [POC] QIDACANDBED 07/11/19 16:30 GLUCOSE POC LAB TO COLLECT [POC] QIDACANDBED 07/11/19 21:00 GLUCOSE POC LAB TO COLLECT [POC] QIDACANDBED 07/12/19 07:30 GLUCOSE POC LAB TO COLLECT [POC] QIDACANDBED 07/12/19 11:30 GLUCOSE POC LAB TO COLLECT [POC] QIDACANDBED 07/12/19 16:30 GLUCOSE POC LAB TO COLLECT [POC] QIDACANDBED 07/12/19 21:00 GLUCOSE POC LAB TO COLLECT [POC] QIDACANDBED 07/13/19 07:30 GLUCOSE POC LAB TO COLLECT [POC] QIDACANDBED - Plan Plan:: ASSESSMENT AND PLAN - Suspected partial small bowel obstruction-clinically doing better and has a nonspecific bowel gas pattern but still has a fair amount of drainage from the NG tube. Pain is improving and he is passing some gas. -Continue gentle IV fluids -Symptom management -NG tube to continuous suction, reassess this afternoon and tomorrow, remove when output is decreasing -Flat and upright x-ray again in the morning Transaminitis -mild elevation but change since yesterday with no obvious cause. -Repeat labs in the morning Type 2 diabetes mellitus-patient will be n.p.o. for now so we will hold his oral medications for the time being. Blood sugars acceptable at this time. -Low-dose sliding scale insulin Chronic abdominal pain-extensive work-up, still waiting for GI consultation. Status post multiple surgical interventions. ? Sphincter of Oddi dysfunction ? -Consider trial of hyoscyamine Tobacco dependence- -Encourage cessation -Nicotine patch Maintenance issues - - DVT prophylaxis -mechanical - GI prophylaxis -PPI - Nutrition -nothing by mouth Disposition - I would anticipate discharge home after the hospital stay. The [facility] was contacted prior to admission and their beds were full so permission was granted for the patient to remain hospitalized here in [place]. Drew Dimas M.D.
[2019-07-08] MEDS: Fluticasone-Salmeterol 232-14 MCG Powder Inhalent INH SCH (21:12)
[2019-07-08] MEDS: Melatonin 3 MG Tab PO SCH (21:12)
[2019-07-08] MEDS: rOPINIRole 1 MG Tab PO SCH (21:13)
[2019-07-08] MEDS: Metoprolol Tartrate 50 MG Tab PO SCH (21:14)
[2019-07-08] MEDS: traZODone 50 MG Tab PO SCH (21:15)
[2019-07-09] MEDS: fentaNYL 100 MCG/2 ML SDV IVPUSH PRN ×4 (02:01→12:31)
[2019-07-09] MEDS: Sodium Chloride 0.9% 1,000 ML IV SCH (02:03)
[2019-07-09] MEDS: Insulin Lispro 100 Unit/ML 3 ML KwikPen SUBCUT SCH (07:47)
[2019-07-09 07:56] VITALS: BP 118/69; PULSE 74
[2019-07-09] MEDS: Fluticasone-Salmeterol 232-14 MCG Powder Inhalent INH SCH (08:01)
[2019-07-09] MEDS: Pantoprazole 40 MG Tab.CR PO SCH (08:02)
[2019-07-09] MEDS: Famotidine 20 MG Tab PO SCH (08:02)
[2019-07-09] MEDS: Gabapentin 400 MG Cap PO SCH (08:03)
[2019-07-09] MEDS: Nicotine 14 MG/24 Hr Patch TRDERM SCH (08:03)
[2019-07-09] MEDS: DULoxetine 20 MG Cap PO SCH (08:03)
--- NOTE | 2019-07-09 14:20 | PCM.DCSUM1 ---
Discharge Summary - Hospital Course Brief History: 58-year-old male with tobacco dependence, chronic pancreatitis and type 2 diabetes mellitus who presented with acute on chronic abdominal pain. Work-up in the emergency room suggested developing bowel obstruction based on CT scan imaging. He was admitted for further management after an NG tube was placed in the emergency room. Diagnosis: Stroke: No - Discharge Data Discharge Date: 07/09/19 Discharge Disposition: Home, Self-Care 01 Condition: Good - Referral to Home Health Primary Care Physician: PCP None - Discharge Diagnosis/Problem(s) (1) Partial small bowel obstruction SNOMED Code(s): 663768869 ICD Code: K56.600 - PARTIAL INTESTINAL OBSTRUCTION, UNSPECIFIED TO CAUSE Status: Acute Current Visit: Yes (2) Abdominal pain SNOMED Code(s): 52401676 ICD Code: R10.9 - UNSPECIFIED ABDOMINAL PAIN Status: Acute Current Visit : No Qualifiers: Abdominal location: epigastric Qualified Code(s): R10.13 - Epigastric pain (3) Diabetes mellitus type 2 in nonobese SNOMED Code(s): 728150367 ICD Code: E11.9 - TYPE 2 DIABETES MELLITUS WITHOUT COMPLICATIONS Status: Chronic Current Visit: Yes (4) Tobacco dependence SNOMED Code(s): 03711175 ICD Code: F17.200 - NICOTINE DEPENDENCE, UNSPECIFIED, UNCOMPLICATED Status : Chronic Current Visit: No - Patient Summary/Data Hospital Course: Armando presented to the emergency room with acute on chronic epigastric abdominal pain. Laboratory studies in the emergency room revealed a very mildly elevated lipase. CT scan of the abdomen and pelvis suggested an early or developing bowel obstruction. An NG tube was placed in the emergency room and he was admitted for further management. Overnight following admission there were no acute issues. His lipase level trended down. NG tube output was significant enough that we left in for another day. Pain had improved significantly by the morning after admission. X-ray the morning after admission showed improvement or resolution of the bowel obstruction. I did note an elevation in AST, ALT as well as mild increase in his alkaline phosphatase compared to the admission. Over the next 24 hours he had further improvement in symptoms with essentially resolution of his pain. NG tube output had decreased more significantly. The NG tube was removed and we did advance his diet. He tolerated the clear liquids and then full liquids well with no nausea or increase in his abdominal pain. His hepatic panel numbers have improved but not quite normalized by the day of discharge. The exact cause for his abdominal pain is likely of the developing bowel obstruction though I cannot rule out other pathology with his acute on chronic pain. Given the mild elevation in his hepatic panel numbers temporary obstruction of the common duct or sphincter of Oddi could be considered. He is pain-free and doing well at this time. [facility] but so far has been unable to have this scheduled. He feels well and is interested in going home at this time. I did provide a limited supply of pain medications. He will be following up with the [facility] to try to expedite the scheduling of his gastroenterology consultation. - Patient Instructions Diet: Full Liquid Diet (for the next few days then resume your usual diet ) Activity: As Tolerated Driving: Do Not Drive (if taking pain pills) Showering/Bathing: May Shower Notify Provider of: Fever, Increased Pain, Nausea and/or Vomiting - Discharge Plan *PRESCRIPTION DRUG MONITORING PROGRAM REVIEWED*: Not Applicable *COPY OF PRESCRIPTION DRUG MONITORING REPORT IN PATIENT [place]: Not Applicable Prescriptions/Med Rec: oxyCODONE 5 mg PO Q6H PRN #15 tab PRN Reason: Pain Home Medications: Home Meds Cetirizine [ZyrTEC] 10 mg PO BEDTIME 03/17/14 [History] Albuterol Sulfate [Proair Respiclick] 2 puff IN Q6HR PRN 10/27/16 [History] Budesonide/Formoterol [Symbicort 160-4.5 MCG] 2 puff IN BID 10/27/16 [History] Lidocaine 5% [Lidoderm 5%] 1 patch TOP ASDIRECTED PRN 10/27/16 [History] Metoprolol Tartrate [Lopressor] 50 mg PO BEDTIME 10/27/16 [History] rOPINIRole [Requip] 1 mg PO BEDTIME 10/27/16 [History] traZODone 100 mg PO BEDTIME 10/27/16 [History] Cyclobenzaprine HCl 20 mg PO BEDTIME PRN 12/20/16 [History] Docusate Sodium/Sennosides [Senna Plus] 2 each PO BID PRN 12/20/16 [History] Gabapentin [Neurontin] 1,200 mg PO BID 12/20/16 [History] Ondansetron [Zofran] 4 mg PO Q8H PRN #20 tab 01/20/17 [Rx] Ranitidine HCl [Zantac 75] 150 mg PO BID #60 tablet 01/20/17 [Rx] Acetaminophen 650 mg PO ASDIRECTED 08/29/18 [History] DULoxetine [Cymbalta] 80 mg PO DAILY 08/29/18 [History] Melatonin 9 mg PO BEDTIME 08/29/18 [History] Pantoprazole [ProTONIX] 40 mg PO DAILY 08/29/18 [History] metFORMIN [Glucophage] 1,000 mg PO BEDTIME 08/29/18 [History] glipiZIDE [Glucotrol] 10 mg PO BID 07/07/19 [History] oxyCODONE 5 mg PO Q6H PRN #15 tab 07/09/19 [Rx] Oxygen Therapy Mode: Room Air Patient Handouts: Small Bowel Obstruction, [id number] Referrals: PCP,None [Primary Care Provider] - - Discharge Summary/Plan Comment DC Time >30 min.: No - Patient Data Vitals - Most Recent: Last Vital Signs Temp 36.7 C 07/09/19 07:54 Pulse 74 07/09/19 07:54 Resp 16 07/09/19 07:54 BP 118/69 07/09/19 07:54 Pulse Ox 96 07/09/19 07:54 Weight - Most Recent: 77.201 kg I&O - Last 24 hours: Intake & Output 07/08/19 07/09/19 07/09/19 22:59 06:59 14:59 Intake Total 1232 915 845 Output Total 575 1125 Balance 657 -210 845 Lab Results - Last 24 hrs: Laboratory Results - last 24 hr 07/09/19 07/09/19 Range/Units 05:00 05:00 WBC 6.1 (4.5-11.0) K/uL RBC 5.09 (4.30-5.90) M/uL Hgb 14.9 (12.0-15.0) g/dL Hct 45.7 (40.0-54.0) % MCV 90 (80-98) fL MCH 29 (27-31) pg MCHC 33 (32-36) % Plt Count 137 L (150-400) K/uL Sodium 137 L (140-148) mmol/L Potassium 4.0 (3.6-5.2) mmol/L Chloride 103 (100-108) mmol/L Carbon Dioxide 23 (21-32) mmol/L Anion Gap 15.0 H (5.0-14.0) mmol/L BUN 7 (7-18) mg/dL Creatinine 0.7 L (0.8-1.3) mg/dL Est Cr Clr Drug Dosing 117.83 mL/min Estimated GFR (MDRD) > 60 (>60) Glucose 129 H (74-106) mg/dL Calcium 8.6 (8.5-10.1) mg/dL Total Bilirubin 0.6 (0.2-1.0) mg/dL AST 65 H (15-37) U/L ALT 153 H (12-78) U/L Alkaline Phosphatase 117 H (46-116) U/L Total Protein 6.7 (6.4-8.2) g/dL Albumin 3.2 L (3.4-5.0) g/dL Globulin 3.5 (2.3-3.5) g/dL Albumin/Globulin Ratio 0.9 L (1.2-2.2) Lipase 249 (73-393) U/L Med Orders - Current: Current Medications Acetaminophen (Tylenol) 650 mg PO Q4H PRN PRN Reason: Pain (Mild 1-3)/fever Albuterol (Proventil Neb Soln) 2.5 mg NEB Q4H PRN PRN Reason: Shortness Of Breath/wheezing Cyclobenzaprine HCl (Flexeril) 20 mg PO BEDTIME PRN PRN Reason: muscle pain Last Admin: 07/08/19 21:09 Dose: 20 mg Duloxetine HCl (Cymbalta) 80 mg PO DAILY [facility] Last Admin: 07/09/19 08:03 Dose: 80 mg Famotidine (Pepcid) 20 mg PO BID [facility] Last Admin: 07/09/19 08:02 Dose: 20 mg Fentanyl (Sublimaze) 50 mcg IVPUSH Q2H PRN PRN Reason: Pain (severe 7-10) Last Admin: 07/09/19 12:31 Dose: 50 mcg Gabapentin (Neurontin) 1,200 mg PO BID [facility] Last Admin: 07/09/19 08:03 Dose: 1,200 mg Lorazepam (Ativan) 0.5 mg IVPUSH Q4H PRN PRN Reason: Nausea/Vomiting Magnesium Hydroxide (Milk Of Magnesia) 30 ml PO Q12H PRN PRN Reason: Constipation Melatonin (Melatonin) 9 mg PO BEDTIME [facility] Last Admin: 07/08/19 21:12 Dose: 9 mg Metoprolol Tartrate (Lopressor) 50 mg PO BEDTIME [facility] Last Admin: 07/08/19 21:14 Dose: 50 mg Nicotine (Habitrol) 14 mg TRDERM DAILY [facility] Last Admin: 07/09/19 08:03 Dose: Not Given Ondansetron HCl (Zofran Odt) 4 mg PO Q6H PRN PRN Reason: Nausea able to take PO Ondansetron HCl (Zofran) 4 mg IV Q6H PRN PRN Reason: Nausea/Vomiting Last Admin: 07/08/19 11:38 Dose: 4 mg Pantoprazole Sodium (Protonix) 40 mg PO ACBREAKFAST [facility] Last Admin: 07/09/19 08:02 Dose: 40 mg Ropinirole HCl (Requip) 1 mg PO BEDTIME [facility] Last Admin: 07/08/19 21:13 Dose: 1 mg Fluticasone/Salmeterol (Fluticasone-Salmeterol 232-14 Mcg Powder Inha) 0 puff INH BIDRT [facility] Last Admin: 07/09/19 08:01 Dose: Not Given Senna/Docusate Sodium (Senna Plus) 1 tab PO BID PRN PRN Reason: Constipation Sodium Chloride (Saline Flush) 10 ml FLUSH ASDIRECTED PRN PRN Reason: Keep Vein Open Last Admin: 07/07/19 11:13 Dose: 10 ml Trazodone HCl (Trazodone) 100 mg PO BEDTIME [facility] Last Admin: 07/08/19 21:15 Dose: 100 mg Discontinued Medications Fentanyl (Sublimaze) 50 mcg IVPUSH ONETIME ONE Stop: 07/07/19 10:58 Last Admin: 07/07/19 11:10 Dose: 50 mcg Fentanyl (Sublimaze) 100 mcg IVPUSH ONETIME ONE Stop: 07/07/19 11:40 Last Admin: 07/07/19 11:47 Dose: 100 mcg Fentanyl (Sublimaze) 100 mcg IVPUSH ONETIME ONE Stop: 07/07/19 13:47 Last Admin: 07/07/19 13:55 Dose: 100 mcg Hydromorphone HCl (Dilaudid) 1 mg IVPUSH ONETIME ONE Stop: 07/07/19 16:33 Last Admin: 07/07/19 16:38 Dose: 1 mg Lactated Ringer's (Ringers, Lactated) 1,000 mls @ 999 mls/hr IV ASDIRECTED [facility] Last Admin: 07/07/19 11:03 Dose: 999 mls/hr Lactated Ringer's (Ringers, Lactated) 1,000 mls @ 999 mls/hr IV BOLUS ONE Stop: 07/07/19 13:35 Last Admin: 07/07/19 12:38 Dose: 999 mls/hr Lactated Ringer's (Ringers, Lactated) 1,000 mls @ 125 mls/hr IV BOLUS ONE Stop: 07/07/19 21:45 Last Admin: 07/07/19 13:55 Dose: 125 mls/hr Sodium Chloride (Normal Saline) 1,000 mls @ 125 mls/hr IV ASDIRECTED [facility] Last Admin: 07/08/19 05:21 Dose: 125 mls/hr Sodium Chloride (Normal Saline) 1,000 mls @ 75 mls/hr IV ASDIRECTED [facility] Last Admin: 07/09/19 02:03 Dose: 75 mls/hr Insulin Human Lispro (Humalog) 0 unit SUBCUT QIDACANDBED [facility]; Protocol Last Admin: 07/09/19 07:47 Dose: Not Given Ondansetron HCl (Zofran) 4 mg IVPUSH ONETIME ONE Stop: 07/07/19 10:58 Last Admin: 07/07/19 11:05 Dose: 4 mg Pantoprazole Sodium (Protonix Iv) 40 mg IV ONETIME ONE Stop: 07/07/19 18:00 Last Admin: 07/07/19 18:30 Dose: 40 mg Fluticasone/Salmeterol (Fluticasone-Salmeterol 232-14 Mcg Powder Inha) 0 puff INH BID [facility] Last Admin: 07/07/19 20:34 Dose: Not Given
== END 2019-07-09 14:15 | disposition home or self-care (01) | DRG 389 ==
LOC: JP.ED 10:17 → JP.MS 15:27
PROVIDERS: ADMIT Internal Medicine; ATTEND Internal Medicine
PROC: 0D9670Z Drainage of Stomach with Drainage Device, Via Natural or Artificial Opening (ICD-10-PCS; principal; 2019-07-07)
DX: R10.9 Unspecified abdominal pain (principal); K56.600 Partial intestinal obstruction, unspecified as to cause; K86.1 Other chronic pancreatitis; R74.8 Abnormal levels of other serum enzymes; I25.10 Atherosclerotic heart disease of native coronary artery without angina pectoris; E78.00 Pure hypercholesterolemia, unspecified; J44.9 Chronic obstructive pulmonary disease, unspecified; G47.30 Sleep apnea, unspecified; K21.9 Gastro-esophageal reflux disease without esophagitis; K44.9 Diaphragmatic hernia without obstruction or gangrene; F17.210 Nicotine dependence, cigarettes, uncomplicated; N18.9 Chronic kidney disease, unspecified; G89.29 Other chronic pain; M54.2 Cervicalgia; M54.9 Dorsalgia, unspecified; E11.9 Type 2 diabetes mellitus without complications; F17.200 Nicotine dependence, unspecified, uncomplicated; M19.90 Unspecified osteoarthritis, unspecified site; E11.22 Type 2 diabetes mellitus with diabetic chronic kidney disease; D63.1 Anemia in chronic kidney disease; I12.9 Hypertensive chronic kidney disease with stage 1 through stage 4 chronic kidney disease, or unspecified chronic kidney disease; Z90.49 Acquired absence of other specified parts of digestive tract; Z79.84 Long term (current) use of oral hypoglycemic drugs; Z79.899 Other long term (current) drug therapy; Z86.711 Personal history of pulmonary embolism; Z87.01 Personal history of pneumonia (recurrent); Z88.2 Allergy status to sulfonamides; I25.2 Old myocardial infarction; Z88.8 Allergy status to other drugs, medicaments and biological substances; Z91.041 Radiographic dye allergy status
CPT/HCPCS: 36415; 74176; 80053; 81001; 83605; 83690; 84484; 85025; J2405; J3010 ×3; J7120 ×3; 74019; 82962; 85027; 96361; 96374; 96375; 96376; 99285-25; A9270-GY; C9113; J1170; J1815; J7030

== ENCOUNTER 2020-03-21 09:18 | Inpatient (IN) | payer OTHER ==
--- NOTE | 2020-03-21 09:44 | EDM.PDOC ---
ED HPI GENERAL MEDICAL PROBLEM - General Chief Complaint: Abdominal Pain Stated Complaint: ABD PAIN Time Seen by Provider: 03/21/20 09:45 Source of Information: Reports: Patient, Old Records, RN History Limitations: Reports: No Limitations - History of Present Illness INITIAL COMMENTS - FREE TEXT/NARRATIVE: 59 [facility] presents with a 2 week hx of abdominal pain above his umbilicus that has accelerated over the past 2 days. Has anorexia. BM's have been normal. Feels a little bloated. No fever or vomiting or nausea. Has a pHx of pancreatitis. Eating makes his sx's worse. Has not been seen for this before today. Onset: Gradual Onset Date: 03/07/20 Duration: Week(s): (2), Getting Worse Location: Reports: Abdomen Quality: Reports: Ache Severity: Moderate Improves with: Reports: None Worsens with: Reports: Eating Context: Reports: Other (See HPI) Associated Symptoms: Reports: Loss of Appetite. Denies: Chest Pain, Fever/Chills, Nausea/Vomiting, Rash, Shortness of Breath Treatments COMPLIANCE CLERK: Reports: Other (see below) (none) Abdominal Pain Score (Numeric/FACES): 7 - Related Data Allergies Allergy/AdvReac Type Severity Reaction Status Date / Time lorazepam [From Ativan] Allergy Intermediate Confusion Verified 03/21/20 09:23 sulfamethoxazole Allergy Intermediate Facial Verified 03/21/20 09:23 [From Septra] Spasms trimethoprim [From Septra] Allergy Intermediate Facial Verified 03/21/20 09:23 Spasms glycopyrrolate [From Robinul] Allergy Seizure Verified 03/21/20 09:23 Iodinated Contrast Media Allergy Renal Verified 03/21/20 09:23 [Iodinated Contrast Media - Failure Oral and] Home Meds: Home Meds Albuterol Sulfate [Proair Respiclick] 2 puff IN Q6HR PRN 10/27/16 [History] Budesonide/Formoterol [Symbicort 160-4.5 MCG] 2 puff IN BID 10/27/16 [History] Lidocaine 5% [Lidoderm 5%] 1 patch TOP ASDIRECTED PRN 10/27/16 [History] Metoprolol Tartrate [Lopressor] 50 mg PO BEDTIME 10/27/16 [History] rOPINIRole [Requip] 1 mg PO BEDTIME 10/27/16 [History] traZODone 100 mg PO BEDTIME 10/27/16 [History] Cyclobenzaprine HCl 20 mg PO BID 12/20/16 [History] Docusate Sodium/Sennosides [Senna Plus] 2 each PO BID PRN 12/20/16 [History] Gabapentin [Neurontin] 1,200 mg PO BID 12/20/16 [History] Ondansetron [Zofran] 4 mg PO Q8H PRN #20 tab 01/20/17 [Rx] Acetaminophen 650 mg PO ASDIRECTED 08/29/18 [History] DULoxetine [Cymbalta] 80 mg PO DAILY 08/29/18 [History] Melatonin 9 mg PO BEDTIME 08/29/18 [History] Pantoprazole [ProTONIX] 40 mg PO DAILY 08/29/18 [History] oxyCODONE 5 mg PO Q6H PRN #15 tab 07/09/19 [Rx] Cetirizine [ZyrTEC] 10 mg PO DAILY 03/21/20 [History] Cholecalciferol (Vitamin D3) [Vitamin D3] 100 year PO DAILY 03/21/20 [History] Dextrin [Fiber] 350 gm PO BID 03/21/20 [History] Diclofenac Sodium 50 mg PO BID 03/21/20 [History] Famotidine 20 mg PO BID 03/21/20 [History] Gabapentin [Neurontin] 300 mg PO ASDIRECTED 03/21/20 [History] Insulin Glargine,Hum.Rec.Anlog [Lantus Solostar] 15 units SUBCNJ BEDTIME 03/21/20 [History] metFORMIN [Glucophage] 1,000 mg PO WITHDINNER 03/21/20 [History] polyethylene glycoL 3350 [MiraLAX] 34 gm PO BID 03/21/20 [History] Past Medical History HEENT History: Reports: Allergic Rhinitis Cardiovascular History: Reports: CAD, High Cholesterol, Hypertension, [place], Other (See Below) Other Cardiovascular History: angiogram Respiratory History: Reports: COPD, PE, Pneumonia, Recurrent, Sleep Apnea Gastrointestinal History: Reports: GERD, Hiatal Hernia, Pancreatitis, Other (See Below) Other Gastrointestinal History: kink in bowel Genitourinary History: Reports: Acute Renal Failure, Chronic Renal Insuffiency Other Genitourinary History: PREVIOUS INDWELLING MCALLISTER Musculoskeletal History: Reports: Back Pain, Chronic, Neck Pain, Chronic, Osteoarthritis Neurological History: Reports: Concussion, Seizure Endocrine/Metabolic History: Reports: Diabetes, Type II Hematologic History: Reports: Anemia, Blood Transfusion(s) Dermatologic History: Reports: Other (See Below) Other Dermatologic History: rash at different times - Infectious Disease History Infectious Disease History: Reports: Chicken Pox - Past Surgical History Respiratory Surgical History: Reports: Thoracentesis GI Surgical History: Reports: Appendectomy, Evelia Fundoplication Social & Family History - Family History Family Medical History: Noncontributory GI: Reports: Pancreatitis - Tobacco Use Smoking Status *Q: Current Every Day Smoker Years of Tobacco use: 30 Packs/Tins Daily: 0.5 - Caffeine Use Caffeine Use: Reports: Coffee, Soda Other Caffeine Use: 2/d - Recreational Drug Use Recreational Drug Use: Yes Recreational Drug Type: Reports: Marijuana/Hashish ED ROS GENERAL - Review of Systems Review Of Systems: See Below Constitutional: Reports: No Symptoms HEENT: Reports: No Symptoms Respiratory: Reports: No Symptoms Cardiovascular: Reports: No Symptoms Endocrine: Reports: No Symptoms GI/Abdominal: Reports: Abdominal Pain, Decreased Appetite, Distension. Denies: Black Stool, Bloody Stool, Constipation, Diarrhea, Hematemesis, Hematochezia, Melena, Nausea, Vomiting : Reports: No Symptoms Musculoskeletal: Reports: No Symptoms Skin: Reports: No Symptoms Neurological: Reports: No Symptoms ED EXAM, GENERAL - Physical Exam Exam: See Below Exam Limited By: No Limitations General Appearance: Alert, WD/WN, No Apparent Distress Eye Exam: Bilateral Eye: Normal Inspection Ears: Normal External Exam, Normal Canal, Hearing Grossly Normal, Normal TMs Ear Exam: Bilateral Ear: Auricle Normal, Canal Normal, TM normal Nose: Normal Inspection, No Blood Throat/Mouth: Normal Inspection, Normal Lips, Normal Oropharynx, Normal Voice, No Airway Compromise Head: Atraumatic, Normocephalic Neck: Normal Inspection, Non-Tender Respiratory/Chest: No Respiratory Distress, Lungs Clear, Normal Breath Sounds, No Accessory Muscle Use Cardiovascular: Regular Rate, Rhythm, No Edema GI/Abdominal: Normal Bowel Sounds, Soft, Distended (mild), Tender (epigastric). No: Non-Tender, No Distention, Guarding, Rigid, Rebound Back Exam: Normal Inspection. No: CVA Tenderness (R), CVA Tenderness (L) Extremities: Normal Inspection, Normal Range of Motion, Non-Tender, No Pedal Edema. No: Pedal Edema Neurological: Alert, Oriented, CN II-XII Intact, Normal Cognition, No Motor/Sensory Deficits Psychiatric: Normal Affect, Normal Mood Skin Exam: Warm, Dry, Intact, Normal Color, No Rash Course - Vital Signs Text/Narrative:: Dr. Ivan called @ 1135h Last Recorded V/S: Last Vital Signs Temp 36.5 C 03/21/20 09:31 Pulse 78 03/21/20 09:31 Resp 16 03/21/20 09:31 BP 101/69 03/21/20 09:31 Pulse Ox 99 03/21/20 09:31 - Orders/Labs/Meds Orders: Active Orders 24 hr Category Date Time Status Lactated Ringers [Ringers, Lactated] 1,000 ml Med 03/21/20 10:00 Active IV ASDIRECTED Medication Orders Lactated Ringer's (Ringers, Lactated) 1,000 mls @ 500 mls/hr IV ASDIRECTED DANTE Last Admin: 03/21/20 10:10 Dose: 500 mls/hr Documented by: [id number] Labs: Laboratory Tests 03/21/20 03/21/20 03/21/20 Range/Units 10:09 10:09 10:09 WBC 7.7 (4.5-11.0) K/uL RBC 5.01 (4.30-5.90) M/uL Hgb 14.6 (12.0-15.0) g/dL Hct 44.8 (40.0-54.0) % MCV 89 (80-98) fL MCH 29 (27-31) pg MCHC 33 (32-36) % Plt Count 156 (150-400) K/uL Sodium 134 L (140-148) mmol/L Potassium 4.5 (3.6-5.2) mmol/L Chloride 99 L (100-108) mmol/L Carbon Dioxide 26 (21-32) mmol/L Anion Gap 13.5 (5.0-14.0) mmol/L BUN 13 D (7-18) mg/dL Creatinine 0.9 (0.8-1.3) mg/dL Est Cr Clr Drug Dosing 84.24 mL/min Estimated GFR (MDRD) > 60 (>60) Glucose 253 H (74-106) mg/dL Calcium 8.8 (8.5-10.1) mg/dL Total Bilirubin 0.4 (0.2-1.0) mg/dL AST 58 H (15-37) U/L ALT 154 H (12-78) U/L Alkaline Phosphatase 114 (46-116) U/L Total Protein 6.9 (6.4-8.2) g/dL Albumin 3.5 (3.4-5.0) g/dL Globulin 3.4 (2.3-3.5) g/dL Albumin/Globulin Ratio 1.0 L (1.2-2.2) Lipase 1747 H (73-393) U/L Meds: Medications Generic Name Dose Route Start Last Admin Trade Name Freq PRN Reason Stop Dose Admin Lactated Ringer's 1,000 mls @ 500 mls/hr 03/21/20 10:00 03/21/20 10:10 Ringers, Lactated IV 500 mls/hr ASDIRECTED DANTE Administration Discontinued Medications Generic Name Dose Route Start Last Admin Trade Name Freq PRN Reason Stop Dose Admin Hydromorphone HCl 0.5 mg 03/21/20 09:57 03/21/20 10:10 Dilaudid IVPUSH 03/21/20 09:58 0.5 mg ONETIME ONE Administration Prochlorperazine Edisylate 5 mg 03/21/20 09:56 03/21/20 10:07 Compazine IVPUSH 03/21/20 09:57 5 mg ONETIME ONE Administration Departure - Departure Time of Disposition: 11:55 Disposition: Admitted As Inpatient 68 Clinical Impression: Elevated glucose Acute pancreatitis Qualifiers: Pancreatitis type: unspecified pancreatitis type Acute pancreatitis complication: unspecified Qualified Code(s): K85.90 - Acute pancreatitis without necrosis or infection, unspecified - Discharge Information *PRESCRIPTION DRUG MONITORING PROGRAM REVIEWED*: No *COPY OF PRESCRIPTION DRUG MONITORING REPORT IN PATIENT WAYNE: No Referrals: PCP,None [Primary Care Provider] - Sepsis Event Note (ED) - Evaluation Sepsis Screening Result: No Definite Risk - Focused Exam Vital Signs: Vital Signs Temp Pulse Resp BP Pulse Ox 03/21/20 09:31 36.5 C 78 16 101/69 99 03/21/20 09:29 36.5 C 78 16 101/69 99 - My Orders Last 24 Hours: My Active Orders 03/21/20 10:00 Lactated Ringers [Ringers, Lactated] 1,000 ml IV ASDIRECTED - Assessment/Plan Last 24 Hours: My Active Orders 03/21/20 10:00 Lactated Ringers [Ringers, Lactated] 1,000 ml IV ASDIRECTED
[2020-03-21] MEDS ORDERED: Prochlorperazine 10 MG/2 ML SDV IVPUSH ONE (09:56)
[2020-03-21] MEDS ORDERED: HYDROmorphone 0.5 MG/0.5 ML Syringe IVPUSH ONE (09:57)
[2020-03-21] MEDS ORDERED: Lactated Ringers 1,000 ML IV SCH (10:00)
--- NOTE | 2020-03-21 11:57 | PCM.HP.2 ---
H&P History of Present Illness - General Date of Service: 03/21/20 Admit Problem/Dx: Admission Diagnosis/Problem Admission Diagnosis/Problem Pancreatitis Source of Information: Patient, Provider, RN Notes Reviewed History Limitations: Reports: No Limitations - History of Present Illness Initial Comments - Free Text/Narative: Mr. Garces is a 59-year-old gentleman who was admitted through the emergency department with nausea and abdominal pain secondary to acute pancreatitis. He has a known and previous history of pancreatitis, thought to be secondary to previous alcohol use. He stopped using alcohol approximately 2-1/2 years ago and has not had recent consumption. Over the last few weeks he has noted symptoms of nausea and upper abdominal discomfort. Symptoms have increased over the past 24 hours with more severe pain and persistent nausea. Because of ongoing symptoms he presented to the emergency department. Lipase level was found to be elevated at 1700. Abdominal Pain Score (Numeric/FACES): 7 - Related Data Allergies/Adverse Reactions: Allergies Allergy/AdvReac Type Severity Reaction Status Date / Time lorazepam [From Ativan] Allergy Intermediate Confusion Verified 03/21/20 09:23 sulfamethoxazole Allergy Intermediate Facial Verified 03/21/20 09:23 [From Septra] Spasms trimethoprim [From Septra] Allergy Intermediate Seizure Verified 03/21/20 12:54 glycopyrrolate [From Robinul] Allergy Seizure Verified 03/21/20 09:23 Iodinated Contrast Media Allergy Renal Verified 03/21/20 09:23 [Iodinated Contrast Media - Failure Oral and] Home Medications: Home Meds Albuterol Sulfate [Proair Respiclick] 2 puff IN Q6HR PRN 10/27/16 [History] Budesonide/Formoterol [Symbicort 160-4.5 MCG] 2 puff IN BID 10/27/16 [History] Lidocaine 5% [Lidoderm 5%] 1 patch TOP ASDIRECTED PRN 10/27/16 [History] Metoprolol Tartrate [Lopressor] 50 mg PO BEDTIME 10/27/16 [History] rOPINIRole [Requip] 1 mg PO BEDTIME 10/27/16 [History] traZODone 100 mg PO BEDTIME 10/27/16 [History] Cyclobenzaprine HCl 20 mg PO BID 12/20/16 [History] Docusate Sodium/Sennosides [Senna Plus] 2 each PO BID PRN 12/20/16 [History] Gabapentin [Neurontin] 1,200 mg PO BID 12/20/16 [History] Ondansetron [Zofran] 4 mg PO Q8H PRN #20 tab 01/20/17 [Rx] Acetaminophen 650 mg PO ASDIRECTED 08/29/18 [History] DULoxetine [Cymbalta] 80 mg PO DAILY 08/29/18 [History] Melatonin 9 mg PO BEDTIME 08/29/18 [History] Pantoprazole [ProTONIX] 40 mg PO ACBREAKFAST 08/29/18 [History] oxyCODONE 5 mg PO Q6H PRN #15 tab 07/09/19 [Rx] Cetirizine [ZyrTEC] 10 mg PO DAILY 03/21/20 [History] Cholecalciferol (Vitamin D3) [Vitamin D3] 100 year PO DAILY 03/21/20 [History] Dextrin [Fiber] 350 gm PO BID 03/21/20 [History] Diclofenac Sodium 50 mg PO BID 03/21/20 [History] Famotidine 20 mg PO BID 03/21/20 [History] Gabapentin [Neurontin] 300 mg PO ASDIRECTED 03/21/20 [History] Insulin Glargine,Hum.Rec.Anlog [Lantus Solostar] 15 units SUBCNJ BEDTIME 03/21/20 [History] metFORMIN [Glucophage] 1,000 mg PO WITHDINNER 03/21/20 [History] polyethylene glycoL 3350 [MiraLAX] 34 gm PO BID 03/21/20 [History] Past Medical History HEENT History: Reports: Allergic Rhinitis Cardiovascular History: Reports: CAD, High Cholesterol, Hypertension, [place], Other (See Below) Other Cardiovascular History: angiogram Respiratory History: Reports: COPD, PE, Pneumonia, Recurrent, Sleep Apnea Gastrointestinal History: Reports: GERD, Hiatal Hernia, Pancreatitis, Other (See Below) Other Gastrointestinal History: kink in bowel Genitourinary History: Reports: Acute Renal Failure, Chronic Renal Insuffiency Other Genitourinary History: PREVIOUS INDWELLING MCALLISTER Musculoskeletal History: Reports: Back Pain, Chronic, Neck Pain, Chronic, Osteoarthritis Neurological History: Reports: Concussion, Seizure Endocrine/Metabolic History: Reports: Diabetes, Type II Hematologic History: Reports: Anemia, Blood Transfusion(s) Dermatologic History: Reports: Other (See Below) Other Dermatologic History: rash at different times - Infectious Disease History Infectious Disease History: Reports: Chicken Pox - Past Surgical History Respiratory Surgical History: Reports: Thoracentesis GI Surgical History: Reports: Appendectomy, Evelia Fundoplication Social & Family History - Family History Family Medical History: Noncontributory GI: Reports: Pancreatitis - Tobacco Use Smoking Status *Q: Current Every Day Smoker Years of Tobacco use: 30 Packs/Tins Daily: 0.5 - Caffeine Use Caffeine Use: Reports: Coffee, Soda Other Caffeine Use: 2/d - Recreational Drug Use Recreational Drug Use: Yes Recreational Drug Type: Reports: Marijuana/Hashish H&P Review of Systems - Review of Systems: Review Of Systems: See Below General: Reports: Weakness. Denies: Fever, Chills HEENT: Reports: No Symptoms Pulmonary: Reports: No Symptoms Cardiovascular: Reports: No Symptoms Gastrointestinal: Reports: Abdominal Pain, Decreased Appetite, Distension, Nausea. Denies: Constipation, Diarrhea, Difficulty Swallowing, Hematemesis, Hematochezia, Melena Genitourinary: Reports: No Symptoms Musculoskeletal: Reports: No Symptoms Skin: Reports: No Symptoms Psychiatric: Reports: No Symptoms Neurological: Reports: No Symptoms Hematologic/Lymphatic: Reports: No Symptoms Immunologic: Reports: No Symptoms Exam - Exam Exam: See Below - Vital Signs Vital Signs: Last Vital Signs Temp 97.7 F 03/21/20 09:31 Pulse 78 03/21/20 09:31 Resp 16 03/21/20 09:31 BP 101/69 03/21/20 09:31 Pulse Ox 99 03/21/20 09:31 Weight: 145 lb - Exam Quality Assessment: DVT Prophylaxis General: Alert, Oriented, Cooperative, Moderate Distress HEENT: Conjunctiva Clear, Hearing Intact, Mucosa Moist & [place], Normal Nasal Septum, Posterior Pharynx Clear, Pupils Equal Neck: Supple, Trachea Midline, +2 Carotid Pulse wo Bruit Lungs: Clear to Auscultation, Normal Respiratory Effort Cardiovascular: Regular Rate, Regular Rhythm, Normal S1, Normal S2. No: Systolic Murmur, Diastolic Murmur GI/Abdominal Exam: Soft, Non-Tender, No Organomegaly, No Distention Back Exam: Normal Inspection, Full Range of Motion Extremities: Non-Tender, No Pedal Edema Neurological: Cranial Nerves Intact, Strength Equal Bilateral, Normal Speech, Normal Tone, Sensation Intact. No: Focal Deficit Neuro Extensive - Mental Status: Alert, Oriented x3, Normal Mood/Affect, Normal Cognition, Memory Intact - Patient Data Lab Results Last 24 hrs: Laboratory Results - last 24 hr 03/21/20 03/21/20 03/21/20 Range/Units 10:09 10:09 10:09 WBC 7.7 (4.5-11.0) K/uL RBC 5.01 (4.30-5.90) M/uL Hgb 14.6 (12.0-15.0) g/dL Hct 44.8 (40.0-54.0) % MCV 89 (80-98) fL MCH 29 (27-31) pg MCHC 33 (32-36) % Plt Count 156 (150-400) K/uL Sodium 134 L (140-148) mmol/L Potassium 4.5 (3.6-5.2) mmol/L Chloride 99 L (100-108) mmol/L Carbon Dioxide 26 (21-32) mmol/L Anion Gap 13.5 (5.0-14.0) mmol/L BUN 13 D (7-18) mg/dL Creatinine 0.9 (0.8-1.3) mg/dL Est Cr Clr Drug Dosing 84.24 mL/min Estimated GFR (MDRD) > 60 (>60) Glucose 253 H (74-106) mg/dL Calcium 8.8 (8.5-10.1) mg/dL Total Bilirubin 0.4 (0.2-1.0) mg/dL AST 58 H (15-37) U/L ALT 154 H (12-78) U/L Alkaline Phosphatase 114 (46-116) U/L Total Protein 6.9 (6.4-8.2) g/dL Albumin 3.5 (3.4-5.0) g/dL Globulin 3.4 (2.3-3.5) g/dL Albumin/Globulin Ratio 1.0 L (1.2-2.2) Lipase 1747 H (73-393) U/L Result Diagrams: 03/21/20 10:09 03/21/20 10:09 Sepsis Event Note - Evaluation Sepsis Screening Result: No Definite Risk - Focused Exam Vital Signs: Vital Signs Temp Pulse Resp BP Pulse Ox 03/21/20 09:31 97.7 F 78 16 101/69 99 03/21/20 09:29 97.7 F 78 16 101/69 99 *Q Meaningful Use (ADM) - VTE Risk Assess *Q Each Risk Factor Represents 1 Point: Age 41 - 59 years, Abnormal Pulmonary Function (COPD) Total Score 1 Point Risk Factors: 2 Each Risk Factor Represents 2 Points: None Total Score 2 Point Risk Factors: 0 Each Risk Factor Represents 3 Points: None Total Score 3 Point Risk Factors: 0 Each Risk Factor Represents 5 Points: None Total Score 5 Point Risk Factors: 0 Venous Thromboembolism Risk Factor Score *Q: 2 Problem List Initiated/Reviewed/Updated: Yes Orders Last 24hrs: Active Orders 24 hr Category Date Time Status Patient Status Manage Transfer [TRANSFER] Routine ADT 03/21/20 11:48 Ordered Lactated Ringers [Ringers, Lactated] 1,000 ml Med 03/21/20 10:00 Active IV ASDIRECTED Resuscitation Status Routine Resus Stat 03/21/20 11:53 Ordered Medication Orders Lactated Ringer's (Ringers, Lactated) 1,000 mls @ 500 mls/hr IV ASDIRECTED DANTE Last Admin: 03/21/20 10:10 Dose: 500 mls/hr Documented by: [id number] Assessment/Plan Comment:: ASSESSMENT AND PLAN ACUTE PANCREATITIS-previous episodes of pancreatitis secondary to alcohol use, he no longer consumes alcohol. Question of possible medication effect, medications have been reviewed by pharmacy with no obvious contributing drugs. No present evidence of common duct stone, but may need to consider further evaluation. -IV fluids for hydration -N.p.o. -Pain and nausea medication as needed -Repeat lipase level in a.m. TYPE 2 DIABETES MELLITUS -Hold metformin -Continue usual dose of long-acting insulin -4 times daily glucometers -Low-dose sliding scale Humalog COPD-no evidence of acute exacerbation -Continue usual outpatient medications MAINTENANCE ISSUES -DVT prophylaxis; Lovenox 40 mg subcu daily -GI prophylaxis; continue outpatient PPI therapy -Mcallister catheter; not indicated -Nutrition; n.p.o. -Nicotine dependence; nicotine patch and nicotine gum CODE STATUS-FULL CODE ADMISSION STATUS-patient will be admitted to inpatient status, expect at least a 2 night hospital stay for evaluation and management of problems as outlined above. At the time of this admission I do not reasonably expected evaluation and management of this problem will require more than a 96 hour hospital stay. DISPOSITION-anticipate discharge to home after the hospital stay. PRIMARY CARE PROVIDER- - Mortality Measure Prognosis:: Good
[2020-03-21] MEDS ORDERED: Sodium Chloride 0.9% 10 ML Syringe FLUSH PRN (12:49)
[2020-03-21] MEDS ORDERED: Albuterol 0.083% 2.5 MG/3 ML Neb Soln NEB PRN (12:49)
[2020-03-21] MEDS ORDERED: 50% Dextrose in Water 50 ML Syringe IV PRN (12:49)
[2020-03-21] MEDS ORDERED: Non-Formulary Medication 1 Each (Albuterol Sulfate [Proair Respiclick] 2 PUFF) IN PRN (12:49)
[2020-03-21] MEDS ORDERED: Lidocaine 5% 700 MG Patch TOP PRN (12:49)
[2020-03-21] MEDS ORDERED: Glucose Gel 15 GM in 37.5 GM Tube PO PRN (12:49)
[2020-03-21] MEDS ORDERED: Polyethylene Glycol 3350 Powder 17 GM Packet PO PRN (12:49)
[2020-03-21] MEDS ORDERED: oxyCODONE 5 MG Tab PO PRN (12:49)
[2020-03-21] MEDS ORDERED: Albuterol 8 GM Inhaler INH PRN (13:11)
[2020-03-21] MEDS: oxyCODONE 5 MG Tab PO PRN ×2 (15:59→20:15)
[2020-03-21] MEDS: Enoxaparin 40 MG/0.4 ML Syringe SUBCUT SCH (16:17)
[2020-03-21] MEDS: Nicotine 14 MG/24 Hr Patch TRDERM SCH (16:17)
[2020-03-21] MEDS: Ondansetron 4 MG/2 ML SDV IV PRN (16:29)
[2020-03-21] MEDS: Acetaminophen 325 MG Tab PO PRN (16:39)
[2020-03-21] MEDS: Insulin Lispro 100 Unit/ML 3 ML KwikPen SUBCUT SCH ×2 (17:18→21:19)
[2020-03-21] MEDS: Nicotine Polacrilex 2 MG Gum CHEW PRN (18:49)
[2020-03-21] MEDS ORDERED: Non-Formulary Medication 1 Each (Budesonide/Formoterol [Symbicort 160-4.5 Mcg] 2 PUFF) IN SCH (21:00)
[2020-03-21] MEDS ORDERED: MELATONIN 9 MG PO SCH (21:00)
[2020-03-21] MEDS: traZODone 50 MG Tab PO SCH (21:20)
[2020-03-21] MEDS: Melatonin 3 MG Tab PO SCH (21:20)
[2020-03-21] MEDS: Insulin Glargine,Human Rec. Analog 100 Units/ML 3 ML Pen SUBCUT SCH (21:21)
[2020-03-21] MEDS: Gabapentin 400 MG Cap PO SCH (21:22)
[2020-03-21] MEDS: Famotidine 20 MG Tab PO SCH (21:22)
[2020-03-21] MEDS: Metoprolol Tartrate 50 MG Tab PO SCH (21:22)
[2020-03-21] MEDS: rOPINIRole 1 MG Tab PO SCH (21:23)
[2020-03-21] MEDS: Fluticasone-Salmeterol 232-14 MCG Powder Inhalent INH SCH (21:23)
[2020-03-21] MEDS: Diclofenac Sodium 50 MG Tab.EC PO SCH ×2 (21:26→21:28)
[2020-03-21] MEDS: Sodium Chloride 0.9% 1,000 ML IV SCH (21:35)
[2020-03-22] MEDS: oxyCODONE 5 MG Tab PO PRN ×5 (00:18→22:29)
[2020-03-22] MEDS: Sodium Chloride 0.9% 1,000 ML IV SCH (05:04)
[2020-03-22] MEDS: Fluticasone-Salmeterol 232-14 MCG Powder Inhalent INH SCH ×2 (07:14→20:07)
[2020-03-22] MEDS: Insulin Lispro 100 Unit/ML 3 ML KwikPen SUBCUT SCH ×4 (07:30→21:31)
[2020-03-22] MEDS: Acetaminophen 325 MG Tab PO PRN ×2 (07:56→18:10)
[2020-03-22] MEDS: Nicotine Polacrilex 2 MG Gum CHEW PRN (07:56)
[2020-03-22] MEDS: Pantoprazole 40 MG Tab.CR PO SCH (07:56)
[2020-03-22] MEDS: Nicotine 14 MG/24 Hr Patch TRDERM SCH (07:58)
[2020-03-22] MEDS: Diclofenac Sodium 50 MG Tab.EC PO SCH ×2 (09:18→20:08)
[2020-03-22] MEDS: Gabapentin 400 MG Cap PO SCH ×2 (09:18→20:07)
[2020-03-22] MEDS: DULoxetine 20 MG Cap PO SCH (09:18)
[2020-03-22] MEDS: Cetirizine 10 MG Tab PO SCH (09:18)
[2020-03-22] MEDS: Famotidine 20 MG Tab PO SCH ×2 (09:18→20:08)
--- NOTE | 2020-03-22 09:50 | PCM.PN ---
- General Info Date of Service: 03/22/20 Subjective Update: Mr. Garces has been stable since admission with no further nausea or vomiting. He continues to report supraumbilical abdominal pain. Lipase level has improved significantly since admission but remains elevated. Functional Status: Reports: Ambulating, Urinating - Review of Systems General: Reports: Fever, Weakness, Fatigue, Chills Pulmonary: Reports: No Symptoms Cardiovascular: Reports: No Symptoms Gastrointestinal: Reports: Abdominal Pain, Decreased Appetite, Nausea. Denies: Diarrhea, Difficulty Swallowing, Vomiting - Patient Data Vitals - Most Recent: Last Vital Signs Temp 99.1 F 03/22/20 07:44 Pulse 64 03/22/20 07:44 Resp 16 03/22/20 07:44 BP 108/66 03/22/20 07:44 Pulse Ox 98 03/22/20 06:04 Weight - Most Recent: 147 lb 9.6 oz I&O - Last 24 Hours: Intake & Output 03/21/20 03/22/20 03/22/20 22:59 06:59 14:59 Intake Total 2023 240 Output Total 800 1100 350 Balance -800 923 -110 Lab Results Last 24 Hours: Laboratory Results - last 24 hr 03/21/20 03/21/20 03/21/20 Range/Units 10:09 10:09 10:09 WBC 7.7 (4.5-11.0) K/uL RBC 5.01 (4.30-5.90) M/uL Hgb 14.6 (12.0-15.0) g/dL Hct 44.8 (40.0-54.0) % MCV 89 (80-98) fL MCH 29 (27-31) pg MCHC 33 (32-36) % Plt Count 156 (150-400) K/uL Neut % (Auto) (36-66) % Lymph % (Auto) (24-44) % [place] % (Auto) (2-6) % Eos % (Auto) (2-4) % Baso % (Auto) (0-1) % Sodium 134 L (140-148) mmol/L Potassium 4.5 (3.6-5.2) mmol/L Chloride 99 L (100-108) mmol/L Carbon Dioxide 26 (21-32) mmol/L Anion Gap 13.5 (5.0-14.0) mmol/L BUN 13 D (7-18) mg/dL Creatinine 0.9 (0.8-1.3) mg/dL Est Cr Clr Drug Dosing 84.24 mL/min Estimated GFR (MDRD) > 60 (>60) Glucose 253 H (74-106) mg/dL POC Glucose (74-106) MG/DL Calcium 8.8 (8.5-10.1) mg/dL Total Bilirubin 0.4 (0.2-1.0) mg/dL AST 58 H (15-37) U/L ALT 154 H (12-78) U/L Alkaline Phosphatase 114 (46-116) U/L Total Protein 6.9 (6.4-8.2) g/dL Albumin 3.5 (3.4-5.0) g/dL Globulin 3.4 (2.3-3.5) g/dL Albumin/Globulin Ratio 1.0 L (1.2-2.2) Lipase 1747 H (73-393) U/L 03/21/20 03/21/20 03/22/20 Range/Units 16:30 21:00 05:45 WBC (4.5-11.0) K/uL RBC (4.30-5.90) M/uL Hgb (12.0-15.0) g/dL Hct (40.0-54.0) % MCV (80-98) fL MCH (27-31) pg MCHC (32-36) % Plt Count (150-400) K/uL Neut % (Auto) (36-66) % Lymph % (Auto) (24-44) % [place] % (Auto) (2-6) % Eos % (Auto) (2-4) % Baso % (Auto) (0-1) % Sodium (140-148) mmol/L Potassium (3.6-5.2) mmol/L Chloride (100-108) mmol/L Carbon Dioxide (21-32) mmol/L Anion Gap (5.0-14.0) mmol/L BUN (7-18) mg/dL Creatinine (0.8-1.3) mg/dL Est Cr Clr Drug Dosing mL/min Estimated GFR (MDRD) (>60) Glucose (74-106) mg/dL POC Glucose 120 H 110 H (74-106) MG/DL Calcium (8.5-10.1) mg/dL Total Bilirubin (0.2-1.0) mg/dL AST (15-37) U/L ALT (12-78) U/L Alkaline Phosphatase (46-116) U/L Total Protein (6.4-8.2) g/dL Albumin (3.4-5.0) g/dL Globulin (2.3-3.5) g/dL Albumin/Globulin Ratio (1.2-2.2) Lipase 774 H (73-393) U/L 03/22/20 03/22/20 03/22/20 Range/Units 05:45 05:45 07:30 WBC 7.6 (4.5-11.0) K/uL RBC 4.99 (4.30-5.90) M/uL Hgb 14.6 (12.0-15.0) g/dL Hct 44.7 (40.0-54.0) % MCV 90 (80-98) fL MCH 29 (27-31) pg MCHC 33 (32-36) % Plt Count 142 L (150-400) K/uL Neut % (Auto) 73 H (36-66) % Lymph % (Auto) 14 L (24-44) % [place] % (Auto) 9 H (2-6) % Eos % (Auto) 4 (2-4) % Baso % (Auto) 0 (0-1) % Sodium 139 L (140-148) mmol/L Potassium 4.0 (3.6-5.2) mmol/L Chloride 106 (100-108) mmol/L Carbon Dioxide 23 (21-32) mmol/L Anion Gap 14.0 (5.0-14.0) mmol/L BUN 9 (7-18) mg/dL Creatinine 0.8 (0.8-1.3) mg/dL Est Cr Clr Drug Dosing 96.47 mL/min Estimated GFR (MDRD) > 60 (>60) Glucose 81 (74-106) mg/dL POC Glucose 79 (74-106) MG/DL Calcium 8.7 (8.5-10.1) mg/dL Total Bilirubin 0.7 D (0.2-1.0) mg/dL AST 189 H D (15-37) U/L ALT 254 H (12-78) U/L Alkaline Phosphatase 178 H (46-116) U/L Total Protein 6.5 (6.4-8.2) g/dL Albumin 3.1 L (3.4-5.0) g/dL Globulin 3.4 (2.3-3.5) g/dL Albumin/Globulin Ratio 0.9 L (1.2-2.2) Lipase (73-393) U/L Med Orders - Current: Current Medications Acetaminophen (Tylenol) 650 mg PO Q4H PRN PRN Reason: Pain (Mild 1-3)/fever Last Admin: 03/22/20 07:56 Dose: 650 mg Documented by: Albuterol (Proventil Neb Soln) 2.5 mg NEB Q4H PRN PRN Reason: Shortness Of Breath/wheezing Albuterol (Ventolin Hfa) 0 gm INH Q6H PRN PRN Reason: Shortness of Breath Cetirizine HCl (Zyrtec) 10 mg PO DAILY [facility] Last Admin: 03/22/20 09:18 Dose: 10 mg Documented by: Dextrose (Glutose 15) 15 gm PO ASDIRECTED PRN PRN Reason: Hypoglycemia Dextrose/Water (Dextrose 50% In Water) 50 ml IV ASDIRECTED PRN PRN Reason: Hypoglycemia Diclofenac Sodium (Voltaren) 50 mg PO BID [facility] Last Admin: 03/22/20 09:18 Dose: 50 mg Documented by: Duloxetine HCl (Cymbalta) 80 mg PO DAILY [facility] Last Admin: 03/22/20 09:18 Dose: 80 mg Documented by: Enoxaparin Sodium (Lovenox) 40 mg SUBCUT Q24H [facility] Last Admin: 03/21/20 16:17 Dose: 40 mg Documented by: Famotidine (Pepcid) 20 mg PO BID [facility] Last Admin: 03/22/20 09:18 Dose: 20 mg Documented by: Gabapentin (Neurontin) 1,200 mg PO BID [facility] Last Admin: 03/22/20 09:18 Dose: 1,200 mg Documented by: Hydromorphone HCl (Dilaudid) 0.5 mg IVPUSH Q4H PRN PRN Reason: Pain (severe 7-10) Insulin Glargine (Lantus Solostar) 15 units SUBCUT BEDTIME [facility] Last Admin: 03/21/20 21:21 Dose: 15 units Documented by: Insulin Human Lispro (Humalog) 0 unit SUBCUT QIDACANDBED [facility]; Protocol Last Admin: 03/22/20 07:30 Dose: Not Given Documented by: Lidocaine (Lidoderm 5%) 700 mg TOP ASDIRECTED PRN PRN Reason: Pain Melatonin (Melatonin) 9 mg PO BEDTIME [facility] Last Admin: 03/21/20 21:20 Dose: 9 mg Documented by: Metoprolol Tartrate (Lopressor) 50 mg PO BEDTIME [facility] Last Admin: 03/21/20 21:22 Dose: 50 mg Documented by: Nicotine (Habitrol) 14 mg TRDERM DAILY [facility] Last Admin: 03/22/20 07:58 Dose: 14 mg Documented by: Nicotine Polacrilex (Nicorelief) 2 mg CHEW Q1H PRN PRN Reason: Other Last Admin: 03/22/20 07:56 Dose: 2 mg Documented by: Ondansetron HCl (Zofran) 4 mg IV Q4H PRN PRN Reason: Nausea/Vomiting Last Admin: 03/21/20 16:29 Dose: 4 mg Documented by: Oxycodone HCl (Oxycodone) 5 mg PO Q4H PRN PRN Reason: Pain Pantoprazole Sodium (Protonix) 40 mg PO ACBREAKFAST [facility] Last Admin: 03/22/20 07:56 Dose: 40 mg Documented by: Polyethylene Glycol (Miralax) 17 gm PO DAILY PRN PRN Reason: Constipation Ropinirole HCl (Requip) 1 mg PO BEDTIME [facility] Last Admin: 03/21/20 21:23 Dose: 1 mg Documented by: Fluticasone/Salmeterol (Fluticasone-Salmeterol 232-14 Mcg Powder Inha) 1 puff INH BIDRT [facility] Last Admin: 03/22/20 07:14 Dose: 1 puff Documented by: Senna/Docusate Sodium (Senna Plus) 2 tab PO BID PRN PRN Reason: Constipation Sodium Chloride (Saline Flush) 10 ml FLUSH ASDIRECTED PRN PRN Reason: Keep Vein Open Trazodone HCl (Trazodone) 100 mg PO BEDTIME [facility] Last Admin: 03/21/20 21:20 Dose: 100 mg Documented by: Discontinued Medications Hydromorphone HCl (Dilaudid) 0.5 mg IVPUSH ONETIME ONE Stop: 03/21/20 09:58 Last Admin: 03/21/20 10:10 Dose: 0.5 mg Documented by: Lactated Ringer's (Ringers, Lactated) 1,000 mls @ 500 mls/hr IV ASDIRECTED [facility] Last Admin: 03/21/20 10:10 Dose: 500 mls/hr Documented by: Sodium Chloride (Normal Saline) 1,000 mls @ 125 mls/hr IV ASDIRECTED [facility] Last Admin: 03/22/20 05:04 Dose: 125 mls/hr Documented by: Oxycodone HCl (Oxycodone) 5 mg PO Q4H PRN PRN Reason: Pain Last Admin: 03/21/20 13:20 Dose: 5 mg Documented by: Oxycodone HCl (Oxycodone) 10 mg PO Q4H PRN PRN Reason: Pain Last Admin: 03/22/20 06:02 Dose: 10 mg Documented by: Prochlorperazine Edisylate (Compazine) 5 mg IVPUSH ONETIME ONE Stop: 03/21/20 09:57 Last Admin: 03/21/20 10:07 Dose: 5 mg Documented by: - Exam Quality Assessment: DVT Prophylaxis General: Alert, Oriented, Cooperative, Moderate Distress Lungs: Clear to Auscultation, Normal Respiratory Effort Cardiovascular: Regular Rate, Regular Rhythm, No Murmurs GI/Abdominal Exam: Soft, No Organomegaly, Tender. No: Distended, Guarding, Rig id, Rebound Extremities: Non-Tender, No Pedal Edema Sepsis Event Note - Evaluation Sepsis Screening Result: No Definite Risk - Focused Exam Vital Signs: Vital Signs Temp Temp Pulse Resp BP Pulse Ox 03/22/20 07:44 99.1 F 64 16 108/66 03/22/20 06:04 97.0 F 63 18 114/56 L 98 03/22/20 02:36 97.0 F 74 18 106/63 97 03/21/20 22:00 98.2 F 67 18 99/58 L 95 - Problem List Review Problem List Initiated/Reviewed/Updated: Yes - My Orders Last 24 Hours: My Active Orders 03/21/20 11:53 Resuscitation Status Routine 03/21/20 12:49 Acetaminophen [TylenoL] 650 mg PO Q4H PRN Albuterol [Proventil Neb Soln] 2.5 mg NEB Q4H PRN Dextrose 50% in Water 50 ml IV ASDIRECTED PRN Dextrose [Glutose 15] 15 gm PO ASDIRECTED PRN Docusate Sodium/Sennosides [Senna Plus] 2 tab PO BID PRN Lidocaine 5% [Lidoderm 5%] 700 mg TOP ASDIRECTED PRN Ondansetron [Zofran] 4 mg IV Q4H PRN Sodium Chloride 0.9% [Saline Flush] 10 ml FLUSH ASDIRECTED PRN polyethylene glycoL 3350 [MiraLAX] 17 gm PO DAILY PRN 03/21/20 12:49 Patient Status [ADT] Routine Ambulate [RC] QID Diabetes Education [RC] Click to Edit Height and Weight [RC] DAILY Intake and Output [RC] QSHIFT Notify Provider Vital Signs [RC] ASDIRECTED Notify Provider [RC] PRN Oxygen Therapy [RC] PRN Peripheral IV Care [RC] . DIRECTED RT Aerosol Therapy [RC] ASDIRECTED Up With Assistance [RC] ASDIRECTED Up to Chair [RC] QID VTE/DVT Education [RC] Per Unit Routine Vital Signs [RC] Q4H Peripheral IV Insertion Adult [OM.PC] Routine 03/21/20 13:11 Albuterol [Ventolin HFA] 0 gm INH Q6H PRN 03/21/20 15:00 Enoxaparin [Lovenox] 40 mg SUBCUT Q24H 03/21/20 15:35 Nicotine Polacrilex [Nicorelief] 2 mg CHEW Q1H PRN 03/21/20 15:45 Nicotine [Habitrol] 14 mg TRDERM DAILY 03/21/20 17:00 Insulin Lispro [HumaLOG] See Protocol SUBCUT QIDACANDBED 03/21/20 21:00 Diclofenac Sodium [Voltaren] 50 mg PO BID Famotidine [Pepcid] 20 mg PO BID Fluticasone/Salmeterol [Fluticasone-Salmeterol 232-14 MCG Powder Inha] 1 puff INH BIDRT Gabapentin [Neurontin] 1,200 mg PO BID Insulin Glarg,Human.Rec.Analog [LantUS Solostar] 15 units SUBCUT BEDTIME Melatonin 9 mg PO BEDTIME Metoprolol Tartrate [Lopressor] 50 mg PO BEDTIME rOPINIRole [Requip] 1 mg PO BEDTIME traZODone 100 mg PO BEDTIME 03/22/20 07:30 Pantoprazole [ProTONIX] 40 mg PO ACBREAKFAST 03/22/20 Breakfast Clear Liquid Diet [DIET] 03/22/20 09:00 Cetirizine [ZyrTEC] 10 mg PO DAILY DULoxetine [Cymbalta] 80 mg PO DAILY 03/22/20 09:29 Convert IV to Saline Lock [OM.PC] Routine 03/22/20 09:30 HYDROmorphone [Dilaudid] 0.5 mg IVPUSH Q4H PRN oxyCODONE 5 mg PO Q4H PRN 03/22/20 11:30 GLUCOSE POC LAB TO COLLECT JPM [POC] QIDACANDBED 03/22/20 16:30 GLUCOSE POC LAB TO COLLECT JPM [POC] QIDACANDBED 03/22/20 21:00 GLUCOSE POC LAB TO COLLECT JPM [POC] QIDACANDBED 03/23/20 05:00 COMPREHENSIVE METABOLIC PN,CMP [CHEM] Timed LIPASE [CHEM] Timed 03/23/20 07:30 GLUCOSE POC LAB TO COLLECT JPM [POC] QIDACANDBED 03/23/20 11:30 GLUCOSE POC LAB TO COLLECT JPM [POC] QIDACANDBED 03/23/20 16:30 GLUCOSE POC LAB TO COLLECT JPM [POC] QIDACANDBED 03/23/20 21:00 GLUCOSE POC LAB TO COLLECT JPM [POC] QIDACANDBED 03/24/20 07:30 GLUCOSE POC LAB TO COLLECT JPM [POC] QIDACANDBED 03/24/20 11:30 GLUCOSE POC LAB TO COLLECT JPM [POC] QIDACANDBED 03/24/20 16:30 GLUCOSE POC LAB TO COLLECT JPM [POC] QIDACANDBED 03/24/20 21:00 GLUCOSE POC LAB TO COLLECT JPM [POC] QIDACANDBED 03/25/20 07:30 GLUCOSE POC LAB TO COLLECT JPM [POC] QIDACANDBED 03/25/20 11:30 GLUCOSE POC LAB TO COLLECT JPM [POC] QIDACANDBED 03/25/20 16:30 GLUCOSE POC LAB TO COLLECT JPM [POC] QIDACANDBED 03/25/20 21:00 GLUCOSE POC LAB TO COLLECT JPM [POC] QIDACANDBED 03/26/20 07:30 GLUCOSE POC LAB TO COLLECT JPM [POC] QIDACANDBED 03/26/20 11:30 GLUCOSE POC LAB TO COLLECT JPM [POC] QIDACANDBED - Plan Plan:: ASSESSMENT AND PLAN ACUTE PANCREATITIS-previous episodes of pancreatitis secondary to alcohol use, he no longer consumes alcohol. Question of possible medication effect, medications have been reviewed by pharmacy with no obvious contributing drugs. He reports persistent pain, nausea and vomiting have improved -Saline lock IV -Clear liquid diet -Pain and nausea medication as needed -Repeat lipase level in a.m. TYPE 2 DIABETES MELLITUS -Hold metformin -Continue usual dose of long-acting insulin -4 times daily glucometers -Low-dose sliding scale Humalog COPD-no evidence of acute exacerbation -Continue usual outpatient medications MAINTENANCE ISSUES -DVT prophylaxis; Lovenox 40 mg subcu daily -GI prophylaxis; continue outpatient PPI therapy -Sorenson catheter; not indicated -Nutrition; n.p.o. -Nicotine dependence; nicotine patch and nicotine gum CODE STATUS-FULL CODE ADMISSION STATUS-patient will be admitted to inpatient status, expect at least a 2 night hospital stay for evaluation and management of problems as outlined above. At the time of this admission I do not reasonably expected evaluation and management of this problem will require more than a 96 hour hospital stay. DISPOSITION-anticipate discharge to home after the hospital stay. PRIMARY CARE PROVIDER-
[2020-03-22] MEDS: HYDROmorphone 0.5 MG/0.5 ML Syringe IVPUSH PRN ×3 (10:16→20:01)
[2020-03-22] MEDS: Ondansetron 4 MG/2 ML SDV IV PRN ×2 (11:28→16:01)
[2020-03-22] MEDS: Enoxaparin 40 MG/0.4 ML Syringe SUBCUT SCH (16:01)
[2020-03-22] MEDS: rOPINIRole 1 MG Tab PO SCH (20:08)
[2020-03-22] MEDS: traZODone 50 MG Tab PO SCH (20:08)
[2020-03-22] MEDS: Melatonin 3 MG Tab PO SCH (20:08)
[2020-03-22] MEDS: Metoprolol Tartrate 50 MG Tab PO SCH (20:09)
[2020-03-22] MEDS: Insulin Glargine,Human Rec. Analog 100 Units/ML 3 ML Pen SUBCUT SCH (21:32)
[2020-03-23] MEDS: HYDROmorphone 0.5 MG/0.5 ML Syringe IVPUSH PRN ×2 (01:27→07:20)
[2020-03-23] MEDS: oxyCODONE 5 MG Tab PO PRN ×2 (03:35→08:59)
[2020-03-23] MEDS: Fluticasone-Salmeterol 232-14 MCG Powder Inhalent INH SCH (07:15)
[2020-03-23] MEDS: Insulin Lispro 100 Unit/ML 3 ML KwikPen SUBCUT SCH (07:23)
[2020-03-23] MEDS: Pantoprazole 40 MG Tab.CR PO SCH (07:23)
[2020-03-23 07:29] VITALS: BP 115/79; PULSE 73
[2020-03-23] MEDS: Nicotine 14 MG/24 Hr Patch TRDERM SCH (08:54)
[2020-03-23] MEDS: DULoxetine 20 MG Cap PO SCH (08:54)
[2020-03-23] MEDS: Cetirizine 10 MG Tab PO SCH (08:55)
[2020-03-23] MEDS: Gabapentin 400 MG Cap PO SCH (08:55)
[2020-03-23] MEDS: Diclofenac Sodium 50 MG Tab.EC PO SCH (08:55)
[2020-03-23] MEDS: Famotidine 20 MG Tab PO SCH (09:56)
--- NOTE | 2020-03-23 10:08 | PCM.DCSUM1 ---
Discharge Summary - Hospital Course Brief History: Mr. Garces is a 59-year-old gentleman who was admitted through the emergency department with supraumbilical abdominal pain and nausea secondary to acute pancreatitis. - Discharge Data Discharge Date: 03/23/20 Discharge Disposition: Home, Self-Care 01 Condition: Fair - Referral to Home Health Primary Care Physician: PCP None - Discharge Diagnosis/Problem(s) (1) Acute pancreatitis SNOMED Code(s): 220746988 ICD Code: K85.90 - ACUTE PANCREATITIS WITHOUT NECROSIS OR INFECTION, UNSP Status: Acute Current Visit: Yes Qualifiers: Pancreatitis type: unspecified pancreatitis type Acute pancreatitis complication: unspecified Qualified Code(s): K85.90 - Acute pancreatitis without necrosis or infection, unspecified (2) Diabetes mellitus type 2 in nonobese SNOMED Code(s): 262980515 ICD Code: E11.9 - TYPE 2 DIABETES MELLITUS WITHOUT COMPLICATIONS Status: Chronic Current Visit: No - Patient Summary/Data Hospital Course: Mr. Garces is a 59-year-old gentleman who was admitted through the emergency department with nausea and abdominal pain secondary to acute pancreatitis. He has a known and previous history of pancreatitis, thought to be secondary to previous alcohol use. He stopped using alcohol approximately 2-1/2 years ago and has not had recent consumption. Over the last few weeks he has noted symptoms of nausea and upper abdominal discomfort. Symptoms have increased over the past 24 hours with more severe pain and persistent nausea. Because of ongoing symptoms he presented to the emergency department. Lipase level was found to be elevated at 1700. On admission he was kept n.p.o. and given IV fluids for hydration as well as medication for pain and nausea. By the following morning his pain was improved although not totally resolved and his lipase level although still elevated had improved significantly. He was started on a clear liquid diet that was advanced to a regular diet which he tolerated well. By the morning of discharge lipase level was within normal range and his abdominal pain had essentially resolved. Medications were reviewed for potential contributing cause of his acute pancreatitis and none were noted to be likely to be causing his current pancreatitis. Liver enzymes were elevated on admission and did increase some during hospitalization. Bilirubin remained within normal range. Activity will be as tolerated and he will resume his usual diet. Follow-up appointment will be scheduled with his primary care provider within 1 week, CMP should be obtained at the time of follow-up appointment to monitor liver enzyme levels. - Patient Instructions Diet: Usual Diet as Tolerated Activity: As Tolerated Other/Special Instructions: Please schedule follow-up appointment with primary care provider within 1 week. CMP should be obtained at the time of follow-up appointment to reassess liver enzyme elevation. - Discharge Plan *PRESCRIPTION DRUG MONITORING PROGRAM REVIEWED*: Not Applicable *COPY OF PRESCRIPTION DRUG MONITORING REPORT IN PATIENT WAY[facility]: Not Applicable Home Medications: Home Meds Albuterol Sulfate [Proair Respiclick] 2 puff IN Q6HR PRN 10/27/16 [History] Budesonide/Formoterol [Symbicort 160-4.5 MCG] 2 puff IN BID 10/27/16 [History] Lidocaine 5% [Lidoderm 5%] 1 patch TOP ASDIRECTED PRN 10/27/16 [History] Metoprolol Tartrate [Lopressor] 50 mg PO BEDTIME 10/27/16 [History] rOPINIRole [Requip] 1 mg PO BEDTIME 10/27/16 [History] traZODone 100 mg PO BEDTIME 10/27/16 [History] Cyclobenzaprine HCl 20 mg PO BID 12/20/16 [History] Docusate Sodium/Sennosides [Senna Plus] 2 each PO BID PRN 12/20/16 [History] Gabapentin [Neurontin] 1,200 mg PO BID 12/20/16 [History] Ondansetron [Zofran] 4 mg PO Q8H PRN #20 tab 01/20/17 [Rx] Acetaminophen 650 mg PO ASDIRECTED 08/29/18 [History] DULoxetine [Cymbalta] 80 mg PO DAILY 08/29/18 [History] Melatonin 9 mg PO BEDTIME 08/29/18 [History] Pantoprazole [ProTONIX] 40 mg PO ACBREAKFAST 08/29/18 [History] oxyCODONE 5 mg PO Q6H PRN #15 tab 07/09/19 [Rx] Cetirizine [ZyrTEC] 10 mg PO DAILY 03/21/20 [History] Cholecalciferol (Vitamin D3) [Vitamin D3] 100 year PO DAILY 03/21/20 [History] Dextrin [Fiber] 350 gm PO BID 03/21/20 [History] Diclofenac Sodium 50 mg PO BID 03/21/20 [History] Famotidine 20 mg PO BID 03/21/20 [History] Gabapentin [Neurontin] 300 mg PO ASDIRECTED 03/21/20 [History] Insulin Glargine,Hum.Rec.Anlog [Lantus Solostar] 15 units SUBCNJ BEDTIME [History] metFORMIN [Glucophage] 1,000 mg PO WITHDINNER 03/21/20 [History] polyethylene glycoL 3350 [MiraLAX] 34 gm PO BID 03/21/20 [History] - Discharge Summary/Plan Comment DC Time >30 min.: No - Patient Data Vitals - Most Recent: Last Vital Signs Temp 97.9 F 03/23/20 07:28 Pulse 73 03/23/20 07:28 Resp 16 03/23/20 07:28 BP 115/79 03/23/20 07:28 Pulse Ox 98 03/23/20 07:28 Weight - Most Recent: 147 lb 9.6 oz I&O - Last 24 hours: Intake & Output 03/22/20 03/23/20 03/23/20 22:59 06:59 14:59 Intake Total 600 600 Output Total 1250 700 Balance -650 -100 Lab Results - Last 24 hrs: Laboratory Results - last 24 hr 03/22/20 03/22/20 03/22/20 Range/Units 11:30 16:30 20:59 Sodium (140-148) mmol/L Potassium (3.6-5.2) mmol/L Chloride (100-108) mmol/L Carbon Dioxide (21-32) mmol/L Anion Gap (5.0-14.0) mmol/L BUN (7-18) mg/dL Creatinine (0.8-1.3) mg/dL Est Cr Clr Drug Dosing mL/min Estimated GFR (MDRD) (>60) Glucose (74-106) mg/dL POC Glucose 134 H 142 H 208 H (74-106) MG/DL Calcium (8.5-10.1) mg/dL Total Bilirubin (0.2-1.0) mg/dL AST (15-37) U/L ALT (12-78) U/L Alkaline Phosphatase (46-116) U/L Total Protein (6.4-8.2) g/dL Albumin (3.4-5.0) g/dL Globulin (2.3-3.5) g/dL Albumin/Globulin Ratio (1.2-2.2) Lipase (73-393) U/L 03/23/20 03/23/20 Range/Units 05:08 07:30 Sodium 140 (140-148) mmol/L Potassium 3.9 (3.6-5.2) mmol/L Chloride 105 (100-108) mmol/L Carbon Dioxide 26 (21-32) mmol/L Anion Gap 8.8 (5.0-14.0) mmol/L BUN 6 L (7-18) mg/dL Creatinine 0.8 (0.8-1.3) mg/dL Est Cr Clr Drug Dosing 96.47 mL/min Estimated GFR (MDRD) > 60 (>60) Glucose 82 (74-106) mg/dL POC Glucose 85 (74-106) MG/DL Calcium 8.8 (8.5-10.1) mg/dL Total Bilirubin 1.0 (0.2-1.0) mg/dL AST 294 H (15-37) U/L ALT 416 H (12-78) U/L Alkaline Phosphatase 298 H (46-116) U/L Total Protein 6.8 (6.4-8.2) g/dL Albumin 3.1 L (3.4-5.0) g/dL Globulin 3.7 H (2.3-3.5) g/dL Albumin/Globulin Ratio 0.8 L (1.2-2.2) Lipase 220 (73-393) U/L Med Orders - Current: Current Medications Acetaminophen (Tylenol) 650 mg PO Q4H PRN PRN Reason: Pain (Mild 1-3)/fever Last Admin: 03/22/20 18:10 Dose: 650 mg Documented by: Albuterol (Proventil Neb Soln) 2.5 mg NEB Q4H PRN PRN Reason: Shortness Of Breath/wheezing Albuterol (Ventolin Hfa) 0 gm INH Q6H PRN PRN Reason: Shortness of Breath Cetirizine HCl (Zyrtec) 10 mg PO DAILY DANTE Last Admin: 03/23/20 08:55 Dose: 10 mg Documented by: Dextrose (Glutose 15) 15 gm PO ASDIRECTED PRN PRN Reason: Hypoglycemia Dextrose/Water (Dextrose 50% In Water) 50 ml IV ASDIRECTED PRN PRN Reason: Hypoglycemia Diclofenac Sodium (Voltaren) 50 mg PO BID [facility] Last Admin: 03/23/20 08:55 Dose: 50 mg Documented by: Duloxetine HCl (Cymbalta) 80 mg PO DAILY [facility] Last Admin: 03/23/20 08:54 Dose: 80 mg Documented by: Enoxaparin Sodium (Lovenox) 40 mg SUBCUT Q24H [facility] Last Admin: 03/22/20 16:01 Dose: 40 mg Documented by: Famotidine (Pepcid) 20 mg PO BID [facility] Last Admin: 03/23/20 09:56 Dose: 20 mg Documented by: Gabapentin (Neurontin) 1,200 mg PO BID [facility] Last Admin: 03/23/20 08:55 Dose: 1,200 mg Documented by: Hydromorphone HCl (Dilaudid) 0.5 mg IVPUSH Q4H PRN PRN Reason: Pain (severe 7-10) Last Admin: 03/23/20 07:20 Dose: 0.5 mg Documented by: Insulin Glargine (Lantus Solostar) 15 units SUBCUT BEDTIME [facility] Last Admin: 03/22/20 21:32 Dose: 15 units Documented by: Insulin Human Lispro (Humalog) 0 unit SUBCUT QIDACANDBED [facility]; Protocol Last Admin: 03/23/20 07:23 Dose: Not Given Documented by: Lidocaine (Lidoderm 5%) 700 mg TOP ASDIRECTED PRN PRN Reason: Pain Last Admin: 03/22/20 10:19 Dose: 700 mg Documented by: Melatonin (Melatonin) 9 mg PO BEDTIME [facility] Last Admin: 03/22/20 20:08 Dose: 9 mg Documented by: Metoprolol Tartrate (Lopressor) 50 mg PO BEDTIME [facility] Last Admin: 03/22/20 20:09 Dose: 50 mg Documented by: Nicotine (Habitrol) 14 mg TRDERM DAILY [facility] Last Admin: 03/23/20 08:54 Dose: 14 mg Documented by: Nicotine Polacrilex (Nicorelief) 2 mg CHEW Q1H PRN PRN Reason: Other Last Admin: 03/22/20 07:56 Dose: 2 mg Documented by: Ondansetron HCl (Zofran) 4 mg IV Q4H PRN PRN Reason: Nausea/Vomiting Last Admin: 03/22/20 16:01 Dose: 4 mg Documented by: Oxycodone HCl (Oxycodone) 5 mg PO Q4H PRN PRN Reason: Pain Last Admin: 03/23/20 08:59 Dose: 5 mg Documented by: Pantoprazole Sodium (Protonix) 40 mg PO ACBREAKFAST [facility] Last Admin: 03/23/20 07:23 Dose: 40 mg Documented by: Polyethylene Glycol (Miralax) 17 gm PO DAILY PRN PRN Reason: Constipation Ropinirole HCl (Requip) 1 mg PO BEDTIME [facility] Last Admin: 03/22/20 20:08 Dose: 1 mg Documented by: Fluticasone/Salmeterol (Fluticasone-Salmeterol 232-14 Mcg Powder Inha) 1 puff INH BIDRT [facility] Last Admin: 03/23/20 07:15 Dose: 1 puff Documented by: Senna/Docusate Sodium (Senna Plus) 2 tab PO BID PRN PRN Reason: Constipation Last Admin: 03/22/20 10:19 Dose: 2 tab Documented by: Sodium Chloride (Saline Flush) 10 ml FLUSH ASDIRECTED PRN PRN Reason: Keep Vein Open Trazodone HCl (Trazodone) 100 mg PO BEDTIME [facility] Last Admin: 03/22/20 20:08 Dose: 100 mg Documented by: Discontinued Medications Hydromorphone HCl (Dilaudid) 0.5 mg IVPUSH ONETIME ONE Stop: 03/21/20 09:58 Last Admin: 03/21/20 10:10 Dose: 0.5 mg Documented by: Lactated Ringer's (Ringers, Lactated) 1,000 mls @ 500 mls/hr IV ASDIRECTED [facility] Last Admin: 03/21/20 10:10 Dose: 500 mls/hr Documented by: Sodium Chloride (Normal Saline) 1,000 mls @ 125 mls/hr IV ASDIRECTED [facility] Last Admin: 03/22/20 05:04 Dose: 125 mls/hr Documented by: Oxycodone HCl (Oxycodone) 5 mg PO Q4H PRN PRN Reason: Pain Last Admin: 03/21/20 13:20 Dose: 5 mg Documented by: Oxycodone HCl (Oxycodone) 10 mg PO Q4H PRN PRN Reason: Pain Last Admin: 03/22/20 06:02 Dose: 10 mg Documented by: Prochlorperazine Edisylate (Compazine) 5 mg IVPUSH ONETIME ONE Stop: 03/21/20 09:57 Last Admin: 03/21/20 10:07 Dose: 5 mg Documented by: - Exam General: Reports: Alert, Oriented, Cooperative, No Acute Distress Lungs: Reports: Clear to Auscultation, Normal Respiratory Effort Cardiovascular: Reports: Regular Rate, Regular Rhythm, No Murmurs GI/Abdominal Exam: Soft, Non-Tender, No Organomegaly, No Distention
== END 2020-03-23 10:50 | disposition home or self-care (01) | DRG 440 ==
LOC: JP.ED 09:18 → JP.MS 11:48
PROVIDERS: ADMIT Hospitalist; ATTEND Hospitalist
DX: K85.90 Acute pancreatitis without necrosis or infection, unspecified (principal); E11.65 Type 2 diabetes mellitus with hyperglycemia; J30.9 Allergic rhinitis, unspecified; I25.10 Atherosclerotic heart disease of native coronary artery without angina pectoris; E78.00 Pure hypercholesterolemia, unspecified; Z98.61 Coronary angioplasty status; J44.9 Chronic obstructive pulmonary disease, unspecified; G47.30 Sleep apnea, unspecified; K44.9 Diaphragmatic hernia without obstruction or gangrene; K21.9 Gastro-esophageal reflux disease without esophagitis; I12.9 Hypertensive chronic kidney disease with stage 1 through stage 4 chronic kidney disease, or unspecified chronic kidney disease; N18.9 Chronic kidney disease, unspecified; G89.29 Other chronic pain; I13.10 Hypertensive heart and chronic kidney disease without heart failure, with stage 1 through stage 4 chronic kidney disease, or unspecified chronic kidney disease; M54.9 Dorsalgia, unspecified; M54.2 Cervicalgia; M19.90 Unspecified osteoarthritis, unspecified site; E11.22 Type 2 diabetes mellitus with diabetic chronic kidney disease; F17.210 Nicotine dependence, cigarettes, uncomplicated; D64.9 Anemia, unspecified; F17.200 Nicotine dependence, unspecified, uncomplicated; Z90.49 Acquired absence of other specified parts of digestive tract; Z79.899 Other long term (current) drug therapy; Z91.041 Radiographic dye allergy status; Z79.4 Long term (current) use of insulin; Z88.8 Allergy status to other drugs, medicaments and biological substances; Z88.2 Allergy status to sulfonamides; Z88.1 Allergy status to other antibiotic agents; Z91.09 Other allergy status, other than to drugs and biological substances; I25.2 Old myocardial infarction; Z87.01 Personal history of pneumonia (recurrent); Z86.711 Personal history of pulmonary embolism; Z79.01 Long term (current) use of anticoagulants; Z72.89 Other problems related to lifestyle
CPT/HCPCS: 36415; 80053; 83690; 85027; 96361; 96374; 96375; 99284; J0780; J1170; J7120; 82962; 85025; 94640; A9270-GY; J1650; J1815; J1815-GY; J2405; J7030

== ENCOUNTER 2020-03-25 19:46 | Inpatient (IN) | payer OTHER ==
[2020-03-25] MEDS ORDERED: HYDROmorphone 0.5 MG/0.5 ML Syringe IVPUSH ONE (20:20)
[2020-03-25] MEDS: Sodium Chloride 0.9% 10 ML Syringe FLUSH PRN ×2 (20:26→20:51)
[2020-03-25] MEDS ORDERED: Ondansetron 4 MG/2 ML SDV IVPUSH ONE (20:27)
--- NOTE | 2020-03-25 20:33 | EDM.PDOC ---
ED HPI GENERAL MEDICAL PROBLEM - General Chief Complaint: Abdominal Pain Stated Complaint: ABD PAIN Time Seen by Provider: 03/25/20 20:20 Source of Information: Reports: Patient, Old Records, RN History Limitations: Reports: No Limitations - History of Present Illness INITIAL COMMENTS - FREE TEXT/NARRATIVE: 59 yo male returns with epigastric pain that resumed about 24 hrs after his 03/23/2020 discharge after an admission for pancreatitis. He has nausea, but no vomiting. He continued the same diet after discharge as he was on in the hospital. No change in his bowels. Says his pain is worse now than when he was admitted last time. Onset: Gradual Onset Date: 03/24/20 Duration: Hour(s):, Getting Worse Location: Reports: Abdomen Quality: Reports: Ache Severity: Severe Improves with: Reports: None Worsens with: Reports: Other (time) Context: Reports: Other (See HPI) Associated Symptoms: Reports: Nausea/Vomiting (no vomiting) Treatments COMBINATION MAN: Reports: Other (see below) (none) Abdomen Pain Score (Numeric/FACES): 10 - Related Data Allergies Allergy/AdvReac Type Severity Reaction Status Date / Time lorazepam [From Ativan] Allergy Intermediate Confusion Verified 03/21/20 09:23 sulfamethoxazole Allergy Intermediate Facial Verified 03/21/20 09:23 [From Septra] Spasms trimethoprim [From Septra] Allergy Intermediate Seizure Verified 03/21/20 12:54 glycopyrrolate [From Robinul] Allergy Seizure Verified 03/21/20 09:23 Iodinated Contrast Media Allergy Renal Verified 03/21/20 09:23 [Iodinated Contrast Media - Failure Oral and] Home Meds: Home Meds Albuterol Sulfate [Proair Respiclick] 2 puff IN Q6HR PRN 10/27/16 [History] Budesonide/Formoterol [Symbicort 160-4.5 MCG] 2 puff IN BID 10/27/16 [History] Lidocaine 5% [Lidoderm 5%] 1 patch TOP ASDIRECTED PRN 10/27/16 [History] Metoprolol Tartrate [Lopressor] 50 mg PO BEDTIME 10/27/16 [History] rOPINIRole [Requip] 1 mg PO BEDTIME 10/27/16 [History] traZODone 100 mg PO BEDTIME 10/27/16 [History] Cyclobenzaprine HCl 20 mg PO BID 12/20/16 [History] Docusate Sodium/Sennosides [Senna Plus] 2 each PO BID PRN 12/20/16 [History] Gabapentin [Neurontin] 1,200 mg PO BID 12/20/16 [History] Ondansetron [Zofran] 4 mg PO Q8H PRN #20 tab 01/20/17 [Rx] Acetaminophen 650 mg PO ASDIRECTED 08/29/18 [History] DULoxetine [Cymbalta] 80 mg PO DAILY 08/29/18 [History] Melatonin 9 mg PO BEDTIME 08/29/18 [History] Pantoprazole [ProTONIX] 40 mg PO ACBREAKFAST 08/29/18 [History] oxyCODONE 5 mg PO Q6H PRN #15 tab 07/09/19 [Rx] Cetirizine [ZyrTEC] 10 mg PO DAILY 03/21/20 [History] Cholecalciferol (Vitamin D3) [Vitamin D3] 100 year PO DAILY 03/21/20 [History] Dextrin [Fiber] 350 gm PO BID 03/21/20 [History] Diclofenac Sodium 50 mg PO BID 03/21/20 [History] Famotidine 20 mg PO BID 03/21/20 [History] Gabapentin [Neurontin] 300 mg PO ASDIRECTED 03/21/20 [History] Insulin Glargine,Hum.Rec.Anlog [Lantus Solostar] 15 units SUBCNJ BEDTIME 03/21/20 [History] metFORMIN [Glucophage] 1,000 mg PO WITHDINNER 03/21/20 [History] polyethylene glycoL 3350 [MiraLAX] 34 gm PO BID 03/21/20 [History] Past Medical History HEENT History: Reports: Allergic Rhinitis Cardiovascular History: Reports: CAD, High Cholesterol, Hypertension, [place], Other (See Below) Other Cardiovascular History: angiogram Respiratory History: Reports: COPD, PE, Pneumonia, Recurrent, Sleep Apnea Gastrointestinal History: Reports: GERD, Hiatal Hernia, Pancreatitis, Other (See Below) Other Gastrointestinal History: kink in bowel Genitourinary History: Reports: Acute Renal Failure, Chronic Renal Insuffiency Other Genitourinary History: PREVIOUS INDWELLING MCALLISTER Musculoskeletal History: Reports: Back Pain, Chronic, Neck Pain, Chronic, Osteoarthritis Neurological History: Reports: Concussion, Seizure Endocrine/Metabolic History: Reports: Diabetes, Type II Hematologic History: Reports: Anemia, Blood Transfusion(s) Dermatologic History: Reports: Other (See Below) Other Dermatologic History: rash at different times - Infectious Disease History Infectious Disease History: Reports: Chicken Pox - Past Surgical History Respiratory Surgical History: Reports: Thoracentesis GI Surgical History: Reports: Appendectomy, Evelia Fundoplication Social & Family History - Family History Family Medical History: Noncontributory GI: Reports: Pancreatitis - Tobacco Use Smoking Status *Q: Current Every Day Smoker Years of Tobacco use: 30 Packs/Tins Daily: 0.5 - Caffeine Use Caffeine Use: Reports: Coffee Other Caffeine Use: 2/d - Recreational Drug Use Recreational Drug Use: Yes Drug Use in Last 12 Months: Yes Recreational Drug Type: Reports: Marijuana/Hashish Recreational Drug Use Frequency: Daily Recreational Drug Last Use: 03/25/20 ED ROS GENERAL - Review of Systems Review Of Systems: See Below Constitutional: Reports: Decreased Appetite HEENT: Reports: No Symptoms Respiratory: Reports: No Symptoms Cardiovascular: Reports: No Symptoms GI/Abdominal: Reports: Abdominal Pain, Constipation (chronic), Nausea. Denies: Black Stool, Bloody Stool, Diarrhea, Distension, Flatus, Hematemesis, Hematochezia, Melena, Vomiting : Reports: No Symptoms Musculoskeletal: Reports: No Symptoms Skin: Reports: No Symptoms Neurological: Reports: No Symptoms ED EXAM, GI/ABD - Physical Exam Exam: See Below Exam Limited By: No Limitations General Appearance: Alert, WD/WN, Mild Distress Eyes: Bilateral: Normal Appearance Ears: Normal External Exam, Normal Canal, Hearing Grossly Normal Nose: Normal Inspection, No Blood Throat/Mouth: Normal Inspection, Normal Lips, Normal Oropharynx, Normal Voice, No Airway Compromise, Other (slightly dry oral mucosa) Head: Atraumatic, Normocephalic Neck: Normal Inspection Respiratory/Chest: No Respiratory Distress, Lungs Clear, Normal Breath Sounds, No Accessory Muscle Use Cardiovascular: Regular Rate, Rhythm, No Edema GI/Abdominal Exam: Normal Bowel Sounds, Soft, No Distention, Guarding, Tender. No: Non-Tender, Distended, Rigid, Rebound Extremities: Normal Inspection, Normal Range of Motion, Non-Tender, No Pedal Edema Neurological: Alert, Oriented, CN II-XII Intact, Normal Cognition, No Motor/Sensory Deficits Psychiatric: Normal Affect, Normal Mood Skin Exam: Warm, Dry, Intact, Normal Color, No Rash Course - Vital Signs Text/Narrative:: Mary Walls here to see patient at 2100h Last Recorded V/S: Last Vital Signs Temp 37.6 C 03/25/20 20:17 Pulse 75 03/25/20 20:54 Resp 16 03/25/20 20:17 BP 136/94 H 03/25/20 20:54 Pulse Ox 95 03/25/20 20:54 - Orders/Labs/Meds Orders: Active Orders 24 hr Category Date Time Status Lactated Ringers [Ringers, Lactated] 1,000 ml Med 03/25/20 21:00 Ordered IV ASDIRECTED Sodium Chloride 0.9% [Saline Flush] Med 03/25/20 19:50 Active 10 ml FLUSH ASDIRECTED PRN Saline Lock Insert [OM.PC] Routine Oth 03/25/20 19:50 Ordered Medication Orders Lactated Ringer's (Ringers, Lactated) 1,000 mls @ 500 mls/hr IV ASDIRECTED DANTE Sodium Chloride (Saline Flush) 10 ml FLUSH ASDIRECTED PRN PRN Reason: Keep Vein Open Last Admin: 03/25/20 20:26 Dose: 10 ml Documented by: BETHANY Labs: Laboratory Tests 03/25/20 03/25/20 Range/Units 20:16 20:16 WBC 6.9 (4.5-11.0) K/uL RBC 4.78 (4.30-5.90) M/uL Hgb 14.0 (12.0-15.0) g/dL Hct 43.0 (40.0-54.0) % MCV 90 (80-98) fL MCH 29 (27-31) pg MCHC 33 (32-36) % Plt Count 152 (150-400) K/uL Sodium 138 L (140-148) mmol/L Potassium 3.6 (3.6-5.2) mmol/L Chloride 102 (100-108) mmol/L Carbon Dioxide 26 (21-32) mmol/L Anion Gap 13.6 (5.0-14.0) mmol/L BUN 6 L (7-18) mg/dL Creatinine 0.9 (0.8-1.3) mg/dL Est Cr Clr Drug Dosing 84.24 mL/min Estimated GFR (MDRD) > 60 (>60) Glucose 135 H (74-106) mg/dL Calcium 8.8 (8.5-10.1) mg/dL Total Bilirubin 0.6 (0.2-1.0) mg/dL AST 39 H D (15-37) U/L ALT 179 H (12-78) U/L Alkaline Phosphatase 245 H (46-116) U/L Total Protein 7.3 (6.4-8.2) g/dL Albumin 3.2 L (3.4-5.0) g/dL Globulin 4.1 H (2.3-3.5) g/dL Albumin/Globulin Ratio 0.8 L (1.2-2.2) Lipase 620 H (73-393) U/L Meds: Medications Generic Name Dose Route Start Last Admin Trade Name Freq PRN Reason Stop Dose Admin Lactated Ringer's 1,000 mls @ 500 mls/hr 03/25/20 21:00 Ringers, Lactated IV ASDIRECTED DANTE Sodium Chloride 10 ml 03/25/20 19:50 03/25/20 20:51 Saline Flush FLUSH 10 ml ASDIRECTED PRN Administration Keep Vein Open Discontinued Medications Generic Name Dose Route Start Last Admin Trade Name Freq PRN Reason Stop Dose Admin Hydromorphone HCl 0.5 mg 03/25/20 20:20 03/25/20 20:26 Dilaudid IVPUSH 03/25/20 20:21 0.5 mg ONETIME ONE Administration Hydromorphone HCl 1 mg 03/25/20 20:46 03/25/20 20:51 Dilaudid IVPUSH 03/25/20 20:47 1 mg ONETIME ONE Administration Ondansetron HCl 4 mg 03/25/20 20:27 03/25/20 20:30 Zofran IVPUSH 03/25/20 20:28 4 mg ONETIME ONE Administration Departure - Departure Time of Disposition: 21:05 Disposition: Admitted As Inpatient 68 Condition: Fair Clinical Impression: Pancreatitis Qualifiers: Chronicity: chronic Pancreatitis type: unspecified pancreatitis type Qualified Code(s): K86.1 - Other chronic pancreatitis - Discharge Information *PRESCRIPTION DRUG MONITORING PROGRAM REVIEWED*: No *COPY OF PRESCRIPTION DRUG MONITORING REPORT IN PATIENT WAY[place]: No Referrals: PCP,None [Primary Care Provider] - Forms: ED Department Discharge Sepsis Event Note (ED) - Evaluation Sepsis Screening Result: No Definite Risk - Focused Exam Vital Signs: Vital Signs Temp Pulse Resp BP Pulse Ox 03/25/20 20:54 75 136/94 H 95 03/25/20 20:17 37.6 C 67 16 131/71 98 03/25/20 20:03 37.6 C 67 16 131/71 98 - My Orders Last 24 Hours: My Active Orders 03/25/20 19:50 Sodium Chloride 0.9% [Saline Flush] 10 ml FLUSH ASDIRECTED PRN Saline Lock Insert [OM.PC] Routine 03/25/20 21:00 Lactated Ringers [Ringers, Lactated] 1,000 ml IV ASDIRECTED - Assessment/Plan Last 24 Hours: My Active Orders 03/25/20 19:50 Sodium Chloride 0.9% [Saline Flush] 10 ml FLUSH ASDIRECTED PRN Saline Lock Insert [OM.PC] Routine 03/25/20 21:00 Lactated Ringers [Ringers, Lactated] 1,000 ml IV ASDIRECTED
[2020-03-25] MEDS ORDERED: HYDROmorphone 1 MG/ML Syringe IVPUSH ONE ×3 (20:46→22:32)
[2020-03-25] MEDS ORDERED: Lactated Ringers 1,000 ML IV SCH (21:00)
--- NOTE | 2020-03-25 23:08 | PCM.HP.2 ---
H&P History of Present Illness - General Date of Service: 03/25/20 Admit Problem/Dx: Admission Diagnosis/Problem Admission Diagnosis/Problem Pancreatitis Source of Information: Patient, Family () History Limitations: Reports: No Limitations - History of Present Illness Initial Comments - Free Text/Narative: chief complaint: abdominal pain 59 yo male returns with epigastric pain that resumed about 24 hrs after his 03/23/2020 discharge after an admission for pancreatitis. He has nausea, but no vomiting. He continued the same diet after discharge as he was on in the [facility]. No change in his bowels. Says his pain is worse now than when he was admitted last time. Onset of Symptoms: Reports: Gradual Duration of Symptoms: Reports: Day(s):, Getting Worse Location: Reports: Abdomen Quality: Reports: Same as Previous Episode Severity: Severe (pain at 7) Improves with: Reports: None Worsens with: Reports: Eating Context: Reports: Other (history of pancreatitis) Associated Symptoms: Reports: Loss of Appetite, Malaise, Nausea/Vomiting, Weakn ess Abdomen Pain Score (Numeric/FACES): 10 - Related Data Allergies/Adverse Reactions: Allergies Allergy/AdvReac Type Severity Reaction Status Date / Time lorazepam [From Ativan] Allergy Intermediate Confusion Verified 03/21/20 09:23 sulfamethoxazole Allergy Intermediate Facial Verified 03/21/20 09:23 [From Septra] Spasms trimethoprim [From Septra] Allergy Intermediate Seizure Verified 03/21/20 12:54 glycopyrrolate [From Robinul] Allergy Seizure Verified 03/21/20 09:23 Iodinated Contrast Media Allergy Renal Verified 03/21/20 09:23 [Iodinated Contrast Media - Failure Oral and] Home Medications: Home Meds Albuterol Sulfate [Proair Respiclick] 2 puff IN Q6HR PRN 10/27/16 [History] Budesonide/Formoterol [Symbicort 160-4.5 MCG] 2 puff IN BID 10/27/16 [History] Lidocaine 5% [Lidoderm 5%] 1 patch TOP ASDIRECTED PRN 10/27/16 [History] Metoprolol Tartrate [Lopressor] 50 mg PO BEDTIME 10/27/16 [History] rOPINIRole [Requip] 1 mg PO BEDTIME 10/27/16 [History] traZODone 100 mg PO BEDTIME 10/27/16 [History] Cyclobenzaprine HCl 20 mg PO BID 12/20/16 [History] Docusate Sodium/Sennosides [Senna Plus] 2 each PO BID PRN 12/20/16 [History] Gabapentin [Neurontin] 1,200 mg PO BID 12/20/16 [History] Ondansetron [Zofran] 4 mg PO Q8H PRN #20 tab 01/20/17 [Rx] Acetaminophen 650 mg PO ASDIRECTED 08/29/18 [History] DULoxetine [Cymbalta] 80 mg PO DAILY 08/29/18 [History] Melatonin 9 mg PO BEDTIME 08/29/18 [History] Pantoprazole [ProTONIX] 40 mg PO ACBREAKFAST 08/29/18 [History] oxyCODONE 5 mg PO Q6H PRN #15 tab 07/09/19 [Rx] Cetirizine [ZyrTEC] 10 mg PO DAILY 03/21/20 [History] Cholecalciferol (Vitamin D3) [Vitamin D3] 100 year PO DAILY 03/21/20 [History] Dextrin [Fiber] 350 gm PO BID 03/21/20 [History] Diclofenac Sodium 50 mg PO BID 03/21/20 [History] Famotidine 20 mg PO BID 03/21/20 [History] Gabapentin [Neurontin] 300 mg PO ASDIRECTED 03/21/20 [History] Insulin Glargine,Hum.Rec.Anlog [Lantus Solostar] 15 units SUBCNJ BEDTIME 03/21/20 [History] metFORMIN [Glucophage] 1,000 mg PO WITHDINNER 03/21/20 [History] polyethylene glycoL 3350 [MiraLAX] 34 gm PO BID 03/21/20 [History] Past Medical History HEENT History: Reports: Allergic Rhinitis Cardiovascular History: Reports: CAD, High Cholesterol, Hypertension, [place], Other (See Below) Other Cardiovascular History: angiogram Respiratory History: Reports: COPD, PE, Pneumonia, Recurrent, Sleep Apnea Gastrointestinal History: Reports: GERD, Hiatal Hernia, Pancreatitis, Other (See Below) Other Gastrointestinal History: kink in bowel Genitourinary History: Reports: Acute Renal Failure, Chronic Renal Insuffiency Other Genitourinary History: PREVIOUS INDWELLING MCALLISTER Musculoskeletal History: Reports: Back Pain, Chronic, Neck Pain, Chronic, Osteoarthritis Neurological History: Reports: Concussion, Seizure Endocrine/Metabolic History: Reports: Diabetes, Type II Hematologic History: Reports: Anemia, Blood Transfusion(s) Dermatologic History: Reports: Other (See Below) Other Dermatologic History: rash at different times - Infectious Disease History Infectious Disease History: Reports: Chicken Pox - Past Surgical History Respiratory Surgical History: Reports: Thoracentesis GI Surgical History: Reports: Appendectomy, Evelia Fundoplication Social & Family History - Family History Family Medical History: Noncontributory GI: Reports: Pancreatitis - Tobacco Use Smoking Status *Q: Current Every Day Smoker Years of Tobacco use: 30 Packs/Tins Daily: 0.5 - Caffeine Use Caffeine Use: Reports: Coffee Other Caffeine Use: 2/d - Recreational Drug Use Recreational Drug Use: Yes Drug Use in Last 12 Months: Yes Recreational Drug Type: Reports: Marijuana/Hashish Recreational Drug Use Frequency: Daily Recreational Drug Last Use: 03/25/20 - Living Situation & Occupation Living situation: Reports: Occupation: Disabled (lives with in [place], [place].) H&P Review of Systems - Review of Systems: Review Of Systems: See Below General: Reports: Fatigue, Decreased Appetite HEENT: Reports: No Symptoms Pulmonary: Reports: No Symptoms, Other (tobacco use 1/2 pack per day) Cardiovascular: Reports: No Symptoms Gastrointestinal: Reports: Abdominal Pain, Decreased Appetite, Nausea, Other (last bowel movement today. denies any black, bloody or tarry stools.) Genitourinary: Reports: No Symptoms Musculoskeletal: Reports: No Symptoms Skin: Reports: No Symptoms Psychiatric: Reports: No Symptoms Neurological: Reports: No Symptoms Hematologic/Lymphatic: Reports: No Symptoms Immunologic: Reports: No Symptoms Exam - Exam Exam: See Below - Vital Signs Vital Signs: Last Vital Signs Temp 37.6 C 03/25/20 20:17 Pulse 67 03/25/20 22:52 Resp 16 03/25/20 20:17 BP 145/88 H 03/25/20 22:52 Pulse Ox 95 03/25/20 22:52 Weight: 65.771 kg - Exam General: Alert, Oriented, Cooperative, Moderate Distress HEENT: PERRLA, Hearing Intact, Mucosa Moist & [place], Nares Patent, Normal Nasal Septum, Posterior Pharynx Clear, Conjunctiva Clear, EOMI, EACs Clear, TMs Clear Neck: Supple, Trachea Midline Lungs: Clear to Auscultation, Normal Respiratory Effort Cardiovascular: Regular Rate, Regular Rhythm, Normal S1, Normal S2 GI/Abdominal Exam: Normal Bowel Sounds, No Distention, No Abnormal Bruit, Tender (pain epigastric to umbilicus ) (Male) Exam: Deferred Rectal (Males) Exam: Deferred Back Exam: Normal Inspection, Full Range of Motion, NT Extremities: Normal Inspection, Normal Range of Motion, Non-Tender, No Pedal Michael ma, Normal Capillary Refill Peripheral Pulses: 2+: Radial (L), Radial (R) Skin: Warm, Dry, Intact Neurological: Cranial Nerves Intact, Reflexes Equal Bilateral Neuro Extensive - Mental Status: Alert, Oriented x3, Normal Mood/Affect, Normal Cognition Neuro Extensive - Motor, Sensory, Reflexes: CN II-XII Intact, Normal Gait, Normal Reflexes Psychiatric: Other (intermittent crying during exam when discussing pancreatitis) - Patient Data Lab Results Last 24 hrs: Laboratory Results - last 24 hr 03/25/20 03/25/20 Range/Units 20:16 20:16 WBC 6.9 (4.5-11.0) K/uL RBC 4.78 (4.30-5.90) M/uL Hgb 14.0 (12.0-15.0) g/dL Hct 43.0 (40.0-54.0) % MCV 90 (80-98) fL MCH 29 (27-31) pg MCHC 33 (32-36) % Plt Count 152 (150-400) K/uL Sodium 138 L (140-148) mmol/L Potassium 3.6 (3.6-5.2) mmol/L Chloride 102 (100-108) mmol/L Carbon Dioxide 26 (21-32) mmol/L Anion Gap 13.6 (5.0-14.0) mmol/L BUN 6 L (7-18) mg/dL Creatinine 0.9 (0.8-1.3) mg/dL Est Cr Clr Drug Dosing 84.24 mL/min Estimated GFR (MDRD) > 60 (>60) Glucose 135 H (74-106) mg/dL Calcium 8.8 (8.5-10.1) mg/dL Total Bilirubin 0.6 (0.2-1.0) mg/dL AST 39 H D (15-37) U/L ALT 179 H (12-78) U/L Alkaline Phosphatase 245 H (46-116) U/L Total Protein 7.3 (6.4-8.2) g/dL Albumin 3.2 L (3.4-5.0) g/dL Globulin 4.1 H (2.3-3.5) g/dL Albumin/Globulin Ratio 0.8 L (1.2-2.2) Lipase 620 H (73-393) U/L Result Diagrams: 03/25/20 20:16 03/25/20 20:16 Sepsis Event Note - Evaluation Sepsis Screening Result: No Definite Risk - Focused Exam Vital Signs: Vital Signs Temp Pulse Resp BP Pulse Ox 03/25/20 22:52 67 145/88 H 95 03/25/20 22:28 67 139/78 94 L 03/25/20 20:54 75 136/94 H 95 03/25/20 20:17 37.6 C 67 16 131/71 98 03/25/20 20:03 37.6 C 67 16 131/71 98 - Problem List (1) Acute pancreatitis SNOMED Code(s): 876307924 ICD Code: K85.90 - ACUTE PANCREATITIS WITHOUT NECROSIS OR INFECTION, UNSP Status: Acute Priority: High Current Visit: No Qualifiers: Pancreatitis type: unspecified pancreatitis type Acute pancreatitis complication: unspecified Qualified Code(s): K85.90 - Acute pancreatitis without necrosis or infection, unspecified (2) Diabetes mellitus type 2 in nonobese SNOMED Code(s): 953576359 ICD Code: E11.9 - TYPE 2 DIABETES MELLITUS WITHOUT COMPLICATIONS Status: Chronic Priority: High Current Visit: Yes (3) Pulmonary emphysema SNOMED Code(s): 95766081 ICD Code: J43.9 - EMPHYSEMA, UNSPECIFIED Status: Chronic Priority: High Current Visit: Yes Qualifiers: Emphysema type: unspecified Qualified Code(s): J43.9 - Emphysema, unspecified (4) Tobacco dependence SNOMED Code(s): 65539107 ICD Code: F17.200 - NICOTINE DEPENDENCE, UNSPECIFIED, UNCOMPLICATED Status: Chronic Priority: High Current Visit: Yes Problem List Initiated/Reviewed/Updated: Yes Orders Last 24hrs: Active Orders 24 hr Category Date Time Status Patient Status Manage Transfer [TRANSFER] Routine ADT 03/25/20 22:39 Active Lactated Ringers [Ringers, Lactated] 1,000 ml Med 03/25/20 21:00 Active IV ASDIRECTED Sodium Chloride 0.9% [Saline Flush] Med 03/25/20 19:50 Active 10 ml FLUSH ASDIRECTED PRN Saline Lock Insert [OM.PC] Routine Oth 03/25/20 19:50 Ordered Resuscitation Status Routine Resus Stat 03/25/20 22:40 Ordered Medication Orders Lactated Ringer's (Ringers, Lactated) 1,000 mls @ 500 mls/hr IV ASDIRECTED DANTE Last Admin: 03/25/20 21:31 Dose: 500 mls/hr Documented by: BETHANY Sodium Chloride (Saline Flush) 10 ml FLUSH ASDIRECTED PRN PRN Reason: Keep Vein Open Last Admin: 03/25/20 20:51 Dose: 10 ml Documented by: Admin: 03/25/20 20:26 Dose: 10 ml Documented by: BETHANY Assessment/Plan Comment:: ASSESSMENT AND PLAN- PANCREATITIS 59-year-old gentleman presents emergency department today abdominal pain. 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 His most recent hospitalization was [facility] Med[facility] unit from March 21 to 2019. His Lipase at that admission was 1700. Today his Lipase is 620. PANCREATITIS -IV fluids for hydration -NPO -Pain and nausea medication as needed -repeat Lipase level in am DIABETES TYPE 2- -blood glucose before meals and at bedtime -Insulin low dose sliding scale coverage -Lantus 15 mg subcut. at bedtime EMPHYSEMA- no evidence of acute exacerbation -Albuterol nebs as needed -Duo-neb as needed every 6 hours MAINTENANCE ISSUES -DVT prophylaxis- Lovenox 40 mg subcut daily -GI prophylaxis- continue outpatient PPI therapy -Mcallister catheter- not indicated -Nutrition- NPO -Nicotine dependence- Nicotine patch and gum as needed CODE STATUS-FULL CODE ADMISSION STATUS-patient will be admitted to inpatient status, expect at least a 2 night hospital stay for evaluation and management of problems as outlined above. At the time of this admission I do not reasonably expected evaluation and management of this problem will require more than a 96 hour hospital stay. DISPOSITION-anticipate discharge to home after the hospital stay. PRIMARY CARE PROVIDER- [facility], permission obtained for admission by Dr. Hartman, Medical Doctor of the [place] [facility]- Dr. Dimas - Mortality Measure Prognosis:: Good - Mortality Measure Prognosis:: Good
[2020-03-25] MEDS ORDERED: Albuterol/Ipratropium 3.0-0.5 MG/3 ML Neb Soln NEB PRN (23:10)
[2020-03-25] MEDS ORDERED: Gabapentin 300 MG Cap PO SCH (23:10)
[2020-03-25] MEDS ORDERED: Albuterol 0.083% 2.5 MG/3 ML Neb Soln NEB PRN (23:10)
[2020-03-25] MEDS ORDERED: Nicotine 14 MG/24 Hr Patch TRDERM SCH (23:10)
[2020-03-25] MEDS ORDERED: Nicotine Polacrilex 2 MG Gum CHEW PRN (23:10)
[2020-03-25] MEDS ORDERED: Insulin Glargine,Human Rec. Analog 100 Units/ML 3 ML Pen SUBCUT SCH (23:10)
[2020-03-25] MEDS ORDERED: Ondansetron 4 MG/2 ML SDV IV PRN (23:10)
[2020-03-25] MEDS ORDERED: Lidocaine 5% 700 MG Patch TOP PRN (23:10)
[2020-03-25] MEDS: HYDROmorphone 1 MG/ML Syringe IVPUSH PRN (23:31)
[2020-03-26] MEDS: traZODone 50 MG Tab PO SCH ×2 (00:12→20:10)
[2020-03-26] MEDS: rOPINIRole 1 MG Tab PO SCH ×2 (00:13→20:10)
[2020-03-26] MEDS: Melatonin 3 MG Tab PO SCH ×2 (00:13→20:09)
[2020-03-26] MEDS: Metoprolol Tartrate 50 MG Tab PO SCH ×2 (00:14→20:09)
[2020-03-26] MEDS: HYDROmorphone 1 MG/ML Syringe IVPUSH PRN ×7 (03:29→19:17)
[2020-03-26] MEDS ORDERED: 50% Dextrose in Water 50 ML Syringe IVPUSH ONE (05:36)
[2020-03-26] MEDS ORDERED: Diazepam 5 MG Tab PO ONE (07:00)
[2020-03-26] MEDS: Lactated Ringers 1,000 ML IV SCH ×3 (07:41→16:08)
[2020-03-26] MEDS: Fluticasone-Salmeterol 232-14 MCG Powder Inhalent INH SCH ×2 (08:44→20:08)
[2020-03-26] MEDS ORDERED: Fluticasone-Salmeterol 232-14 MCG Powder Inhalent INH SCH (09:00)
[2020-03-26] MEDS: Insulin Lispro 100 Unit/ML 3 ML KwikPen SUBCUT SCH ×4 (09:04→21:09)
[2020-03-26] MEDS: Gabapentin 400 MG Cap PO SCH ×2 (09:49→20:10)
[2020-03-26] MEDS: Famotidine 20 MG Tab PO SCH ×2 (09:49→20:10)
[2020-03-26] MEDS: Enoxaparin 40 MG/0.4 ML Syringe SUBCUT SCH (09:49)
[2020-03-26] MEDS: Polyethylene Glycol 3350 Powder 17 GM Packet PO SCH ×2 (09:49→20:10)
[2020-03-26] MEDS: DULoxetine 20 MG Cap PO SCH (09:50)
--- NOTE | 2020-03-26 12:27 | PCM.PN ---
- General Info Date of Service: 03/26/20 Subjective Update: No acute events overnight. Pain has not been well controlled and he has been using his IV Dilaudid every 2 hours without a dramatic improvement. The best his pain has been was about 6 out of 10. Pain has spread to include almost his entire abdomen but is most intense in the upper abdomen. He has some nausea but no vomiting. No fevers. Lipase is a little better today. He reports that he feels worse today than yesterday. Functional Status: Denies: Pain Controlled - Review of Systems General: Denies: Fever Gastrointestinal: Reports: Abdominal Pain, Nausea - Patient Data Vitals - Most Recent: Last Vital Signs Temp 35.5 C L 03/26/20 12:12 Pulse 69 03/26/20 12:12 Resp 18 03/26/20 12:12 BP 129/42 L 03/26/20 12:12 Pulse Ox 96 03/26/20 12:12 Weight - Most Recent: 68.039 kg I&O - Last 24 Hours: Intake & Output 03/25/20 03/26/20 03/26/20 22:59 06:59 14:59 Intake Total 711 640 Output Total 925 475 Balance -214 165 Lab Results Last 24 Hours: Laboratory Results - last 24 hr 03/25/20 03/25/20 03/26/20 Range/Units 20:16 20:16 04:20 WBC 6.9 6.2 (4.5-11.0) K/uL RBC 4.78 4.61 (4.30-5.90) M/uL Hgb 14.0 13.6 (12.0-15.0) g/dL Hct 43.0 41.7 (40.0-54.0) % MCV 90 91 (80-98) fL MCH 29 30 (27-31) pg MCHC 33 33 (32-36) % Plt Count 152 136 L (150-400) K/uL Neut % (Auto) 67 H (36-66) % Lymph % (Auto) 17 L (24-44) % [place] % (Auto) 12 H (2-6) % Eos % (Auto) 4 (2-4) % Baso % (Auto) 0 (0-1) % Sodium 138 L (140-148) mmol/L Potassium 3.6 (3.6-5.2) mmol/L Chloride 102 (100-108) mmol/L Carbon Dioxide 26 (21-32) mmol/L Anion Gap 13.6 (5.0-14.0) mmol/L BUN 6 L (7-18) mg/dL Creatinine 0.9 (0.8-1.3) mg/dL Est Cr Clr Drug Dosing 84.24 mL/min Estimated GFR (MDRD) > 60 (>60) Glucose 135 H (74-106) mg/dL POC Glucose (74-106) MG/DL Calcium 8.8 (8.5-10.1) mg/dL Total Bilirubin 0.6 (0.2-1.0) mg/dL Direct Bilirubin (0.0-0.2) mg/dL Indirect Bilirubin AST 39 H D (15-37) U/L ALT 179 H (12-78) U/L Alkaline Phosphatase 245 H (46-116) U/L Total Protein 7.3 (6.4-8.2) g/dL Albumin 3.2 L (3.4-5.0) g/dL Globulin 4.1 H (2.3-3.5) g/dL Albumin/Globulin Ratio 0.8 L (1.2-2.2) Lipase 620 H (73-393) U/L 03/26/20 03/26/20 03/26/20 Range/Units 04:20 04:30 06:10 WBC (4.5-11.0) K/uL RBC (4.30-5.90) M/uL Hgb (12.0-15.0) g/dL Hct (40.0-54.0) % MCV (80-98) fL MCH (27-31) pg MCHC (32-36) % Plt Count (150-400) K/uL Neut % (Auto) (36-66) % Lymph % (Auto) (24-44) % [place] % (Auto) (2-6) % Eos % (Auto) (2-4) % Baso % (Auto) (0-1) % Sodium 141 (140-148) mmol/L Potassium 3.4 L (3.6-5.2) mmol/L Chloride 104 (100-108) mmol/L Carbon Dioxide 27 (21-32) mmol/L Anion Gap 13.4 (5.0-14.0) mmol/L BUN 5 L (7-18) mg/dL Creatinine 0.6 L (0.8-1.3) mg/dL Est Cr Clr Drug Dosing 130.72 mL/min Estimated GFR (MDRD) > 60 (>60) Glucose 61 L (74-106) mg/dL POC Glucose 169 H (74-106) MG/DL Calcium 8.4 L (8.5-10.1) mg/dL Total Bilirubin 0.5 (0.2-1.0) mg/dL Direct Bilirubin 0.18 (0.0-0.2) mg/dL Indirect Bilirubin 0.32 AST 34 (15-37) U/L ALT 147 H (12-78) U/L Alkaline Phosphatase 230 H (46-116) U/L Total Protein 6.3 L (6.4-8.2) g/dL Albumin 2.8 L (3.4-5.0) g/dL Globulin 3.5 (2.3-3.5) g/dL Albumin/Globulin Ratio 0.8 L (1.2-2.2) Lipase 436 H (73-393) U/L 03/26/20 03/26/20 Range/Units 07:24 11:25 WBC (4.5-11.0) K/uL RBC (4.30-5.90) M/uL Hgb (12.0-15.0) g/dL Hct (40.0-54.0) % MCV (80-98) fL MCH (27-31) pg MCHC (32-36) % Plt Count (150-400) K/uL Neut % (Auto) (36-66) % Lymph % (Auto) (24-44) % [place] % (Auto) (2-6) % Eos % (Auto) (2-4) % Baso % (Auto) (0-1) % Sodium (140-148) mmol/L Potassium (3.6-5.2) mmol/L Chloride (100-108) mmol/L Carbon Dioxide (21-32) mmol/L Anion Gap (5.0-14.0) mmol/L BUN (7-18) mg/dL Creatinine (0.8-1.3) mg/dL Est Cr Clr Drug Dosing mL/min Estimated GFR (MDRD) (>60) Glucose (74-106) mg/dL POC Glucose 97 83 (74-106) MG/DL Calcium (8.5-10.1) mg/dL Total Bilirubin (0.2-1.0) mg/dL Direct Bilirubin (0.0-0.2) mg/dL Indirect Bilirubin AST (15-37) U/L ALT (12-78) U/L Alkaline Phosphatase (46-116) U/L Total Protein (6.4-8.2) g/dL Albumin (3.4-5.0) g/dL Globulin (2.3-3.5) g/dL Albumin/Globulin Ratio (1.2-2.2) Lipase (73-393) U/L Med Orders - Current: Current Medications Albuterol (Proventil Neb Soln) 2.5 mg NEB Q4H PRN PRN Reason: Shortness Of Breath/wheezing Albuterol/Ipratropium (Duoneb 3.0-0.5 Mg/3 Ml) 3 ml NEB QID PRN PRN Reason: Shortness Of Breath/wheezing Duloxetine HCl (Cymbalta) 80 mg PO DAILY [facility] Last Admin: 03/26/20 09:50 Dose: 80 mg Documented by: Enoxaparin Sodium (Lovenox) 40 mg SUBCUT DAILY [facility] Last Admin: 03/26/20 09:49 Dose: 40 mg Documented by: Famotidine (Pepcid) 20 mg PO BID [facility] Last Admin: 03/26/20 09:49 Dose: 20 mg Documented by: Gabapentin (Neurontin) 300 mg PO 1700 DANTE Gabapentin (Neurontin) 1,200 mg PO BID [facility] Last Admin: 03/26/20 09:49 Dose: 1,200 mg Documented by: Hydromorphone HCl (Dilaudid) 1 mg IVPUSH Q2H PRN PRN Reason: Pain (severe 7-10) Last Admin: 03/26/20 11:38 Dose: 1 mg Documented by: Lactated Ringer's (Ringers, Lactated) 1,000 mls @ 125 mls/hr IV ASDIRECTED [facility] Last Admin: 03/26/20 07:41 Dose: 125 mls/hr Documented by: Potassium Chloride 20 meq/Lidocaine HCl 2 ml/ Sodium Chloride 112 mls @ 56 mls/hr IV Q2H [facility] Stop: 03/26/20 16:59 Insulin Human Lispro (Humalog) 0 unit SUBCUT QIDACANDBED [facility]; Protocol Last Admin: 03/26/20 11:49 Dose: Not Given Documented by: Lidocaine (Lidoderm 5%) 700 mg TOP ASDIRECTED PRN PRN Reason: Pain Melatonin (Melatonin) 9 mg PO BEDTIME [facility] Last Admin: 03/26/20 00:13 Dose: 9 mg Documented by: Metoprolol Tartrate (Lopressor) 50 mg PO BEDTIME [facility] Last Admin: 03/26/20 00:14 Dose: 50 mg Documented by: Nicotine (Habitrol) 14 mg TRDERM BEDTIME [facility] Nicotine Polacrilex (Nicorelief) 2 mg CHEW Q2H PRN PRN Reason: Agitation Ondansetron HCl (Zofran) 4 mg IV Q4H PRN PRN Reason: Nausea/Vomiting Last Admin: 03/26/20 11:57 Dose: 4 mg Documented by: Oxycodone HCl (Oxycodone) 10 mg PO Q4H PRN PRN Reason: Pain (severe 7-10) Polyethylene Glycol (Miralax) 34 gm PO BID [facility] Last Admin: 03/26/20 09:49 Dose: 34 gm Documented by: Ropinirole HCl (Requip) 1 mg PO BEDTIME [facility] Last Admin: 03/26/20 00:13 Dose: 1 mg Documented by: Fluticasone/Salmeterol (Fluticasone-Salmeterol 232-14 Mcg Powder Inha) 1 puff INH BIDRT [facility] Last Admin: 03/26/20 08:44 Dose: 1 puff Documented by: Sodium Chloride (Saline Flush) 10 ml FLUSH ASDIRECTED PRN PRN Reason: Keep Vein Open Last Admin: 03/25/20 20:51 Dose: 10 ml Documented by: Trazodone HCl (Trazodone) 100 mg PO BEDTIME [facility] Last Admin: 03/26/20 00:12 Dose: 100 mg Documented by: Discontinued Medications Dextrose/Water (Dextrose 50% In Water) 50 ml IVPUSH ONETIME ONE Stop: 03/26/20 05:37 Last Admin: 03/26/20 05:49 Dose: 50 ml Documented by: Gabapentin (Neurontin) 1,200 mg PO BID [facility] Last Admin: 03/26/20 00:13 Dose: 1,200 mg Documented by: Hydromorphone HCl (Dilaudid) 0.5 mg IVPUSH ONETIME ONE Stop: 03/25/20 20:21 Last Admin: 03/25/20 20:26 Dose: 0.5 mg Documented by: Hydromorphone HCl (Dilaudid) 1 mg IVPUSH ONETIME ONE Stop: 03/25/20 20:47 Last Admin: 03/25/20 20:51 Dose: 1 mg Documented by: Hydromorphone HCl (Dilaudid) 1 mg IVPUSH ONETIME ONE Stop: 03/25/20 21:27 Last Admin: 03/25/20 21:31 Dose: 1 mg Documented by: Hydromorphone HCl (Dilaudid) 1 mg IVPUSH ONETIME ONE Stop: 03/25/20 22:33 Last Admin: 03/25/20 22:35 Dose: 1 mg Documented by: Lactated Ringer's (Ringers, Lactated) 1,000 mls @ 500 mls/hr IV ASDIRECTED [facility] Last Admin: 03/25/20 21:31 Dose: 500 mls/hr Documented by: Insulin Glargine (Lantus Solostar) 15 units SUBCUT BEDTIME [facility] Last Admin: 03/26/20 00:15 Dose: 15 units Documented by: Nicotine (Habitrol) 14 mg TRDERM DAILY [facility] Last Admin: 03/26/20 00:14 Dose: 14 mg Documented by: Ondansetron HCl (Zofran) 4 mg IVPUSH ONETIME ONE Stop: 03/25/20 20:28 Last Admin: 03/25/20 20:30 Dose: 4 mg Documented by: - Exam Quality Assessment: No: Supplemental Oxygen General: Alert, Oriented, Cooperative, Mild Distress. No: No Acute Distress Lungs: Normal Respiratory Effort Cardiovascular: Regular Rate, Regular Rhythm GI/Abdominal Exam: Soft, No Distention Extremities: No Pedal Edema Psy/Mental Status: Alert, Normal Affect Sepsis Event Note - Evaluation Sepsis Screening Result: No Definite Risk - Focused Exam Vital Signs: Vital Signs Temp Pulse Resp BP Pulse Ox 03/26/20 12:12 35.5 C L 69 18 129/42 L 96 03/26/20 07:33 36.6 C 59 L 20 134/82 99 03/26/20 07:11 100 03/26/20 03:26 35.7 C L 59 L 18 133/83 98 03/26/20 01:23 97 03/26/20 00:31 96 03/26/20 00:29 97 - Problem List Review Problem List Initiated/Reviewed/Updated: Yes - My Orders Last 24 Hours: My Active Orders 03/26/20 11:56 Discontinue Telemetry Monitoring [Cardiac Monitoring Discontinue] [RC] Click to Edit 03/26/20 12:21 oxyCODONE 10 mg PO Q4H PRN 03/26/20 12:24 Abdomen Pelvis w Cont [CT] Routine 03/26/20 13:00 Potassium Chloride 20 meq Lidocaine 1% [Xylocaine 1%] 2 ml Sodium Chloride 0.9% [Normal Saline] 100 ml IV Q2H 03/27/20 05:00 CBC W/O DIFF,HEMOGRAM [HEME] Timed (1) COMPREHENSIVE METABOLIC PN,CMP [CHEM] Timed LIPASE [CHEM] Timed - Plan Plan:: ASSESSMENT AND PLAN- PANCREATITIS-acute on chronic. CT scan of the abdomen and pelvis today showed either swelling or a mass of the head of the pancreas as well as a cyst or cystic mass of the tail of the pancreas. Pain is worse today. Vitals are stable fortunately. -Continue IV fluids -Pain control with oral oxycodone and IV Dilaudid -MRI of the abdomen in the morning to further evaluate the head of the pancreas as well as the cyst or cystic mass in the tail -NPO -repeat Lipase level in am CYST ON LATERAL LEFT THIGH-seems to include the muscle rather than subcutaneous tissues. Not tender and does not appear abnormal from external examination. -Ultrasound eval DIABETES TYPE 2-hypoglycemia this morning. -blood glucose before meals and at bedtime -Insulin low dose sliding scale coverage -Hold long-acting insulin while n.p.o. COPD/EMPHYSEMA-stable. -Albuterol nebs as needed -Duo-neb as needed every 6 hours TOBACCO DEPENDENCE-needs ongoing discussions about the importance of cessation as well as the risks of ongoing tobacco use. MAINTENANCE ISSUES -DVT prophylaxis- Lovenox 40 mg subcut daily -GI prophylaxis- continue outpatient PPI therapy -Sorenson catheter- not indicated -Nutrition- NPO -Nicotine dependence- Nicotine patch and gum as needed DISPOSITION-anticipate discharge to home after the hospital stay. PRIMARY CARE PROVIDER- [facility], permission obtained for admission by Dr. Devan, Medical Doctor of the Day Drew Dimas MD
[2020-03-26] MEDS ORDERED: Iopamidol 612 MG/ML 500 ML Multipack Bottle IV ONE (12:46)
[2020-03-26] MEDS ORDERED: Sodium Chloride 0.9% 10 ML Syringe FLUSH PRN (12:46)
[2020-03-26] MEDS ORDERED: Sodium Chloride 0.9% 71 ML IV ONE (12:46)
[2020-03-26] MEDS: oxyCODONE 5 MG Tab PO PRN ×3 (12:55→21:11)
[2020-03-26] MEDS: Potassium Chloride 20 MEQ, Lidocaine 1% 2 ML in Sodium Chloride 0.9% 100 ML IV SCH ×2 (12:55→15:27)
--- NOTE | 2020-03-26 14:20 | CT ---
Abdomen Pelvis w Cont CLINICAL HISTORY: Recurrent pancreatitis, abdominal pain COMPARISON: Noncontrast study July 2019. TECHNIQUE: Transverse scans were obtained from the base of the lungs to the pubic symphysis following oral contrast and IV infusion of contrast.Auto dosage reduction and iterative reconstructiontechniques employed. FINDINGS: The lung bases are clear. The liver shows heterogeneous density throughout. It is small and slightly lobulated. This is felt to represent changes of cirrhosis. The gallbladder has been removed. There is generalized enlargement involving the head of the pancreas with a large area of diminished density. This may represent phlegmon. There is 3.3 x 2.4 x 2.4 cm area of fluid density in the lower portion of the pancreatic head. This may represent necrosis. There are diffuse pancreatic calcifications in the head and proximal body consistent with patient's history chronic pancreatitis. There is ductal dilatation. There is a 5 mm fluid density focus in the pancreatic tail which may represent a small cyst or grouping of cysts. Underlying IPMN The. Spleen is somewhat bulky but under 12 cm in length. There are multiple varicosities in the val hepatis region abdominal mesentery and abdominal wall as well as in the left upper quadrant near the spleen. Findings are consistent with portal hypertension the main portal and mesenteric veins are not seen. The adrenal glands appear normal bilaterally . The kidneys are free of mass, stones or hydronephrosis. The ureters have normal course and caliber. The aorta has atheromatous change without aneurysm. There is no suspicious retroperitoneal adenopathy. There are scattered fluid-filled loops of small bowel in a nonspecific pattern. There is moderate fecal retention in the right colon. The appendix is not definitively identified. No free air is seen.. There is a focus of subcutaneous air in the right anterior abdominal wall. This may be an injection site. IMPRESSION: Changes of cirrhosis and portal hypertension with multiple abdominal varices Abnormal pancreas with the moderate-sized region of low-attenuation which may represent pancreatic phlegmon. There is some central fluid density collections in the pancreatic head. This could be some necrosis. There is also small fluid density in the pancreatic tail. Pancreatic neoplasm such as IPMN are not excluded. Generalized small bowel distention. The intestinal configuration is nonspecific. There is moderate fecal retention in the right colon
[2020-03-26] MEDS ORDERED: Dextrose 5%-0.9% NaCl 1,000 ML IV SCH (17:30)
[2020-03-26] MEDS ORDERED: Lactated Ringers 1,000 ML IV SCH (17:30)
[2020-03-26] MEDS: Gabapentin 300 MG Cap PO SCH (17:41)
[2020-03-26] MEDS: Nicotine 14 MG/24 Hr Patch TRDERM SCH (20:08)
[2020-03-27] MEDS: HYDROmorphone 1 MG/ML Syringe IVPUSH PRN ×7 (00:11→19:27)
[2020-03-27] MEDS: oxyCODONE 5 MG Tab PO PRN ×5 (05:20→21:59)
[2020-03-27] MEDS ORDERED: Diazepam 5 MG Tab PO ONE ×2 (07:00→12:30)
[2020-03-27] MEDS: Insulin Lispro 100 Unit/ML 3 ML KwikPen SUBCUT SCH ×4 (07:28→21:08)
[2020-03-27] MEDS: Fluticasone-Salmeterol 232-14 MCG Powder Inhalent INH SCH ×2 (07:38→21:07)
--- NOTE | 2020-03-27 10:06 | PCM.PN ---
- General Info Date of Service: 03/27/20 Subjective Update: No acute events overnight. Pain control has improved compared to yesterday. Pain has been 4-5 out of 10. No significant nausea and no vomiting. No fevers. Lipase is normal today. He has been able to get up and walk around some. Lipase level is normal. MRI showed a complex cystic lesion in the head of the pancreas as well as a smaller cystic lesion in the tail. Functional Status: Reports: Pain Controlled - Patient Data Vitals - Most Recent: Last Vital Signs Temp 36.5 C 03/27/20 07:26 Pulse 56 L 03/27/20 07:26 Resp 18 03/27/20 07:26 BP 140/82 03/27/20 07:26 Pulse Ox 98 03/27/20 07:26 Weight - Most Recent: 68.039 kg I&O - Last 24 Hours: Intake & Output 03/26/20 03/27/20 03/27/20 22:59 06:59 14:59 Intake Total 1789 986 Output Total 800 600 350 Balance 989 386 -350 Lab Results Last 24 Hours: Laboratory Results - last 24 hr 03/26/20 03/26/20 03/26/20 Range/Units 11:25 16:30 20:58 WBC (4.5-11.0) K/uL RBC (4.30-5.90) M/uL Hgb (12.0-15.0) g/dL Hct (40.0-54.0) % MCV (80-98) fL MCH (27-31) pg MCHC (32-36) % Plt Count (150-400) K/uL Sodium (140-148) mmol/L Potassium (3.6-5.2) mmol/L Chloride (100-108) mmol/L Carbon Dioxide (21-32) mmol/L Anion Gap (5.0-14.0) mmol/L BUN (7-18) mg/dL Creatinine (0.8-1.3) mg/dL Est Cr Clr Drug Dosing mL/min Estimated GFR (MDRD) (>60) Glucose (74-106) mg/dL POC Glucose 83 71 L 93 (74-106) MG/DL Calcium (8.5-10.1) mg/dL Total Bilirubin (0.2-1.0) mg/dL AST (15-37) U/L ALT (12-78) U/L Alkaline Phosphatase (46-116) U/L Total Protein (6.4-8.2) g/dL Albumin (3.4-5.0) g/dL Globulin (2.3-3.5) g/dL Albumin/Globulin Ratio (1.2-2.2) Lipase (73-393) U/L 03/27/20 03/27/20 03/27/20 Range/Units 04:10 04:10 07:30 WBC 4.7 (4.5-11.0) K/uL RBC 4.56 (4.30-5.90) M/uL Hgb 13.4 (12.0-15.0) g/dL Hct 41.8 (40.0-54.0) % MCV 92 (80-98) fL MCH 29 (27-31) pg MCHC 32 (32-36) % Plt Count 132 L (150-400) K/uL Sodium 139 L (140-148) mmol/L Potassium 3.9 (3.6-5.2) mmol/L Chloride 103 (100-108) mmol/L Carbon Dioxide 27 (21-32) mmol/L Anion Gap 12.9 (5.0-14.0) mmol/L BUN 3 L (7-18) mg/dL Creatinine 0.6 L (0.8-1.3) mg/dL Est Cr Clr Drug Dosing 130.72 mL/min Estimated GFR (MDRD) > 60 (>60) Glucose 124 H (74-106) mg/dL POC Glucose 117 H (74-106) MG/DL Calcium 8.5 (8.5-10.1) mg/dL Total Bilirubin 0.6 (0.2-1.0) mg/dL AST 54 H (15-37) U/L ALT 118 H (12-78) U/L Alkaline Phosphatase 247 H (46-116) U/L Total Protein 6.1 L (6.4-8.2) g/dL Albumin 2.6 L (3.4-5.0) g/dL Globulin 3.5 (2.3-3.5) g/dL Albumin/Globulin Ratio 0.7 L (1.2-2.2) Lipase 157 (73-393) U/L Med Orders - Current: Current Medications Albuterol (Proventil Neb Soln) 2.5 mg NEB Q4H PRN PRN Reason: Shortness Of Breath/wheezing Albuterol/Ipratropium (Duoneb 3.0-0.5 Mg/3 Ml) 3 ml NEB QID PRN PRN Reason: Shortness Of Breath/wheezing Duloxetine HCl (Cymbalta) 80 mg PO DAILY ON LICENSE OF [facility] Last Admin: 03/26/20 09:50 Dose: 80 mg Documented by: Enoxaparin Sodium (Lovenox) 40 mg SUBCUT DAILY ON LICENSE OF [facility] Last Admin: 03/26/20 09:49 Dose: 40 mg Documented by: Famotidine (Pepcid) 20 mg PO BID ON LICENSE OF [facility] Last Admin: 03/26/20 20:10 Dose: 20 mg Documented by: Gabapentin (Neurontin) 300 mg PO 1700 ON LICENSE OF [facility] Last Admin: 03/26/20 17:41 Dose: 300 mg Documented by: Gabapentin (Neurontin) 1,200 mg PO BID ON LICENSE OF [facility] Last Admin: 03/26/20 20:10 Dose: 1,200 mg Documented by: Hydromorphone HCl (Dilaudid) 1 mg IVPUSH Q2H PRN PRN Reason: Pain (severe 7-10) Last Admin: 03/27/20 07:29 Dose: 1 mg Documented by: Lactated Ringer's (Ringers, Lactated) 1,000 mls @ 50 mls/hr IV ASDIRECTED ON LICENSE OF [facility] Dextrose/Sodium Chloride (Dextrose 5%-Normal Saline) 1,000 mls @ 50 mls/hr IV ASDIRECTED ON LICENSE OF [facility] Insulin Human Lispro (Humalog) 0 unit SUBCUT QIDACANDBED ON LICENSE OF [facility]; Protocol Last Admin: 03/27/20 07:28 Dose: Not Given Documented by: Lidocaine (Lidoderm 5%) 700 mg TOP ASDIRECTED PRN PRN Reason: Pain Melatonin (Melatonin) 9 mg PO BEDTIME ON LICENSE OF [facility] Last Admin: 03/26/20 20:09 Dose: 9 mg Documented by: Metoprolol Tartrate (Lopressor) 50 mg PO BEDTIME ON LICENSE OF [facility] Last Admin: 03/26/20 20:09 Dose: 50 mg Documented by: Nicotine (Habitrol) 14 mg TRDERM BEDTIME ON LICENSE OF [facility] Last Admin: 03/26/20 20:08 Dose: 14 mg Documented by: Nicotine Polacrilex (Nicorelief) 2 mg CHEW Q2H PRN PRN Reason: Agitation Ondansetron HCl (Zofran) 4 mg IV Q4H PRN PRN Reason: Nausea/Vomiting Last Admin: 03/26/20 11:57 Dose: 4 mg Documented by: Oxycodone HCl (Oxycodone) 10 mg PO Q4H PRN PRN Reason: Pain (severe 7-10) Last Admin: 03/27/20 09:44 Dose: 10 mg Documented by: Polyethylene Glycol (Miralax) 34 gm PO BID ON LICENSE OF [facility] Last Admin: 03/26/20 20:10 Dose: 34 gm Documented by: Ropinirole HCl (Requip) 1 mg PO BEDTIME ON LICENSE OF [facility] Last Admin: 03/26/20 20:10 Dose: 1 mg Documented by: Fluticasone/Salmeterol (Fluticasone-Salmeterol 232-14 Mcg Powder Inha) 1 puff INH BIDRT ON LICENSE OF [facility] Last Admin: 03/27/20 07:38 Dose: 1 puff Documented by: Sodium Chloride (Saline Flush) 10 ml FLUSH ASDIRECTED PRN PRN Reason: Keep Vein Open Last Admin: 03/25/20 20:51 Dose: 10 ml Documented by: Trazodone HCl (Trazodone) 100 mg PO BEDTIME ON LICENSE OF [facility] Last Admin: 03/26/20 20:10 Dose: 100 mg Documented by: Discontinued Medications Dextrose/Water (Dextrose 50% In Water) 50 ml IVPUSH ONETIME ONE Stop: 03/26/20 05:37 Last Admin: 03/26/20 05:49 Dose: 50 ml Documented by: Diazepam (Valium.) 5 mg PO ONETIME ONE Stop: 03/26/20 07:01 Last Admin: 03/26/20 21:52 Dose: Not Given Documented by: Diazepam (Valium.) 5 mg PO ONETIME ONE Stop: 03/27/20 07:01 Gabapentin (Neurontin) 1,200 mg PO BID ON LICENSE OF [facility] Last Admin: 03/26/20 00:13 Dose: 1,200 mg Documented by: Hydromorphone HCl (Dilaudid) 0.5 mg IVPUSH ONETIME ONE Stop: 03/25/20 20:21 Last Admin: 03/25/20 20:26 Dose: 0.5 mg Documented by: Hydromorphone HCl (Dilaudid) 1 mg IVPUSH ONETIME ONE Stop: 03/25/20 20:47 Last Admin: 03/25/20 20:51 Dose: 1 mg Documented by: Hydromorphone HCl (Dilaudid) 1 mg IVPUSH ONETIME ONE Stop: 03/25/20 21:27 Last Admin: 03/25/20 21:31 Dose: 1 mg Documented by: Hydromorphone HCl (Dilaudid) 1 mg IVPUSH ONETIME ONE Stop: 03/25/20 22:33 Last Admin: 03/25/20 22:35 Dose: 1 mg Documented by: Lactated Ringer's (Ringers, Lactated) 1,000 mls @ 500 mls/hr IV ASDIRECTED ON LICENSE OF [facility] Last Admin: 03/25/20 21:31 Dose: 500 mls/hr Documented by: Lactated Ringer's (Ringers, Lactated) 1,000 mls @ 125 mls/hr IV ASDIRECTED ON LICENSE OF [facility] Last Admin: 03/26/20 16:08 Dose: 125 mls/hr Documented by: Potassium Chloride 20 meq/Lidocaine HCl 2 ml/ Sodium Chloride 112 mls @ 56 mls/hr IV Q2H ON LICENSE OF [facility] Stop: 03/26/20 16:59 Last Admin: 03/26/20 15:27 Dose: 56 mls/hr Documented by: Sodium Chloride (Normal Saline) 71 mls @ 3 mls/sec IV ONETIME ONE Stop: 03/26/20 12:47 Last Admin: 03/26/20 13:28 Dose: 3 mls/sec Documented by: Insulin Glargine (Lantus Solostar) 15 units SUBCUT BEDTIME ON LICENSE OF [facility] Last Admin: 03/26/20 00:15 Dose: 15 units Documented by: Iopamidol (Isovue-300 (61%)) 102 ml IV ONETIME ONE Stop: 03/26/20 12:47 Last Admin: 03/26/20 13:28 Dose: 102 ml Documented by: Nicotine (Habitrol) 14 mg TRDERM DAILY ON LICENSE OF [facility] Last Admin: 03/26/20 00:14 Dose: 14 mg Documented by: Ondansetron HCl (Zofran) 4 mg IVPUSH ONETIME ONE Stop: 03/25/20 20:28 Last Admin: 03/25/20 20:30 Dose: 4 mg Documented by: Sodium Chloride (Saline Flush) 10 ml FLUSH ONETIME PRN PRN Reason: PER RADIOLOGY PROTOCOL Stop: 03/26/20 12:47 Last Admin: 03/26/20 13:28 Dose: 10 ml Documented by: - Exam Quality Assessment: No: Supplemental Oxygen General: Alert, Oriented, Cooperative, No Acute Distress Lungs: Normal Respiratory Effort Cardiovascular: Regular Rate, Regular Rhythm GI/Abdominal Exam: Soft, No Distention Extremities: No Pedal Edema Psy/Mental Status: Alert, Normal Affect Sepsis Event Note - Evaluation Sepsis Screening Result: No Definite Risk - Focused Exam Vital Signs: Vital Signs Temp Pulse Resp BP Pulse Ox 03/27/20 07:26 36.5 C 56 L 18 140/82 98 03/27/20 04:00 36.2 C 58 L 15 124/78 96 03/27/20 00:12 36.5 C 62 16 137/79 98 - Problem List Review Problem List Initiated/Reviewed/Updated: Yes - My Orders Last 24 Hours: My Active Orders 03/26/20 12:21 oxyCODONE 10 mg PO Q4H PRN 03/26/20 15:51 Extremity Non Vascular Lt [US] Routine 03/26/20 17:30 Dextrose 5%-0.9% NaCl [Dextrose 5%-Normal Saline] 1,000 ml IV ASDIRECTED Lactated Ringers [Ringers, Lactated] 1,000 ml IV ASDIRECTED 03/27/20 08:30 Abdomen w wo Cont [MR] Routine 03/28/20 05:00 BASIC METABOLIC PANEL,BMP [CHEM] Timed CBC W/O DIFF,HEMOGRAM [HEME] Timed (1) - Plan Plan:: ASSESSMENT AND PLAN- PANCREATITIS-acute on chronic. CT scan of the abdomen and pelvis today was abnormal and prompted an MRI. The MRI showed a complex cystic lesion in the head of the pancreas as well as a smaller one in the tail of the pancreas. This is concerning for intraductal papillary mucinous neoplasm. Clinically he is getting better. He will need very close follow-up with gastroenterology. If he does not continue to improve clinically he may need more urgent transfer for gastroenterology evaluation. -Continue IV fluids -Pain control with oral oxycodone and IV Dilaudid -NPO -repeat Lipase level in am PROBABLE IPMN OF THE PANCREAS-noted on CT initially and further evaluated with the MRI as discussed above. -Gastroenterology referral CYST ON LATERAL LEFT THIGH-evaluated with ultrasound. Probable inclusion cyst versus remnants from hematoma or old trauma. Appears to be benign. DIABETES TYPE 2-blood sugars have been acceptable since D5 has been initiated. -blood glucose before meals and at bedtime -Insulin low dose sliding scale coverage -Hold long-acting insulin while n.p.o. COPD/EMPHYSEMA-stable. -Albuterol nebs as needed -Duo-neb as needed every 6 hours TOBACCO DEPENDENCE-needs ongoing discussions about the importance of cessation as well as the risks of ongoing tobacco use. MAINTENANCE ISSUES -DVT prophylaxis- Lovenox 40 mg subcut daily -GI prophylaxis- continue outpatient PPI therapy -Sorenson catheter- not indicated -Nutrition- NPO -Nicotine dependence- Nicotine patch and gum as needed DISPOSITION-anticipate discharge to home after the hospital stay unless he requires transfer to a higher level of care PRIMARY CARE PROVIDER- [facility], permission obtained for admission by Dr. Hartman, Medical Doctor of the Day Drew Dimas MD
[2020-03-27] MEDS: Enoxaparin 40 MG/0.4 ML Syringe SUBCUT SCH (10:14)
[2020-03-27] MEDS: Gabapentin 400 MG Cap PO SCH ×2 (10:15→21:06)
[2020-03-27] MEDS: Famotidine 20 MG Tab PO SCH ×2 (10:15→21:05)
[2020-03-27] MEDS: DULoxetine 20 MG Cap PO SCH (10:15)
[2020-03-27] MEDS: Polyethylene Glycol 3350 Powder 17 GM Packet PO SCH ×2 (10:17→21:06)
--- NOTE | 2020-03-27 10:25 | US ---
Extremity Non Vascular Lt CLINICAL HISTORY: Evaluate cyst left lateral thigh FINDINGS: In the lateral mid thigh in the subcutaneous fat there is an ovoid complex focus with both cystic and solid component. This measures 2.3 x 2.7 x 1.9 cm. There is no internal color flow. IMPRESSION: Complex cystic focus lateral mid thigh. Chronology is unknown. This could represent a deep dermal inclusion cyst. This may represent old hematoma. Neoplasm is felt less likely but not excluded.
[2020-03-27] MEDS ORDERED: Gadoteridol 279.3 MG/ML 20 ML SDV IV SCH (13:00)
--- NOTE | 2020-03-27 15:36 | MR ---
Abdomen w wo Cont CLINICAL HISTORY: Pancreatic lesion TECHNIQUE: Axial and coronal T1, T2, and T2 fat suppressed images were obtained through the abdomen from just above the dome of the diaphragm to just below the iliac crest. Axial and coronal T1-weighted images were obtained pre- and postcontrast enhancement with IV infusion of gadolinium based contrast. The study was performed on a 1.5 Jasmyn short bore FINDINGS: There is a complex cystlike focus in the head of the pancreas measuring 3.2 x 2.2 x 2.5 cm. There is accompanying main pancreatic ductal dilatation. There is a smaller complex cystic focus in the distal body of the pancreas measuring 10 mm. There is also a 10 mm cystlike focus in the tail of the pancreas adjacent to the duct. Surrounding the cystic focus in the head of the pancreas is some edema in the pancreatic parenchyma. The this shows some enhancement on postcontrast images. There is also some enhancement of the cyst wall. The liver is heterogeneous. Cirrhosis has been previously described. There is a small amount of free ascitic fluid lateral to the liver. The spleen is enlarged. IMPRESSION: Complex cystic lesion in the head of the pancreas with some surrounding enhancement and diffuse pancreatic ductal dilatation is highly suspect for intraductal pancreatic mucinous neoplasm. In that there is a small cystic focus in the body and another in the tail of the pancreas this may be a mixed type lesion as opposed to a main duct or branching duct type. The complexity and surrounding enhancement is suspect for malignant transformation. PET scan is consideration. Changes of cirrhosis described on CT
[2020-03-27] MEDS: Gabapentin 300 MG Cap PO SCH (16:18)
[2020-03-27] MEDS: rOPINIRole 1 MG Tab PO SCH (21:05)
[2020-03-27] MEDS: traZODone 50 MG Tab PO SCH (21:05)
[2020-03-27] MEDS: Melatonin 3 MG Tab PO SCH (21:05)
[2020-03-27] MEDS: Nicotine 14 MG/24 Hr Patch TRDERM SCH (21:07)
[2020-03-27] MEDS: Metoprolol Tartrate 50 MG Tab PO SCH (21:09)
[2020-03-28] MEDS: HYDROmorphone 1 MG/ML Syringe IVPUSH PRN ×2 (01:12→05:13)
[2020-03-28] MEDS: oxyCODONE 5 MG Tab PO PRN ×5 (02:52→20:22)
[2020-03-28] MEDS: Fluticasone-Salmeterol 232-14 MCG Powder Inhalent INH SCH ×2 (07:11→21:24)
[2020-03-28] MEDS: Insulin Lispro 100 Unit/ML 3 ML KwikPen SUBCUT SCH ×4 (07:49→21:23)
[2020-03-28] MEDS: Gabapentin 400 MG Cap PO SCH ×2 (08:31→21:27)
[2020-03-28] MEDS: Enoxaparin 40 MG/0.4 ML Syringe SUBCUT SCH (08:32)
[2020-03-28] MEDS: Famotidine 20 MG Tab PO SCH ×2 (08:32→21:28)
[2020-03-28] MEDS: Polyethylene Glycol 3350 Powder 17 GM Packet PO SCH (08:32)
[2020-03-28] MEDS: DULoxetine 20 MG Cap PO SCH (08:32)
--- NOTE | 2020-03-28 09:24 | PCM.PN ---
- General Info Date of Service: 03/28/20 Subjective Update: No acute events overnight. Pain is well controlled today but he does continue to use the IV pain medication in addition to oral medication. He says that he is having different pain today and thinks that it is a hunger pain. His appetite is much better today. He has not had any fevers or nausea. Repeat laboratory studies today were unremarkable. Functional Status: Reports: Pain Controlled - Review of Systems General: Denies: Fever Gastrointestinal: Reports: Abdominal Pain - Patient Data Vitals - Most Recent: Last Vital Signs Temp 36.0 C L 03/28/20 06:50 Pulse 60 03/28/20 06:50 Resp 16 03/28/20 06:50 BP 157/98 H 03/28/20 06:50 Pulse Ox 98 03/28/20 06:50 Weight - Most Recent: 68.039 kg I&O - Last 24 Hours: Intake & Output 03/27/20 03/28/20 03/28/20 22:59 06:59 14:59 Intake Total 1491 1117 Output Total 350 1000 Balance 1141 117 Lab Results Last 24 Hours: Laboratory Results - last 24 hr 03/27/20 03/27/20 03/27/20 Range/Units 11:22 16:30 21:04 WBC (4.5-11.0) K/uL RBC (4.30-5.90) M/uL Hgb (12.0-15.0) g/dL Hct (40.0-54.0) % MCV (80-98) fL MCH (27-31) pg MCHC (32-36) % Plt Count (150-400) K/uL Sodium (140-148) mmol/L Potassium (3.6-5.2) mmol/L Chloride (100-108) mmol/L Carbon Dioxide (21-32) mmol/L Anion Gap (5.0-14.0) mmol/L BUN (7-18) mg/dL Creatinine (0.8-1.3) mg/dL Est Cr Clr Drug Dosing mL/min Estimated GFR (MDRD) (>60) Glucose (74-106) mg/dL POC Glucose 165 H 123 H 130 H (74-106) MG/DL Calcium (8.5-10.1) mg/dL 03/28/20 03/28/20 03/28/20 Range/Units 04:46 04:46 07:41 WBC 4.2 L (4.5-11.0) K/uL RBC 4.61 (4.30-5.90) M/uL Hgb 13.5 (12.0-15.0) g/dL Hct 41.7 (40.0-54.0) % MCV 91 (80-98) fL MCH 29 (27-31) pg MCHC 32 (32-36) % Plt Count 139 L (150-400) K/uL Sodium 138 L (140-148) mmol/L Potassium 4.6 (3.6-5.2) mmol/L Chloride 103 (100-108) mmol/L Carbon Dioxide 28 (21-32) mmol/L Anion Gap 11.6 (5.0-14.0) mmol/L BUN 3 L (7-18) mg/dL Creatinine 0.6 L (0.8-1.3) mg/dL Est Cr Clr Drug Dosing 130.72 mL/min Estimated GFR (MDRD) > 60 (>60) Glucose 162 H (74-106) mg/dL POC Glucose 142 H (74-106) MG/DL Calcium 8.8 (8.5-10.1) mg/dL Med Orders - Current: Current Medications Albuterol (Proventil Neb Soln) 2.5 mg NEB Q4H PRN PRN Reason: Shortness Of Breath/wheezing Albuterol/Ipratropium (Duoneb 3.0-0.5 Mg/3 Ml) 3 ml NEB QID PRN PRN Reason: Shortness Of Breath/wheezing Duloxetine HCl (Cymbalta) 80 mg PO DAILY [facility] Last Admin: 03/28/20 08:32 Dose: 80 mg Documented by: Enoxaparin Sodium (Lovenox) 40 mg SUBCUT DAILY [facility] Last Admin: 03/28/20 08:32 Dose: 40 mg Documented by: Famotidine (Pepcid) 20 mg PO BID [facility] Last Admin: 03/28/20 08:32 Dose: 20 mg Documented by: Gabapentin (Neurontin) 300 mg PO 1700 [facility] Last Admin: 03/27/20 16:18 Dose: 300 mg Documented by: Gabapentin (Neurontin) 1,200 mg PO BID [facility] Last Admin: 03/28/20 08:31 Dose: 1,200 mg Documented by: Hydromorphone HCl (Dilaudid) 1 mg IVPUSH Q2H PRN PRN Reason: Pain (severe 7-10) Last Admin: 03/28/20 05:13 Dose: 1 mg Documented by: Insulin Human Lispro (Humalog) 0 unit SUBCUT QIDACANDBED [facility]; Protocol Last Admin: 03/28/20 07:49 Dose: Not Given Documented by: Lidocaine (Lidoderm 5%) 700 mg TOP ASDIRECTED PRN PRN Reason: Pain Melatonin (Melatonin) 9 mg PO BEDTIME [facility] Last Admin: 03/27/20 21:05 Dose: 9 mg Documented by: Metoprolol Tartrate (Lopressor) 50 mg PO BEDTIME [facility] Last Admin: 03/27/20 21:09 Dose: 50 mg Documented by: Nicotine (Habitrol) 14 mg TRDERM BEDTIME [facility] Last Admin: 03/27/20 21:07 Dose: 14 mg Documented by: Nicotine Polacrilex (Nicorelief) 2 mg CHEW Q2H PRN PRN Reason: Agitation Ondansetron HCl (Zofran) 4 mg IV Q4H PRN PRN Reason: Nausea/Vomiting Last Admin: 03/26/20 11:57 Dose: 4 mg Documented by: Oxycodone HCl (Oxycodone) 10 mg PO Q4H PRN PRN Reason: Pain (severe 7-10) Last Admin: 03/28/20 07:22 Dose: 10 mg Documented by: Polyethylene Glycol (Miralax) 34 gm PO BID [facility] Last Admin: 03/28/20 08:32 Dose: Not Given Documented by: Ropinirole HCl (Requip) 1 mg PO BEDTIME [facility] Last Admin: 03/27/20 21:05 Dose: 1 mg Documented by: Fluticasone/Salmeterol (Fluticasone-Salmeterol 232-14 Mcg Powder Inha) 1 puff INH BIDRT [facility] Last Admin: 03/28/20 07:11 Dose: 1 puff Documented by: Sodium Chloride (Saline Flush) 10 ml FLUSH ASDIRECTED PRN PRN Reason: Keep Vein Open Last Admin: 03/25/20 20:51 Dose: 10 ml Documented by: Trazodone HCl (Trazodone) 100 mg PO BEDTIME [facility] Last Admin: 03/27/20 21:05 Dose: 100 mg Documented by: Discontinued Medications Dextrose/Water (Dextrose 50% In Water) 50 ml IVPUSH ONETIME ONE Stop: 03/26/20 05:37 Last Admin: 03/26/20 05:49 Dose: 50 ml Documented by: Diazepam (Valium.) 5 mg PO ONETIME ONE Stop: 03/26/20 07:01 Last Admin: 03/26/20 21:52 Dose: Not Given Documented by: Diazepam (Valium.) 5 mg PO ONETIME ONE Stop: 03/27/20 12:31 Last Admin: 03/27/20 12:10 Dose: 5 mg Documented by: Gabapentin (Neurontin) 1,200 mg PO BID [facility] Last Admin: 03/26/20 00:13 Dose: 1,200 mg Documented by: Gadoteridol (Prohance) 20 ml IV . DIRECTED [facility] Stop: 03/27/20 13:01 Last Admin: 03/27/20 13:16 Dose: 20 ml Documented by: Hydromorphone HCl (Dilaudid) 0.5 mg IVPUSH ONETIME ONE Stop: 03/25/20 20:21 Last Admin: 03/25/20 20:26 Dose: 0.5 mg Documented by: Hydromorphone HCl (Dilaudid) 1 mg IVPUSH ONETIME ONE Stop: 03/25/20 20:47 Last Admin: 03/25/20 20:51 Dose: 1 mg Documented by: Hydromorphone HCl (Dilaudid) 1 mg IVPUSH ONETIME ONE Stop: 03/25/20 21:27 Last Admin: 03/25/20 21:31 Dose: 1 mg Documented by: Hydromorphone HCl (Dilaudid) 1 mg IVPUSH ONETIME ONE Stop: 03/25/20 22:33 Last Admin: 03/25/20 22:35 Dose: 1 mg Documented by: Lactated Ringer's (Ringers, Lactated) 1,000 mls @ 500 mls/hr IV ASDIRECTED [facility] Last Admin: 03/25/20 21:31 Dose: 500 mls/hr Documented by: Lactated Ringer's (Ringers, Lactated) 1,000 mls @ 125 mls/hr IV ASDIRECTED [facility] Last Admin: 03/26/20 16:08 Dose: 125 mls/hr Documented by: Potassium Chloride 20 meq/Lidocaine HCl 2 ml/ Sodium Chloride 112 mls @ 56 mls/hr IV Q2H [facility] Stop: 03/26/20 16:59 Last Admin: 03/26/20 15:27 Dose: 56 mls/hr Documented by: Sodium Chloride (Normal Saline) 71 mls @ 3 mls/sec IV ONETIME ONE Stop: 03/26/20 12:47 Last Admin: 03/26/20 13:28 Dose: 3 mls/sec Documented by: Lactated Ringer's (Ringers, Lactated) 1,000 mls @ 50 mls/hr IV ASDIRECTED [facility] Last Admin: 03/28/20 04:47 Dose: 50 mls/hr Documented by: Dextrose/Sodium Chloride (Dextrose 5%-Normal Saline) 1,000 mls @ 50 mls/hr IV ASDIRECTED [facility] Last Admin: 03/27/20 16:14 Dose: 50 mls/hr Documented by: Insulin Glargine (Lantus Solostar) 15 units SUBCUT BEDTIME [facility] Last Admin: 03/26/20 00:15 Dose: 15 units Documented by: Iopamidol (Isovue-300 (61%)) 102 ml IV ONETIME ONE Stop: 03/26/20 12:47 Last Admin: 03/26/20 13:28 Dose: 102 ml Documented by: Nicotine (Habitrol) 14 mg TRDERM DAILY [facility] Last Admin: 03/26/20 00:14 Dose: 14 mg Documented by: Ondansetron HCl (Zofran) 4 mg IVPUSH ONETIME ONE Stop: 03/25/20 20:28 Last Admin: 03/25/20 20:30 Dose: 4 mg Documented by: Sodium Chloride (Saline Flush) 10 ml FLUSH ONETIME PRN PRN Reason: PER RADIOLOGY PROTOCOL Stop: 03/26/20 12:47 Last Admin: 03/26/20 13:28 Dose: 10 ml Documented by: - Exam Quality Assessment: No: Supplemental Oxygen General: Alert, Oriented, Cooperative, No Acute Distress Lungs: Normal Respiratory Effort Cardiovascular: Regular Rate, Regular Rhythm GI/Abdominal Exam: Soft, No Distention Extremities: No Pedal Edema Psy/Mental Status: Alert, Normal Affect Sepsis Event Note - Evaluation Sepsis Screening Result: No Definite Risk - Focused Exam Vital Signs: Vital Signs Temp Pulse Resp BP Pulse Ox 03/28/20 06:50 36.0 C L 60 16 157/98 H 98 03/28/20 02:49 35.4 C L 62 16 142/88 H 100 03/27/20 23:00 35.5 C L 58 L 16 122/86 97 - Problem List Review Problem List Initiated/Reviewed/Updated: Yes - My Orders Last 24 Hours: My Active Orders 03/28/20 Breakfast Clear Liquid Diet [DIET] 03/28/20 09:22 Convert IV to Saline Lock [OM.PC] Routine - Plan Plan:: ASSESSMENT AND PLAN- PANCREATITIS-acute on chronic. CT scan of the abdomen and pelvis today was abnormal and prompted an MRI. The MRI showed a complex cystic lesion in the head of the pancreas as well as a smaller one in the tail of the pancreas. This is concerning for intraductal papillary mucinous neoplasm possibly with malignant transformation. Clinically he is continues to improve but will need somewhat urgent gastroenterology evaluation. -Saline lock IV -Pain control with oral oxycodone -Trial of clear liquids PROBABLE IPMN OF THE PANCREAS-noted on CT initially and further evaluated with the MRI as discussed above. -Gastroenterology referral CYST ON LATERAL LEFT THIGH-evaluated with ultrasound. Probable inclusion cyst versus remnants from hematoma or old trauma. Appears to be benign. DIABETES TYPE 2-blood sugars have been acceptable over the past 24 hours. -blood glucose before meals and at bedtime -Insulin low dose sliding scale coverage -Restart long-acting insulin tonight if he tolerates his diet today COPD/EMPHYSEMA-stable. -Albuterol nebs as needed -Duo-neb as needed every 6 hours TOBACCO DEPENDENCE-needs ongoing discussions about the importance of cessation as well as the risks of ongoing tobacco use. MAINTENANCE ISSUES -DVT prophylaxis- Lovenox 40 mg subcut daily -GI prophylaxis- continue outpatient PPI therapy -Sorenson catheter- not indicated -Nutrition-trial of clear liquids -Nicotine dependence- Nicotine patch and gum as needed DISPOSITION-anticipate discharge to home after the hospital stay unless he requires transfer to a higher level of care PRIMARY CARE PROVIDER- [facility], permission obtained for admission by Dr. Hartman, Medical Doctor of the Day Drew Dimas MD
[2020-03-28] MEDS ORDERED: Polyethylene Glycol 3350 Powder 17 GM Packet PO PRN (14:24)
[2020-03-28] MEDS: Gabapentin 300 MG Cap PO SCH (17:31)
[2020-03-28] MEDS: Nicotine 14 MG/24 Hr Patch TRDERM SCH (21:26)
[2020-03-28] MEDS: Melatonin 3 MG Tab PO SCH (21:28)
[2020-03-28] MEDS: Metoprolol Tartrate 50 MG Tab PO SCH (21:28)
[2020-03-28] MEDS: traZODone 50 MG Tab PO SCH (21:28)
[2020-03-28] MEDS: rOPINIRole 1 MG Tab PO SCH (21:28)
[2020-03-29] MEDS: oxyCODONE 5 MG Tab PO PRN ×6 (00:29→20:36)
[2020-03-29] MEDS: Fluticasone-Salmeterol 232-14 MCG Powder Inhalent INH SCH ×2 (07:07→20:37)
[2020-03-29] MEDS: Insulin Lispro 100 Unit/ML 3 ML KwikPen SUBCUT SCH ×2 (07:41→11:40)
[2020-03-29] MEDS: DULoxetine 20 MG Cap PO SCH (08:12)
[2020-03-29] MEDS: Gabapentin 400 MG Cap PO SCH ×2 (08:13→20:05)
[2020-03-29] MEDS: Famotidine 20 MG Tab PO SCH ×2 (08:13→20:50)
[2020-03-29] MEDS: Enoxaparin 40 MG/0.4 ML Syringe SUBCUT SCH (08:13)
--- NOTE | 2020-03-29 12:17 | PCM.PN ---
- General Info Date of Service: 03/29/20 Subjective Update: No acute events overnight. Pain has continued to improve. He did tolerate clear liquids yesterday and full liquids at lunchtime. No fevers. No nausea. Up and walking around. Functional Status: Reports: Pain Controlled - Review of Systems General: Denies: Fever - Patient Data Vitals - Most Recent: Last Vital Signs Temp 36.4 C 03/29/20 10:35 Pulse 78 03/29/20 10:35 Resp 16 03/29/20 10:35 BP 127/82 03/29/20 10:35 Pulse Ox 98 03/29/20 10:35 Weight - Most Recent: 68.039 kg I&O - Last 24 Hours: Intake & Output 03/28/20 03/29/20 03/29/20 22:59 06:59 14:59 Intake Total 600 300 360 Output Total 1475 600 400 Balance -875 -300 -40 Lab Results Last 24 Hours: Laboratory Results - last 24 hr 03/28/20 03/28/20 03/29/20 Range/Units 16:30 20:59 07:30 POC Glucose 150 H 141 H 132 H (74-106) MG/DL 03/29/20 Range/Units 11:30 POC Glucose 197 H (74-106) MG/DL Med Orders - Current: Current Medications Albuterol (Proventil Neb Soln) 2.5 mg NEB Q4H PRN PRN Reason: Shortness Of Breath/wheezing Albuterol/Ipratropium (Duoneb 3.0-0.5 Mg/3 Ml) 3 ml NEB QID PRN PRN Reason: Shortness Of Breath/wheezing Duloxetine HCl (Cymbalta) 80 mg PO DAILY [facility] Last Admin: 03/29/20 08:12 Dose: 80 mg Documented by: Enoxaparin Sodium (Lovenox) 40 mg SUBCUT DAILY [facility] Last Admin: 03/29/20 08:13 Dose: 40 mg Documented by: Famotidine (Pepcid) 20 mg PO BID [facility] Last Admin: 03/29/20 08:13 Dose: 20 mg Documented by: Gabapentin (Neurontin) 300 mg PO 1700 [facility] Last Admin: 03/28/20 17:31 Dose: 300 mg Documented by: Gabapentin (Neurontin) 1,200 mg PO BID [facility] Last Admin: 03/29/20 08:13 Dose: 1,200 mg Documented by: Hydromorphone HCl (Dilaudid) 1 mg IVPUSH Q2H PRN PRN Reason: Pain (severe 7-10) Last Admin: 03/28/20 05:13 Dose: 1 mg Documented by: Insulin Human Lispro (Humalog) 0 unit SUBCUT QIDACANDBED [facility]; Protocol Last Admin: 03/29/20 11:40 Dose: 1 unit Documented by: Lidocaine (Lidoderm 5%) 700 mg TOP ASDIRECTED PRN PRN Reason: Pain Melatonin (Melatonin) 9 mg PO BEDTIME [facility] Last Admin: 03/28/20 21:28 Dose: 9 mg Documented by: Metoprolol Tartrate (Lopressor) 50 mg PO BEDTIME [facility] Last Admin: 03/28/20 21:28 Dose: 50 mg Documented by: Nicotine (Habitrol) 14 mg TRDERM BEDTIME [facility] Last Admin: 03/28/20 21:26 Dose: Not Given Documented by: Nicotine Polacrilex (Nicorelief) 2 mg CHEW Q2H PRN PRN Reason: Agitation Ondansetron HCl (Zofran) 4 mg IV Q4H PRN PRN Reason: Nausea/Vomiting Last Admin: 03/26/20 11:57 Dose: 4 mg Documented by: Oxycodone HCl (Oxycodone) 10 mg PO Q4H PRN PRN Reason: Pain (severe 7-10) Last Admin: 03/29/20 08:14 Dose: 10 mg Documented by: Polyethylene Glycol (Miralax) 17 gm PO BID PRN PRN Reason: Constipation Ropinirole HCl (Requip) 1 mg PO BEDTIME [facility] Last Admin: 03/28/20 21:28 Dose: 1 mg Documented by: Fluticasone/Salmeterol (Fluticasone-Salmeterol 232-14 Mcg Powder Inha) 1 puff INH BIDRT [facility] Last Admin: 03/29/20 07:07 Dose: 1 puff Documented by: Sodium Chloride (Saline Flush) 10 ml FLUSH ASDIRECTED PRN PRN Reason: Keep Vein Open Last Admin: 03/25/20 20:51 Dose: 10 ml Documented by: Trazodone HCl (Trazodone) 100 mg PO BEDTIME [facility] Last Admin: 03/28/20 21:28 Dose: 100 mg Documented by: Discontinued Medications Dextrose/Water (Dextrose 50% In Water) 50 ml IVPUSH ONETIME ONE Stop: 03/26/20 05:37 Last Admin: 03/26/20 05:49 Dose: 50 ml Documented by: Diazepam (Valium.) 5 mg PO ONETIME ONE Stop: 03/26/20 07:01 Last Admin: 03/26/20 21:52 Dose: Not Given Documented by: Diazepam (Valium.) 5 mg PO ONETIME ONE Stop: 03/27/20 12:31 Last Admin: 03/27/20 12:10 Dose: 5 mg Documented by: Gabapentin (Neurontin) 1,200 mg PO BID [facility] Last Admin: 03/26/20 00:13 Dose: 1,200 mg Documented by: Gadoteridol (Prohance) 20 ml IV . DIRECTED [facility] Stop: 03/27/20 13:01 Last Admin: 03/27/20 13:16 Dose: 20 ml Documented by: Hydromorphone HCl (Dilaudid) 0.5 mg IVPUSH ONETIME ONE Stop: 03/25/20 20:21 Last Admin: 03/25/20 20:26 Dose: 0.5 mg Documented by: Hydromorphone HCl (Dilaudid) 1 mg IVPUSH ONETIME ONE Stop: 03/25/20 20:47 Last Admin: 03/25/20 20:51 Dose: 1 mg Documented by: Hydromorphone HCl (Dilaudid) 1 mg IVPUSH ONETIME ONE Stop: 03/25/20 21:27 Last Admin: 03/25/20 21:31 Dose: 1 mg Documented by: Hydromorphone HCl (Dilaudid) 1 mg IVPUSH ONETIME ONE Stop: 03/25/20 22:33 Last Admin: 03/25/20 22:35 Dose: 1 mg Documented by: Lactated Ringer's (Ringers, Lactated) 1,000 mls @ 500 mls/hr IV ASDIRECTED [facility] Last Admin: 03/25/20 21:31 Dose: 500 mls/hr Documented by: Lactated Ringer's (Ringers, Lactated) 1,000 mls @ 125 mls/hr IV ASDIRECTED [facility] Last Admin: 03/26/20 16:08 Dose: 125 mls/hr Documented by: Potassium Chloride 20 meq/Lidocaine HCl 2 ml/ Sodium Chloride 112 mls @ 56 mls/hr IV Q2H [facility] Stop: 03/26/20 16:59 Last Admin: 03/26/20 15:27 Dose: 56 mls/hr Documented by: Sodium Chloride (Normal Saline) 71 mls @ 3 mls/sec IV ONETIME ONE Stop: 03/26/20 12:47 Last Admin: 03/26/20 13:28 Dose: 3 mls/sec Documented by: Lactated Ringer's (Ringers, Lactated) 1,000 mls @ 50 mls/hr IV ASDIRECTED [facility] Last Admin: 03/28/20 04:47 Dose: 50 mls/hr Documented by: Dextrose/Sodium Chloride (Dextrose 5%-Normal Saline) 1,000 mls @ 50 mls/hr IV ASDIRECTED [facility] Last Admin: 03/27/20 16:14 Dose: 50 mls/hr Documented by: Insulin Glargine (Lantus Solostar) 15 units SUBCUT BEDTIME [facility] Last Admin: 03/26/20 00:15 Dose: 15 units Documented by: Iopamidol (Isovue-300 (61%)) 102 ml IV ONETIME ONE Stop: 03/26/20 12:47 Last Admin: 03/26/20 13:28 Dose: 102 ml Documented by: Nicotine (Habitrol) 14 mg TRDERM DAILY [facility] Last Admin: 03/26/20 00:14 Dose: 14 mg Documented by: Ondansetron HCl (Zofran) 4 mg IVPUSH ONETIME ONE Stop: 03/25/20 20:28 Last Admin: 03/25/20 20:30 Dose: 4 mg Documented by: Polyethylene Glycol (Miralax) 34 gm PO BID [facility] Last Admin: 03/28/20 08:32 Dose: Not Given Documented by: Sodium Chloride (Saline Flush) 10 ml FLUSH ONETIME PRN PRN Reason: PER RADIOLOGY PROTOCOL Stop: 03/26/20 12:47 Last Admin: 03/26/20 13:28 Dose: 10 ml Documented by: - Exam Quality Assessment: No: Supplemental Oxygen General: Alert, Oriented, Cooperative, No Acute Distress Lungs: Normal Respiratory Effort GI/Abdominal Exam: Soft, No Distention Extremities: No Pedal Edema Psy/Mental Status: Alert, Normal Affect Sepsis Event Note - Evaluation Sepsis Screening Result: No Definite Risk - Focused Exam Vital Signs: Vital Signs Temp Pulse Resp BP Pulse Ox 03/29/20 10:35 36.4 C 78 16 127/82 98 03/29/20 07:20 36.8 C 76 16 127/82 97 03/29/20 04:17 35.9 C L 66 14 124/86 97 - Problem List Review Problem List Initiated/Reviewed/Updated: Yes - My Orders Last 24 Hours: My Active Orders 03/28/20 14:24 polyethylene glycoL 3350 [MiraLAX] 17 gm PO BID PRN 03/29/20 Lunch Full Liquid Diet [DIET] - Plan Plan:: ASSESSMENT AND PLAN- PANCREATITIS-acute on chronic. CT scan of the abdomen and pelvis today was abnormal and prompted an MRI. The MRI showed a complex cystic lesion in the head of the pancreas as well as a smaller one in the tail of the pancreas. This is concerning for intraductal papillary mucinous neoplasm possibly with m alignant transformation. Slow but steady improvement. -Saline lock IV -Pain control with oral oxycodone -Trial of full liquids PROBABLE IPMN OF THE PANCREAS-noted on CT initially and further evaluated with the MRI as discussed above. -Gastroenterology referral CYST ON LATERAL LEFT THIGH-evaluated with ultrasound. Probable inclusion cyst versus remnants from hematoma or old trauma. Appears to be benign. DIABETES TYPE 2-blood sugars have been acceptable over the past 24 hours. -blood glucose before meals and at bedtime -Insulin low dose sliding scale coverage -Restart long-acting insulin tonight COPD/EMPHYSEMA-stable. -Albuterol nebs as needed -Duo-neb as needed every 6 hours TOBACCO DEPENDENCE-needs ongoing discussions about the importance of cessation as well as the risks of ongoing tobacco use. MAINTENANCE ISSUES -DVT prophylaxis- Lovenox 40 mg subcut daily -GI prophylaxis- continue outpatient PPI therapy -Sorenson catheter- not indicated -Nutrition-full liquids -Nicotine dependence- Nicotine patch and gum as needed DISPOSITION-anticipate discharge to home after the hospital stay tomorrow unless his pain flares up overnight PRIMARY CARE PROVIDER- [facility], permission obtained for admission by Dr. Hartman, Medical Doctor of the Day Drew Dimas MD
[2020-03-29] MEDS: Nicotine 14 MG/24 Hr Patch TRDERM SCH ×2 (13:16→20:40)
[2020-03-29] MEDS: Gabapentin 300 MG Cap PO SCH (16:35)
[2020-03-29] MEDS ORDERED: metFORMIN 500 MG Tab PO SCH (17:00)
[2020-03-29] MEDS: Metoprolol Tartrate 50 MG Tab PO SCH (20:40)
[2020-03-29] MEDS: Melatonin 3 MG Tab PO SCH (20:49)
[2020-03-29] MEDS: rOPINIRole 1 MG Tab PO SCH (20:50)
[2020-03-29] MEDS: traZODone 50 MG Tab PO SCH (20:51)
[2020-03-29] MEDS: HYDROmorphone 1 MG/ML Syringe IVPUSH PRN (20:56)
[2020-03-29] MEDS ORDERED: Insulin Glargine,Human Rec. Analog 100 Units/ML 3 ML Pen SUBCUT SCH (21:00)
[2020-03-30] MEDS: oxyCODONE 5 MG Tab PO PRN ×4 (00:37→12:32)
[2020-03-30] MEDS: Fluticasone-Salmeterol 232-14 MCG Powder Inhalent INH SCH (07:28)
[2020-03-30] MEDS: Gabapentin 400 MG Cap PO SCH (08:40)
[2020-03-30] MEDS: DULoxetine 20 MG Cap PO SCH (08:41)
[2020-03-30] MEDS: Famotidine 20 MG Tab PO SCH (08:41)
[2020-03-30] MEDS: Enoxaparin 40 MG/0.4 ML Syringe SUBCUT SCH (08:41)
[2020-03-30] MEDS: HYDROmorphone 1 MG/ML Syringe IVPUSH PRN ×2 (10:19→14:01)
[2020-03-30] MEDS ORDERED: Lactated Ringers 1,000 ML IV SCH (12:15)
--- NOTE | 2020-03-30 12:16 | PCM.DCSUM1 ---
Discharge Summary - Hospital Course Brief History: 59-year-old male with insulin-dependent diabetes, stable COPD, pancreatitis, cirrhosis who presented with recurrent abdominal pain after a recent admission for pancreatitis. He was readmitted for management of acute pancreatitis. Diagnosis: Stroke: No - Discharge Data Discharge Date: 03/30/20 Discharge Disposition: DC/Tfer to Acute Hospital 02 Condition: Stable - Referral to Home Health Primary Care Physician: PCP None - Patient Summary/Data Hospital Course: Armando presented to the emergency room about 24 hours after going home following a hospital stay for acute pancreatitis. He had recurrent abdominal pain as well as nausea. Work-up in the emergency room revealed a mild elevation of lipase at just over 600. His AST was essentially normal but ALT was moderately elevated at 179. Alkaline phosphatase was mildly elevated at 245. Bilirubin was normal. This was felt to represent a recurrence of his pancreatitis as he had recently been treated in the hospital for the same. He was readmitted to the hospital with n.p.o. status, IV fluids and symptomatic management. The morning after admission I did perform a CT scan since he had had 3 years between his last episode of pancreatitis and this episode. The CT scan showed evidence for cirrhosis as well as some portal hypertension which was known. It also showed a low attenuation focus in the head of the pancreas as well as some fluid density. A smaller cystic focus was also noted in the tail of the pancreas. This prompted an MRI of the abdomen which was performed during the second day of hospitalization. This showed a complex cystic lesion in the head of the pancreas as well as a smaller one in the tail. These were felt to be either IPMN changes or possibly a pseudocyst. Fortunately he was improving from both a clinical and laboratory standpoint. His lipase normalized over the first 48 hours of the hospitalization. His pain made a slow and steady trend towards improvement. His vital signs were all relatively stable. Once his labs had normalized and his pain had significantly improved we did attempt to advance his diet. He did okay with clear liquids so we had a trial of full liquids. Unfortunately this prompted a significant increase in his pain as well as nausea. This was the second time over the last 9 days that he had failed usual treatment for acute pancreatitis. I did talk to the gastroenterology folks at [facility] in [place]. We discussed the utility of a jejunal feeding tube versus additional routes for supplementation. At this point I do not think we have the resources that he needs to get the best care here in [place]. The hospitalist service along with the gastroenterology folks were agreeable to take the patient in transfer. He will need interventional radiology as well as gastroenterology to help formulate a plan to move forward with this acute pancreatitis and pseudocyst versus other pathology noted in the head of the pancreas. He will be transferred to [facility] in [place] in stable condition. The benefits of transfer outweigh the risks at this point. I did also talk to the MOD at the [facility] and they were in agreement that he needed a higher level of care if that was not available at their facility either and recommended either [facility] or [facility]. - Patient Instructions Diet: NPO Activity: As Tolerated Other/Special Instructions: transfer to [facility] for GI eval with pancreatitis and psueudocyst? Failed usual treatment x2, needs IR placed feeding tube and GI consult - Discharge Plan *PRESCRIPTION DRUG MONITORING PROGRAM REVIEWED*: No *COPY OF PRESCRIPTION DRUG MONITORING REPORT IN PATIENT [place]: No Home Medications: Home Meds Albuterol Sulfate [Proair Respiclick] 2 puff IN Q6HR PRN 10/27/16 [History] Budesonide/Formoterol [Symbicort 160-4.5 MCG] 2 puff IN BID 10/27/16 [History] Lidocaine 5% [Lidoderm 5%] 1 patch TOP ASDIRECTED PRN 10/27/16 [History] Metoprolol Tartrate [Lopressor] 50 mg PO BEDTIME 10/27/16 [History] rOPINIRole [Requip] 1 mg PO BEDTIME 10/27/16 [History] traZODone 100 mg PO BEDTIME 10/27/16 [History] Cyclobenzaprine HCl 20 mg PO BID 12/20/16 [History] Docusate Sodium/Sennosides [Senna Plus] 2 each PO BID PRN 12/20/16 [History] Gabapentin [Neurontin] 1,200 mg PO BID 12/20/16 [History] Ondansetron [Zofran] 4 mg PO Q8H PRN #20 tab 01/20/17 [Rx] Acetaminophen 650 mg PO ASDIRECTED 08/29/18 [History] DULoxetine [Cymbalta] 80 mg PO DAILY 08/29/18 [History] Melatonin 9 mg PO BEDTIME 08/29/18 [History] Pantoprazole [ProTONIX] 40 mg PO ACBREAKFAST 08/29/18 [History] oxyCODONE 5 mg PO Q6H PRN #15 tab 07/09/19 [Rx] Cetirizine [ZyrTEC] 10 mg PO DAILY 03/21/20 [History] Cholecalciferol (Vitamin D3) [Vitamin D3] 100 year PO DAILY 03/21/20 [History] Dextrin [Fiber] 350 gm PO BID 03/21/20 [History] Diclofenac Sodium 50 mg PO BID 03/21/20 [History] Famotidine 20 mg PO BID 03/21/20 [History] Gabapentin [Neurontin] 300 mg PO ASDIRECTED 03/21/20 [History] Insulin Glargine,Hum.Rec.Anlog [Lantus Solostar] 15 units SUBCNJ BEDTIME 03/21/20 [History] metFORMIN [Glucophage] 1,000 mg PO WITHDINNER 03/21/20 [History] polyethylene glycoL 3350 [MiraLAX] 34 gm PO BID 03/21/20 [History] Forms: ED Department Discharge Referrals: PCP,None [Primary Care Provider] - ([facility]) - Discharge Summary/Plan Comment DC Time >30 min.: Yes (60-transfer to acute hospital) - Patient Data Vitals - Most Recent: Last Vital Signs Temp 35.8 C L 03/30/20 07:30 Pulse 78 03/30/20 07:30 Resp 16 03/30/20 07:30 BP 115/81 03/30/20 07:30 Pulse Ox 95 03/30/20 07:30 Weight - Most Recent: 68.039 kg I&O - Last 24 hours: Intake & Output 03/29/20 03/30/20 03/30/20 22:59 06:59 14:59 Intake Total 300 120 Output Total 700 175 Balance -400 -55 Lab Results - Last 24 hrs: Laboratory Results - last 24 hr 03/29/20 03/29/20 03/30/20 Range/Units 16:24 20:59 07:30 POC Glucose 171 H 184 H 108 H (74-106) MG/DL 03/30/20 Range/Units 11:30 POC Glucose 176 H (74-106) MG/DL Med Orders - Current: Current Medications Albuterol (Proventil Neb Soln) 2.5 mg NEB Q4H PRN PRN Reason: Shortness Of Breath/wheezing Albuterol/Ipratropium (Duoneb 3.0-0.5 Mg/3 Ml) 3 ml NEB QID PRN PRN Reason: Shortness Of Breath/wheezing Duloxetine HCl (Cymbalta) 80 mg PO DAILY [facility] Last Admin: 03/30/20 08:41 Dose: 80 mg Documented by: Enoxaparin Sodium (Lovenox) 40 mg SUBCUT DAILY [facility] Last Admin: 03/30/20 08:41 Dose: 40 mg Documented by: Famotidine (Pepcid) 20 mg PO BID [facility] Last Admin: 03/30/20 08:41 Dose: 20 mg Documented by: Gabapentin (Neurontin) 300 mg PO 1700 [facility] Last Admin: 03/29/20 16:35 Dose: 300 mg Documented by: Gabapentin (Neurontin) 1,200 mg PO BID [facility] Last Admin: 03/30/20 08:40 Dose: 1,200 mg Documented by: Hydromorphone HCl (Dilaudid) 1 mg IVPUSH Q2H PRN PRN Reason: Pain (severe 7-10) Last Admin: 03/30/20 10:19 Dose: 1 mg Documented by: Lactated Ringer's (Ringers, Lactated) 1,000 mls @ 100 mls/hr IV ASDIRECTED [facility] Insulin Glargine (Lantus Solostar) 10 units SUBCUT BEDTIME [facility] Last Admin: 03/29/20 21:01 Dose: 10 units Documented by: Lidocaine (Lidoderm 5%) 700 mg TOP ASDIRECTED PRN PRN Reason: Pain Last Admin: 03/30/20 00:37 Dose: 700 mg Documented by: Melatonin (Melatonin) 9 mg PO BEDTIME [facility] Last Admin: 03/29/20 20:49 Dose: 9 mg Documented by: Metformin HCl (Glucophage) 1,000 mg PO WITHDINNER [facility] Last Admin: 03/29/20 16:34 Dose: 1,000 mg Documented by: Metoprolol Tartrate (Lopressor) 50 mg PO BEDTIME [facility] Last Admin: 03/29/20 20:40 Dose: 50 mg Documented by: Nicotine (Habitrol) 14 mg TRDERM BEDTIME [facility] Last Admin: 03/29/20 20:40 Dose: Not Given Documented by: Nicotine Polacrilex (Nicorelief) 2 mg CHEW Q2H PRN PRN Reason: Agitation Ondansetron HCl (Zofran) 4 mg IV Q4H PRN PRN Reason: Nausea/Vomiting Last Admin: 03/26/20 11:57 Dose: 4 mg Documented by: Oxycodone HCl (Oxycodone) 10 mg PO Q4H PRN PRN Reason: Pain (severe 7-10) Last Admin: 03/30/20 08:39 Dose: 10 mg Documented by: Polyethylene Glycol (Miralax) 17 gm PO BID PRN PRN Reason: Constipation Ropinirole HCl (Requip) 1 mg PO BEDTIME [facility] Last Admin: 03/29/20 20:50 Dose: 1 mg Documented by: Fluticasone/Salmeterol (Fluticasone-Salmeterol 232-14 Mcg Powder Inha) 1 puff INH BIDRT [facility] Last Admin: 03/30/20 07:28 Dose: 1 puff Documented by: Sodium Chloride (Saline Flush) 10 ml FLUSH ASDIRECTED PRN PRN Reason: Keep Vein Open Last Admin: 03/25/20 20:51 Dose: 10 ml Documented by: Trazodone HCl (Trazodone) 100 mg PO BEDTIME [facility] Last Admin: 03/29/20 20:51 Dose: 100 mg Documented by: Discontinued Medications Dextrose/Water (Dextrose 50% In Water) 50 ml IVPUSH ONETIME ONE Stop: 03/26/20 05:37 Last Admin: 03/26/20 05:49 Dose: 50 ml Documented by: Diazepam (Valium.) 5 mg PO ONETIME ONE Stop: 03/26/20 07:01 Last Admin: 03/26/20 21:52 Dose: Not Given Documented by: Diazepam (Valium.) 5 mg PO ONETIME ONE Stop: 03/27/20 12:31 Last Admin: 03/27/20 12:10 Dose: 5 mg Documented by: Gabapentin (Neurontin) 1,200 mg PO BID [facility] Last Admin: 03/26/20 00:13 Dose: 1,200 mg Documented by: Gadoteridol (Prohance) 20 ml IV . DIRECTED [facility] Stop: 03/27/20 13:01 Last Admin: 03/27/20 13:16 Dose: 20 ml Documented by: Hydromorphone HCl (Dilaudid) 0.5 mg IVPUSH ONETIME ONE Stop: 03/25/20 20:21 Last Admin: 03/25/20 20:26 Dose: 0.5 mg Documented by: Hydromorphone HCl (Dilaudid) 1 mg IVPUSH ONETIME ONE Stop: 03/25/20 20:47 Last Admin: 03/25/20 20:51 Dose: 1 mg Documented by: Hydromorphone HCl (Dilaudid) 1 mg IVPUSH ONETIME ONE Stop: 03/25/20 21:27 Last Admin: 03/25/20 21:31 Dose: 1 mg Documented by: Hydromorphone HCl (Dilaudid) 1 mg IVPUSH ONETIME ONE Stop: 03/25/20 22:33 Last Admin: 03/25/20 22:35 Dose: 1 mg Documented by: Lactated Ringer's (Ringers, Lactated) 1,000 mls [facility] Admin: 03/25/20 21:31 Dose: 500 mls/hr Documented by: Lactated Ringer's (Ringers, Lactated) 1,000 mls @ 125 mls/hr IV ASDIRECTED [facility] Last Admin: 03/26/20 16:08 Dose: 125 mls/hr Documented by: Potassium Chloride 20 meq/Lidocaine HCl 2 ml/ Sodium Chloride 112 mls @ 56 mls/hr IV Q2H [facility] Stop: 03/26/20 16:59 Last Admin: 03/26/20 15:27 Dose: 56 mls/hr Documented by: Sodium Chloride (Normal Saline) 71 mls @ 3 mls/sec IV ONETIME ONE Stop: 03/26/20 12:47 Last Admin: 03/26/20 13:28 Dose: 3 mls/sec Documented by: Lactated Ringer's (Ringers, Lactated) 1,000 mls @ 50 mls/hr IV ASDIRECTED [facility] Last Admin: 03/28/20 04:47 Dose: 50 mls/hr Documented by: Dextrose/Sodium Chloride (Dextrose 5%-Normal Saline) 1,000 mls @ 50 mls/hr IV ASDIRECTED [facility] Last Admin: 03/27/20 16:14 Dose: 50 mls/hr Documented by: Insulin Glargine (Lantus Solostar) 15 units SUBCUT BEDTIME [facility] Last Admin: 03/26/20 00:15 Dose: 15 units Documented by: Insulin Human Lispro (Humalog) 0 unit SUBCUT QIDACANDBED [facility]; Protocol Last Admin: 03/29/20 11:40 Dose: 1 unit Documented by: Iopamidol (Isovue-300 (61%)) 102 ml IV ONETIME ONE Stop: 03/26/20 12:47 Last Admin: 03/26/20 13:28 Dose: 102 ml Documented by: Nicotine (Habitrol) 14 mg TRDERM DAILY [facility] Last Admin: 03/26/20 00:14 Dose: 14 mg Documented by: Ondansetron HCl (Zofran) 4 mg IVPUSH ONETIME ONE Stop: 03/25/20 20:28 Last Admin: 03/25/20 20:30 Dose: 4 mg Documented by: Polyethylene Glycol (Miralax) 34 gm PO BID [facility] Last Admin: 03/28/20 08:32 Dose: Not Given Documented by: Sodium Chloride (Saline Flush) 10 ml FLUSH ONETIME PRN PRN Reason: PER RADIOLOGY PROTOCOL Stop: 03/26/20 12:47 Last Admin: 03/26/20 13:28 Dose: 10 ml Documented by:
[2020-03-30 13:57] VITALS: BP 135/72; PULSE 85
== END 2020-03-30 14:35 | DRG 438 ==
LOC: JP.ED 19:46 → JP.MS 22:39
PROVIDERS: ADMIT Hospitalist; ATTEND Hospitalist
DX: K86.2 Cyst of pancreas (principal); K85.90 Acute pancreatitis without necrosis or infection, unspecified; K76.6 Portal hypertension; K74.60 Unspecified cirrhosis of liver; I25.10 Atherosclerotic heart disease of native coronary artery without angina pectoris; J44.9 Chronic obstructive pulmonary disease, unspecified; E78.00 Pure hypercholesterolemia, unspecified; G47.30 Sleep apnea, unspecified; K21.9 Gastro-esophageal reflux disease without esophagitis; I12.9 Hypertensive chronic kidney disease with stage 1 through stage 4 chronic kidney disease, or unspecified chronic kidney disease; N18.9 Chronic kidney disease, unspecified; E11.22 Type 2 diabetes mellitus with diabetic chronic kidney disease; D63.1 Anemia in chronic kidney disease; F17.210 Nicotine dependence, cigarettes, uncomplicated; E11.9 Type 2 diabetes mellitus without complications; J43.9 Emphysema, unspecified; K86.1 Other chronic pancreatitis; F17.200 Nicotine dependence, unspecified, uncomplicated; M19.90 Unspecified osteoarthritis, unspecified site; M54.2 Cervicalgia; M54.9 Dorsalgia, unspecified; G89.29 Other chronic pain; K44.9 Diaphragmatic hernia without obstruction or gangrene; L72.0 Epidermal cyst; Z88.2 Allergy status to sulfonamides; Z79.899 Other long term (current) drug therapy; Z88.8 Allergy status to other drugs, medicaments and biological substances; Z86.711 Personal history of pulmonary embolism; Z79.4 Long term (current) use of insulin; I25.2 Old myocardial infarction; Z87.01 Personal history of pneumonia (recurrent); Z90.49 Acquired absence of other specified parts of digestive tract; Z79.51 Long term (current) use of inhaled steroids; Z91.041 Radiographic dye allergy status; Z98.890 Other specified postprocedural states
CPT/HCPCS: 36415; 80053; 83690; 85027; 96361; 96374; 96375; 96376; 99284; J1170 ×4; J2405; J7120; 74177; 74177-26; 74183; 74183-26; 76881-26; 76881-LT; 80048; 80076; 82962; 85025; 94640; 94762; A9270-GY; A9579; J1650; J1815; J1815-GY; J2001; J3480; J7050; Q9967

== ENCOUNTER 2020-06-18 13:24 | Emergency (ER) | payer OTHER ==
--- NOTE | 2020-06-18 13:47 | EDM.PDOC ---
ED HPI GENERAL MEDICAL PROBLEM - General Chief Complaint: Abdominal Pain Stated Complaint: STOMACH PAIN Time Seen by Provider: 06/18/20 13:35 Source of Information: Reports: Patient, Family History Limitations: Reports: No Limitations - History of Present Illness INITIAL COMMENTS - FREE TEXT/NARRATIVE: 59-year-old male with known past history of pancreatitis, had sudden onset of abdominal pain 2 hours ago that feels similar to pancreatitis. Very severe, hurts to move or breathe, mostly central abdomen without radiation. He is very uncomfortable, no vomiting but nauseated. No urinary symptoms. Onset: Sudden Duration: Hour(s): (2 hours ago) Location: Reports: Abdomen (Central and upper abdomen) Worsens with: Reports: Movement Associated Symptoms: Reports: Malaise, Other (Nausea but no vomiting, no diarrhea). Denies: Confusion, Chest Pain, Cough, Shortness of Breath Abdomen Pain Score (Numeric/FACES): 10 - Related Data Allergies Allergy/AdvReac Type Severity Reaction Status Date / Time lorazepam [From Ativan] Allergy Intermediate Confusion Verified 06/18/20 13:29 sulfamethoxazole Allergy Intermediate Facial Verified 06/18/20 13:29 [From Septra] Spasms trimethoprim [From Septra] Allergy Intermediate Seizure Verified 06/18/20 13:29 glycopyrrolate [From Robinul] Allergy Seizure Verified 06/18/20 13:29 Iodinated Contrast Media Allergy Renal Verified 06/18/20 13:29 [Iodinated Contrast Media - Failure Oral and] Home Meds: Home Meds Albuterol Sulfate [Proair Respiclick] 2 puff IN Q6HR PRN 10/27/16 [History] Budesonide/Formoterol [Symbicort 160-4.5 MCG] 2 puff IN BID 10/27/16 [History] Lidocaine 5% [Lidoderm 5%] 1 patch TOP ASDIRECTED PRN 10/27/16 [History] rOPINIRole [Requip] 1 mg PO BEDTIME 10/27/16 [History] traZODone 100 mg PO BEDTIME 10/27/16 [History] Cyclobenzaprine HCl 20 mg PO BID 12/20/16 [History] Docusate Sodium/Sennosides [Senna Plus] 2 each PO BID PRN 12/20/16 [History] Gabapentin [Neurontin] 1,200 mg PO BID 12/20/16 [History] Ondansetron [Zofran] 4 mg PO Q8H PRN #20 tab 01/20/17 [Rx] Acetaminophen 650 mg PO ASDIRECTED 08/29/18 [History] DULoxetine [Cymbalta] 80 mg PO DAILY 08/29/18 [History] Melatonin 9 mg PO BEDTIME 08/29/18 [History] Pantoprazole [ProTONIX] 40 mg PO ACBREAKFAST 08/29/18 [History] Cetirizine [ZyrTEC] 10 mg PO DAILY 03/21/20 [History] Cholecalciferol (Vitamin D3) [Vitamin D3] 100 year PO DAILY 03/21/20 [History] Dextrin [Fiber] 350 gm PO BID 03/21/20 [History] Diclofenac Sodium 50 mg PO BID 03/21/20 [History] Famotidine 20 mg PO BID 03/21/20 [History] Gabapentin [Neurontin] 300 mg PO ASDIRECTED 03/21/20 [History] Insulin Glargine,Hum.Rec.Anlog [Lantus Solostar] 11 units SUBCNJ BEDTIME 03/21/20 [History] polyethylene glycoL 3350 [MiraLAX] 34 gm PO BID 03/21/20 [History] Past Medical History HEENT History: Reports: Allergic Rhinitis Cardiovascular History: Reports: CAD, High Cholesterol, Hypertension, PR, Other (See Below) Other Cardiovascular History: angiogram Respiratory History: Reports: COPD, PE, Pneumonia, Recurrent, Sleep Apnea Gastrointestinal History: Reports: GERD, Hiatal Hernia, Pancreatitis, Other (See Below) Other Gastrointestinal History: kink in bowel Genitourinary History: Reports: Acute Renal Failure, Chronic Renal Insuffiency Other Genitourinary History: PREVIOUS INDWELLING MCALLISTER Musculoskeletal History: Reports: Back Pain, Chronic, Neck Pain, Chronic, Osteoarthritis Neurological History: Reports: Concussion, Seizure Endocrine/Metabolic History: Reports: Diabetes, Type II Hematologic History: Reports: Anemia, Blood Transfusion(s) Dermatologic History: Reports: Other (See Below) Other Dermatologic History: rash at different times - Infectious Disease History Infectious Disease History: Reports: Chicken Pox - Past Surgical History Respiratory Surgical History: Reports: Thoracentesis GI Surgical History: Reports: Appendectomy, Evelia Fundoplication Social & Family History - Family History Family Medical History: No Pertinent Family History GI: Reports: Pancreatitis - Caffeine Use Caffeine Use: Reports: Coffee Other Caffeine Use: 2/d - Living Situation & Occupation Living situation: Reports: Occupation: Disabled (lives with in [facility]) ED ROS GENERAL - Review of Systems Review Of Systems: See Below Constitutional: Reports: Malaise, Decreased Appetite. Denies: Fever, Chills HEENT: Denies: Throat Pain Respiratory: Denies: Shortness of Breath Cardiovascular: Denies: Chest Pain GI/Abdominal: Reports: Abdominal Pain, Nausea. Denies: Constipation, Diarrhea, Vomiting Skin: Reports: No Symptoms Neurological: Denies: Dizziness, Headache, Weakness Psychiatric: Reports: Anxiety ED EXAM, GI/ABD - Physical Exam Exam: See Below Exam Limited By: No Limitations General Appearance: Alert, Moderate Distress (Very uncomfortable) Eyes: Bilateral: Normal Appearance (Hydration is normal, no jaundice) Respiratory/Chest: No Respiratory Distress, Lungs Clear Cardiovascular: Regular Rate, Rhythm GI/Abdominal Exam: Rigid, Tender, Abnormal Bowel Sounds (Very few bowel sounds) Course - Vital Signs Last Recorded V/S: Last Vital Signs Temp 97.9 F 06/18/20 13:26 Pulse 71 06/18/20 16:40 Resp 15 06/18/20 16:40 BP 117/72 06/18/20 16:40 Pulse Ox 96 06/18/20 16:40 - Orders/Labs/Meds Labs: Laboratory Tests 06/18/20 06/18/20 06/18/20 Range/Units 14:07 14:07 14:07 WBC 8.6 (4.5-11.0) K/uL RBC 4.98 (4.30-5.90) M/uL Hgb 14.8 (12.0-15.0) g/dL Hct 45.4 (40.0-54.0) % MCV 91 (80-98) fL MCH 30 (27-31) pg MCHC 33 (32-36) % Plt Count 181 (150-400) K/uL Neut % (Auto) 77 H (36-66) % Lymph % (Auto) 12 L (24-44) % [place] % (Auto) 6 (2-6) % Eos % (Auto) 4 (2-4) % Baso % (Auto) 1 (0-1) % Sodium 133 L (140-148) mmol/L Potassium 4.1 (3.6-5.2) mmol/L Chloride 100 (100-108) mmol/L Carbon Dioxide 27 (21-32) mmol/L Anion Gap 10.1 (5.0-14.0) mmol/L BUN 13 D (7-18) mg/dL Creatinine 0.9 (0.8-1.3) mg/dL Est Cr Clr Drug Dosing 87.15 mL/min Estimated GFR (MDRD) > 60 (>60) Glucose 280 H (74-106) mg/dL Lactic Acid 1.3 (0.4-2.0) mmol/L Calcium 8.7 (8.5-10.1) mg/dL Total Bilirubin 0.2 D (0.2-1.0) mg/dL AST 52 H (15-37) U/L ALT 110 H (12-78) U/L Alkaline Phosphatase 105 (46-116) U/L Total Protein 7.2 (6.4-8.2) g/dL Albumin 3.7 (3.4-5.0) g/dL Globulin 3.5 (2.3-3.5) g/dL Albumin/Globulin Ratio 1.1 L (1.2-2.2) Lipase 84 (73-393) U/L Meds: Medications Discontinued Medications Generic Name Dose Route Start Last Admin Trade Name Freq PRN Reason Stop Dose Admin Hydromorphone HCl 1 mg 06/18/20 13:52 06/18/20 14:00 Dilaudid IVPUSH 06/18/20 13:53 1 mg ONETIME ONE Administration Lactated Ringer's 1,000 mls @ 1,000 mls/hr 06/18/20 13:53 06/18/20 14:00 Ringers, Lactated IV 06/18/20 14:52 1,000 mls/hr BOLUS ONE Administration Ondansetron HCl 4 mg 06/18/20 13:56 06/18/20 14:04 Zofran IVPUSH 06/18/20 13:57 4 mg ONETIME ONE Administration - Re-Assessments/Exams Free Text/Narrative Re-Assessment/Exam: 06/18/20 13:58 IV was started, patient will be hydrated with lactated Ringer, given 1 mg of IV Dilaudid and 4 mg of IV Zofran. CBC CMP lipase and lactic acid were obtained. 06/18/20 16:07 Labs returned very reassuring, amylase and lipase were negative. White count was normal. After the 2 initial medications, the patient's pain resolved almost completely but CT scan did show loops of small bowel indicating a possible partial small bowel obstruction. Patient was discharged with 10 hydrocodone, encouraged to just drink liquid the next 24 to 48 hours along with stool softeners or MiraLAX. He will return if symptoms recur. Departure - Departure Time of Disposition: 17:05 Disposition: Home, Self-Care 01 Clinical Impression: Partial small bowel obstruction Abdominal pain Qualifiers: Abdominal location: upper abdomen, unspecified Qualified Code(s): R10.10 - Upper abdominal pain, unspecified - Discharge Information Instructions: Bowel Obstruction, [id number] Referrals: Radha Cornelius, [facility] [Primary Care Provider] - Forms: ED Department Discharge Care Plan Goals: Continue any current medications, including stool softeners and MiraLAX. Drink only fluids for the next 12 hours and slowly increase diet as tolerated. Use hydrocodone for extra pain control if needed. Return if worsening and pain is persistent. Sepsis Event Note (ED) - Evaluation Sepsis Screening Result: No Definite Risk
[2020-06-18] MEDS ORDERED: HYDROmorphone 1 MG/ML Syringe IVPUSH ONE (13:52)
[2020-06-18] MEDS ORDERED: Lactated Ringers 1,000 ML IV ONE (13:53)
[2020-06-18] MEDS ORDERED: Ondansetron 4 MG/2 ML SDV IVPUSH ONE (13:56)
--- NOTE | 2020-06-18 16:06 | CRLCT ---
INDICATION: Pain. History of chronic pancreatitis. The patient currently does not have elevated pancreatic enzymes. COMPARISON: A similar study dated March 26, 2020 TECHNIQUE: CT examination of the abdomen and pelvis was performed without intravenous contrast. Thin section axial images were obtained from the lung bases through the pubic symphysis. Oral contrast was not administered. By report, the patient is sensitive to intravenous contrast. Please note that all CT scans at this facility use dose modulation, iterative reconstruction, and/or weight-based dosing when appropriate to reduce radiation dose to as low as reasonably achievable. FINDINGS: LUNG BASES: The lung bases as visualized appear normal.The heart size is normal at the lung bases. LIVER/BILIARY SYSTEM:The liver is normal in size. On the prior study, there appeared to have been thrombosis the portal vein with cavernous transformation. This difficult to assess for this finding without contrast. There are serpiginous radiodensities which are probably embolizedcollaterals. There is no biliary ductal dilatation or visible focal mass. ADRENALS: Normal non-contrast appearance KIDNEYS, URETERS and BLADDER:The kidneys appear normal given lack of intravenous contrast. No visible mass, calculus or hydronephrosis. The ureters and bladder as visualized appear normal. SPLEEN:Normal non-contrast appearance. PANCREAS: Evidence of chronic calcific pancreatitis. No definite finding of acute on chronic pancreatitis with the areas not well evaluated without contrast. No definite pseudocysts or mass. RETROPERITONEUM and MESENTERY: There is no mass, adenopathy or aortic aneurysm. GASTROINTESTINAL SYSTEM: Dilated loops of small bowel with air-fluid levels. The findings are probably related to a distal small-bowel obstruction. PELVIS: Enlarged prostate. OSSEOUS STRUCTURES and ABDOMINAL WALL: Degenerative changes without fracture or destructive process.No significant abdominal wall defect. OTHER: No free fluid or free air. IMPRESSION: 1. Findings most consistent with a distal small-bowel obstruction. The exact point of transition is not visible but there is no visible mass or hernia accounting for the obstruction. 2. Findings of chronic calcific pancreatitis. No definite findings of acute pancreatitis and no visible pseudocyst. 3. 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 Please note that all CT scans at this facility use dose modulation, iterative reconstruction, and/or weight-based dosing when appropriate to reduce radiation dose to as low as reasonably achievable. Dictated by Joel Acosta MD @ Jun 18 2020 3:50PM Signed by Dr. Joel Acosta @ Jun 18 2020 4:04PM
[2020-06-18 17:05] VITALS: BP 117/72; PULSE 71
== END 2020-06-18 17:05 | disposition home or self-care (01) ==
LOC: JP.ED 13:24
DX: K56.600 Partial intestinal obstruction, unspecified as to cause (principal); I25.10 Atherosclerotic heart disease of native coronary artery without angina pectoris; I25.2 Old myocardial infarction; J44.9 Chronic obstructive pulmonary disease, unspecified; K21.9 Gastro-esophageal reflux disease without esophagitis; I12.9 Hypertensive chronic kidney disease with stage 1 through stage 4 chronic kidney disease, or unspecified chronic kidney disease; E11.22 Type 2 diabetes mellitus with diabetic chronic kidney disease; N18.9 Chronic kidney disease, unspecified; E78.00 Pure hypercholesterolemia, unspecified; Z88.8 Allergy status to other drugs, medicaments and biological substances; Z88.2 Allergy status to sulfonamides; Z91.041 Radiographic dye allergy status; Z79.899 Other long term (current) drug therapy; Z79.4 Long term (current) use of insulin
CPT/HCPCS: 36415; 74176; 80053; 83605; 83690; 85025; 96374; 96375; 99284; J1170; J2405; J7120; 99283

== ENCOUNTER 2020-08-15 08:02 | Day surgery (SDC) | payer OTHER ==
[~2020-08-15 08:02] MED LIST: Midazolam 1 MG/ML 2 ML SDV ONE; Propofol 200 MG/20 ML SDV ONE; fentaNYL 100 MCG/2 ML SDV ONE
[2020-08-15] MEDS ORDERED: Dextrose 5%-Lactated Ringers 1,000 ML IV SCH (09:15)
[2020-08-15 10:53] VITALS: BP 119/74; PULSE 72
--- NOTE | 2020-08-26 09:42 | OR ---
DATE OF PROCEDURE: 08/15/2020 SURGEON: Joel Sethi MD PREOPERATIVE DIAGNOSIS: History of Ng's esophagus. POSTOPERATIVE DIAGNOSES: 1. History of Ng's esophagus with minimal gross inflammation of esophagogastric junction. 2. Loose, but otherwise intact Evelia fundoplication. 3. Erosive antral gastritis. OPERATIVE PROCEDURE: Upper gastrointestinal endoscopy with: 1. Biopsy of esophagogastric junction with histological evaluation. 2. Biopsies of antrum for CLOtest. ANESTHESIA: IV sedation. INDICATIONS FOR PROCEDURE: This is a 59-year-old male presenting with some recurrent reflux following the previous Evelia fundoplication. Plan is to proceed with an upper GI endoscopy with biopsies as indicated. He does have history of Ng's esophagus though at a minimum. Biopsies of the esophagogastric junction will be obtained for followup of that issue. Potential risks including bleeding and perforation were discussed, and the patient wishes to proceed. DETAILS OF PROCEDURE: The patient was taken to the operating room and placed in a left lateral decubitus position. IV sedation was administered after which the upper GI endoscope was passed orally through the length of the esophagus, into the stomach with retroflexion view of the fundus, and thereafter through the pyloric channel and into the proximal duodenum. Findings included normal hypopharynx, larynx, upper esophageal sphincter, and esophageal body. At the EG junction, the patient had some upward extension of the gastroesophageal junction mucosal line consistent with his history of Ng's esophagus. There was no significant gross inflammation present, and the patient had an intact, but otherwise somewhat loose Evelia fundoplication. Within the stomach, there were some patchy erosions within the field of antral gastritis. No bleeding or blood was present. The pyloric channel and visualized portions of the duodenum were unremarkable. At this point, biopsies were obtained from the antrum and sent for CLOtest for H. pylori. Minimal bleeding was noted there and then biopsies were obtained from the esophagogastric junction for surveillance of the Ng's esophagus and minimal bleeding was seen there as well and the scope then withdrawn, the procedure concluded. The patient presently is on Protonix and Pepcid. With this, he is having some breakthrough reflux and will be taking Tums on a p.r.n. basis. Both he and his along with myself do not feel at this point that his symptoms warrant any revisional procedure. We will see the patient back in 1 month for recheck. Joel Sethi MD /[id number]
== END 2020-08-15 11:00 | disposition home or self-care (01) ==
LOC: JP.SDS 08:02
PROVIDERS: ATTEND Surgery
DX: K29.70 Gastritis, unspecified, without bleeding (principal); Z98.84 Bariatric surgery status; K25.9 Gastric ulcer, unspecified as acute or chronic, without hemorrhage or perforation; K21.9 Gastro-esophageal reflux disease without esophagitis; F17.200 Nicotine dependence, unspecified, uncomplicated
CPT/HCPCS: 43239; 87081; 88305; J2250; J2704; J3010; J7121

== ENCOUNTER → 2021-03-10 | Day surgery (SDC) | payer OTHER ==
[~2021-03-10] MED LIST changes: +Sodium Chloride 0.9% 1,000 ML IV SCH
[2021-03-10 10:01] VITALS: BP 104/70; PULSE 75
--- NOTE | 2021-03-11 10:25 | OR ---
DATE OF PROCEDURE: 03/10/2021 SURGEON: Ibrahima Reese MD PROCEDURE PERFORMED: Colonoscopy. FINDINGS: 1. Marginal colon prep. 2. No other gross abnormalities. COMPLICATIONS: None. WINE MAKER: None. ANESTHESIA: MAC. PREOPERATIVE DIAGNOSIS: Screening colonoscopy. POSTOPERATIVE DIAGNOSIS: Screening colonoscopy. RISKS: Risks, benefits, alternatives, and limitations including, but not limited to infection, bleeding, perforation, false positives, and false negatives were explained to the patient, and he wished to proceed. PROCEDURE IN DETAIL: The patient was placed in the left lateral decubitus position. Digital rectal exam was performed without abnormality. Scope was introduced and advanced atraumatically to the ileocecal valve. A photo was taken. Scope was brought back to the ascending, transverse, descending colon, and retroflexed. No evidence of old or new blood. No masses. No polyps. No diverticulosis. The patient was noted to have a tortuous sigmoid colon. No abnormalities on retroflex. Greater than 8 minutes was spent removing the scope. The prep was marginal. Approximately 85% to 90% of the luminal surface could be seen due to retained solid and liquid stool. The patient tolerated the procedure well. Ibrahima Reese MD /[id number]
== END ==
LOC: JP.SDS 06:52
PROVIDERS: ATTEND Surgery
DX: Z12.11 Encounter for screening for malignant neoplasm of colon (principal); E11.9 Type 2 diabetes mellitus without complications; J44.9 Chronic obstructive pulmonary disease, unspecified; I25.2 Old myocardial infarction; F17.200 Nicotine dependence, unspecified, uncomplicated
CPT/HCPCS: 45378; J2250; J2704; J3010; J7030

== ENCOUNTER 2023-09-23 07:55 | Day surgery (SDC) | payer OTHER ==
[~2023-09-23 07:55] MED LIST changes: -Sodium Chloride 0.9% 1,000 ML IV SCH; -fentaNYL 100 MCG/2 ML SDV ONE; +fentaNYL 50 MCG/ML SDV ONE
[2023-09-23] MEDS: Sodium Chloride 0.9% 1,000 ML IV SCH (08:49)
[2023-09-23 11:47] VITALS: BP 130/86; PULSE 70
== END 2023-09-23 11:59 | disposition home or self-care (01) ==
LOC: JP.SDS 07:55
PROVIDERS: ATTEND Surgery
DX: K22.70 Barrett's esophagus without dysplasia (principal); K44.9 Diaphragmatic hernia without obstruction or gangrene; K22.89 Other specified disease of esophagus; I10 Essential (primary) hypertension; E11.9 Type 2 diabetes mellitus without complications; Z87.891 Personal history of nicotine dependence; Z91.041 Radiographic dye allergy status; Z88.2 Allergy status to sulfonamides; Z88.8 Allergy status to other drugs, medicaments and biological substances
CPT/HCPCS: 43239; 88305; 88312; J2250; J2704; J3010; J7030